=== PATIENT | male | born 1950 | race Caucasian/White ===

== ENCOUNTER → 2016-09-06 | Outpatient (CLI) | payer MEDICARE ==
--- NOTE | 2016-09-06 11:52 | CT ---
EXAMINATION TYPE: CT cervical spine wo con DATE OF EXAM: 09/06/2016 11:44 AM COMPARISON: NONE HISTORY: Gait disturbance, myopathy, leg weakness CT DLP: 1059 mGycm Automated exposure control for dose reduction was used. TECHNIQUE: CT scan of the cervical spine is obtained without contrast, axial images are obtained, sa gittal and coronal reformatted images are also reviewed. FINDINGS: Cervical spine is visualized in its entirety from C1 through upper thoracic levels, demonst rates straightened alignment without evidence of acute fracture or dislocation. Prevertebral soft ti ssue appears within normal limits. The C1-C2 articulation is within normal limits on the coronal alexandrea ges. Osseous structures are demineralized. Vertebral body heights are maintained. There is moderate disc s pace narrowing with moderate to severe spurring at C4-C5 and C5-C6 levels. There is moderate disc spa ce narrowing and spurring at C6-C7 level. Posterior disc herniations are effacing anterior thecal sac at these levels on sagittal images. Review of axial images shows the C2-C3 and C3-C4 levels to have mild right-sided uncovertebral facet degenerative changes, spinal canal is preserved and bilateral neural foramina are felt patent. Axial images at C4-C5 level shows central disc protrusion effacing anterior thecal sac on axial image 48, there is some uncovertebral facet degenerative changes and marginal spurring contributing to mod erate right and mild left-sided neural foraminal narrowing. Axial images at C5-C6 level show left broad-based paracentral disc protrusion effacing anterolateral thecal sac on axial image 55. There is marginal spurring causing moderate bilateral neural foraminal narrowing at this level. Axial images at C6-C7 level shows central disc protrusion effacing anterior thecal sac, bilateral keith ral foramina are likely patent. Axial images at C7-T1 level are felt within normal limits. Visualized thyroid gland is felt within normal limits. Visualized lung apices are grossly clear with some respiratory motion artifact present. There is partial visualization of left sided pacemaker lead s. IMPRESSION: There is no acute fracture or dislocation evident in the cervical spine. Straightening of cervical spine with multilevel degenerative changes seen most prominent at C4-C5 through C6-C7 level s is noted.
--- NOTE | 2016-09-06 11:59 | CT ---
EXAMINATION TYPE: CT lumbar spine wo con DATE OF EXAM: 09/06/2016 11:44 AM COMPARISON: NONE HISTORY: Abn gait, leg weakness, myopathy CT DLP: 1936 mGycm Automated exposure control for dose reduction was used. FINDINGS: There are 5 lumbar type vertebra identified. Lumbar spine shows satisfactory alignment without eviden ce of acute fracture or dislocation. Vertebral body heights are fairly well-maintained. There is mode rate disc space narrowing most pronounced involving the left posterior aspect with vacuum disc phenom enon and moderate spurring at L5-S1 level. There is mild disc space narrowing L4-L5 level. Inferior d isc herniation is seen at L5-S1 level on sagittal images. There is additional mild to moderate multil evel anterior and lateral spurring noted. Review of axial images shows a T12-L1 level to have mild broad disc bulge with a left foraminal disc protrusion component causing mild left-sided neural foraminal narrowing near axial image 17. Spinal c anal is preserved. Right-sided neural foramen is patent. Axial images at the L1-L2 level show mild broad disc bulge mildly effacing anterior thecal sac and ca using mild bilateral anterior inferior neural foraminal narrowing. Axial images at L2-L3 level show mild to moderate broad disc bulge effacing the anterior thecal sac a nd causing mild to moderate bilateral anterior inferior neural foraminal narrowing. Axial images at L3-L4 level show moderate broad disc bulge effacing the anterior thecal sac. There is mild to moderate facet degenerative changes and ligament flavum hypertrophy effacing posterior later al thecal sac causing a spinal canal stenosis on axial image 49. There is moderate right greater than left neural foraminal narrowing at this level identified. Axial images at L4-L5 level show moderate facet degenerative changes and ligamentum flavum hypertroph y bilaterally with some effacement the posterior lateral thecal sac. There is broad-based central dis c protrusion effacing the anterior thecal sac. There is moderate right greater than left neural roxanna inal narrowing at this level identified. Axial images at L5-S1 level show mild facet degenerative changes bilaterally. The central disc protru yaya seen but spinal canal is preserved. There is moderate bilateral neural foraminal narrowing at th is level identified. There are simple appearing 3.5 cm exophytic cyst upper pole level right kidney. There is mild to mode rate calcified atherosclerotic change of aorta and branch vessels. Some diverticula are seen in visua lized portion of the proximal sigmoid colon. IMPRESSION: MULTILEVEL DEGENERATIVE CHANGES DETAILED ABOVE MOST PRONOUNCED IN MID TO LOWER LUMBAR LEVELS. NO A CUTE FRACTURE OR DISLOCATION IS NOTED.
== END | disposition home or self-care (01) ==
LOC: RADCTMAIN 10:23
PROVIDERS: ATTEND Family Medicine
DX: M47.816 Spondylosis without myelopathy or radiculopathy, lumbar region (principal); M47.812 Spondylosis without myelopathy or radiculopathy, cervical region
CPT/HCPCS: 72125; 72131

== ENCOUNTER → 2016-09-09 | Outpatient (CLI) | payer MEDICARE ==
[2016-09-09 14:03] LABS: Calcium 9.7 mg/dL (8.4-10.2); Potassium 3.9 mmol/L (3.5-5.1)
[2016-09-17 12:44] LABS: Mis test requested (Blood) Myas Gravis Pnl 2
== END | disposition home or self-care (01) ==
LOC: LABWHC1 12:50
PROVIDERS: ATTEND Psychiatry & Neurology Neurology
DX: H53.2 Diplopia (principal); M62.81 Muscle weakness (generalized)
CPT/HCPCS: 36415; 80048; 82550; 83036; 83519

== ENCOUNTER → 2016-09-09 | Outpatient (CLI) | payer MEDICARE ==
--- NOTE | 2016-09-09 13:56 | XR ---
EXAMINATION TYPE: XR shoulder complete RT DATE OF EXAM: 09/09/2016 1:47 PM CLINICAL HISTORY: pain TECHNIQUE: Three views of the right shoulder are obtained. COMPARISON: None FINDINGS: There is no acute fracture/dislocation evident. Mild AC joint arthropathy. Subacromial spu rring may result in impingement. Correlate clinically. The visualized ribs are intact and unremarkabl e. IMPRESSION: 1. There is no acute fracture or dislocation. ICD 10 NO FRACTURE, INITIAL EVALUATION
== END | disposition home or self-care (01) ==
LOC: RADXRMAIN 13:34
PROVIDERS: ATTEND Psychiatry & Neurology Neurology
DX: M25.511 Pain in right shoulder (principal)

== ENCOUNTER → 2016-11-27 | Outpatient (CLI) | payer MEDICARE ==
[2016-11-27 11:57] LABS: Appearance,Urine Clear (Clear); Bilirubin,Urine Negative (Negative); Glucose,Urine (UA) Negative (Negative); Ketones,Urine Negative (Negative); Leukocyte Esterase,Urine Negative (Negative); Nitrite,Urine Negative (Negative); Protein,Urine Negative (Negative); Specific Gravity,Urine 1.015 (1.001-1.035); UA Billing (MACRO vs. MICRO) CHEM; Urobilinogen,Urine <2.0 mg/dL (<2.0)
[2016-11-27 11:58] LABS: Basophils % (A) 0 %; CH 29.1; CHCM 33.3; Eosinophils # (A) 0.1 k/uL (0-0.7); Eosinophils % (A) 1 %; HCT 42.8 % (39.0-53.0); HDW 2.92; HGB 14.5 gm/dL (13.0-17.5); Luc # (Auto) 0.21; Luc % (Auto) 4; Lymphocytes # (A) 1.3 k/uL (1.0-4.8); Lymphocytes % (A) 27 %; MCH 29.7 pg (25.0-35.0); MCHC 33.9 g/dL (31.0-37.0); MCV 87.6 fL (80.0-100.0); Mean Platelet Volume 7.9; Monocytes # (A) 0.3 k/uL (0-1.0); Monocytes % (A) 6 %; Neutrophils % (A) 61 %; RBC 4.89 m/uL (4.30-5.90); WBC (Perox) 5.43
[2016-11-27 12:28] LABS: Calcium 9.1 mg/dL (8.4-10.2); Magnesium 2.1 mg/dL (1.6-2.3); Phosphorous 4.1 mg/dL (2.5-4.5); Potassium 3.7 mmol/L (3.5-5.1); Uric Acid 5.8 mg/dL (3.5-8.5)
[2016-11-27 12:37] LABS: % Iron Saturation 24.6 % (20-50)
== END | disposition home or self-care (01) ==
LOC: LABWHC1 11:25
PROVIDERS: ATTEND Nurse Practitioner Family
DX: N18.3 Chronic kidney disease, stage 3 (moderate) (principal); D64.9 Anemia, unspecified; M10.9 Gout, unspecified; E21.3 Hyperparathyroidism, unspecified; E55.9 Vitamin D deficiency, unspecified; N39.0 Urinary tract infection, site not specified; D50.9 Iron deficiency anemia, unspecified; N25.81 Secondary hyperparathyroidism of renal origin
CPT/HCPCS: 36415; 80048; 81003; 82306; 82728; 83540; 83550; 83735; 83970; 84100; 84550; 85025

== ENCOUNTER → 2017-02-03 | Outpatient (CLI) | payer MEDICARE | END | disposition home or self-care (01) | LOC: LABWHC1 13:19 | PROVIDERS: ATTEND Nurse Practitioner Family | DX: N18.3 Chronic kidney disease, stage 3 (moderate) (principal) | CPT/HCPCS: 36415; 80048 ==

== ENCOUNTER → 2017-03-27 | Outpatient (CLI) | payer MEDICARE ==
[2017-03-27 11:56] LABS: EKG EKG PERFORMED
[2017-03-27 12:12] LABS: Basophils % (A) 1 %; CH 30.5; CHCM 33.9; Eosinophils # (A) 0.1 k/uL (0-0.7); Eosinophils % (A) 3 %; HCT 44.6 % (39.0-53.0); HGB 15.1 gm/dL (13.0-17.5); Luc # (Auto) 0.16; Luc % (Auto) 4; Lymphocytes # (A) 1.4 k/uL (1.0-4.8); Lymphocytes % (A) 36 %; MCH 30.6 pg (25.0-35.0); MCHC 33.8 g/dL (31.0-37.0); MCV 90.5 fL (80.0-100.0); Mean Platelet Volume 7.9; Monocytes # (A) 0.3 k/uL (0-1.0); Monocytes % (A) 8 %; Neutrophils % (A) 49 %; RBC 4.93 m/uL (4.30-5.90); RDW 14.9 % (11.5-15.5); WBC (Perox) 4.11
[2017-03-27 12:30] LABS: Anion Gap 10 mmol/L; Blood Urea Nitrogen 22 mg/dL (9-20); Calcium 8.9 mg/dL (8.4-10.2); Carbon Dioxide 27 mmol/L (22-30); Chloride 104 mmol/L (98-107); Glucose 172 mg/dL (74-99); Non-African American GFR(MDRD) 40 (>60 ml/min/1.73 sqM); Potassium 3.4 mmol/L (3.5-5.1); Sodium 141 mmol/L (137-145)
== END | disposition home or self-care (01) ==
LOC: LABPAT 11:42
PROVIDERS: ATTEND Urology
DX: Z01.810 Encounter for preprocedural cardiovascular examination (principal); E11.9 Type 2 diabetes mellitus without complications; N47.1 Phimosis; I10 Essential (primary) hypertension; Z01.812 Encounter for preprocedural laboratory examination
CPT/HCPCS: 80048; 85025; 93005

== ENCOUNTER 2017-04-03 09:23 | Day surgery (SDC) | payer MEDICARE ==
[2017-03-28 11:53] VITALS: BMI 33.4
[~2017-04-03 09:23] MED LIST: DEXAMETHASONE SOD PHOSPHATE 10 MG/ML 1 ML VIAL IV ONE; HYDROmorphone 1 MG/ML 1 ML SYRINGE IVP PRN; LACTATED RINGERS 1,000 ML IV SCH; LIDOCAINE 1% 20 ML VIAL (10MG/ML) FOR IV START INTRADERMA PRN; MIDAZOLAM 2 MG/2 ML VIAL IV PRN; ONDANSETRON 4 MG/2 ML VIAL IVP ONE; SCOPOLAMINE 1.5MG/72HR PATCH TRANSDERM ONE
[2017-04-03 10:15] LABS: Glucose,Whole Blood 136 mg/dL (75-99)
[2017-04-03 10:29] LABS: INR 1.5 (<1.2); Prothrombin Time 15.1 sec (9.0-12.0)
[2017-04-03] MEDS ORDERED: LIDOCAINE 2% INJ 20 MG/ML SQ ONE (11:22)
[2017-04-03] MEDS ORDERED: LIDOCAINE 1% INJ 10MG/ML (20 ML MDV) ONE (11:22)
[2017-04-03] MEDS ORDERED: PROPOFOL 10 MG/ML 20 ML VIAL IV ONE (11:22)
[2017-04-03] MEDS ORDERED: BUPIVACAINE (PF) 0.5% 30 ML VIAL SQ ONE (11:22)
[2017-04-03] MEDS ORDERED: MIDAZOLAM 2 MG/2 ML VIAL ONE (11:22)
[2017-04-03] MEDS ORDERED: fentaNYL (PF) 50 MCG/ML 2 ML AMP ONE (11:22)
--- NOTE | 2017-04-03 12:05 | P.OP ---
Date of Procedure: 04/03/17 Preoperative Diagnosis: Phimosis Postoperative Diagnosis: Same Procedure(s) Performed: Circumcision Implants: Anesthesia: MAC Surgeon: Haroon Mccormack Estimated Blood Loss (ml): 10 IV fluids (ml): 100 Pathology: none sent Condition: stable Disposition: PACU Indications for Procedure: He is a 66-year-old male with phimosis. He desires a circumcision for hygiene reasons. He takes warfarin for atrial fibrillation. He has been cleared by Cardiology. He understands that the warfarin will need to be held perioperatively. Operative Findings: Normal foreskin, difficult to retract. Description of Procedure: The patient was taken to the operating room and placed in the supine position. The external genitalia was prepped and draped sterilely. A 50-50 mixture of 2% lidocaine and 0.25% Marcaine was injected circumferentially at the penile base for a penile block. The scalpel was used to make a circumferential skin incision 1 cm proximal to the glans oquendo. The redundant foreskin was incised in the midline ventrally and dorsally to the desired location, and the redundant foreskin was excised. Subcutaneous bleeders were controlled with electrocautery. The skin edges were reapproximated using 3-0 chromic suture in a running fashion. An Adaptic dressing was placed over the incision, and the penis was then snugly wrapped using a 2 inch Justina with care taken not to constrict the penis in any way. The patient tolerated the procedure well and was taken to the recovery room in stable condition. He will be discharged home postoperatively.
[2017-04-03 12:14] VITALS: TEMP 97.3
[2017-04-03 12:38] LABS: Glucose,Whole Blood 176 mg/dL (75-99)
[2017-04-03 13:25] VITALS: BP 107/67; PULSE 61; RESP 18
[2017-04-03 13:34] LABS: Glucose,Whole Blood 187 mg/dL (75-99)
== END 2017-04-03 13:59 | disposition home or self-care (01) ==
LOC: OR 09:23
PROVIDERS: ATTEND Urology
DX: N47.1 Phimosis (principal); R35.1 Nocturia; R35.0 Frequency of micturition; R39.12 Poor urinary stream; I48.2 Chronic atrial fibrillation; I42.2 Other hypertrophic cardiomyopathy; I13.0 Hypertensive heart and chronic kidney disease with heart failure and stage 1 through stage 4 chronic kidney disease, or unspecified chronic kidney disease; E11.22 Type 2 diabetes mellitus with diabetic chronic kidney disease; N18.3 Chronic kidney disease, stage 3 (moderate); I50.32 Chronic diastolic (congestive) heart failure; Z95.810 Presence of automatic (implantable) cardiac defibrillator; E78.5 Hyperlipidemia, unspecified; N28.1 Cyst of kidney, acquired; I48.92 Unspecified atrial flutter; Z79.01 Long term (current) use of anticoagulants; Z79.82 Long term (current) use of aspirin; Z79.4 Long term (current) use of insulin; Z79.899 Other long term (current) drug therapy; Z87.891 Personal history of nicotine dependence
CPT/HCPCS: 84132; 85610; 54161; J2001 ×2; J2250; J1100; J2405; J3010; J2704

== ENCOUNTER → 2017-04-29 | Outpatient (CLI) | payer MEDICARE ==
[2017-04-29 12:30] LABS: Appearance,Urine Clear (Clear); Bilirubin,Urine Negative (Negative); Glucose,Urine (UA) Negative (Negative); Ketones,Urine Negative (Negative); Leukocyte Esterase,Urine Negative (Negative); Mucus,Urine Rare /hpf; Nitrite,Urine Negative (Negative); PH, Urine 5.5 (5.0-8.0); Particle Count 2081; Protein,Urine Negative (Negative); RBC,Urine 1 /hpf (0-5); Specific Gravity,Urine 1.013 (1.001-1.035); UA Billing (MACRO vs. MICRO) MICRO; Urobilinogen,Urine <2.0 mg/dL (<2.0); WBC,Urine 1 /hpf (0-5)
[2017-04-29 13:05] LABS: Calcium 9.1 mg/dL (8.4-10.2); Phosphorous 3.3 mg/dL (2.5-4.5); Potassium 3.7 mmol/L (3.5-5.1); Uric Acid 6.4 mg/dL (3.5-8.5)
[2017-04-29 13:14] LABS: % Iron Saturation 30.3 % (20-50)
[2017-04-29 13:20] LABS: Basophils % (A) 1 %; CH 31.3; CHCM 34.4; Eosinophils # (A) 0.1 k/uL (0-0.7); Eosinophils % (A) 2 %; HCT 44.8 % (39.0-53.0); HDW 2.78; HGB 14.7 gm/dL (13.0-17.5); Luc # (Auto) 0.15; Luc % (Auto) 4; Lymphocytes # (A) 1.4 k/uL (1.0-4.8); Lymphocytes % (A) 33 %; MCH 30.1 pg (25.0-35.0); MCHC 32.9 g/dL (31.0-37.0); MCV 91.4 fL (80.0-100.0); Mean Platelet Volume 8.6; Monocytes # (A) 0.4 k/uL (0-1.0); Monocytes % (A) 9 %; Neutrophils # (A) 2.1 k/uL (1.3-7.7); Neutrophils % (A) 51 %; RDW 14.8 % (11.5-15.5); WBC 4.2 k/uL (3.8-10.6); WBC (Perox) 4.21
== END | disposition home or self-care (01) ==
LOC: LABWHC1 11:41
PROVIDERS: ATTEND Nurse Practitioner Family
DX: E79.0 Hyperuricemia without signs of inflammatory arthritis and tophaceous disease (principal); N18.3 Chronic kidney disease, stage 3 (moderate); D50.9 Iron deficiency anemia, unspecified; N39.0 Urinary tract infection, site not specified
CPT/HCPCS: 36415; 80048; 81001; 82306; 82728; 83540; 83550; 83735; 83970; 84100; 84550; 85025

== ENCOUNTER → 2017-05-22 | Outpatient (CLI) | payer MEDICARE ==
--- NOTE | 2017-05-22 11:46 | US ---
EXAMINATION TYPE: US kidneys/renal and bladder DATE OF EXAM: 05/22/2017 COMPARISON: NONE CLINICAL HISTORY: Hematuria R31.9. Hematuria EXAM MEASUREMENTS: Right Kidney: 12.6 x 5.3 x 4.6cm Left Kidney: 10.3 x 5.2 x 3.9cm Right Kidney: cystic areas noted with largest = 3.8 x 4.0 x 4.0cm upper pole. Non-shadowing echogenic foci noted with largest = 0.6cm at mid . These foci could represent nonshadowing calculi, hemorrhage or fat. Left Kidney: cystic areas noted with largest = 1.2 x 1.0 x 1.0cm. Non-shadowing echogenic foci noted with largest = 0.6cm at mid. This foci could represent nonshadowing calculi, hemorrhage or fat. Bladder: appears wnl Bilateral Jets seen: no There is no evidence for hydronephrosis at this point in time. No nephrolithiasis is seen. Urinary b ladder is anechoic. Bilateral ureteral jets are seen. IMPRESSION: 1. No evidence of hydronephrosis. Unchanged bilateral nonshadowing hyperdense foci that could represe nt nonobstructing calculi, hemorrhage or fat. These are stable from the prior exam of 08/10/2015. 2. Minimally complex bilateral renal cysts.
== END | disposition home or self-care (01) ==
LOC: RADUSWWP 10:51
PROVIDERS: ATTEND Internal Medicine Nephrology
DX: R31.9 Hematuria, unspecified (principal)
CPT/HCPCS: 76770

== ENCOUNTER → 2017-10-30 | Outpatient (CLI) | payer MEDICARE ==
[2017-10-30 12:23] LABS: Appearance,Urine Clear (Clear); Bilirubin,Urine Negative (Negative); Blood,Urine Negative (Negative); Color,Urine Yellow; Glucose,Urine (UA) Negative (Negative); Ketones,Urine Negative (Negative); Leukocyte Esterase,Urine Negative (Negative); PH, Urine 5.5 (5.0-8.0); Protein,Urine Trace (Negative); Specific Gravity,Urine 1.012 (1.001-1.035); Urobilinogen,Urine <2.0 mg/dL (<2.0)
[2017-10-30 12:24] LABS: Basophils % (A) 0 %; Eosinophils # (A) 0.1 k/uL (0-0.7); Eosinophils % (A) 2 %; HCT 43.6 % (39.0-53.0); HGB 14.7 gm/dL (13.0-17.5); Lymphocytes # (A) 1.5 k/uL (1.0-4.8); Lymphocytes % (A) 36 %; MCH 29.7 pg (25.0-35.0); MCHC 33.7 g/dL (31.0-37.0); MCV 88.1 fL (80.0-100.0); Mean Platelet Volume 7.7; Monocytes # (A) 0.3 k/uL (0-1.0); Monocytes % (A) 8 %; Neutrophils % (A) 50 %; Platelet Count 125 k/uL (150-450); RBC 4.95 m/uL (4.30-5.90); RDW 13.7 % (11.5-15.5)
[2017-10-30 12:45] LABS: Calcium 9.2 mg/dL (8.4-10.2); Phosphorus 3.9 mg/dL (2.5-4.5); Potassium 4.1 mmol/L (3.5-5.1); Uric Acid 5.7 mg/dL (3.5-8.5)
[2017-10-30 16:36] LABS: Iron Saturation 24.1 (15.00-50.00)
[2017-10-30 17:30] LABS: Parathyroid Hormone Intact 169.5 pg/mL (14.0-72.0)
[2017-10-30 22:12] LABS: Hemoglobin A1C 7.8 % (4.0-6.0)
== END | disposition home or self-care (01) ==
LOC: LABWHC1 11:39
PROVIDERS: ATTEND Nurse Practitioner Family
DX: N18.3 Chronic kidney disease, stage 3 (moderate) (principal); E79.0 Hyperuricemia without signs of inflammatory arthritis and tophaceous disease; D50.9 Iron deficiency anemia, unspecified; N25.81 Secondary hyperparathyroidism of renal origin; E11.9 Type 2 diabetes mellitus without complications; N39.0 Urinary tract infection, site not specified
CPT/HCPCS: 36415; 80048; 81003; 82306; 82728; 83036; 83540; 83550; 83735; 83970; 84100; 84550; 85025

== ENCOUNTER → 2018-03-05 | Outpatient (CLI) | payer MEDICARE ==
[2018-03-05 12:48] LABS: Basophils % (A) 1 %; Eosinophils # (A) 0.1 k/uL (0-0.7); Eosinophils % (A) 2 %; HCT 42.9 % (39.0-53.0); HGB 14.7 gm/dL (13.0-17.5); Lymphocytes # (A) 1.8 k/uL (1.0-4.8); Lymphocytes % (A) 38 %; MCHC 34.3 g/dL (31.0-37.0); MCV 87.5 fL (80.0-100.0); Mean Platelet Volume 7.5; Monocytes # (A) 0.3 k/uL (0-1.0); Monocytes % (A) 7 %; Neutrophils # (A) 2.3 k/uL (1.3-7.7); Neutrophils % (A) 49 %; Platelet Count 133 k/uL (150-450); RBC 4.91 m/uL (4.30-5.90); WBC 4.6 k/uL (3.8-10.6)
[2018-03-05 12:54] LABS: Calcium 8.8 mg/dL (8.4-10.2); Magnesium 2.1 mg/dL (1.6-2.3); Phosphorus 3.8 mg/dL (2.5-4.5); Potassium 3.9 mmol/L (3.5-5.1)
[2018-03-05 13:07] LABS: Amorphous Sediment,Urine Rare /hpf; Appearance,Urine Clear (Clear); Bilirubin,Urine Negative (Negative); Blood,Urine Negative (Negative); Color,Urine Yellow; Glucose,Urine (UA) Negative (Negative); Hyaline Casts,Urine 7 /lpf (0-2); Ketones,Urine Negative (Negative); Leukocyte Esterase,Urine Large (Negative); Mucus,Urine Rare /hpf; Nitrite,Urine Negative (Negative); Protein,Urine Trace (Negative); Specific Gravity,Urine 1.016 (1.001-1.035); Squamous Epithelial Cell,Urine 2 /hpf (0-4); Urobilinogen,Urine <2.0 mg/dL (<2.0); WBC,Urine 2 /hpf (0-5)
[2018-03-05 20:14] LABS: Iron Saturation 26.67 (15.00-50.00)
[2018-03-05 20:22] LABS: Vitamin D 25 Hydroxy 30.8 ng/mL (30.0-100.0)
[2018-03-05 21:33] LABS: Parathyroid Hormone Intact 126.3 pg/mL (14.0-72.0)
== END | disposition home or self-care (01) ==
LOC: LABWHC1 11:32
PROVIDERS: ATTEND Internal Medicine Nephrology
DX: E55.9 Vitamin D deficiency, unspecified (principal); N25.81 Secondary hyperparathyroidism of renal origin; N18.3 Chronic kidney disease, stage 3 (moderate); D63.1 Anemia in chronic kidney disease; E21.3 Hyperparathyroidism, unspecified; M10.9 Gout, unspecified; R80.9 Proteinuria, unspecified
CPT/HCPCS: 36415; 80048; 81001; 82040; 82306; 82728; 83540; 83550; 83735; 83970; 84100; 84550; 85025

== ENCOUNTER → 2018-04-07 | Outpatient (CLI) | payer MEDICARE | END | disposition home or self-care (01) | LOC: RADCTMAIN 12:54 | PROVIDERS: ATTEND Ophthalmology | DX: H50.15 Alternating exotropia (principal); Z53.9 Procedure and treatment not carried out, unspecified reason | CPT/HCPCS: 82565; 84520 ==

== ENCOUNTER → 2018-04-21 | Outpatient (CLI) | payer MEDICARE ==
--- NOTE | 2018-04-21 23:03 | CT ---
EXAMINATION TYPE: CT brain wo/w con, CT orbits wo/w con DATE OF EXAM: 04/21/2018 COMPARISON: CT brain August 28, 2016 HISTORY: exotropia. hx mini strokes (accession [id number]), exotropia/mini strokes (accession [id number]) CT DLP: 2290.80 (accession [id number]), 691.90 (accession [id number]) mGycm Automated exposure control for dose reduction was used. CONTRAST: CT scan of the head and orbits are performed without and with IV Contrast, patient injected with 80 ( accession [id number]), [address] (accession [id number]) mL of Isovue 300. FINDINGS: There is no acute intracranial hemorrhage or midline shift identified. There is ventricular and sulca l prominence consistent with diffuse cerebral atrophy. There is more prominent low attenuation in the deep and periventricular white matter. The calvarium is intact. Postcontrast images show no suspici ous enhancing intraparenchymal mass. There is however vascular prominence suspicious for aneurysm or level of the anterior communicating artery axial image 23 that warrants follow-up. The orbital floors and reed are intact bilaterally. The globes are intact bilaterally. There is dive rgent lens or lateral positioning of the left lens. Both lenses are thinned versus prior 2016 CT rais ing concern for underlying cataracts. Rectus muscles are symmetric and felt within normal limits. No suspicious enhancement is seen but there is suboptimal bolus or poor enhancement of vessels noted on postcontrast images. Intraconal fat is preserved bilaterally. Suprasellar cistern is maintained. Opti c chiasm is unremarkable. Suboptimal bolus or enhancement noted on postcontrast images IMPRESSION: 1. There is mild diffuse cerebral atrophy and moderate to advanced chronic small vessel ischemic mendoza ge redemonstrated. No enhancing intraparenchymal masses are noted. 2. New lines divergence raises concern for strabismus, lateral positioning left lens is noted. Thinni ng of both sinuses is suggestive of cataracts. Correlate clinically. 3. Possible aneurysm near level of anterior communicating artery. Advise MRA or CTA of the [place] to further evaluate.
== END | disposition home or self-care (01) ==
LOC: RADCTMAIN 16:55
PROVIDERS: ATTEND Ophthalmology
DX: I67.82 Cerebral ischemia (principal); G31.89 Other specified degenerative diseases of nervous system
CPT/HCPCS: 82565; 84520; 70470; 70482; 36415; Q9967

== ENCOUNTER → 2018-04-23 | Outpatient (CLI) | payer MEDICARE ==
[2018-04-23 16:19] LABS: Potassium 4.2 mmol/L (3.5-5.1)
== END | disposition home or self-care (01) ==
LOC: LABWHC1 15:16
PROVIDERS: ATTEND Internal Medicine Nephrology
DX: N18.3 Chronic kidney disease, stage 3 (moderate) (principal)
CPT/HCPCS: 36415; 80048

== ENCOUNTER → 2018-05-01 | Outpatient (CLI) | payer MEDICARE ==
--- NOTE | 2018-05-03 22:52 | CT ---
EXAMINATION TYPE: CT angio COW [place] DATE OF EXAM: 05/01/2018 COMPARISON: Correlation CT brain 04/21/2018 HISTORY: 67-year-old male Exotropia x 2-3 years. Cerebral aneurysm anterior communicating artery. TECHNIQUE: Contiguous axial scanning of the brain with IV Contrast, patient injected with 65 mL of Is ovue 370. Coronal and sagittal MIP reconstructions performed. 3-D reconstructions generated on a [employer] Experience workstation. CT DLP: 1514 mGycm Automated exposure control for dose reduction was used. FINDINGS: There is confirmation of a 5.7 mm AP by 4.3 mm wide saccular aneurysm of the right paramedian anterio r communicator artery projecting anteriorly. The A1 segment left anterior cerebral artery is hypoplastic. Otherwise, no significant stenosis, arterial occlusion, or other aneurysmal change seen. IMPRESSION: CONFIRMATION OF A 5.7 mm saccular aneurysm projecting anteriorly of the anterior communicating artery . No additional aneurysmal change seen. 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
== END | disposition home or self-care (01) ==
LOC: RADCTMAIN 16:08
PROVIDERS: ATTEND Ophthalmology
DX: Q28.3 Other malformations of cerebral vessels (principal)
CPT/HCPCS: 70496; Q9967

== ENCOUNTER → 2018-07-27 | Outpatient (CLI) | payer MEDICARE ==
[2018-07-27 13:46] LABS: Basophils % (A) 0 %; Eosinophils # (A) 0.1 k/uL (0-0.7); Eosinophils % (A) 2 %; HCT 45.7 % (39.0-53.0); HGB 14.7 gm/dL (13.0-17.5); Lymphocytes # (A) 1.5 k/uL (1.0-4.8); Lymphocytes % (A) 30 %; MCH 28.7 pg (25.0-35.0); MCHC 32.3 g/dL (31.0-37.0); Mean Platelet Volume 7.8; Monocytes # (A) 0.3 k/uL (0-1.0); Monocytes % (A) 7 %; Neutrophils # (A) 2.9 k/uL (1.3-7.7); Neutrophils % (A) 59 %; Platelet Count 151 k/uL (150-450); RBC 5.13 m/uL (4.30-5.90); RDW 14.4 % (11.5-15.5); WBC 4.9 k/uL (3.8-10.6)
[2018-07-27 13:48] LABS: Appearance,Urine Clear (Clear); Bilirubin,Urine Negative (Negative); Blood,Urine Negative (Negative); Color,Urine Yellow; Glucose,Urine (UA) Negative (Negative); Ketones,Urine Negative (Negative); Leukocyte Esterase,Urine Negative (Negative); Nitrite,Urine Negative (Negative); PH, Urine 5.5 (5.0-8.0); Protein,Urine Trace (Negative); Specific Gravity,Urine 1.018 (1.001-1.035); Urobilinogen,Urine <2.0 mg/dL (<2.0)
[2018-07-27 17:49] LABS: Iron Saturation 20.14 (15.00-50.00)
[2018-07-27 17:54] LABS: Parathyroid Hormone Intact 122.6 pg/mL (14.0-72.0)
[2018-07-27 17:56] LABS: Anion Gap 4.9 mmol/L (4.00-12.00); Calcium 8.7 mg/dL (8.7-10.3); Carbon Dioxide 30.1 mmol/L (21.6-31.8); Phosphorus 3.2 mg/dL (2.4-5.1); Potassium 3.5 mmol/L (3.5-5.5)
[2018-07-27 17:58] LABS: Vitamin D 25 Hydroxy 35.7 ng/mL (30.0-100.0)
== END | disposition home or self-care (01) ==
LOC: LABWHC1 11:26
PROVIDERS: ATTEND Internal Medicine Nephrology
DX: N25.81 Secondary hyperparathyroidism of renal origin (principal); N18.3 Chronic kidney disease, stage 3 (moderate)
CPT/HCPCS: 36415; 80048; 81003; 82306; 82728; 83540; 83550; 83735; 83970; 84100; 84550; 85025

== ENCOUNTER → 2018-08-19 | Outpatient (CLI) | payer MEDICARE ==
--- NOTE | 2018-08-19 14:52 | US ---
EXAMINATION TYPE: US kidneys/renal and bladder DATE OF EXAM: 08/19/2018 COMPARISON: CLINICAL HISTORY: N18.3 CKD Stage 3. CKD, no pain, hx renal cysts EXAM MEASUREMENTS: Right Kidney: 9.3 x 4.4 x 5.0 cm Left Kidney: 9.4 x 4.8 x 5.4 cm Right Kidney: Multiple cystic appearing lesions seen. Largest upper pole - 4.0 x 4.4 x 4.3 cm. Nons hadowing echogenic focus in mid- 0.6 cm Left Kidney: Multiple cystic appearing lesions seen. Largest lower pole- 1.1 x 1.1 x 1.1 cm. Nonsha dowing echogenic focus in mid = 0.5 cm Bladder: bladder wall= 5.6 mm, bladder not well distended. Bilateral Jets not seen Multiple thin-walled cysts scattered throughout both kidneys are redemonstrated. Bladder is poorly di stended and thus suboptimally evaluated. Kidneys are lower limits of normal in size with some cortica l thinning. IMPRESSION: Findings consistent with product of chronic medical renal disease redemonstrated. No hydronephrosis i s noted bilaterally.
== END ==
LOC: RADUSWWP 12:10
PROVIDERS: ATTEND Internal Medicine Nephrology
DX: N18.3 Chronic kidney disease, stage 3 (moderate) (principal)
CPT/HCPCS: 76770

== ENCOUNTER → 2018-12-23 | Outpatient (CLI) | payer MEDICARE ==
[2018-12-23 19:38] LABS: Anion Gap 8.9 mmol/L (4.00-12.00); Carbon Dioxide 28.1 mmol/L (21.6-31.8); Potassium 3.5 mmol/L (3.5-5.5)
== END | disposition home or self-care (01) ==
LOC: LABWHC1 14:18
PROVIDERS: ATTEND Nurse Practitioner Family
DX: N18.3 Chronic kidney disease, stage 3 (moderate) (principal)
CPT/HCPCS: 36415; 80048

== ENCOUNTER → 2019-01-18 | Outpatient (CLI) | payer MEDICARE | END | disposition home or self-care (01) | LOC: LABWHC1 13:10 | PROVIDERS: ATTEND Internal Medicine Cardiovascular Disease | DX: E78.5 Hyperlipidemia, unspecified (principal) | CPT/HCPCS: 36415; 83704 ==

== ENCOUNTER → 2019-04-27 | Outpatient (CLI) | payer MEDICARE ==
[2019-04-27 13:49] LABS: Basophils % (A) 0 %; Eosinophils # (A) 0.1 k/uL (0-0.7); Eosinophils % (A) 2 %; HCT 39.6 % (39.0-53.0); HGB 13.1 gm/dL (13.0-17.5); Lymphocytes # (A) 1.5 k/uL (1.0-4.8); Lymphocytes % (A) 35 %; MCH 29.2 pg (25.0-35.0); MCHC 33.1 g/dL (31.0-37.0); MCV 88.1 fL (80.0-100.0); Mean Platelet Volume 7.8; Monocytes # (A) 0.3 k/uL (0-1.0); Monocytes % (A) 7 %; Neutrophils # (A) 2.3 k/uL (1.3-7.7); Neutrophils % (A) 54 %; Platelet Count 115 k/uL (150-450); RDW 13.7 % (11.5-15.5); WBC 4.3 k/uL (3.8-10.6)
[2019-04-27 13:54] LABS: Appearance,Urine Clear (Clear); Bacteria,Urine Rare /hpf; Bilirubin,Urine Negative (Negative); Blood,Urine Trace (Negative); Color,Urine Yellow; Glucose,Urine (UA) Trace (Negative); Ketones,Urine Negative (Negative); Leukocyte Esterase,Urine Large (Negative); Mucus,Urine Occasional /hpf; Nitrite,Urine Negative (Negative); Protein,Urine 1+ (Negative); RBC,Urine 1 /hpf (0-5); Squamous Epithelial Cell,Urine 2 /hpf (0-4); WBC,Urine 4 /hpf (0-5)
[2019-04-27 18:42] LABS: Iron Saturation 25.49 (15.00-50.00)
[2019-04-27 19:39] LABS: Anion Gap 9.7 mmol/L (4.00-12.00); BUN/Creat Ratio 11.18 Ratio (12.00-20.00); Carbon Dioxide 27.3 mmol/L (21.6-31.8); Magnesium 2.2 mg/dL (1.5-2.4); Phosphorus 3.4 mg/dL (2.4-5.1); Potassium 3.2 mmol/L (3.5-5.5); Uric Acid 4.3 mg/dL (3.7-8.7)
== END | disposition home or self-care (01) ==
LOC: LABWHC1 13:03
PROVIDERS: ATTEND Nurse Practitioner Family
DX: N39.0 Urinary tract infection, site not specified (principal); N18.3 Chronic kidney disease, stage 3 (moderate); N25.81 Secondary hyperparathyroidism of renal origin; M10.9 Gout, unspecified; D63.1 Anemia in chronic kidney disease
CPT/HCPCS: 36415; 80048; 81001; 82728; 83540; 83550; 83735; 83970; 84100; 84550; 85025

== ENCOUNTER → 2019-08-31 | Outpatient (CLI) | payer MEDICARE ==
[2019-08-31 17:00] LABS: Basophils % (A) 1 %; Eosinophils # (A) 0.1 k/uL (0-0.7); Eosinophils % (A) 2 %; HCT 43.5 % (39.0-53.0); HGB 14.1 gm/dL (13.0-17.5); Lymphocytes # (A) 1.6 k/uL (1.0-4.8); Lymphocytes % (A) 29 %; MCH 29.1 pg (25.0-35.0); MCHC 32.4 g/dL (31.0-37.0); MCV 89.8 fL (80.0-100.0); Mean Platelet Volume 9.7; Monocytes # (A) 0.4 k/uL (0-1.0); Monocytes % (A) 6 %; Neutrophils # (A) 3.4 k/uL (1.3-7.7); Neutrophils % (A) 60 %; Platelet Count 100 k/uL (150-450); RBC 4.85 m/uL (4.30-5.90); RDW 13.3 % (11.5-15.5); WBC 5.7 k/uL (3.8-10.6)
[2019-08-31 17:07] LABS: Appearance,Urine Clear (Clear); Bilirubin,Urine Negative (Negative); Blood,Urine Negative (Negative); Color,Urine Light Yellow; Glucose,Urine (UA) 3+ (Negative); Ketones,Urine Negative (Negative); Leukocyte Esterase,Urine Negative (Negative); Nitrite,Urine Negative (Negative); PH, Urine 6.5 (5.0-8.0); Protein,Urine Negative (Negative); Specific Gravity,Urine 1.009 (1.001-1.035); Urobilinogen,Urine <2.0 mg/dL (<2.0)
[2019-08-31 23:31] LABS: % Iron Saturation 20.55 (15.00-50.00); African American GFR (CKD) 46.7 (60.0-200.0); Albumin 4.3 g/dL (3.80-4.90); Anion Gap 6.6 mmol/L (4.00-12.00); BUN/Creat Ratio 12.35 Ratio (12.00-20.00); Calcium 8.8 mg/dL (8.7-10.3); Carbon Dioxide 31.4 mmol/L (21.6-31.8); Magnesium 2.2 mg/dL (1.5-2.4); Non-African American GFR(CKD) 40.3 (60.0-200.0); Potassium 3.2 mmol/L (3.5-5.5); Uric Acid 4.1 mg/dL (3.7-8.7)
[2019-08-31 23:40] LABS: Ferritin 219.8 ng/mL (22.0-322.0)
[2019-09-01 00:07] LABS: Creatinine,Urine Random 42.4 mg/dL
[2019-09-01 01:29] LABS: Total Protein,Urine Random 10.3 mg/dL (0.0-13.5)
== END | disposition home or self-care (01) ==
LOC: LABMAIN 13:38
PROVIDERS: ATTEND Internal Medicine Nephrology
DX: N25.81 Secondary hyperparathyroidism of renal origin (principal); N18.3 Chronic kidney disease, stage 3 (moderate); D63.1 Anemia in chronic kidney disease; N39.0 Urinary tract infection, site not specified; M10.9 Gout, unspecified; R80.9 Proteinuria, unspecified
CPT/HCPCS: 36415; 80048; 81003; 82040; 82306; 82570; 82728; 83540; 83550; 83735; 83970; 84100; 84156; 84550; 85025

== ENCOUNTER → 2020-02-01 | Outpatient (CLI) | payer MEDICARE | END | disposition home or self-care (01) | LOC: LABWHC1 14:04 | PROVIDERS: ATTEND Family Medicine | DX: Z53.9 Procedure and treatment not carried out, unspecified reason (principal) ==

== ENCOUNTER → 2020-02-01 | Outpatient (CLI) | payer MEDICARE ==
[2020-02-01 14:58] LABS: Basophils % (A) 0 %; Eosinophils # (A) 0.1 k/uL (0-0.7); Eosinophils % (A) 3 %; HCT 42.6 % (39.0-53.0); HGB 13.5 gm/dL (13.0-17.5); Lymphocytes # (A) 1.6 k/uL (1.0-4.8); Lymphocytes % (A) 34 %; MCH 28.5 pg (25.0-35.0); MCHC 31.7 g/dL (31.0-37.0); MCV 89.8 fL (80.0-100.0); Mean Platelet Volume 8.8; Monocytes # (A) 0.3 k/uL (0-1.0); Monocytes % (A) 7 %; Neutrophils # (A) 2.4 k/uL (1.3-7.7); Neutrophils % (A) 51 %; Platelet Count 112 k/uL (150-450); RBC 4.74 m/uL (4.30-5.90); RDW 13.1 % (11.5-15.5); WBC 4.6 k/uL (3.8-10.6)
[2020-02-01 15:08] LABS: Amorphous Sediment,Urine Rare /hpf; Appearance,Urine Clear (Clear); Bilirubin,Urine Negative (Negative); Blood,Urine Negative (Negative); Color,Urine Yellow; Glucose,Urine (UA) Trace (Negative); Hyaline Casts,Urine 12 /lpf (0-2); Ketones,Urine Negative (Negative); Leukocyte Esterase,Urine Small (Negative); Mucus,Urine Occasional /hpf; Nitrite,Urine Negative (Negative); PH, Urine 6.5 (5.0-8.0); Protein,Urine Trace (Negative); Specific Gravity,Urine 1.018 (1.001-1.035); Squamous Epithelial Cell,Urine 1 /hpf (0-4); WBC,Urine 3 /hpf (0-5)
[2020-02-01 15:20] LABS: Protein/Creatinine Ratio,Urine 0.086
[2020-02-01 20:09] LABS: Ferritin 155.2 ng/mL (22.0-322.0)
[2020-02-01 20:11] LABS: % Iron Saturation 38.46 (15.00-50.00); African American GFR (CKD) 43.5 (60.0-200.0); Albumin/Globulin Ratio 1.74 (1.60-3.17); Anion Gap 5.3 mmol/L (4.00-12.00); BUN/Creat Ratio 10.56 Ratio (12.00-20.00); Calcium 8.8 mg/dL (8.7-10.3); Carbon Dioxide 28.7 mmol/L (21.6-31.8); Chol/HDL Ratio 3.09; Globulin 2.3 g/dL (1.6-3.3); LDL Cholesterol,Calculated 29.6 mg/dL (0.0-131.0); Magnesium 2.2 mg/dL (1.5-2.4); Non-African American GFR(CKD) 37.6 (60.0-200.0); Phosphorus 3.2 mg/dL (2.4-5.1); Potassium 4.2 mmol/L (3.5-5.5); Total Bilirubin 0.7 mg/dL (0.3-1.2); Total Protein 6.3 g/dL (6.2-8.2); VLDL Calculation 18.4 mg/dL (5.00-40.00)
[2020-02-01 22:36] LABS: Hemoglobin A1C 8.3 % (4.0-6.0)
== END | disposition home or self-care (01) ==
LOC: LABWHC1 14:06
PROVIDERS: ATTEND Internal Medicine Nephrology
DX: N18.3 Chronic kidney disease, stage 3 (moderate) (principal); M10.9 Gout, unspecified; N39.0 Urinary tract infection, site not specified; D64.9 Anemia, unspecified; R80.9 Proteinuria, unspecified
CPT/HCPCS: 36415; 80053; 80061; 81001; 82306; 82550; 82570; 82728; 83036; 83540; 83550; 83735; 83970; 84100; 84156; 84550; 85025

== ENCOUNTER → 2020-02-29 | Outpatient (CLI) | payer MEDICARE ==
--- NOTE | 2020-02-29 15:47 | CT ---
EXAMINATION TYPE: CT angio head neck DATE OF EXAM: 02/29/2020 COMPARISON: 05/01/2018 HISTORY: Known aneurysm. Follow up scan CT DLP: 484.2 mGycm CONTRAST: Performed with IV Contrast, patient injected with 65 mL of Isovue 370. Combination Contrast CTA cervical carotids and [place] CTA cervical carotids with 3-D recons truction Contrast CTA of the cervical carotids was performed 3-D reconstruction imaging obtained at a separate workstation. Right carotid system: Mild plaque is seen of the right common carotid artery. There is mild plaque a lso noted at the carotid bulb and proximal ICA. No significant diameter reduction. ECA is patent. Right vertebral artery appears unremarkable. Left carotid system: Mild plaque is seen of the left common carotid artery. There is mild plaque als o noted at the carotid bulb and proximal ICA. No significant diameter reduction. ECA is patent. Lef t vertebral artery appears unremarkable. IMPRESSION: 1. No significant diameter reduction to account for the patient's symptoms. CTA [place] with 3-D reconstruction Contrast CTA of the [place] was performed 3-D reconstruction imaging obtained at a separate workstation. Vertebrobasilar system as well as intracranial portions of the internal carotid arteries and their ma alissa tributaries are patent again noted is a 5.5 x 4.2 mm saccular aneurysm of the anterior communicat ing artery. Left A1 segment is noted to be hypoplastic. Please note MRI provides greater sensitivity and specificity. Visualized brain appears grossly unremarkable. IMPRESSION: 1. Stable aneurysm of the anterior communicating artery.
== END | disposition home or self-care (01) ==
LOC: RADCTMAIN 11:28
PROVIDERS: ATTEND Psychiatry & Neurology Neurology
DX: I67.1 Cerebral aneurysm, nonruptured (principal)
CPT/HCPCS: 82565; 84520; 70496; 70498; 36415; Q9967

== ENCOUNTER → 2020-04-03 | Outpatient (CLI) | payer MEDICARE ==
[2020-04-03 15:39] LABS: HCT 41.1 % (39.0-53.0); HGB 13.3 gm/dL (13.0-17.5); MCH 29.2 pg (25.0-35.0); MCHC 32.2 g/dL (31.0-37.0); MCV 90.4 fL (80.0-100.0); Mean Platelet Volume 7.8; Platelet Count 113 k/uL (150-450); RBC 4.55 m/uL (4.30-5.90); RDW 13.6 % (11.5-15.5); WBC 4.4 k/uL (3.8-10.6)
[2020-04-03 23:25] LABS: INR 1.5 (0.90-1.11); Prothrombin Time 15.8 sec (9.9-11.9)
[2020-04-04 02:53] LABS: African American GFR (CKD) 46.7 (60.0-200.0); Albumin 4.1 g/dL (3.80-4.90); Albumin/Globulin Ratio 1.64 (1.60-3.17); BUN/Creat Ratio 8.82 Ratio (12.00-20.00); Calcium 9.3 mg/dL (8.7-10.3); Globulin 2.5 g/dL (1.6-3.3); LDL Cholesterol,Calculated 35.2 mg/dL (0.0-131.0); Non-African American GFR(CKD) 40.3 (60.0-200.0); Potassium 4.7 mmol/L (3.5-5.5); Total Bilirubin 0.5 mg/dL (0.2-1.2); Total Protein 6.6 g/dL (6.2-8.2); Uric Acid 4.1 mg/dL (3.7-8.7); VLDL Calculation 16.8 mg/dL (5.00-40.00)
== END | disposition home or self-care (01) ==
LOC: LABWHC1 14:50
PROVIDERS: ATTEND Family Medicine
DX: I12.9 Hypertensive chronic kidney disease with stage 1 through stage 4 chronic kidney disease, or unspecified chronic kidney disease (principal); N18.3 Chronic kidney disease, stage 3 (moderate); E11.22 Type 2 diabetes mellitus with diabetic chronic kidney disease; E11.40 Type 2 diabetes mellitus with diabetic neuropathy, unspecified; Z51.81 Encounter for therapeutic drug level monitoring; Z79.899 Other long term (current) drug therapy
CPT/HCPCS: 36415; 80053; 80061; 84550; 85027; 85610

== ENCOUNTER → 2020-05-05 | Outpatient (CLI) | payer MEDICARE ==
[2020-05-05 14:16] LABS: Appearance,Urine Clear (Clear); Bilirubin,Urine Negative (Negative); Blood,Urine Negative (Negative); Color,Urine Yellow; Glucose,Urine (UA) Negative (Negative); Hyaline Casts,Urine 3 /lpf (0-2); Ketones,Urine Negative (Negative); Leukocyte Esterase,Urine Moderate (Negative); Mucus,Urine Rare /hpf; Nitrite,Urine Negative (Negative); Protein,Urine Trace (Negative); RBC,Urine 1 /hpf (0-5); Specific Gravity,Urine 1.017 (1.001-1.035); Squamous Epithelial Cell,Urine 2 /hpf (0-4); Urobilinogen,Urine <2.0 mg/dL (<2.0); WBC,Urine 1 /hpf (0-5)
[2020-05-05 14:18] LABS: Basophils % (A) 1 %; Eosinophils # (A) 0.1 k/uL (0-0.7); Eosinophils % (A) 2 %; HCT 39.3 % (39.0-53.0); HGB 12.7 gm/dL (13.0-17.5); Lymphocytes # (A) 1.9 k/uL (1.0-4.8); Lymphocytes % (A) 35 %; MCH 28.6 pg (25.0-35.0); MCHC 32.2 g/dL (31.0-37.0); MCV 88.6 fL (80.0-100.0); Mean Platelet Volume 8.2; Monocytes # (A) 0.4 k/uL (0-1.0); Monocytes % (A) 7 %; Neutrophils # (A) 2.7 k/uL (1.3-7.7); Neutrophils % (A) 51 %; Platelet Count 125 k/uL (150-450); RBC 4.44 m/uL (4.30-5.90); WBC 5.3 k/uL (3.8-10.6)
[2020-05-05 20:49] LABS: Ferritin 127.3 ng/mL (22.0-322.0)
[2020-05-05 20:55] LABS: % Iron Saturation 17.71 (15.00-50.00); African American GFR (CKD) 50.2 (60.0-200.0); Albumin 4.1 g/dL (3.80-4.90); Anion Gap 7.7 mmol/L (4.00-12.00); Calcium 8.8 mg/dL (8.7-10.3); Carbon Dioxide 28.3 mmol/L (21.6-31.8); Magnesium 2.1 mg/dL (1.5-2.4); Non-African American GFR(CKD) 43.3 (60.0-200.0); Phosphorus 3.8 mg/dL (2.4-5.1); Potassium 3.4 mmol/L (3.5-5.5)
[2020-05-05 21:16] LABS: Total Protein,Urine Random 36.2 mg/dL (0.0-13.5)
== END | disposition home or self-care (01) ==
LOC: LABWHC1 11:48
PROVIDERS: ATTEND Internal Medicine Nephrology
DX: N18.3 Chronic kidney disease, stage 3 (moderate) (principal); N25.81 Secondary hyperparathyroidism of renal origin; M10.9 Gout, unspecified; N39.0 Urinary tract infection, site not specified; D63.1 Anemia in chronic kidney disease; R80.9 Proteinuria, unspecified; E55.9 Vitamin D deficiency, unspecified
CPT/HCPCS: 36415; 80048; 81001; 82040; 82570; 82728; 83540; 83550; 83735; 83970; 84100; 84156; 84550; 85025

== ENCOUNTER → 2020-05-15 | Outpatient (CLI) | payer MEDICARE | END | disposition home or self-care (01) | LOC: LABWHC1 13:57 | PROVIDERS: ATTEND Nurse Practitioner Family | DX: E87.6 Hypokalemia (principal) | CPT/HCPCS: 36415; 84132 ==

== ENCOUNTER 2020-07-07 11:22 | Emergency (ER) | payer MEDICARE ==
[2020-07-07 11:58] VITALS: TEMP 98
--- NOTE | 2020-07-07 12:35 | XR ---
EXAMINATION TYPE: XR foot complete RT DATE OF EXAM: 07/07/2020 COMPARISON: None HISTORY: Pain, swelling TECHNIQUE: Three-view right foot FINDINGS: There is a tiny ossification adjacent to the proximal phalanx second digit could be an old fracture avulsion. No acute osseous abnormality is evident. Secondary ossification centers are at the fifth metatarsal base. There is lucency within the mid diaphysis second digit proximal phalanx felt to more likely be artifa ct. Cortical disruption is not identified. Correlate with location of the patient's pain. Small plantar calcaneal heel spur is present. IMPRESSION: 1. No acute displaced fractures evident. 2. An occult fracture of the mid diaphysis second possible metatarsal can be considered.
[2020-07-07 13:34] LABS: Basophils % (A) 0 %; Eosinophils # (A) 0.1 k/uL (0-0.7); Eosinophils % (A) 2 %; HCT 42.8 % (39.0-53.0); HGB 14.3 gm/dL (13.0-17.5); Lymphocytes # (A) 1.6 k/uL (1.0-4.8); Lymphocytes % (A) 32 %; MCH 30.2 pg (25.0-35.0); MCHC 33.5 g/dL (31.0-37.0); MCV 90.1 fL (80.0-100.0); Monocytes # (A) 0.4 k/uL (0-1.0); Monocytes % (A) 7 %; Neutrophils # (A) 2.8 k/uL (1.3-7.7); Neutrophils % (A) 56 %; Platelet Count 121 k/uL (150-450); RBC 4.75 m/uL (4.30-5.90); RDW 13.3 % (11.5-15.5)
[2020-07-07 13:47] LABS: African American GFR (CKD) 41 (>60 ml/min/1.73 sqM); Anion Gap 8 mmol/L; Blood Urea Nitrogen 39 mg/dL (9-20); C Reactive Protein <5.0 mg/L (<10.0); Calcium 9.6 mg/dL (8.4-10.2); Carbon Dioxide 23 mmol/L (22-30); Chloride 105 mmol/L (98-107); Glucose 267 mg/dL (74-99); Magnesium 2.3 mg/dL (1.6-2.3); Non-African American GFR(CKD) 36 (>60 ml/min/1.73 sqM); Sodium 136 mmol/L (137-145)
[2020-07-07 13:48] LABS: Potassium 5.2 mmol/L (3.5-5.1)
[2020-07-07] MEDS ORDERED: cefTRIAXone IN SWFI 1,000 MG/10 ML SYRINGE IVP STA (14:14)
--- NOTE | 2020-07-07 14:23 | ED ---
General Adult HPI - General Chief complaint: Wound/Laceration Stated complaint: diabetic wounds on feet Time Seen by Provider: 07/07/20 12:53 Source: patient, RN notes reviewed, old records reviewed Mode of arrival: wheelchair Limitations: no limitations - History of Present Illness Initial comments: 70-year-old male resents from the wound center for evaluation of wound on the top of the second digit right toe. Patient states he did receive a shot of antibiotics by his primary care physician but has not been on oral antibiotics. He was seen at the wound center there was some debridement of this wound and he was sent to the emergency department for evaluation. Patient denies fever. He denies significant pain. Denies trauma to the foot. - Related Data Home Medications Medication Instructions Recorded Confirmed Cyclobenzaprine [Flexeril] 10 mg PO HS 01/27/14 07/07/20 Furosemide 80 mg PO DAILY 01/27/14 07/07/20 Tamsulosin HCl 0.4 mg PO DAILY 01/27/14 07/07/20 Warfarin Sodium 3.75 mg PO SUMOWEFRSA 01/27/14 07/07/20 Isosorbide Mononitrate [Imdur] 60 mg PO DAILY 05/30/14 07/07/20 Nitroglycerin Sl Tabs [Nitrostat] 0.4 mg SUBLINGUAL Q5M PRN 05/30/14 07/07/20 allopurinoL [Zyloprim] 150 mg PO DAILY 08/04/15 07/07/20 Aspirin EC [Ecotrin Low Dose] 81 mg PO DAILY 08/28/16 07/07/20 calcitrioL [Rocaltrol] 0.25 mcg PO MOTUWETH 08/28/16 07/07/20 Gabapentin [Neurontin] 600 mg PO BID 03/28/17 07/07/20 DULoxetine HCL [Cymbalta] 120 mg PO DAILY 07/07/20 07/07/20 Ergocalciferol (Vitamin D2) 50,000 unit PO Q30D 07/07/20 07/07/20 [Drisdol] Ezetimibe [Zetia] 10 mg PO DAILY 07/07/20 07/07/20 Ferrous Sulfate [Feosol] 325 mg PO DAILY 07/07/20 07/07/20 Furosemide [Lasix] 40 mg PO HS 07/07/20 07/07/20 Insulin NPH Human Isophane 40 units SQ BID 07/07/20 07/07/20 [NovoLIN N] Levofloxacin [Levaquin] 500 mg PO DAILY 07/07/20 07/07/20 Lisinopril [Zestril] 10 mg PO BID 07/07/20 07/07/20 Metoprolol Succinate (ER) [Toprol 100 mg PO DAILY 07/07/20 07/07/20 Xl] Potassium Chloride ER [K-Dur 20] 20 meq PO DAILY 07/07/20 07/07/20 Rosuvastatin Calcium [Crestor] 40 mg PO DAILY 07/07/20 07/07/20 Spironolactone [Aldactone] 25 mg PO DAILY 07/07/20 07/07/20 Warfarin Sodium [Jantoven] 2.5 mg PO TUTHSA 07/07/20 07/07/20 Previous Rx's Medication Instructions Recorded Cephalexin [Keflex] 500 mg PO Q6HR 10 Days #56 cap 07/07/20 Sulfamethox-Tmp 800-160Mg [Bactrim 1 tab PO Q12HR #28 tab 07/07/20 DS 800-160 mg] Allergies Allergy/AdvReac Type Severity Reaction Status Date / Time No Known Allergies Allergy Verified 07/07/20 13:40 Review of Systems ROS Statement: Those systems with pertinent positive or pertinent negative responses have been documented in the HPI. ROS Other: All systems not noted in ROS Statement are negative. Past Medical History Past Medical History: Atrial Fibrillation, Diabetes Mellitus, Pneumonia History of Any Multi-Drug Resistant Organisms: None Reported Past Surgical History: Heart Catheterization, Pacemaker Additional Past Surgical History / Comment(s): HYPERTENSION Past Anesthesia/Blood Transfusion Reactions: No Reported Reaction Type of Cardiac Device: Permanent Pacemaker, Unknown Device Placement Date:: 2012 Past Psychological History: No Psychological Hx Reported, Depression Smoking Status: Former smoker Past Alcohol Use History: None Reported Past Drug Use History: None Reported - Past Family History Mother Family Medical History: Cancer Additional Family Medical History / Comment(s): kidney cancer General Exam Limitations: no limitations General appearance: alert, in no apparent distress Head exam: Present: atraumatic, normocephalic Eye exam: Present: normal appearance, PERRL ENT exam: Present: normal exam Neck exam: Present: normal inspection. Absent: tenderness, meningismus Respiratory exam: Present: normal lung sounds bilaterally. Absent: respiratory distress, wheezes Cardiovascular Exam: Present: regular rate, normal rhythm GI/Abdominal exam: Present: soft. Absent: distended, tenderness, guarding Extremities exam: Present: other (There is a wound on the dorsal surface of the second digit right foot, approximately 1 cm a 1 cm, there is some mild surrounding erythema. There is no crepitus. There is no drainable abscess or fluctuance. No induration. There is a small amount of erythema tracking several centimeters onto the f) Course Vital Signs 07/07/20 11:55 Temperature 98.0 F Pulse Rate 67 Respiratory 20 Rate Blood Pressure 100/63 O2 Sat by Pulse 98 Oximetry Medical Decision Making - Medical Decision Making X-rays performed, negative for osteomyelitis. According to the patient he has not been consistently on antibiotics. There is very minor soft tissue swelling and erythema. He is given a dose of ceftriaxone in the emergency department. I did offer admission for IV antibiotics, patient prefers to be discharged home. He will be initiated on oral antibiotics and is given strict return parameters. He will monitor both his blood sugar and his erythema his foot. He has normal white blood cell count, negative CRP, negative lactic acid, elevated blood sugar, creatinine at baseline. - Lab Data Result diagrams: 07/07/20 13:13 07/07/20 13:13 Lab Results 07/07/20 07/07/20 07/07/20 Range/Units 13:13 13:13 13:13 WBC 5.0 (3.8-10.6) k/uL RBC 4.75 (4.30-5.90) m/uL Hgb 14.3 (13.0-17.5) gm/dL Hct 42.8 (39.0-53.0) % MCV 90.1 (80.0-100.0) fL MCH 30.2 (25.0-35.0) pg MCHC 33.5 (31.0-37.0) g/dL RDW 13.3 (11.5-15.5) % Plt Count 121 L (150-450) k/uL Neutrophils % 56 % Lymphocytes % 32 % Monocytes % 7 % Eosinophils % 2 % Basophils % 0 % Neutrophils # 2.8 (1.3-7.7) k/uL Lymphocytes # 1.6 (1.0-4.8) k/uL Monocytes # 0.4 (0-1.0) k/uL Eosinophils # 0.1 (0-0.7) k/uL Basophils # 0.0 (0-0.2) k/uL Sodium 136 L (137-145) mmol/L Potassium 5.2 H (3.5-5.1) mmol/L Chloride 105 (98-107) mmol/L Carbon Dioxide 23 (22-30) mmol/L Anion Gap 8 mmol/L BUN 39 H (9-20) mg/dL Creatinine 1.88 H (0.66-1.25) mg/dL Est GFR (CKD-EPI)AfAm 41 (>60 ml/min/1.73 sqM) Est GFR (CKD-EPI)NonAf 36 (>60 ml/min/1.73 sqM) Glucose 267 H (74-99) mg/dL Plasma Lactic Acid John 1.9 (0.7-2.0) mmol/L Calcium 9.6 (8.4-10.2) mg/dL Magnesium 2.3 (1.6-2.3) mg/dL C-Reactive Protein <5.0 (<10.0) mg/L Disposition Clinical Impression: Cellulitis, Wound of foot Disposition: HOME SELF-CARE Condition: Fair Instructions (If sedation given, give patient instructions): Acute Wounds (ED), Cellulitis (ED) Prescriptions: Sulfamethox-Tmp 800-160Mg [Bactrim DS 800-160 mg] 1 tab PO Q12HR #28 tab Cephalexin [Keflex] 500 mg PO Q6HR 10 Days #56 cap Is patient prescribed a controlled substance at d/c from ED?: No Referrals: Joycelyn Tovar DO [Primary Care Provider] - 1-2 days Time of Disposition: 14:30
[2020-07-07 15:50] VITALS: BP 107/72; PULSE 66; RESP 18
== END 2020-07-07 15:35 | disposition home or self-care (01) ==
LOC: EC 11:22
DX: L03.031 Cellulitis of right toe (principal); S91.104A Unspecified open wound of right lesser toe(s) without damage to nail, initial encounter; E11.9 Type 2 diabetes mellitus without complications; I48.91 Unspecified atrial fibrillation; F32.9 Major depressive disorder, single episode, unspecified; Z79.01 Long term (current) use of anticoagulants; Z79.899 Other long term (current) drug therapy; Z79.82 Long term (current) use of aspirin; Z79.4 Long term (current) use of insulin; Z87.891 Personal history of nicotine dependence; X58.XXXA Exposure to other specified factors, initial encounter
CPT/HCPCS: 99284 ×2; 96374 ×2; 36415; 80048; 83605; 83735; 85025; 86140; 87040; 87070; 87205; 87075; 87077; 87186; 73630; J0696

== ENCOUNTER → 2020-07-26 | Outpatient (CLI) | payer MEDICARE ==
--- NOTE | 2020-07-26 13:19 | NM ---
EXAMINATION TYPE: NM bone 3 phase DATE OF EXAM: 07/26/2020 COMPARISON: NONE HISTORY: L03.032 Cellulitis of Left Toe Triple phase bone scintigraphy was performed following the injection of 21.2 mCi Tc 99m MDP. Immedia te images and 3 hours post injection images acquired. FINDINGS: There is degenerative uptake noted about the first metatarsal-phalangeal's bilaterally left greater t cordero right. There is also increased uptake involving the right second toe. Degenerative uptake is note d about the bilateral ankles and mid feet. Mild increased uptake about the left great toe as well may reflect cellulitis. IMPRESSION: 1. No evidence for osteomyelitis. Degenerative uptake as noted. Mild soft tissue uptake left great to e may reflect cellulitis.
== END | disposition home or self-care (01) ==
LOC: RADNMMAIN 08:59
PROVIDERS: ATTEND Podiatrist
DX: M19.072 Primary osteoarthritis, left ankle and foot (principal); M19.071 Primary osteoarthritis, right ankle and foot; R93.7 Abnormal findings on diagnostic imaging of other parts of musculoskeletal system; E11.21 Type 2 diabetes mellitus with diabetic nephropathy; E11.42 Type 2 diabetes mellitus with diabetic polyneuropathy; I73.9 Peripheral vascular disease, unspecified; L97.522 Non-pressure chronic ulcer of other part of left foot with fat layer exposed
CPT/HCPCS: 78315; A9503

== ENCOUNTER 2020-07-30 20:45 | Inpatient (IN) | payer MEDICARE ==
[2020-07-30] MEDS ORDERED: SODIUM CHLORIDE 0.9% 1,000 ML IV STA ×2 (21:16→22:21)
[2020-07-30] MEDS ORDERED: HYDROCORTISONE SUCCINATE 100 MG/2 ML VIAL IV STA (21:21)
[2020-07-30] MEDS ORDERED: SODIUM CHLORIDE 0.9% 1,000 ML IV ONE ×3 (21:24→22:16)
[2020-07-30 21:26] LABS: Glucose,Whole Blood 73 mg/dL (75-99)
[2020-07-30] MEDS ORDERED: DEXTROSE 50% SYRINGE 50 ML IVP STA ×2 (21:27→22:21)
[2020-07-30 21:50] LABS: Basophils # (A) 0.1 k/uL (0-0.2); Basophils % (A) 1 %; Eosinophils # (A) 0.1 k/uL (0-0.7); Eosinophils % (A) 1 %; HCT 38.7 % (39.0-53.0); HGB 13.3 gm/dL (13.0-17.5); Lymphocytes # (A) 2.1 k/uL (1.0-4.8); Lymphocytes % (A) 23 %; MCH 30.1 pg (25.0-35.0); MCHC 34.5 g/dL (31.0-37.0); MCV 87.2 fL (80.0-100.0); Mean Platelet Volume 8.2; Monocytes # (A) 0.7 k/uL (0-1.0); Monocytes % (A) 8 %; Neutrophils # (A) 5.7 k/uL (1.3-7.7); Neutrophils % (A) 65 %; Platelet Count 159 k/uL (150-450); RBC 4.44 m/uL (4.30-5.90); RDW 13.9 % (11.5-15.5); WBC 8.8 k/uL (3.8-10.6)
[2020-07-30 22:04] LABS: Albumin 4.1 g/dL (3.5-5.0); Calcium 9.2 mg/dL (8.4-10.2); Magnesium 2.7 mg/dL (1.6-2.3); Phosphorus 5.4 mg/dL (2.5-4.5); Total Bilirubin 0.5 mg/dL (0.2-1.3); Total Protein 7.3 g/dL (6.3-8.2)
[2020-07-30 22:06] LABS: INR 2.3 (<1.2); Prothrombin Time 22.5 sec (9.0-12.0)
[2020-07-30 22:13] LABS: Glucose,Whole Blood 133 mg/dL (75-99)
--- NOTE | 2020-07-30 22:14 | XR ---
EXAMINATION TYPE: XR chest 1V portable DATE OF EXAM: 07/30/2020 COMPARISON: 08/28/2016 HISTORY: Short of breath Fluid overload. TECHNIQUE: Single view FINDINGS: Heart is borderline enlarged. There is slight pulmonary vascular congestion. There is no de finite pleural effusion. There is left axillary pacemaker. There are chest leads. IMPRESSION: Pulmonary vascularity increased slightly compared to old exam. No overt heart failure see n.
[2020-07-30 22:20] LABS: Potassium 8.4 mmol/L (3.5-5.1)
[2020-07-30] MEDS ORDERED: SODIUM BICARB 8.4% 50 ML SYR (1 MEQ/ML) IV STA (22:21)
[2020-07-30] MEDS ORDERED: INSULIN REGULAR 100 UNIT/ML VIAL IV ONE (22:21)
[2020-07-30] MEDS ORDERED: IPRATROPIUM-ALBUTEROL 3 ML NEB INHALATION PRN (22:23)
[2020-07-30] MEDS ORDERED: NALOXONE 0.4 MG/ML 1 ML VIAL IV PRN (22:23)
[2020-07-30] MEDS ORDERED: DEXTROSE 5%-0.45% NACL 1,000 ML IV SCH (22:30)
--- NOTE | 2020-07-30 22:35 | ED ---
General Adult HPI - General Chief complaint: Weakness Stated complaint: Loss of Taste/Appetite Time Seen by Provider: 07/30/20 21:11 Source: patient, RN notes reviewed, old records reviewed Mode of arrival: wheelchair Limitations: no limitations - History of Present Illness Initial comments: 70-year-old male patient to ED. Patient with a has been very weak, has been falling. Has been having decreased intake. Denies any known trauma to the head or the neck. Denies any other complaints. Systemic: Pt denies fatigue, fever/chills, rash. Pt denies weakness, night sweats, weight loss. Neuro: Pt denies headache, visual disturbances, syncope or pre-syncope. HEENT: Pt denies ocular discharge or irritation, otalgia, rhinorrhea, pharyngitis or notable lymphadenopathy. Cardiopulmonary: Pt denies chest pain, SOB, heart palpitations, dyspnea on exertion. Abdominal/GI: Pt denies abdominal pain, n/v/d. : Pt denies dysuria, burning w/ urination, frequency/urgency. Denies new onset urinary or bowel incontinence. MSK: Pt denies myalgia, loss of strength or function in extremities. Neuro: Pt denies new onset weakness, paresthesias. - Related Data Home Medications Medication Instructions Recorded Confirmed Cyclobenzaprine [Flexeril] 10 mg PO HS 01/27/14 07/30/20 Furosemide 80 mg PO DAILY 01/27/14 07/30/20 Tamsulosin HCl 0.4 mg PO DAILY 01/27/14 07/30/20 Warfarin Sodium 3.75 mg PO SUMOWEFRSA 01/27/14 07/30/20 Isosorbide Mononitrate [Imdur] 60 mg PO DAILY 05/30/14 07/30/20 Nitroglycerin Sl Tabs [Nitrostat] 0.4 mg SUBLINGUAL Q5M PRN 05/30/14 07/30/20 allopurinoL [Zyloprim] 150 mg PO DAILY 08/04/15 07/30/20 Aspirin EC [Ecotrin Low Dose] 81 mg PO DAILY 08/28/16 07/30/20 calcitrioL [Rocaltrol] 0.25 mcg PO MOTUWETH 08/28/16 07/30/20 Gabapentin [Neurontin] 600 mg PO BID 03/28/17 07/30/20 DULoxetine HCL [Cymbalta] 120 mg PO DAILY 07/07/20 07/30/20 Ergocalciferol (Vitamin D2) 50,000 unit PO Q30D 07/07/20 07/30/20 [Drisdol] Ezetimibe [Zetia] 10 mg PO DAILY 07/07/20 07/30/20 Ferrous Sulfate [Feosol] 325 mg PO DAILY 07/07/20 07/30/20 Furosemide [Lasix] 40 mg PO HS 07/07/20 07/30/20 Insulin NPH Human Isophane 40 units SQ BID-W/MEALS 07/07/20 07/30/20 [NovoLIN N] Lisinopril [Zestril] 10 mg PO DAILY 07/07/20 07/30/20 Metoprolol Succinate (ER) [Toprol 100 mg PO DAILY 07/07/20 07/30/20 Xl] Potassium Chloride ER [K-Dur 20] 20 meq PO BID 07/07/20 07/30/20 Rosuvastatin Calcium [Crestor] 40 mg PO DAILY 07/07/20 07/30/20 Spironolactone [Aldactone] 25 mg PO DAILY 07/07/20 07/30/20 Warfarin Sodium [Jantoven] 2.5 mg PO TUTHSA 07/07/20 07/30/20 Allergies Allergy/AdvReac Type Severity Reaction Status Date / Time No Known Allergies Allergy Verified 07/30/20 21:03 Review of Systems ROS Statement: Those systems with pertinent positive or pertinent negative responses have been documented in the HPI. ROS Other: All systems not noted in ROS Statement are negative. Past Medical History Past Medical History: Atrial Fibrillation, Diabetes Mellitus, Pneumonia, Pneumonia History of Any Multi-Drug Resistant Organisms: None Reported Past Surgical History: Heart Catheterization, Pacemaker, Pacemaker Additional Past Surgical History / Comment(s): HYPERTENSION Past Anesthesia/Blood Transfusion Reactions: No Reported Reaction Type of Cardiac Device: Permanent Pacemaker, Unknown Device Placement Date:: 2012 Past Psychological History: No Psychological Hx Reported, Depression Smoking Status: Former smoker Past Alcohol Use History: Occasional Past Drug Use History: None Reported - Past Family History Mother Family Medical History: Cancer Additional Family Medical History / Comment(s): kidney cancer General Exam - General Exam Comments Initial Comments: Constitutional: NAD, AOX3, Pt has pleasant affect. HEENT: NC/AT, trachea midline, neck supple, no lymphadenopathy. Posterior pharynx non erythematous, without exudates. External ears appear normal, without discharge. Mucous membranes moist. Eyes PERRLA, EOM intact. There is no scleral icterus. No pallor noted. Cardiopulmonary: RRR, no murmurs, rubs or gallops, no JVD noted. Lungs CTAB in anterior and posterior early. No peripheral edema. Abdominal exam: Abdomen soft and non-distended. Abdomen non-tender to palpation in all 4 quadrants. Bowel sounds active in LLQ. No hepatosplenomegaly. No ecchymosis Neuro: CN II-XII intact. No nuchal rigidity. No raccon eyes, no beckwith sign, no hemotympanum. No cervical spinal tenderness. MSK: No posterior calf tenderness bilaterally, homans sign negative bilaterally. Posterior tibialis and radial pulse +2 bilaterally. Sensation intact in upper and lower extremities. Full active ROM in upper and lower extremities, 5/5 stregnth. Limitations: no limitations Course Vital Signs 07/30/20 07/30/20 07/30/20 20:49 21:12 21:25 Temperature 97.9 F Pulse Rate 75 86 62 Respiratory 20 20 20 Rate Blood Pressure 59/39 69/48 74/38 O2 Sat by Pulse 94 L 99 95 Oximetry 07/30/20 07/30/20 07/30/20 21:30 21:45 22:00 Temperature Pulse Rate 65 60 62 Respiratory 16 16 16 Rate Blood Pressure 78/45 78/46 83/50 O2 Sat by Pulse 94 L Oximetry 07/30/20 07/30/20 07/31/20 22:15 22:30 00:55 Temperature Pulse Rate 65 65 85 Respiratory 16 16 19 Rate Blood Pressure 84/69 74/53 83/57 O2 Sat by Pulse 97 Oximetry 07/31/20 07/31/20 01:44 03:25 Temperature 98 F Pulse Rate 80 76 Respiratory 17 18 Rate Blood Pressure 93/55 83/56 O2 Sat by Pulse 98 98 Oximetry Medical Decision Making - Medical Decision Making 70-year-old male patient to ED for evaluation feeling weak decreased oral intake multiple falls at home. Vital signs did display a tension. Physical exam negative for acute pathology. Laboratory investigations reveal acute renal failure likely prerenal. BUN 114, potassium 8.4, Cr 6.9, minimally elevated troponin. CT brain c spine negative for acute pathology. CT chest abdomen pelvis displays insterstitial pneumonia. Case was discussed in depth with attending physician Dr. Booker who discussed case with with nephrolology and vascular surgery. Patient was initiated on significant IV fluid rehydration, as well as hyperkalemia treatment with repeat laboratory investigations drawn at 3 hours. Repeat laboratory investigations did display a significantly improved potassium of 6.6, mild improvement in both BUN as well as creatinine. Case was again discussed with Nephrology by Dr. Correa who assumed care. They recommended continue medical management including IV fluid rehydration, Kayexalate, insulin. Patient will be admitted to the ICU for further evaluation. - Lab Data Result diagrams: 07/31/20 00:35 07/31/20 00:35 Lab Results 07/30/20 07/30/20 07/30/20 Range/Units 21:20 21:29 21:29 WBC 8.8 (3.8-10.6) k/uL RBC 4.44 (4.30-5.90) m/uL Hgb 13.3 (13.0-17.5) gm/dL Hct 38.7 L (39.0-53.0) % MCV 87.2 (80.0-100.0) fL MCH 30.1 (25.0-35.0) pg MCHC 34.5 (31.0-37.0) g/dL RDW 13.9 (11.5-15.5) % Plt Count 159 (150-450) k/uL MPV 8.2 Neutrophils % 65 % Lymphocytes % 23 % Monocytes % 8 % Eosinophils % 1 % Basophils % 1 % Neutrophils # 5.7 (1.3-7.7) k/uL Lymphocytes # 2.1 (1.0-4.8) k/uL Monocytes # 0.7 (0-1.0) k/uL Eosinophils # 0.1 (0-0.7) k/uL Basophils # 0.1 (0-0.2) k/uL PT 22.5 H (9.0-12.0) sec INR 2.3 H (<1.2) APTT 30.0 (22.0-30.0) sec Sodium (137-145) mmol/L Potassium (3.5-5.1) mmol/L Chloride (98-107) mmol/L Carbon Dioxide (22-30) mmol/L Anion Gap mmol/L BUN (9-20) mg/dL Creatinine (0.66-1.25) mg/dL Est GFR (CKD-EPI)AfAm (>60 ml/min/1.73 sqM) Est GFR (CKD-EPI)NonAf (>60 ml/min/1.73 sqM) Glucose (74-99) mg/dL POC Glucose (mg/dL) 73 L (75-99) mg/dL POC Glu Manager Portable ID Luna James Plasma Lactic Acid John (0.7-2.0) mmol/L Calcium (8.4-10.2) mg/dL Phosphorus (2.5-4.5) mg/dL Magnesium (1.6-2.3) mg/dL Total Bilirubin (0.2-1.3) mg/dL AST (17-59) U/L ALT (4-49) U/L Alkaline Phosphatase (38-126) U/L Troponin I (0.000-0.034) ng/mL Total Protein (6.3-8.2) g/dL Albumin (3.5-5.0) g/dL TSH (0.465-4.680) mIU/L Urine Color Urine Appearance (Clear) Urine pH (5.0-8.0) Ur Specific [place] (1.001-1.035) Urine Protein (Negative) Urine Glucose (UA) (Negative) Urine Ketones (Negative) Urine Blood (Negative) Urine Nitrite (Negative) Urine Bilirubin (Negative) Urine Urobilinogen (<2.0) mg/dL Ur Leukocyte Esterase (Negative) Urine RBC (0-5) /hpf Urine WBC (0-5) /hpf Ur Squamous Epith Cells (0-4) /hpf Urine Bacteria (None) /hpf Hyaline Casts (0-2) /lpf Urine Mucus (None) /hpf Coronavirus (PCR) (Not Detectd) 07/30/20 07/30/20 07/30/20 Range/Units : 21: 21:29 WBC (3.8-10.6) k/uL RBC (4.30-5.90) m/uL Hgb (13.0-17.5) gm/dL Hct (39.0-53.0) % MCV (80.0-100.0) fL MCH (25.0-35.0) pg MCHC (31.0-37.0) g/dL RDW (11.5-15.5) % Plt Count (150-450) k/uL MPV Neutrophils % % Lymphocytes % % Monocytes % % Eosinophils % % Basophils % % Neutrophils # (1.3-7.7) k/uL Lymphocytes # (1.0-4.8) k/uL Monocytes # (0-1.0) k/uL Eosinophils # (0-0.7) k/uL Basophils # (0-0.2) k/uL PT (9.0-12.0) sec INR (<1.2) APTT (22.0-30.0) sec Sodium 132 L (137-145) mmol/L Potassium 8.4 H* (3.5-5.1) mmol/L Chloride 103 (98-107) mmol/L Carbon Dioxide 17 L (22-30) mmol/L Anion Gap 12 mmol/L BUN 114 H* (9-20) mg/dL Creatinine 6.90 H (0.66-1.25) mg/dL Est GFR (CKD-EPI)AfAm 9 (>60 ml/min/1.73 sqM) Est GFR (CKD-EPI)NonAf 7 (>60 ml/min/1.73 sqM) Glucose 69 L (74-99) mg/dL POC Glucose (mg/dL) (75-99) mg/dL POC Glu Manager Portable ID Plasma Lactic Acid John 1.4 (0.7-2.0) mmol/L Calcium 9.2 (8.4-10.2) mg/dL Phosphorus 5.4 H (2.5-4.5) mg/dL Magnesium 2.7 H (1.6-2.3) mg/dL Total Bilirubin 0.5 (0.2-1.3) mg/dL AST 89 H (17-59) U/L ALT 118 H (4-49) U/L Alkaline Phosphatase 72 (38-126) U/L Troponin I (0.000-0.034) ng/mL Total Protein 7.3 (6.3-8.2) g/dL Albumin 4.1 (3.5-5.0) g/dL TSH 3.360 (0.465-4.680) mIU/L Urine Color Light Yellow Urine Appearance Clear (Clear) Urine pH 5.5 (5.0-8.0) Ur Specific [place] 1.011 (1.001-1.035) Urine Protein Trace H (Negative) Urine Glucose (UA) Negative (Negative) Urine Ketones Negative (Negative) Urine Blood Small H (Negative) Urine Nitrite Negative (Negative) Urine Bilirubin Negative (Negative) Urine Urobilinogen <2.0 (<2.0) mg/dL Ur Leukocyte Esterase Negative (Negative) Urine RBC 2 (0-5) /hpf Urine WBC 2 (0-5) /hpf Ur Squamous Epith Cells <1 (0-4) /hpf Urine Bacteria Rare H (None) /hpf Hyaline Casts 8 H (0-2) /lpf Urine Mucus Rare H (None) /hpf Coronavirus (PCR) (Not Detectd) 07/30/20 07/30/20 07/30/20 Range/Units 21:29 21:29 22:12 WBC (3.8-10.6) k/uL RBC (4.30-5.90) m/uL Hgb (13.0-17.5) gm/dL Hct (39.0-53.0) % MCV (80.0-100.0) fL MCH (25.0-35.0) pg MCHC (31.0-37.0) g/dL RDW (11.5-15.5) % Plt Count (150-450) k/uL MPV Neutrophils % % Lymphocytes % % Monocytes % % Eosinophils % % Basophils % % Neutrophils # (1.3-7.7) k/uL Lymphocytes # (1.0-4.8) k/uL Monocytes # (0-1.0) k/uL Eosinophils # (0-0.7) k/uL Basophils # (0-0.2) k/uL PT (9.0-12.0) sec INR (<1.2) APTT (22.0-30.0) sec Sodium (137-145) mmol/L Potassium (3.5-5.1) mmol/L Chloride (98-107) mmol/L Carbon Dioxide (22-30) mmol/L Anion Gap mmol/L BUN (9-20) mg/dL Creatinine (0.66-1.25) mg/dL Est GFR (CKD-EPI)AfAm (>60 ml/min/1.73 sqM) Est GFR (CKD-EPI)NonAf (>60 ml/min/1.73 sqM) Glucose (74-99) mg/dL POC Glucose (mg/dL) 133 H (75-99) mg/dL POC Glu Manager Portable ID Scar Zuniga Plasma Lactic Acid John (0.7-2.0) mmol/L Calcium (8.4-10.2) mg/dL Phosphorus (2.5-4.5) mg/dL Magnesium (1.6-2.3) mg/dL Total Bilirubin (0.2-1.3) mg/dL AST (17-59) U/L ALT (4-49) U/L Alkaline Phosphatase (38-126) U/L Troponin I 0.042 H* (0.000-0.034) ng/mL Total Protein (6.3-8.2) g/dL Albumin (3.5-5.0) g/dL TSH (0.465-4.680) mIU/L Urine Color Urine Appearance (Clear) Urine pH (5.0-8.0) Ur Specific [place] (1.001-1.035) Urine Protein (Negative) Urine Glucose (UA) (Negative) Urine Ketones (Negative) Urine Blood (Negative) Urine Nitrite (Negative) Urine Bilirubin (Negative) Urine Urobilinogen (<2.0) mg/dL Ur Leukocyte Esterase (Negative) Urine RBC (0-5) /hpf Urine WBC (0-5) /hpf Ur Squamous Epith Cells (0-4) /hpf Urine Bacteria (None) /hpf Hyaline Casts (0-2) /lpf Urine Mucus (None) /hpf Coronavirus (PCR) Not Detected (Not Detectd) Disposition Clinical Impression: Pneumonia, Acute renal failure, Sepsis Disposition: ADMITTED IP TO THIS HOSP Condition: Serious Is patient prescribed a controlled substance at d/c from ED?: No
[2020-07-30] MEDS ORDERED: CALCIUM GLUCONATE 2 GM in SODIUM CHLORIDE 0.9% 100 ML IVPB ONE (22:45)
[2020-07-30 23:00] LABS: Appearance,Urine Clear (Clear); Bacteria,Urine Rare /hpf; Bilirubin,Urine Negative (Negative); Blood,Urine Small (Negative); Color,Urine Light Yellow; Glucose,Urine (UA) Negative (Negative); Hyaline Casts,Urine 8 /lpf (0-2); Ketones,Urine Negative (Negative); Leukocyte Esterase,Urine Negative (Negative); Mucus,Urine Rare /hpf; Nitrite,Urine Negative (Negative); PH, Urine 5.5 (5.0-8.0); Protein,Urine Trace (Negative); RBC,Urine 2 /hpf (0-5); Specific Gravity,Urine 1.011 (1.001-1.035); Squamous Epithelial Cell,Urine <1 /hpf (0-4); Urobilinogen,Urine <2.0 mg/dL (<2.0); WBC,Urine 2 /hpf (0-5)
[2020-07-30] MEDS: SODIUM CHLORIDE 0.9% 1,000 ML IV STA (23:04)
--- NOTE | 2020-07-30 23:21 | CT ---
EXAMINATION TYPE: CT brain carolynnine wo con DATE OF EXAM: 07/30/2020 COMPARISON: CT brain 04/21/2018 CT scan cervical spine 09/06/2016 HISTORY: Frequent falls and altered mental status. CT DLP: 2756.5 mGycm Automated exposure control for dose reduction was used. There is cerebral cortical atrophy. There is no mass effect nor midline shift. There is no sign of in tracranial hemorrhage. There is hypodensity in the periventricular white matter. This is more noticea ble in the parietal lobes. The calvarium is intact. There is normal aeration of the mastoid sinuses. The skull base is intact. The cervical vertebra show mild straightening. There is degenerative spur formation from C4 to C7 wit h with mild disc space narrowing. The posterior elements are intact. There is mild hypertrophic facet arthropathy. There is no compression fracture. There is no subluxation. IMPRESSION: Cerebral atrophy. White matter changes probably due to chronic small vessel ischemia that appears not significantly different than old exam. Spondylotic changes in the mid and lower cervical spine unchanged compared to old exam.
--- NOTE | 2020-07-30 23:36 | US ---
EXAMINATION TYPE: US renals and bladder DATE OF EXAM: 07/30/2020 COMPARISON: Multiple US's 08/19/2018 CLINICAL HISTORY: arf. EXAM MEASUREMENTS: Right Kidney: 9.5 x 5.3 x 4.9 cm Left Kidney: 10.6 x 5.3 x 5.9 cm Right Kidney: Multiple cysts, largest upper pole measures 4.2 x 1.9 x 3. cm Left Kidney: Scattered cysts and echogenic foci, largest cyst measures 1.1 x 1.0 x 1.3 cm. Bladder: not seen There is no evidence for hydronephrosis at this point in time. No nephrolithiasis is seen. IMPRESSION: Bilateral renal cortical cysts. No evidence of solid renal mass or obstruction. No significant change compared to old exam. Bladder was empty during the exam.
--- NOTE | 2020-07-31 00:07 | CT ---
EXAMINATION TYPE: CT ChestAbdPelvis wo con DATE OF EXAM: 07/30/2020 COMPARISON: None HISTORY: Abd Pain CT DLP: 1959.60 mGycm Automated exposure control for dose reduction was used. Images obtained from the thoracic inlet to the floor the pelvis without contrast. There is coarse interstitial infiltrate throughout the lungs. Heart is slightly enlarged. There is no pleural effusion. There is no pericardial effusion. There are a few paratracheal lymph nodes that me asure less than 1 cm. There are no hilar masses. There is coronary artery calcification. Thoracic aor ta is atheromatous. There is no aneurysm. There is 2 cm hypodensity in the superior right lobe of the liver. Gallbladder appears normal. Spleen is intact. Stomach is intact. There is no pancreatic mass. The bile ducts are not dilated. There is no adrenal mass. There is 5 cm cortical cyst upper pole right kidney. There is no hydronephr osis. Ureters are not dilated. There is no retroperitoneal adenopathy. Bladder is almost empty. There is Hunter catheter in the urinary bladder. There is mild prostate calcification. There is no inguinal hernia. There is no free fluid in the pelvis. There is no mesenteric edema. There is no ascites or free air. Appendix appears normal. There is no evidence of a bowel obstruction. Thoracic and lumbar vertebra show fairly normal alignment. There is no focal bone destruction. There is 10% depression of the superior endplate of T11 vertebra. This is probably old. The bony pelvis is intact. The hip joints are intact. Sternum is intact. The ribs appear intact. IMPRESSION: Interstitial pneumonia. No suspicious discrete pulmonary mass. Cardiomegaly. Rounded hypodense liver lesion could BE hepatic cyst. This could be confirmed with ultrasound if leonela cated. No acute abnormality within the abdomen pelvis.
[2020-07-31] MEDS ORDERED: AZITHROMYCIN 500 MG in SODIUM CHLORIDE 0.9% 250 ML IVPB STA (00:38)
[2020-07-31 01:32] LABS: Basophils % (A) 0 %; Eosinophils % (A) 0 %; HCT 33.2 % (39.0-53.0); HGB 10.9 gm/dL (13.0-17.5); Lymphocytes # (A) 1.3 k/uL (1.0-4.8); Lymphocytes % (A) 19 %; MCH 29.3 pg (25.0-35.0); MCHC 32.9 g/dL (31.0-37.0); MCV 89.1 fL (80.0-100.0); Mean Platelet Volume 7.9; Monocytes # (A) 0.3 k/uL (0-1.0); Monocytes % (A) 5 %; Neutrophils # (A) 5.1 k/uL (1.3-7.7); Neutrophils % (A) 75 %; Platelet Count 126 k/uL (150-450); RBC 3.73 m/uL (4.30-5.90); RDW 14.4 % (11.5-15.5); WBC 6.9 k/uL (3.8-10.6)
[2020-07-31 01:42] LABS: Albumin 2.9 g/dL (3.5-5.0); Calcium 8.2 mg/dL (8.4-10.2); Magnesium 2.3 mg/dL (1.6-2.3); Phosphorus 3.9 mg/dL (2.5-4.5); Total Bilirubin 0.3 mg/dL (0.2-1.3); Total Protein 5.5 g/dL (6.3-8.2)
[2020-07-31 02:15] LABS: Potassium 6.6 mmol/L (3.5-5.1)
[2020-07-31] MEDS ORDERED: DEXTROSE 50% SYRINGE 50 ML IVP STA ×3 (02:19→08:28)
[2020-07-31 02:47] LABS: Glucose,Whole Blood 177 mg/dL (75-99)
[2020-07-31] MEDS ORDERED: INSULIN REGULAR 100 UNIT/ML VIAL IV ONE ×2 (02:53→08:27)
[2020-07-31] MEDS ORDERED: SODIUM POLYSTYRENE SULFONATE 15 GM/60 ML BOTTLE PO ONE (02:53)
[2020-07-31] MEDS: SODIUM CHLORIDE 0.9% 1,000 ML IV STA (03:26)
[2020-07-31 05:51] LABS: Glucose,Whole Blood 131 mg/dL (75-99)
[2020-07-31 06:04] LABS: Basophils % (A) 0 %; Eosinophils # (A) 0.1 k/uL (0-0.7); Eosinophils % (A) 1 %; HCT 32.4 % (39.0-53.0); HGB 10.6 gm/dL (13.0-17.5); Lymphocytes # (A) 0.9 k/uL (1.0-4.8); Lymphocytes % (A) 12 %; MCH 28.8 pg (25.0-35.0); MCHC 32.6 g/dL (31.0-37.0); MCV 88.5 fL (80.0-100.0); Mean Platelet Volume 8.6; Monocytes # (A) 0.4 k/uL (0-1.0); Monocytes % (A) 5 %; Neutrophils # (A) 6.1 k/uL (1.3-7.7); Neutrophils % (A) 81 %; Platelet Count 110 k/uL (150-450); RBC 3.66 m/uL (4.30-5.90); RDW 14.4 % (11.5-15.5); WBC 7.5 k/uL (3.8-10.6)
[2020-07-31 07:00] LABS: Albumin 3.1 g/dL (3.5-5.0); Total Bilirubin 0.5 mg/dL (0.2-1.3); Total Protein 5.8 g/dL (6.3-8.2)
[2020-07-31 07:37] LABS: Potassium 7.2 mmol/L (3.5-5.1)
[2020-07-31] MEDS: PANTOPRAZOLE 40 MG/10 ML VIAL IV SCH (08:02)
[2020-07-31] MEDS ORDERED: SODIUM BICARB 8.4% 50 ML SYR (1 MEQ/ML) IV STA (08:30)
[2020-07-31] MEDS ORDERED: SODIUM BICARB 8.4% 50 ML SYR (1 MEQ/ML) IV ONE ×2 (08:55→09:00)
[2020-07-31] MEDS ORDERED: DEXTROSE 5% IN WATER 1,000 ML with SODIUM BICARB (1 MEQ/ML) 150 ML IV SCH (09:00)
[2020-07-31] MEDS ORDERED: CALCIUM GLUCONATE 1 GM in SODIUM CHLORIDE 0.9% 100 ML IVPB ONE (09:00)
--- NOTE | 2020-07-31 09:06 | P.CNPUL ---
History of Present Illness Consult date: 07/31/20 Reason for consult: other Chief complaint: Weakness, falls History of present illness: 70-year-old white male patient with past medical history of hypertension, atrial fibrillation with previous history of ablation as well as dual-chamber pacemaker implantation, diabetes mellitus type 2, chronic kidney disease stage III, who came into the emergency department on 07/30/2020 with complaints of weakness, loss of appetite, and falling at home. Patient is somewhat confused, and not the best historian, denied any fever chills, denied any headaches, syncope, denied any urinary symptoms, no abdominal pain, no nausea vomiting or diarrhea. CT brain and C-spine were negative for acute pathology, CT chest abdomen and pelvis showed interstitial pattern, rule out underlying pneumonia or mild fluid overload. Blood work showed no evidence of leukocytosis, white blood cell count was 8.8, hemoglobin was 13.3, INR is 2.3, potassium was 8.4, B1 is 114, creatinine is 6.90, lactic acid was 1.4, AST was 89, ALT was 118, troponin was 0.042, urinalysis, show trace 14, small amount of blood, rare bacteria but no clear evidence of infection, COVID PCR was negative. Renal ultrasound was completed showing bilateral renal cortical cysts, no evidence of solid renal mass or obstruction. Bladder was empty during the exam. Blood pressure was 59 with 39 on presentation, patient was given a total of 4 L of fluid boluses, blood pressure is currently improved at 107/89, patient is in sinus mechanism, with a rate of 81, activities of oxygen the pulse ox of 95%, he was started on empiric antibiotics in the form of azithromycin and Rocephin, his hyperkalemia was treated with 2 g of calcium gluconate, 50% dextrose and regular insulin, and was given an amp of sodium bicarb, and 15 g of oral Kayexalate, his maintenance IV fluids are 5% dextrose with 3 amps bicarbonate at a rate of 80 ML per hour. he has been afebrile while the emergency department, has produced 1800 mL in urine output, nephrology is consulted and patient is awaiting a bed in the intensive care unit. Review of Systems All systems: negative Constitutional: Reports weakness, Denies chills, Denies fever Eyes: denies blurred vision, denies pain Ears, nose, mouth and throat: Denies headache, Denies sore throat Cardiovascular: Denies chest pain, Denies shortness of breath Respiratory: Denies cough Gastrointestinal: Reports loss of appetite, Denies abdominal pain, Denies diarrhea, Denies nausea, Denies vomiting Musculoskeletal: Denies myalgias Integumentary: Denies pruritus, Denies rash Neurological: Denies numbness, Denies weakness Psychiatric: Denies anxiety, Denies depression Endocrine: Denies fatigue, Denies weight change Past Medical History Past Medical History: Atrial Fibrillation, Diabetes Mellitus, Pneumonia, Pneumonia History of Any Multi-Drug Resistant Organisms: None Reported Past Surgical History: Heart Catheterization, Pacemaker, Pacemaker Additional Past Surgical History / Comment(s): HYPERTENSION Past Anesthesia/Blood Transfusion Reactions: No Reported Reaction Type of Cardiac Device: Permanent Pacemaker, Unknown Device Placement Date:: 2012 Past Psychological History: No Psychological Hx Reported, Depression Smoking Status: Former smoker Past Alcohol Use History: Occasional Past Drug Use History: None Reported - Past Family History Mother Family Medical History: Cancer Additional Family Medical History / Comment(s): kidney cancer Medications and Allergies Home Medications Medication Instructions Recorded Confirmed Type Cyclobenzaprine [Flexeril] 10 mg PO HS 01/27/14 07/30/20 History Furosemide 80 mg PO DAILY 01/27/14 07/30/20 History Tamsulosin HCl 0.4 mg PO DAILY 01/27/14 07/30/20 History Warfarin Sodium 3.75 mg PO SUMOWEFRSA 01/27/14 07/30/20 History Isosorbide Mononitrate [Imdur] 60 mg PO DAILY 05/30/14 07/30/20 History Nitroglycerin Sl Tabs [Nitrostat] 0.4 mg SUBLINGUAL Q5M PRN 05/30/14 07/30/20 History allopurinoL [Zyloprim] 150 mg PO DAILY 08/04/15 07/30/20 History Aspirin EC [Ecotrin Low Dose] 81 mg PO DAILY 08/28/16 07/30/20 History calcitrioL [Rocaltrol] 0.25 mcg PO MOTUWETH 08/28/16 07/30/20 History Gabapentin [Neurontin] 600 mg PO BID 03/28/17 07/30/20 History DULoxetine HCL [Cymbalta] 120 mg PO DAILY 07/07/20 07/30/20 History Ergocalciferol (Vitamin D2) 50,000 unit PO Q30D 07/07/20 07/30/20 History [Drisdol] Ezetimibe [Zetia] 10 mg PO DAILY 07/07/20 07/30/20 History Ferrous Sulfate [Feosol] 325 mg PO DAILY 07/07/20 07/30/20 History Furosemide [Lasix] 40 mg PO HS 07/07/20 07/30/20 History Insulin NPH Human Isophane 40 units SQ BID-W/MEALS 07/07/20 07/30/20 History [NovoLIN N] Lisinopril [Zestril] 10 mg PO DAILY 07/07/20 07/30/20 History Metoprolol Succinate (ER) [Toprol 100 mg PO DAILY 07/07/20 07/30/20 History Xl] Potassium Chloride ER [K-Dur 20] 20 meq PO BID 07/07/20 07/30/20 History Rosuvastatin Calcium [Crestor] 40 mg PO DAILY 07/07/20 07/30/20 History Spironolactone [Aldactone] 25 mg PO DAILY 07/07/20 07/30/20 History Warfarin Sodium [Jantoven] 2.5 mg PO TUTHSA 07/07/20 07/30/20 History Allergies Allergy/AdvReac Type Severity Reaction Status Date / Time No Known Allergies Allergy Verified 07/30/20 21:03 Physical Exam Vitals: Vital Signs Temp Pulse Resp BP Pulse Ox 07/31/20 08:00 97.9 F 81 16 107/89 95 07/31/20 05:26 98.1 F 77 18 96/61 98 07/31/20 03:25 98 F 76 18 83/56 98 07/31/20 01:44 80 17 93/55 98 07/31/20 00:55 85 19 83/57 97 07/30/20 22:30 65 16 74/53 07/30/20 22:15 65 16 84/69 07/30/20 22:00 62 16 83/50 07/30/20 21:45 60 16 78/46 07/30/20 21:30 65 16 78/45 94 L 07/30/20 21:25 62 20 74/38 95 07/30/20 21:12 86 20 69/48 99 07/30/20 20:49 97.9 F 75 20 59/39 94 L Intake and Output 07/30/20 07/31/20 07/31/20 22:59 06:59 14:59 Output Total 1800 Balance -1800 Output: Urine 1800 Other: Weight 99.79 kg GENERAL EXAM: Alert, confused, 70-year-old white male, on 3 L of oxygen for sats 95%, resting on the gurney in the emergency department, answering simple questions, is to be in no acute distress, oral membranes are extremely dry HEAD: Normocephalic/atraumatic. EYES: Normal reaction of pupils, equal size. Conjunctiva pink, sclera white. NOSE: Clear with pink turbinates. THROAT: No erythema or exudates. NECK: No masses, no JVD, no thyroid enlargement, no adenopathy. CHEST: No chest wall deformity. Symmetrical expansion. LUNGS: Equal air entry with no crackles, wheeze, rhonchi or dullness. CVS: Regular rate and rhythm, normal S1 and S2, no gallops, no murmurs, no rubs ABDOMEN: Soft, nontender. No hepatosplenomegaly, normal bowel sounds, no guarding or rigidity. EXTREMITIES: No clubbing, no edema, no cyanosis, 2+ pulses and upper and lower extremities. MUSCULOSKELETAL: Muscle strength and tone normal. SPINE: No scoliosis or deformity SKIN: No rashes CENTRAL NERVOUS SYSTEM: Alert and oriented -2. Confused. No focal deficits, tone is normal in all 4 extremities. PSYCHIATRIC: Alert and oriented -2. Appropriate affect. Intact judgment and insight. Results - Laboratory Findings CBC and BMP: 07/31/20 05:47 07/31/20 06:25 PT/INR, D-dimer PT 22.5 sec (9.0-12.0) H 07/30/20 21:29 INR 2.3 (<1.2) H 07/30/20 21:29 Abnormal lab findings: Abnormal Labs 07/30/20 07/30/20 07/30/20 21:20 21:29 21:29 RBC Hgb Hct 38.7 L Plt Count Lymphocytes # PT 22.5 H INR 2.3 H Sodium Potassium Chloride Carbon Dioxide BUN Creatinine Glucose POC Glucose (mg/dL) 73 L Calcium Phosphorus Magnesium AST ALT Troponin I Total Protein Albumin Urine Protein Urine Blood Urine Bacteria Hyaline Casts Urine Mucus 07/30/20 07/30/20 07/30/20 21:29 21:29 21:29 RBC Hgb Hct Plt Count Lymphocytes # PT INR Sodium 132 L Potassium 8.4 H* Chloride Carbon Dioxide 17 L BUN 114 H* Creatinine 6.90 H Glucose 69 L POC Glucose (mg/dL) Calcium Phosphorus 5.4 H Magnesium 2.7 H AST 89 H ALT 118 H Troponin I 0.042 H* Total Protein Albumin Urine Protein Trace H Urine Blood Small H Urine Bacteria Rare H Hyaline Casts 8 H Urine Mucus Rare H 07/30/20 07/31/20 07/31/20 22:12 00:35 00:35 RBC 3.73 L Hgb 10.9 L Hct 33.2 L Plt Count 126 L Lymphocytes # PT INR Sodium 135 L Potassium 6.6 H* Chloride 113 H Carbon Dioxide 15 L BUN 98 H Creatinine 5.69 H Glucose 48 L* POC Glucose (mg/dL) 133 H Calcium 8.2 L Phosphorus Magnesium AST 68 H ALT 91 H Troponin I Total Protein 5.5 L Albumin 2.9 L Urine Protein Urine Blood Urine Bacteria Hyaline Casts Urine Mucus 07/31/20 07/31/20 07/31/20 00:35 02:45 03:20 RBC Hgb Hct Plt Count Lymphocytes # PT INR Sodium Potassium Chloride Carbon Dioxide BUN Creatinine Glucose POC Glucose (mg/dL) 177 H Calcium Phosphorus Magnesium AST ALT Troponin I 0.037 H* 0.035 H* Total Protein Albumin Urine Protein Urine Blood Urine Bacteria Hyaline Casts Urine Mucus 07/31/20 07/31/20 07/31/20 05:47 05:49 06:25 RBC 3.66 L Hgb 10.6 L Hct 32.4 L Plt Count 110 L Lymphocytes # 0.9 L PT INR Sodium 134 L Potassium 7.2 H* Chloride 113 H Carbon Dioxide 15 L BUN 90 H Creatinine 5.12 H Glucose 124 H POC Glucose (mg/dL) 131 H Calcium 8.0 L Phosphorus Magnesium AST 75 H ALT 94 H Troponin I Total Protein 5.8 L Albumin 3.1 L Urine Protein Urine Blood Urine Bacteria Hyaline Casts Urine Mucus - Diagnostic Findings Chest x-ray: report reviewed, image reviewed CT scan - chest: report reviewed, image reviewed Additional studies: Renal ultrasound, EKG, CT of the chest, abdomen and pelvis reviewed Assessment and Plan Plan: Assessment: #1. Rule out septic shock, patient came in with hypotension and blood pressure of 59/39, acute kidney injury, with the possibility of sepsis and severe dehyd ration. Received a total of 4 L of fluids in the emergency department, blood pressure has improved #2. Mild interstitial edema on the chest x-ray and CT chest with the possibility of mild fluid overload rule out possibility of pneumonia #3. Dehydration from poor oral intake and diuretic therapy #4. Acute on chronic renal failure #5. Chronic kidney disease stage III at baseline #6. Acute hyperkalemia related to acute kidney injury #7. Troponin leak possibly related to acute kidney injury #8. Acute metabolic encephalopathy related to acute kidney injury, sepsis #9. Hypertension #10. Hyperlipidemia #11. Diabetes mellitus type 2 #12. History of atrial fibrillation status post ablation and status post dual chamber pacemaker insertion Plan: Patient was fluid resuscitated, blood pressure has improved, today's blood work has been reviewed, serum potassium has improved although still remains elevated at 7.2, nephrology is following and making adjustments to patient's medications, chest x-ray and CT chest reviewed, showing interstitial pattern likely related to mild fluid overload, but oxygenation stable on 3 L, obtain proBNP, continue current antibiotics, blood cultures have been sent, and pending at this time. We'll obtain follow-up blood work this morning. Continue current medical treatment, if serum potassium improves may consider downgraded patient to [facility] care. Will continue to follow I performed a history & physical examination of the patient and discussed their management with my nurse practitioner, Mago Gorman. I reviewed the nurse practitioner's note and agree with the documented findings and plan of care. Lung sounds are positive for poor breath sounds. The findings and the impression was discussed with the patient. I attest to the documentation by the nurse practitioner. Time with Patient: Greater than 30
[2020-07-31] MEDS ORDERED: HEPARIN SODIUM 1,000 UN/ML (10ML VL) ONE (12:25)
[2020-07-31] MEDS ORDERED: HEPARIN SODIUM,PORCINE 5,000 UNIT/ML 1 ML VIAL ONE (12:25)
[2020-07-31] MEDS ORDERED: LIDOCAINE 1% INJ 10MG/ML (20 ML MDV) ONE (12:25)
[2020-07-31] MEDS ORDERED: HEPARIN SODIUM 1,000 UN/ML (10ML VL) MISCELLANE ONE (12:28)
[2020-07-31] MEDS ORDERED: LIDOCAINE 1% INJ 10MG/ML (20 ML MDV) SQ ONE (12:29)
--- NOTE | 2020-07-31 12:29 | P.NPCON ---
History of Present Illness - Reason for Consult acute renal failure, hyperkalemia - History of Present Illness Reason for consultation: Acute kidney injury and hyperkalemia History of present illness: Patient is a 70-year-old male seen in renal consultation for acute kidney injury and hyperkalemia. Patient's creatinine was 6.9 on admission yesterday and is 5.12 this morning. Patient has chronic kidney disease stage III with baseline creatinine in the range of 1.5-1.7. Patient's potassium level was also elevated at 8.4 which was medically treated and came down to 6.6 but was again up to 7.2 this morning. Patient received IV calcium gluconate, 10 units of IV insulin with an amp of D50 as well as 2 A of bicarb IV push this morning. I also started the patient on isotonic bicarbonate drip which is currently running at 80 mL an hour. He has a Hunter catheter and is nonoliguric. Patient is not a very reliable historian and is confused at this time. In his home medications I did he was taking spironolactone, potassium supplementation as well as lisinopril. Patient has history of diabetes mellitus and is maintained on insulin. He is noted to be acidotic with a bicarbonate level of 15. He was brought to the hospital due to recurrent falls and weakness. CAT scan revealed interstitial pneumonia. No evidence of hydronephrosis was noted. CT of the head revealed cerebral atrophy. Kidney ultrasound revealed normal-sized kidneys. Again there was no evidence of hydronephrosis. Dialysis catheter is being placed for urgent hemodialysis due to persistent hyperkalemia. Vital signs are stable. General: The patient appeared well nourished and normally developed. HEENT: Head exam is unremarkable. Neck is without jugular venous distension. LUNGS: Breath sounds decreased. HEART: Rate and Rhythm are regular. ABDOMEN: Soft, nontender. EXTREMITITES: No edema. Past Medical History Past Medical History: Atrial Fibrillation, Diabetes Mellitus, Pneumonia, Pneumonia History of Any Multi-Drug Resistant Organisms: None Reported Past Surgical History: Heart Catheterization, Pacemaker, Pacemaker Additional Past Surgical History / Comment(s): HYPERTENSION Past Anesthesia/Blood Transfusion Reactions: No Reported Reaction Type of Cardiac Device: Permanent Pacemaker, Unknown Device Placement Date:: 2012 Past Psychological History: No Psychological Hx Reported, Depression Smoking Status: Former smoker Past Alcohol Use History: Occasional Past Drug Use History: None Reported - Past Family History Mother Family Medical History: Cancer Additional Family Medical History / Comment(s): kidney cancer Medications and Allergies Home Medications Medication Instructions Recorded Confirmed Type Cyclobenzaprine [Flexeril] 10 mg PO HS 01/27/14 07/30/20 History Furosemide 80 mg PO DAILY 01/27/14 07/30/20 History Tamsulosin HCl 0.4 mg PO DAILY 01/27/14 07/30/20 History Warfarin Sodium 3.75 mg PO SUMOWEFRSA 01/27/14 07/30/20 History Isosorbide Mononitrate [Imdur] 60 mg PO DAILY 05/30/14 07/30/20 History Nitroglycerin Sl Tabs [Nitrostat] 0.4 mg SUBLINGUAL Q5M PRN 05/30/14 07/30/20 History allopurinoL [Zyloprim] 150 mg PO DAILY 08/04/15 07/30/20 History Aspirin EC [Ecotrin Low Dose] 81 mg PO DAILY 08/28/16 07/30/20 History calcitrioL [Rocaltrol] 0.25 mcg PO MOTUWETH 08/28/16 07/30/20 History Gabapentin [Neurontin] 600 mg PO BID 03/28/17 07/30/20 History DULoxetine HCL [Cymbalta] 120 mg PO DAILY 07/07/20 07/30/20 History Ergocalciferol (Vitamin D2) 50,000 unit PO Q30D 07/07/20 07/30/20 History [Drisdol] Ezetimibe [Zetia] 10 mg PO DAILY 07/07/20 07/30/20 History Ferrous Sulfate [Feosol] 325 mg PO DAILY 07/07/20 07/30/20 History Furosemide [Lasix] 40 mg PO HS 07/07/20 07/30/20 History Insulin NPH Human Isophane 40 units SQ BID-W/MEALS 07/07/20 07/30/20 History [NovoLIN N] Lisinopril [Zestril] 10 mg PO DAILY 07/07/20 07/30/20 History Metoprolol Succinate (ER) [Toprol 100 mg PO DAILY 07/07/20 07/30/20 History Xl] Potassium Chloride ER [K-Dur 20] 20 meq PO BID 07/07/20 07/30/20 History Rosuvastatin Calcium [Crestor] 40 mg PO DAILY 07/07/20 07/30/20 History Spironolactone [Aldactone] 25 mg PO DAILY 07/07/20 07/30/20 History Warfarin Sodium [Jantoven] 2.5 mg PO TUTHSA 07/07/20 07/30/20 History Allergies Allergy/AdvReac Type Severity Reaction Status Date / Time No Known Allergies Allergy Verified 07/30/20 21:03 Physical Exam Vitals: Vital Signs Temp Pulse Resp BP Pulse Ox 07/31/20 11:37 89 18 115/64 95 07/31/20 11:00 89 18 106/58 95 07/31/20 10:00 87 16 112/78 95 07/31/20 09:00 86 16 120/74 95 07/31/20 08:00 97.9 F 81 16 107/89 95 07/31/20 05:26 98.1 F 77 18 96/61 98 07/31/20 03:25 98 F 76 18 83/56 98 07/31/20 01:44 80 17 93/55 98 07/31/20 00:55 85 19 83/57 97 07/30/20 22:30 65 16 74/53 07/30/20 22:15 65 16 84/69 07/30/20 22:00 62 16 83/50 07/30/20 21:45 60 16 78/46 07/30/20 21:30 65 16 78/45 94 L 07/30/20 21:25 62 20 74/38 95 07/30/20 21:12 86 20 69/48 99 07/30/20 20:49 97.9 F 75 20 59/39 94 L Intake and Output 07/30/20 07/31/20 07/31/20 22:59 06:59 14:59 Output Total 1800 Balance -1800 Output: Urine 1800 Other: Weight 99.79 kg Results - Lab Results Most recent lab results Calcium 8.0 mg/dL (8.4-10.2) L 07/31/20 06:25 Phosphorus 3.9 mg/dL (2.5-4.5) 07/31/20 00:35 Magnesium 2.3 mg/dL (1.6-2.3) 07/31/20 00:35 07/31/20 05:47 07/31/20 06:25 Assessment and Plan Plan: Assessment: 1. Acute kidney injury mostly prerenal secondary to hypovolemia improving with IV hydration. Creatinine was 6.9 on admission and is 5.12 today. No evidence of hydronephrosis noted on imaging.UA fairly benign. 2. Chronic kidney disease stage III with baseline creatinine in the range of 1.5-1.7. 3. Hyperkalemia secondary to acute kidney injury, metabolic acidosis, spironolactone as well as lisinopril. 4. Metabolic acidosis secondary to acute kidney injury. Plan: Maintain bicarb drip at 80 mL an hour. Temporary dialysis catheter being placed now. He will be dialyzed today. Repeat BMP 2 hours after dialysis today. Maintain Hunter catheter. Strict I's and O's. Continue to monitor renal function and urine output closely. Check phosphorus level as well. Thank you for the consultation. I will continue to follow the patient with you during his hospital stay.
[2020-07-31 12:38] LABS: Albumin 3.1 g/dL (3.5-5.0); Calcium 8.4 mg/dL (8.4-10.2); Total Bilirubin 0.4 mg/dL (0.2-1.3); Total Protein 5.7 g/dL (6.3-8.2)
[2020-07-31 12:41] LABS: Potassium 6.1 mmol/L (3.5-5.1)
--- NOTE | 2020-07-31 13:18 | P.GSCN ---
History of Present Illness History of present illness: This 70-year-old gentleman patient came to the emergency room with shortness of breath and confusion patient had a CT of the brain which was negative for bleed patient also has high potassiu potassium is 8.8 then treated was become 6.6 and I was consulted for placement of urgent dialysis catheter. Patient to creatinine from 6.9-5.12 stage III kidney disease. Patient also has history of diabetes and atrial fibrillation pneumonia Neck examination neck is supple no bruit appreciated Chest patient has a crackles bilateral heart sound is present Abdomen is soft nontender Vascular brachial radial femoral pulses are palpable Impression is acute chronic renal failure with hyperkalemia plan is placement of the dialysis catheter risk and complication discussed Past Medical History Past Medical History: Atrial Fibrillation, Diabetes Mellitus, Pneumonia, Pneumonia History of Any Multi-Drug Resistant Organisms: None Reported Past Surgical History: Heart Catheterization, Pacemaker, Pacemaker Additional Past Surgical History / Comment(s): HYPERTENSION Past Anesthesia/Blood Transfusion Reactions: No Reported Reaction Type of Cardiac Device: Permanent Pacemaker, Unknown Device Placement Date:: 2012 Past Psychological History: No Psychological Hx Reported, Depression Smoking Status: Former smoker Past Alcohol Use History: Occasional Past Drug Use History: None Reported - Past Family History Mother Family Medical History: Cancer Additional Family Medical History / Comment(s): kidney cancer Medications and Allergies Home Medications Medication Instructions Recorded Confirmed Type Cyclobenzaprine [Flexeril] 10 mg PO HS 01/27/14 07/30/20 History Furosemide 80 mg PO DAILY 01/27/14 07/30/20 History Tamsulosin HCl 0.4 mg PO DAILY 01/27/14 07/30/20 History Warfarin Sodium 3.75 mg PO SUMOWEFRSA 01/27/14 07/30/20 History Isosorbide Mononitrate [Imdur] 60 mg PO DAILY 05/30/14 07/30/20 History Nitroglycerin Sl Tabs [Nitrostat] 0.4 mg SUBLINGUAL Q5M PRN 05/30/14 07/30/20 History allopurinoL [Zyloprim] 150 mg PO DAILY 08/04/15 07/30/20 History Aspirin EC [Ecotrin Low Dose] 81 mg PO DAILY 08/28/16 07/30/20 History calcitrioL [Rocaltrol] 0.25 mcg PO MOTUWETH 08/28/16 07/30/20 History Gabapentin [Neurontin] 600 mg PO BID 03/28/17 07/30/20 History DULoxetine HCL [Cymbalta] 120 mg PO DAILY 07/07/20 07/30/20 History Ergocalciferol (Vitamin D2) 50,000 unit PO Q30D 07/07/20 07/30/20 History [Drisdol] Ezetimibe [Zetia] 10 mg PO DAILY 07/07/20 07/30/20 History Ferrous Sulfate [Feosol] 325 mg PO DAILY 07/07/20 07/30/20 History Furosemide [Lasix] 40 mg PO HS 07/07/20 07/30/20 History Insulin NPH Human Isophane 40 units SQ BID-W/MEALS 07/07/20 07/30/20 History [NovoLIN N] Lisinopril [Zestril] 10 mg PO DAILY 07/07/20 07/30/20 History Metoprolol Succinate (ER) [Toprol 100 mg PO DAILY 07/07/20 07/30/20 History Xl] Potassium Chloride ER [K-Dur 20] 20 meq PO BID 07/07/20 07/30/20 History Rosuvastatin Calcium [Crestor] 40 mg PO DAILY 07/07/20 07/30/20 History Spironolactone [Aldactone] 25 mg PO DAILY 07/07/20 07/30/20 History Warfarin Sodium [Jantoven] 2.5 mg PO TUTHSA 07/07/20 07/30/20 History Allergies Allergy/AdvReac Type Severity Reaction Status Date / Time No Known Allergies Allergy Verified 07/30/20 21:03 Surgical - Exam Vital Signs Temp Pulse Resp BP Pulse Ox 97.9 F 75 20 59/39 94 L 07/30/20 20:49 07/30/20 20:49 07/30/20 20:49 07/30/20 20:49 07/30/20 20:49 Results - Labs 07/31/20 05:47 07/31/20 11:34 Abnormal Lab Results - Last 24 Hours (Table) 07/30/20 07/30/20 07/30/20 Range/Units 21:20 21:29 21:29 RBC (4.30-5.90) m/uL Hgb (13.0-17.5) gm/dL Hct 38.7 L (39.0-53.0) % Plt Count (150-450) k/uL Lymphocytes # (1.0-4.8) k/uL PT 22.5 H (9.0-12.0) sec INR 2.3 H (<1.2) Sodium (137-145) mmol/L Potassium (3.5-5.1) mmol/L Chloride (98-107) mmol/L Carbon Dioxide (22-30) mmol/L BUN (9-20) mg/dL Creatinine (0.66-1.25) mg/dL Glucose (74-99) mg/dL POC Glucose (mg/dL) 73 L (75-99) mg/dL Calcium (8.4-10.2) mg/dL Phosphorus (2.5-4.5) mg/dL Magnesium (1.6-2.3) mg/dL AST (17-59) U/L ALT (4-49) U/L Troponin I (0.000-0.034) ng/mL Total Protein (6.3-8.2) g/dL Albumin (3.5-5.0) g/dL Urine Protein (Negative) Urine Blood (Negative) Urine Bacteria (None) /hpf Hyaline Casts (0-2) /lpf Urine Mucus (None) /hpf 07/30/20 07/30/20 07/30/20 Range/Units 21:29 21:29 21:29 RBC (4.30-5.90) m/uL Hgb (13.0-17.5) gm/dL Hct (39.0-53.0) % Plt Count (150-450) k/uL Lymphocytes # (1.0-4.8) k/uL PT (9.0-12.0) sec INR (<1.2) Sodium 132 L (137-145) mmol/L Potassium 8.4 H* (3.5-5.1) mmol/L Chloride (98-107) mmol/L Carbon Dioxide 17 L (22-30) mmol/L BUN 114 H* (9-20) mg/dL Creatinine 6.90 H (0.66-1.25) mg/dL Glucose 69 L (74-99) mg/dL POC Glucose (mg/dL) (75-99) mg/dL Calcium (8.4-10.2) mg/dL Phosphorus 5.4 H (2.5-4.5) mg/dL Magnesium 2.7 H (1.6-2.3) mg/dL AST 89 H (17-59) U/L ALT 118 H (4-49) U/L Troponin I 0.042 H* (0.000-0.034) ng/mL Total Protein (6.3-8.2) g/dL Albumin (3.5-5.0) g/dL Urine Protein Trace H (Negative) Urine Blood Small H (Negative) Urine Bacteria Rare H (None) /hpf Hyaline Casts 8 H (0-2) /lpf Urine Mucus Rare H (None) /hpf 07/30/20 07/31/20 07/31/20 Range/Units 22:12 00:35 00:35 RBC 3.73 L (4.30-5.90) m/uL Hgb 10.9 L (13.0-17.5) gm/dL Hct 33.2 L (39.0-53.0) % Plt Count 126 L (150-450) k/uL Lymphocytes # (1.0-4.8) k/uL PT (9.0-12.0) sec INR (<1.2) Sodium 135 L (137-145) mmol/L Potassium 6.6 H* (3.5-5.1) mmol/L Chloride 113 H (98-107) mmol/L Carbon Dioxide 15 L (22-30) mmol/L BUN 98 H (9-20) mg/dL Creatinine 5.69 H (0.66-1.25) mg/dL Glucose 48 L* (74-99) mg/dL POC Glucose (mg/dL) 133 H (75-99) mg/dL Calcium 8.2 L (8.4-10.2) mg/dL Phosphorus (2.5-4.5) mg/dL Magnesium (1.6-2.3) mg/dL AST 68 H (17-59) U/L ALT 91 H (4-49) U/L Troponin I (0.000-0.034) ng/mL Total Protein 5.5 L (6.3-8.2) g/dL Albumin 2.9 L (3.5-5.0) g/dL Urine Protein (Negative) Urine Blood (Negative) Urine Bacteria (None) /hpf Hyaline Casts (0-2) /lpf Urine Mucus (None) /hpf 07/31/20 07/31/20 07/31/20 Range/Units 00:35 02:45 03:20 RBC (4.30-5.90) m/uL Hgb (13.0-17.5) gm/dL Hct (39.0-53.0) % Plt Count (150-450) k/uL Lymphocytes # (1.0-4.8) k/uL PT (9.0-12.0) sec INR (<1.2) Sodium (137-145) mmol/L Potassium (3.5-5.1) mmol/L Chloride (98-107) mmol/L Carbon Dioxide (22-30) mmol/L BUN (9-20) mg/dL Creatinine (0.66-1.25) mg/dL Glucose (74-99) mg/dL POC Glucose (mg/dL) 177 H (75-99) mg/dL Calcium (8.4-10.2) mg/dL Phosphorus (2.5-4.5) mg/dL Magnesium (1.6-2.3) mg/dL AST (17-59) U/L ALT (4-49) U/L Troponin I 0.037 H* 0.035 H* (0.000-0.034) ng/mL Total Protein (6.3-8.2) g/dL Albumin (3.5-5.0) g/dL Urine Protein (Negative) Urine Blood (Negative) Urine Bacteria (None) /hpf Hyaline Casts (0-2) /lpf Urine Mucus (None) /hpf 07/31/20 07/31/20 07/31/20 Range/Units 05:47 05:49 06:25 RBC 3.66 L (4.30-5.90) m/uL Hgb 10.6 L (13.0-17.5) gm/dL Hct 32.4 L (39.0-53.0) % Plt Count 110 L (150-450) k/uL Lymphocytes # 0.9 L (1.0-4.8) k/uL PT (9.0-12.0) sec INR (<1.2) Sodium 134 L (137-145) mmol/L Potassium 7.2 H* (3.5-5.1) mmol/L Chloride 113 H (98-107) mmol/L Carbon Dioxide 15 L (22-30) mmol/L BUN 90 H (9-20) mg/dL Creatinine 5.12 H (0.66-1.25) mg/dL Glucose 124 H (74-99) mg/dL POC Glucose (mg/dL) 131 H (75-99) mg/dL Calcium 8.0 L (8.4-10.2) mg/dL Phosphorus (2.5-4.5) mg/dL Magnesium (1.6-2.3) mg/dL AST 75 H (17-59) U/L ALT 94 H (4-49) U/L Troponin I (0.000-0.034) ng/mL Total Protein 5.8 L (6.3-8.2) g/dL Albumin 3.1 L (3.5-5.0) g/dL Urine Protein (Negative) Urine Blood (Negative) Urine Bacteria (None) /hpf Hyaline Casts (0-2) /lpf Urine Mucus (None) /hpf 07/31/ Range/Units 11:34 RBC (4.30-5.90) m/uL Hgb (13.0-17.5) gm/dL Hct (39.0-53.0) % Plt Count (150-450) k/uL Lymphocytes # (1.0-4.8) k/uL PT (9.0-12.0) sec INR (<1.2) Sodium (137-145) mmol/L Potassium 6.1 H* (3.5-5.1) mmol/L Chloride 111 H (98-107) mmol/L Carbon Dioxide 21 L (22-30) mmol/L BUN 84 H (9-20) mg/dL Creatinine 4.93 H (0.66-1.25) mg/dL Glucose 168 H (74-99) mg/dL POC Glucose (mg/dL) (75-99) mg/dL Calcium (8.4-10.2) mg/dL Phosphorus (2.5-4.5) mg/dL Magnesium (1.6-2.3) mg/dL AST 76 H (17-59) U/L ALT 90 H (4-49) U/L Troponin I (0.000-0.034) ng/mL Total Protein 5.7 L (6.3-8.2) g/dL Albumin 3.1 L (3.5-5.0) g/dL Urine Protein (Negative) Urine Blood (Negative) Urine Bacteria (None) /hpf Hyaline Casts (0-2) /lpf Urine Mucus (None) /hpf Diabetes panel 07/30/20 07/31/20 07/31/20 Range/Units 21:29 00:35 06:25 Sodium 132 L 135 L 134 L (137-145) mmol/L Potassium 8.4 H* 6.6 H* 7.2 H* (3.5-5.1) mmol/L Chloride 103 113 H 113 H (98-107) mmol/L Carbon Dioxide 17 L 15 L 15 L (22-30) mmol/L BUN 114 H* 98 H 90 H (9-20) mg/dL Creatinine 6.90 H 5.69 H 5.12 H (0.66-1.25) mg/dL Glucose 69 L 48 L* 124 H (74-99) mg/dL Calcium 9.2 8.2 L 8.0 L (8.4-10.2) mg/dL AST 89 H 68 H 75 H (17-59) U/L ALT 118 H 91 H 94 H (4-49) U/L Alkaline Phosphatase 72 59 57 (38-126) U/L Total Protein 7.3 5.5 L 5.8 L (6.3-8.2) g/dL Albumin 4.1 2.9 L 3.1 L (3.5-5.0) g/dL 07/31/20 Range/Units 11:34 Sodium 137 (137-145) mmol/L Potassium 6.1 H* (3.5-5.1) mmol/L Chloride 111 H (98-107) mmol/L Carbon Dioxide 21 L (22-30) mmol/L BUN 84 H (9-20) mg/dL Creatinine 4.93 H (0.66-1.25) mg/dL Glucose 168 H (74-99) mg/dL Calcium 8.4 (8.4-10.2) mg/dL AST 76 H (17-59) U/L ALT 90 H (4-49) U/L Alkaline Phosphatase 57 (38-126) U/L Total Protein 5.7 L (6.3-8.2) g/dL Albumin 3.1 L (3.5-5.0) g/dL Thyroid panel 07/30/20 Range/Units 21:29 TSH 3.360 (0.465-4.680) mIU/L Calcium panel 07/30/20 07/31/20 07/31/20 Range/Units 21: 00:35 06:25 Calcium 9.2 8.2 L 8.0 L (8.4-10.2) mg/dL Phosphorus 5.4 H 3.9 (2.5-4.5) mg/dL Albumin 4.1 2.9 L 3.1 L (3.5-5.0) g/dL 07/31/20 Range/Units 11:34 Calcium 8.4 (8.4-10.2) mg/dL Phosphorus (2.5-4.5) mg/dL Albumin 3.1 L (3.5-5.0) g/dL Pituitary panel 07/30/20 07/31/20 07/31/20 Range/Units 21: 00:35 06:25 Sodium 132 L 135 L 134 L (137-145) mmol/L Potassium 8.4 H* 6.6 H* 7.2 H* (3.5-5.1) mmol/L Chloride 103 113 H 113 H (98-107) mmol/L Carbon Dioxide 17 L 15 L 15 L (22-30) mmol/L BUN 114 H* 98 H 90 H (9-20) mg/dL Creatinine 6.90 H 5.69 H 5.12 H (0.66-1.25) mg/dL Glucose 69 L 48 L* 124 H (74-99) mg/dL Calcium 9.2 8.2 L 8.0 L (8.4-10.2) mg/dL TSH 3.360 (0.465-4.680) mIU/L 07/31/20 Range/Units 11:34 Sodium 137 (137-145) mmol/L Potassium 6.1 H* (3.5-5.1) mmol/L Chloride 111 H (98-107) mmol/L Carbon Dioxide 21 L (22-30) mmol/L BUN 84 H (9-20) mg/dL Creatinine 4.93 H (0.66-1.25) mg/dL Glucose 168 H (74-99) mg/dL Calcium 8.4 (8.4-10.2) mg/dL TSH (0.465-4.680) mIU/L Adrenal panel 07/30/20 07/31/20 07/31/20 Range/Units 21:29 00:35 06:25 Sodium 132 L 135 L 134 L (137-145) mmol/L Potassium 8.4 H* 6.6 H* 7.2 H* (3.5-5.1) mmol/L Chloride 103 113 H 113 H (98-107) mmol/L Carbon Dioxide 17 L 15 L 15 L (22-30) mmol/L BUN 114 H* 98 H 90 H (9-20) mg/dL Creatinine 6.90 H 5.69 H 5.12 H (0.66-1.25) mg/dL Glucose 69 L 48 L* 124 H (74-99) mg/dL Calcium 9.2 8.2 L 8.0 L (8.4-10.2) mg/dL Total Bilirubin 0.5 0.3 0.5 (0.2-1.3) mg/dL AST 89 H 68 H 75 H (17-59) U/L ALT 118 H 91 H 94 H (4-49) U/L Alkaline Phosphatase 72 59 57 (38-126) U/L Total Protein 7.3 5.5 L 5.8 L (6.3-8.2) g/dL Albumin 4.1 2.9 L 3.1 L (3.5-5.0) g/dL 07/31/20 Range/Units 11:34 Sodium 137 (137-145) mmol/L Potassium 6.1 H* (3.5-5.1) mmol/L Chloride 111 H (98-107) mmol/L Carbon Dioxide 21 L (22-30) mmol/L BUN 84 H (9-20) mg/dL Creatinine 4.93 H (0.66-1.25) mg/dL Glucose 168 H (74-99) mg/dL Calcium 8.4 (8.4-10.2) mg/dL Total Bilirubin 0.4 (0.2-1.3) mg/dL AST 76 H (17-59) U/L ALT 90 H (4-49) U/L Alkaline Phosphatase 57 (38-126) U/L Total Protein 5.7 L (6.3-8.2) g/dL Albumin 3.1 L (3.5-5.0) g/dL
--- NOTE | 2020-07-31 13:20 | P.PN ---
Progress Note - Text Preoperative diagnoses is acute kidney injury with hyperkalemia with high be and creatinine Postoperative diagnosis the same Procedure patient was seen in emergency room right groin were prepped and draped applied sterile manner 1% lidocaine for infected groin area then ultrasound- guided micropuncture introduced to the right common femoral vein and micropuncture guidewire was passed. Then 4-Slovak sheath advanced on top the guidewire then we passed a regular guidewire without any resistance dilator was advanced on the top of the guidewire then we placed a double-lumen dialysis catheter. Flushed with heparin saline and Hep-Lock secured with 3-0 nylon dressing applied patient are to the procedure well
[2020-07-31 16:48] LABS: Hepatitis B Surface AB- Quant 3.5 mIU/mL; Hepatitis B Surface Antibody Non-Reactive (Non-Reactive); Hepatitis B Surface Antigen Non-Reactive (Non-Reactive)
[2020-07-31 18:55] LABS: Calcium 8.3 mg/dL (8.4-10.2); Potassium 4.8 mmol/L (3.5-5.1)
[2020-07-31] MEDS: SODIUM CHLORIDE 0.9% 1,000 ML IV SCH (19:32)
--- NOTE | 2020-07-31 20:09 | P.HPIM ---
History of Present Illness H&P Date: 07/31/20 Chief Complaint: weakness Holden Ortiz is a 70 yo M with PMH of atrial fibrillation s/p ablation, CKD stage 3 who presented to the ED complaining of worsening weakness and fatigue over the past few days. He reports he was in his usual state of health last week but as the weekend went on he became progressively more weak and had been spending more time resting. HE states the day of admission he felt his legs giving out so came to the hospital. On presentation he was hypotensive to 59/39, Na 132, K 8.4. WBC 8.8, INR 2.3, BUN 114, Cr 6.9. Trop 0.042. Renal US wnl and CT chest/abdomen/pelvis showing only interstital pneumonia. Pt was given insulin and D50 as well as calcium gluconate with slow correction of potassium. Due to his persistent hyperkalemia pt had dialysis catheter placed for HD. Today he remains weak but otherwise denies complaints. Review of Systems All systems: negative Constitutional: Reports weakness, Denies chills, Denies fever Eyes: denies blurred vision, denies pain Ears, nose, mouth and throat: Denies headache, Denies sore throat Cardiovascular: Denies chest pain, Denies shortness of breath Respiratory: Reports dyspnea, Denies cough Gastrointestinal: Denies abdominal pain, Denies diarrhea, Denies nausea, Denies vomiting Musculoskeletal: Denies myalgias Integumentary: Denies pruritus, Denies rash Neurological: Denies numbness, Denies weakness Psychiatric: Denies anxiety, Denies depression Endocrine: Denies fatigue, Denies weight change Past Medical History Past Medical History: Atrial Fibrillation, Diabetes Mellitus, Pneumonia, Pneumonia History of Any Multi-Drug Resistant Organisms: None Reported Past Surgical History: Heart Catheterization, Pacemaker, Pacemaker Additional Past Surgical History / Comment(s): HYPERTENSION Past Anesthesia/Blood Transfusion Reactions: No Reported Reaction Type of Cardiac Device: Permanent Pacemaker, Unknown Device Placement Date:: 2012 Past Psychological History: No Psychological Hx Reported, Depression Smoking Status: Former smoker Past Alcohol Use History: Occasional Past Drug Use History: None Reported - Past Family History Mother Family Medical History: Cancer Additional Family Medical History / Comment(s): kidney cancer Medications and Allergies Home Medications Medication Instructions Recorded Confirmed Type Cyclobenzaprine [Flexeril] 10 mg PO HS 01/27/14 07/30/20 History Furosemide 80 mg PO DAILY 01/27/14 07/30/20 History Tamsulosin HCl 0.4 mg PO DAILY 01/27/14 07/30/20 History Warfarin Sodium 3.75 mg PO SUMOWEFRSA 01/27/14 07/30/20 History Isosorbide Mononitrate [Imdur] 60 mg PO DAILY 05/30/14 07/30/20 History Nitroglycerin Sl Tabs [Nitrostat] 0.4 mg SUBLINGUAL Q5M PRN 05/30/14 07/30/20 History allopurinoL [Zyloprim] 150 mg PO DAILY 08/04/15 07/30/20 History Aspirin EC [Ecotrin Low Dose] 81 mg PO DAILY 08/28/16 07/30/20 History calcitrioL [Rocaltrol] 0.25 mcg PO MOTUWETH 08/28/16 07/30/20 History Gabapentin [Neurontin] 600 mg PO BID 03/28/17 07/30/20 History DULoxetine HCL [Cymbalta] 120 mg PO DAILY 07/07/20 07/30/20 History Ergocalciferol (Vitamin D2) 50,000 unit PO Q30D 07/07/20 07/30/20 History [Drisdol] Ezetimibe [Zetia] 10 mg PO DAILY 07/07/20 07/30/20 History Ferrous Sulfate [Feosol] 325 mg PO DAILY 07/07/20 07/30/20 History Furosemide [Lasix] 40 mg PO HS 07/07/20 07/30/20 History Insulin NPH Human Isophane 40 units SQ BID-W/MEALS 07/07/20 07/30/20 History [NovoLIN N] Lisinopril [Zestril] 10 mg PO DAILY 07/07/20 07/30/20 History Metoprolol Succinate (ER) [Toprol 100 mg PO DAILY 07/07/20 07/30/20 History Xl] Potassium Chloride ER [K-Dur 20] 20 meq PO BID 07/07/20 07/30/20 History Rosuvastatin Calcium [Crestor] 40 mg PO DAILY 07/07/20 07/30/20 History Spironolactone [Aldactone] 25 mg PO DAILY 07/07/20 07/30/20 History Warfarin Sodium [Jantoven] 2.5 mg PO TUTHSA 07/07/20 07/30/20 History Allergies Allergy/AdvReac Type Severity Reaction Status Date / Time No Known Allergies Allergy Verified 07/30/20 21:03 Physical Exam Vitals: Vital Signs Temp Pulse Pulse Resp BP BP Pulse Ox 07/31/20 17:21 90 18 105/62 93 L 07/31/20 16:34 93 18 117/98 97 07/31/20 16:06 98.2 F 92 20 130/91 07/31/20 16:02 97 18 110/82 99 07/31/20 15:23 93 18 126/65 98 07/31/20 14:41 18 134/73 99 07/31/20 14:00 90 18 142/77 97 07/31/20 12:54 86 18 128/82 95 07/31/20 12:25 87 18 118/84 95 07/31/20 11:40 89 18 124/90 95 07/31/20 11:37 89 18 115/64 95 07/31/20 11:00 89 18 106/58 95 07/31/20 10:00 87 16 112/78 95 07/31/20 09:00 86 16 120/74 95 07/31/20 08:00 97.9 F 81 16 107/89 95 07/31/20 05:26 98.1 F 77 18 96/61 98 07/31/20 03:25 98 F 76 18 83/56 98 07/31/20 01:44 80 17 93/55 98 07/31/20 00:55 85 19 83/57 97 07/30/20 22:30 65 16 74/53 07/30/20 22:15 65 16 84/69 07/30/20 22:00 62 16 83/50 07/30/20 21:45 60 16 78/46 07/30/20 21:30 65 16 78/45 94 L 07/30/20 21:25 62 20 74/38 95 07/30/20 21:12 86 20 69/48 99 07/30/20 20:49 97.9 F 75 20 59/39 94 L Intake and Output 07/31/20 07/31/20 07/31/20 06:59 14:59 22:59 Output Total 1800 0 Balance -1800 0 Output: Urine 1800 Hemodialysis 0 General: well nourished, well developed, NAD. Vitals reviewed Eyes: PERRL, EOMI, conjunctiva normal HENT: normocephalic, mucus membranes moist Neck: supple, no JVD Lungs: normal respiratory effort, no wheezes or rales CV: Irregular, no murmur. Peripheral pulses 2+ Abdomen: soft, nondistended, no organomegaly Lymph: no cervical or axillary LAD Skin: warm and dry. Neuro: A&Ox3, normal mood and affect. Lethargic Results CBC & Chem 7: 07/31/20 05:47 07/31/20 18:16 Labs: Abnormal Lab Results - Last 24 Hours (Table) 07/30/20 07/30/20 07/30/20 Range/Units 21:20 21:29 21:29 RBC (4.30-5.90) m/uL Hgb (13.0-17.5) gm/dL Hct 38.7 L (39.0-53.0) % Plt Count (150-450) k/uL Lymphocytes # (1.0-4.8) k/uL PT 22.5 H (9.0-12.0) sec INR 2.3 H (<1.2) Sodium (137-145) mmol/L Potassium (3.5-5.1) mmol/L Chloride (98-107) mmol/L Carbon Dioxide (22-30) mmol/L BUN (9-20) mg/dL Creatinine (0.66-1.25) mg/dL Glucose (74-99) mg/dL POC Glucose (mg/dL) 73 L (75-99) mg/dL Calcium (8.4-10.2) mg/dL Phosphorus (2.5-4.5) mg/dL Magnesium (1.6-2.3) mg/dL AST (17-59) U/L ALT (4-49) U/L Troponin I (0.000-0.034) ng/mL Total Protein (6.3-8.2) g/dL Albumin (3.5-5.0) g/dL Procalcitonin (0.02-0.09) ng/mL Urine Protein (Negative) Urine Blood (Negative) Urine Bacteria (None) /hpf Hyaline Casts (0-2) /lpf Urine Mucus (None) /hpf 11/07/30/20 07/30/20 Range/Units 21:29 21:29 21:29 RBC (4.30-5.90) m/uL Hgb (13.0-17.5) gm/dL Hct (39.0-53.0) % Plt Count (150-450) k/uL Lymphocytes # (1.0-4.8) k/uL PT (9.0-12.0) sec INR (<1.2) Sodium 132 L (137-145) mmol/L Potassium 8.4 H* (3.5-5.1) mmol/L Chloride (98-107) mmol/L Carbon Dioxide 17 L (22-30) mmol/L BUN 114 H* (9-20) mg/dL Creatinine 6.90 H (0.66-1.25) mg/dL Glucose 69 L (74-99) mg/dL POC Glucose (mg/dL) (75-99) mg/dL Calcium (8.4-10.2) mg/dL Phosphorus 5.4 H (2.5-4.5) mg/dL Magnesium 2.7 H (1.6-2.3) mg/dL AST 89 H (17-59) U/L ALT 118 H (4-49) U/L Troponin I 0.042 H* (0.000-0.034) ng/mL Total Protein (6.3-8.2) g/dL Albumin (3.5-5.0) g/dL Procalcitonin (0.02-0.09) ng/mL Urine Protein Trace H (Negative) Urine Blood Small H (Negative) Urine Bacteria Rare H (None) /hpf Hyaline Casts 8 H (0-2) /lpf Urine Mucus Rare H (None) /hpf 07/30/20 07/31/20 07/31/20 Range/Units 22:12 00:35 00:35 RBC 3.73 L (4.30-5.90) m/uL Hgb 10.9 L (13.0-17.5) gm/dL Hct 33.2 L (39.0-53.0) % Plt Count 126 L (150-450) k/uL Lymphocytes # (1.0-4.8) k/uL PT (9.0-12.0) sec INR (<1.2) Sodium 135 L (137-145) mmol/L Potassium 6.6 H* (3.5-5.1) mmol/L Chloride 113 H (98-107) mmol/L Carbon Dioxide 15 L (22-30) mmol/L BUN 98 H (9-20) mg/dL Creatinine 5.69 H (0.66-1.25) mg/dL Glucose 48 L* (74-99) mg/dL POC Glucose (mg/dL) 133 H (75-99) mg/dL Calcium 8.2 L (8.4-10.2) mg/dL Phosphorus (2.5-4.5) mg/dL Magnesium (1.6-2.3) mg/dL AST 68 H (17-59) U/L ALT 91 H (4-49) U/L Troponin I (0.000-0.034) ng/mL Total Protein 5.5 L (6.3-8.2) g/dL Albumin 2.9 L (3.5-5.0) g/dL Procalcitonin (0.02-0.09) ng/mL Urine Protein (Negative) Urine Blood (Negative) Urine Bacteria (None) /hpf Hyaline Casts (0-2) /lpf Urine Mucus (None) /hpf 07/31/20 07/31/20 07/31/20 Range/Units 00:35 02:45 03:20 RBC (4.30-5.90) m/uL Hgb (13.0-17.5) gm/dL Hct (39.0-53.0) % Plt Count (150-450) k/uL Lymphocytes # (1.0-4.8) k/uL PT (9.0-12.0) sec INR (<1.2) Sodium (137-145) mmol/L Potassium (3.5-5.1) mmol/L Chloride (98-107) mmol/L Carbon Dioxide (22-30) mmol/L BUN (9-20) mg/dL Creatinine (0.66-1.25) mg/dL Glucose (74-99) mg/dL POC Glucose (mg/dL) 177 H (75-99) mg/dL Calcium (8.4-10.2) mg/dL Phosphorus (2.5-4.5) mg/dL Magnesium (1.6-2.3) mg/dL AST (17-59) U/L ALT (4-49) U/L Troponin I 0.037 H* 0.035 H* (0.000-0.034) ng/mL Total Protein (6.3-8.2) g/dL Albumin (3.5-5.0) g/dL Procalcitonin (0.02-0.09) ng/mL Urine Protein (Negative) Urine Blood (Negative) Urine Bacteria (None) /hpf Hyaline Casts (0-2) /lpf Urine Mucus (None) /hpf 07/31/20 07/31/20 07/31/20 Range/Units 05:47 05:49 06:25 RBC 3.66 L (4.30-5.90) m/uL Hgb 10.6 L (13.0-17.5) gm/dL Hct 32.4 L (39.0-53.0) % Plt Count 110 L (150-450) k/uL Lymphocytes # 0.9 L (1.0-4.8) k/uL PT (9.0-12.0) sec INR (<1.2) Sodium 134 L (137-145) mmol/L Potassium 7.2 H* (3.5-5.1) mmol/L Chloride 113 H (98-107) mmol/L Carbon Dioxide 15 L (22-30) mmol/L BUN 90 H (9-20) mg/dL Creatinine 5.12 H (0.66-1.25) mg/dL Glucose 124 H (74-99) mg/dL POC Glucose (mg/dL) 131 H (75-99) mg/dL Calcium 8.0 L (8.4-10.2) mg/dL Phosphorus (2.5-4.5) mg/dL Magnesium (1.6-2.3) mg/dL AST 75 H (17-59) U/L ALT 94 H (4-49) U/L Troponin I (0.000-0.034) ng/mL Total Protein 5.8 L (6.3-8.2) g/dL Albumin 3.1 L (3.5-5.0) g/dL Procalcitonin (0.02-0.09) ng/mL Urine Protein (Negative) Urine Blood (Negative) Urine Bacteria (None) /hpf Hyaline Casts (0-2) /lpf Urine Mucus (None) /hpf 07/31/20 07/31/20 Range/Units 06:25 11:34 RBC (4.30-5.90) m/uL Hgb (13.0-17.5) gm/dL Hct (39.0-53.0) % Plt Count (150-450) k/uL Lymphocytes # (1.0-4.8) k/uL PT (9.0-12.0) sec INR (<1.2) Sodium (137-145) mmol/L Potassium 6.1 H* (3.5-5.1) mmol/L Chloride 111 H (98-107) mmol/L Carbon Dioxide 21 L (22-30) mmol/L BUN 84 H (9-20) mg/dL Creatinine 4.93 H (0.66-1.25) mg/dL Glucose 168 H (74-99) mg/dL POC Glucose (mg/dL) (75-99) mg/dL Calcium (8.4-10.2) mg/dL Phosphorus (2.5-4.5) mg/dL Magnesium (1.6-2.3) mg/dL AST 76 H (17-59) U/L ALT 90 H (4-49) U/L Troponin I (0.000-0.034) ng/mL Total Protein 5.7 L (6.3-8.2) g/dL Albumin 3.1 L (3.5-5.0) g/dL Procalcitonin 0.13 H (0.02-0.09) ng/mL Urine Protein (Negative) Urine Blood (Negative) Urine Bacteria (None) /hpf Hyaline Casts (0-2) /lpf Urine Mucus (None) /hpf Assessment and Plan (1) Interstitial pneumonia Current Visit: Yes Status: Acute Code(s): J84.9 - INTERSTITIAL PULMONARY DISEASE, UNSPECIFIED SNOMED Code(s): 41928915 (2) Type 2 diabetes mellitus Current Visit: Yes Status: Acute Code(s): E11.9 - TYPE 2 DIABETES MELLITUS WITHOUT COMPLICATIONS SNOMED Code(s): 27579790 (3) Acute renal failure Current Visit: Yes Status: Acute Code(s): N17.9 - ACUTE KIDNEY FAILURE, UNSPECIFIED SNOMED Code(s): 40052766 (4) Pneumonia Current Visit: Yes Status: Acute Code(s): J18.9 - PNEUMONIA, UNSPECIFIED ORGANISM SNOMED Code(s): 825262309 (5) Sepsis Current Visit: Yes Status: Acute Code(s): A41.9 - SEPSIS, UNSPECIFIED ORGANISM SNOMED Code(s): 80040691 Plan: 1. Acute renal failure. Hyperkalemia. Admit to ICU. Nephrology consult. Plan for emergent HD. Continue IV fluids. Closely follow electrolytes. Hold lisinopril and avoid nephrotoxins 2. Interstitial pneumonia. Pulmonary consult. Rocephin and azithromcyin 3. Atrial fibrillation. Hold coumadin and metoprolol. DVT prophylaxis with heparin
[2020-08-01] MEDS: AZITHROMYCIN 500 MG in SODIUM CHLORIDE 0.9% 250 ML IVPB SCH (03:15)
--- NOTE | 2020-08-01 08:24 | P.PN ---
Subjective Progress Note Date: 08/01/20 Principal diagnosis: Weakness, falls 70-year-old white male patient with past medical history of hypertension, atrial fibrillation with previous history of ablation as well as dual-chamber pacemaker implantation, diabetes mellitus type 2, chronic kidney disease stage III, who came into the emergency department on 07/30/2020 with complaints of weakness, loss of appetite, and falling at home. Patient is somewhat confused, and not the best historian, denied any fever chills, denied any headaches, syncope, denied any urinary symptoms, no abdominal pain, no nausea vomiting or diarrhea. CT brain and C-spine were negative for acute pathology, CT chest abdomen and pelvis showed interstitial pattern, rule out underlying pneumonia or mild fluid overload. Blood work showed no evidence of leukocytosis, white blood cell count was 8.8, hemoglobin was 13.3, INR is 2.3, potassium was 8.4, B1 is 114, creatinine is 6.90, lactic acid was 1.4, AST was 89, ALT was 118, troponin was 0 .042, urinalysis, show trace 14, small amount of blood, rare bacteria but no clear evidence of infection, COVID PCR was negative. Renal ultrasound was completed showing bilateral renal cortical cysts, no evidence of solid renal mass or obstruction. Bladder was empty during the exam. Blood pressure was 59 with 39 on presentation, patient was given a total of 4 L of fluid boluses, blood pressure is currently improved at 107/89, patient is in sinus mechanism, with a rate of 81, activities of oxygen the pulse ox of 95%, he was started on empiric antibiotics in the form of azithromycin and Rocephin, his hyperkalemia was treated with 2 g of calcium gluconate, 50% dextrose and regular insulin, and was given an amp of sodium bicarb, and 15 g of oral Kayexalate, his maintenance IV fluids are 5% dextrose with 3 amps bicarbonate at a rate of 80 ML per hour. he has been afebrile while the emergency department, has produced 1800 mL in urine output, nephrology is consulted and patient is awaiting a bed in the intensive care unit. On 08/01/2020 patient seen in follow-up in the emergency department, still awaiting a bed, but his status has been downgraded from intensive care unit to monitored bed on selective care, he is awake and alert, in no acute distress, mentation has significantly improved, is confused, denies any specific complaints, hemodynamically stable, no nausea vomiting and diarrhea, no abdominal pain, no fever or chills. Yesterday he had a dialysis catheter placed, for ultrafiltration, IV fluids have been switched from bicarbonate infusion 0.9 normal saline at a rate of 75 ML per hour, today's labs have been reviewed, showing potassium of 4.8, sodium of 136, BUN of 52, and creatinine down to 3.3. His proBNP level is 2070, progressive on a level at 0.13, with cultures have shown no growth at 24 hour anastasia, been afebrile overnight, denies any shortness of breath, is currently on 2 L of oxygen with pulse ox of 98%, lung sounds are clear. Currently on azithromycin and Rocephin for empiric antibiotic coverage. Objective - Vital Signs Vital signs: Vital Signs Temp 98.2 F 07/31/20 16:06 Pulse 96 08/01/20 02:35 Resp 16 08/01/20 02:35 BP 107/75 08/01/20 02:35 Pulse Ox 98 08/01/20 02:35 Intake & Output 07/31/20 08/01/20 08/01/20 18:59 06:59 18:59 Output Total 0 1300 Balance 0 -1300 Output: Urine 1300 Hemodialysis 0 - Exam GENERAL EXAM: Alert, oriented 2, 70-year-old white male, on 2 L of oxygen for sats 95%, resting on the gurney in the emergency department, answering simple questions, is to be in no acute distress, oral membranes are extremely dry HEAD: Normocephalic/atraumatic. EYES: Normal reaction of pupils, equal size. Conjunctiva pink, sclera white. NOSE: Clear with pink turbinates. THROAT: No erythema or exudates. NECK: No masses, no JVD, no thyroid enlargement, no adenopathy. CHEST: No chest wall deformity. Symmetrical expansion. LUNGS: Equal air entry with no crackles, wheeze, rhonchi or dullness. CVS: Regular rate and rhythm, normal S1 and S2, no gallops, no murmurs, no rubs ABDOMEN: Soft, nontender. No hepatosplenomegaly, normal bowel sounds, no guarding or rigidity. EXTREMITIES: No clubbing, no edema, no cyanosis, 2+ pulses and upper and lower extremities. MUSCULOSKELETAL: Muscle strength and tone normal. SPINE: No scoliosis or deformity SKIN: No rashes CENTRAL NERVOUS SYSTEM: Alert and oriented -2. Less confused on today's exam No focal deficits, tone is normal in all 4 extremities. PSYCHIATRIC: Alert and oriented -2. Appropriate affect. Intact judgment and i nsight. - Labs CBC & Chem 7: 07/31/20 05:47 07/31/20 18:16 Labs: Abnormal Lab Results - Last 24 Hours (Table) 07/31/20 07/31/20 07/31/20 Range/Units 06:25 11:34 18:16 Sodium 136 L (137-145) mmol/L Potassium 6.1 H* (3.5-5.1) mmol/L Chloride 111 H (98-107) mmol/L Carbon Dioxide 21 L (22-30) mmol/L BUN 84 H 52 H (9-20) mg/dL Creatinine 4.93 H 3.30 H (0.66-1.25) mg/dL Glucose 168 H (74-99) mg/dL Calcium 8.3 L (8.4-10.2) mg/dL AST 76 H (17-59) U/L ALT 90 H (4-49) U/L Total Protein 5.7 L (6.3-8.2) g/dL Albumin 3.1 L (3.5-5.0) g/dL Procalcitonin 0.13 H (0.02-0.09) ng/mL Microbiology - Last 24 Hours (Table) 07/30/20 21:29 Blood Culture - Preliminary Blood No Growth after 24 hours Assessment and Plan Plan: Assessment: #1. Rule out septic shock, patient came in with hypotension and blood pressure of 59/39, acute kidney injury, with the possibility of sepsis and severe dehydration. Received a total of 4 L of fluids in the emergency department, blood pressure has improved #2. Mild interstitial edema on the chest x-ray and CT chest with the possibility of mild fluid overload rule out possibility of pneumonia #3. Dehydration from poor oral intake and diuretic therapy #4. Acute on chronic renal failure #5. Chronic kidney disease stage III at baseline #6. Acute hyperkalemia related to acute kidney injury #7. Troponin leak possibly related to acute kidney injury #8. Acute metabolic encephalopathy related to acute kidney injury, sepsis #9. Hypertension #10. Hyperlipidemia #11. Diabetes mellitus type 2 #12. History of atrial fibrillation status post ablation and status post dual chamber pacemaker insertion Plan: Patient has been stable overnight, today's labs have been reviewed, potassium is down to 4.8, renal profile has improved, hemodialysis catheter was inserted for ultrafiltration, nephrology is following, no fever or chills, blood cultures are negative, vital signs have been stable, blood pressure is stable, patient can be downgraded to a monitored bed on selective care unit, continue current anti biotics. I performed a history & physical examination of the patient and discussed their management with my nurse practitioner, Mago Gorman. I reviewed the nurse practitioner's note and agree with the documented findings and plan of care. Lung sounds are positive for poor breath sounds. The findings and the impression was discussed with the patient. I attest to the documentation by the nurse practitioner. Time with Patient: Less than 30
--- NOTE | 2020-08-01 10:19 | P.PN ---
Subjective Patient is seen in follow for acute kidney injury. He underwent 1 treatment of hemodialysis on July 31 for persistent hyperkalemia. Creatinine was 6.9 on admission and is 3.3 today. Oral intake is just fair. States he doesn't feel that hungry. No chest pain or shortness of breath. Has a Hunter catheter. Nonoliguric. Vital signs are stable. General: The patient appeared well nourished and normally developed. HEENT: Head exam is unremarkable. Neck is without jugular venous distension. LUNGS: Breath sounds decreased. HEART: Rate and Rhythm are regular. ABDOMEN: Soft, nontender. EXTREMITITES: No edema. Objective - Vital Signs Vital signs: Vital Signs Temp 98.2 F 07/31/20 16:06 Pulse 96 08/01/20 02:35 Resp 16 08/01/20 02:35 BP 107/75 08/01/20 02:35 Pulse Ox 98 08/01/20 02:35 Intake & Output 07/31/20 08/01/20 08/01/20 18:59 06:59 18:59 Output Total 0 1300 Balance 0 -1300 Output: Urine 1300 Hemodialysis 0 - Labs CBC & Chem 7: 07/31/20 05:47 07/31/20 18:16 Labs: Abnormal Lab Results - Last 24 Hours (Table) 07/31/20 07/31/20 07/31/20 Range/Units 06:25 11:34 18:16 Sodium 136 L (137-145) mmol/L Potassium 6.1 H* (3.5-5.1) mmol/L Chloride 111 H (98-107) mmol/L Carbon Dioxide 21 L (22-30) mmol/L BUN 84 H 52 H (9-20) mg/dL Creatinine 4.93 H 3.30 H (0.66-1.25) mg/dL Glucose 168 H (74-99) mg/dL Calcium 8.3 L (8.4-10.2) mg/dL AST 76 H (17-59) U/L ALT 90 H (4-49) U/L Total Protein 5.7 L (6.3-8.2) g/dL Albumin 3.1 L (3.5-5.0) g/dL Procalcitonin 0.13 H (0.02-0.09) ng/mL Microbiology - Last 24 Hours (Table) 07/30/20 21:29 Blood Culture - Preliminary Blood No Growth after 24 hours Assessment and Plan Plan: Assessment: 1. Acute kidney injury mostly prerenal secondary to hypovolemia improving with IV hydration. Creatinine was 6.9 on admission and is 3.3 today. No evidence of hydronephrosis noted on imaging. UA fairly benign. Status post one treatment of hemodialysis on July 31 for persistent hyperkalemia. 2. Chronic kidney disease stage III with baseline creatinine in the range of 1.5-1.7. 3. Hyperkalemia secondary to acute kidney injury, metabolic acidosis, spironolactone as well as lisinopril. Improved postdialysis. 4. Metabolic acidosis secondary to acute kidney injury. Improved. Status post bicarb drip. Plan: Maintain normal saline at 75 mL an hour. Maintain Hunter catheter. Strict I's and O's. Continue to monitor renal function and urine output closely. Follow-up morning labs. Continue to assess daily for need for renal replacement therapy.
[2020-08-01] MEDS: SODIUM CHLORIDE 0.9% 1,000 ML IV SCH (10:45)
[2020-08-01] MEDS: PANTOPRAZOLE 40 MG/10 ML VIAL IV SCH (10:45)
[2020-08-01 12:08] LABS: Potassium 5.1 mmol/L (3.5-5.1)
[2020-08-01 12:10] LABS: Calcium 8.5 mg/dL (8.4-10.2); Magnesium 1.6 mg/dL (1.6-2.3); Phosphorus 3.2 mg/dL (2.5-4.5)
[2020-08-01] MEDS: MAGNESIUM SULFATE-D5W PMX 1 GM in DEXTROSE/WATER 1 100ML.BAG IVPB SCH ×2 (15:06→16:15)
--- NOTE | 2020-08-01 16:53 | P.PN ---
Subjective Progress Note Date: 08/01/20 Holden Ortiz is a 70 yo M with PMH of atrial fibrillation s/p ablation, CKD stage 3 who presented to the ED complaining of worsening weakness and fatigue over the past few days. He reports he was in his usual state of health last week but as the weekend went on he became progressively more weak and had been spending more time resting. HE states the day of admission he felt his legs giving out so came to the hospital. On presentation he was hypotensive to 59/39, Na 132, K 8.4. WBC 8.8, INR 2.3, BUN 114, Cr 6.9. Trop 0.042. Renal US wnl and CT chest/abdomen/pelvis showing only interstital pneumonia. Pt was given insulin and D50 as well as calcium gluconate with slow correction of potassium. Due to his persistent hyperkalemia pt had dialysis catheter placed for HD. Today he remains weak but otherwise denies complaints. 08/01/2010. Bicarb drip has been discontinued. Dialysis catheter placed y , received hemodialysis with significant clinical improvement. Sensorium improved. Potassium 5.1, creatinine down to 3.15. Afebrile, maintaining O2 sats in the high 90s on 2 L nasal cannula. Afebrile. Denies chest pain, palpitations or shortness of breath. Afebrile. Denies chest pain, palpitations or increasing shortness of breath. Objective - Vital Signs Vital signs: Vital Signs Temp 98.8 F 08/01/20 11:00 Pulse 75 08/01/20 15:00 Resp 16 08/01/20 15:00 BP 139/75 08/01/20 15:00 Pulse Ox 95 08/01/20 15:00 Intake & Output 07/31/20 08/01/20 08/01/20 18:59 06:59 18:59 Output Total 0 1300 1000 Balance 0 -1300 -1000 Output: Urine 1300 1000 Uretheral (Hunter) 1000 Hemodialysis 0 - Exam General: Sitting up on stretcher, NAD. Vitals reviewed, mild pleasant confusion Eyes: PERRL, EOMI, conjunctiva normal HENT: normocephalic, mucus membranes moist Neck: supple, no JVD Lungs: normal respiratory effort, essentially clear with no wheezes or rales CV: Irregular, no murmur. Peripheral pulses 2+ Abdomen: soft, nondistended, no organomegaly. Positive bowel sounds Skin: warm and dry. No rashes Neuro: A&Ox2, normal mood and affect. Microbiology 07/30/20 21:29 Blood Blood Culture - Preliminary No Growth after 24 hours - Labs CBC & Chem 7: 07/31/20 05:47 08/01/20 10:58 Labs: Abnormal Lab Results - Last 24 Hours (Table) 07/31/20 08/01/20 Range/Units 18:16 10:58 Sodium 136 L (137-145) mmol/L Chloride 109 H (98-107) mmol/L BUN 52 H 37 H (9-20) mg/dL Creatinine 3.30 H 3.15 H (0.66-1.25) mg/dL Glucose 119 H (74-99) mg/dL Calcium 8.3 L (8.4-10.2) mg/dL Microbiology - Last 24 Hours (Table) 07/30/20 21:29 Blood Culture - Preliminary Blood No Growth after 24 hours Assessment and Plan Assessment: (1) Interstitial pneumonia Current Visit: Yes Status: Acute Code(s): J84.9 - INTERSTITIAL PULMONARY DISEASE, UNSPECIFIED SNOMED Code(s): 13544901 (2) Type 2 diabetes mellitus Current Visit: Yes Status: Acute Code(s): E11.9 - TYPE 2 DIABETES MELLITUS WITHOUT COMPLICATIONS SNOMED Code(s): 77033666 (3) Acute renal failure, secondary to hypovolemia, Current Visit: Yes Status: Acute Code(s): N17.9 - ACUTE KIDNEY FAILURE, UNSPECIFIED SNOMED Code(s): 73074617 (4) Pneumonia Current Visit: Yes Status: Acute Code(s): J18.9 - PNEUMONIA, UNSPECIFIED ORGANISM SNOMED Code(s): 466949735 (5) Sepsis, possible septic shock Current Visit: Yes Status: Acute Code(s): A41.9 - SEPSIS, UNSPECIFIED ORGANISM SNOMED Code(s): 35981092 (6) hyperkalemia secondary to acute renal failure, medicationslisinopril, Aldactone, improving with hemodialysis (7) chronic kidney disease, stage III (8) emergent temporary dialysis catheter placement with initiation of hemodialysis secondary to persistent hyperkalemia (9) metabolic acidosis, status post bicarb drip (10) Hypovolemic Hypotension on admission, initially requiring 4 L of IV fluids (11) Dehydration, severe (12) acute metabolic encephalopathy multifactorial, secondary to sepsis, pneumonia, acute renal failure (13) chronic atrial fibrillation with history of permanent pacemaker Plan: Continue on current medication regime ,monitoring and symptomatic treatment. Continued improvement in renal function, electrolytes .IV fluid hydration. Maintain Zithromax and Rocephin. Downgraded to MedSur with remote telemetry. Follow closely with both pulmonary and nephrology. The impression and plan of care has been dictated as directed. : I performed a history and examination of this patient, discussed the same with the dictator. I agree with the dictator's note ,documented as a scribe. Any additional findings or plans will be noted.
--- NOTE | 2020-08-01 17:13 | CDI ---
Documentation Clarification Form Date: 08/01/2020 04:41:45 PM From: Debra Cuba RN, CCDS Admit Date: 07/30/2020 10:25:00 PM Patient Name: Holden Ortiz Visit Number: [id number] Discharge Date: ATTENTION: The Clinical Documentation Specialists (CDI) and [facility] Coding Staff appreciate your assistance in clarifying documentation. Please respond to the clarification below the line at the bottom and electronically sign. The CDI & [facility] Coding staff will review the response and follow-up if needed. Please note: Queries are made part of the Legal Health Record. If you have any questions, please contact the author of this message via ITS. Dr. Hermann Reid Rule out septic shock is documented 07/31 in the pulmonary consult and subsequent progress note. Please clarify if septic shock has been ruled in or ruled out. Patient history/risk factors: Hypertension, Atrial Fibrillation CKD stage III Clinical Indicators: 70-year-old male who present to ED on 07/30 with complaints of weakness, fatigue loss of appetite, and falling at home. He was hypotensive. He received total of 4 L of fluid boluses. 07/30 Vitals on admission 59/39 75 20 97.9, 69/48 86 20 99 % RA 07/30 Labs: potassium 8.4, BUN 114, Creatinine 6.90, Glucose 69, Lactic Acid 1.4, Phosphorus 5.4, magnesium 2.7 Troponin 0.042 Treatment: .9 NS Bolus T=4/L Azithromycin 500 mg IV Q 24 hrs. Rocephin 1 gm IV Q 24 hrs. 2 gm calcium gluconate 50 % dextrose 50 ml IVP x2 07/30 (07/31 x3) Regular insulin 10 unit IV x1, 07/30 10 units 07/31 X2 1 amp of Sodium Bicarb Kayexalate 15 g po 5 % dextrose with 3 amp bicarbonate @ 80 mls per hrs. In your professional opinion, can you please clarify? Septic Shock Ruled in (specify cause, any associated organ failure) Septic Shock Ruled out Other, please specify Unable to determine (Last Revision: June 2017) Septic Shock Ruled, with acute renal failure, due to interstitial pneumonia, BRANDON MONSALVED
[2020-08-01] MEDS ORDERED: ATORVASTATIN 80 MG TAB PO SCH (20:15)
[2020-08-01 21:20] LABS: Glucose,Whole Blood 118 mg/dL (75-99)
[2020-08-01] MEDS: INSULIN ASPART (NovoLOG) 100 UNIT/ML VIAL SQ SCH (21:50)
[2020-08-01] MEDS: ATORVASTATIN 80 MG TAB PO SCH (21:50)
[2020-08-01] MEDS: METOPROLOL SUCCINATE (ER) 100 MG TAB.ER.24H PO SCH (21:50)
[2020-08-02] MEDS: AZITHROMYCIN 500 MG in SODIUM CHLORIDE 0.9% 250 ML IVPB SCH (02:49)
[2020-08-02] MEDS: SODIUM CHLORIDE 0.9% 1,000 ML IV SCH ×2 (02:50→11:56)
[2020-08-02 06:51] LABS: Glucose,Whole Blood 132 mg/dL (75-99)
[2020-08-02] MEDS: DULoxetine HCL 60 MG CAPSULE.DR PO SCH ×2 (07:55→21:35)
[2020-08-02] MEDS: PANTOPRAZOLE 40 MG/10 ML VIAL IV SCH (07:56)
[2020-08-02] MEDS: INSULIN ASPART (NovoLOG) 100 UNIT/ML VIAL SQ SCH ×4 (07:56→21:37)
[2020-08-02] MEDS: METOPROLOL SUCCINATE (ER) 100 MG TAB.ER.24H PO SCH (07:56)
[2020-08-02] MEDS ORDERED: ONDANSETRON 4 MG/2 ML VIAL IVP PRN (09:14)
[2020-08-02 10:16] LABS: African American GFR (CKD) 29.1 (60.0-200.0); Anion Gap 10.6 mmol/L (4.00-12.00); BUN/Creat Ratio 12.4 Ratio (12.00-20.00); Calcium 8.7 mg/dL (8.7-10.3); Carbon Dioxide 17.4 mmol/L (21.6-31.8); Non-African American GFR(CKD) 25.1 (60.0-200.0); Potassium 5.1 mmol/L (3.5-5.5)
--- NOTE | 2020-08-02 10:52 | P.PN ---
Subjective Patient is seen in follow for acute kidney injury. He underwent 1 treatment of hemodialysis on July 31 for persistent hyperkalemia. Creatinine was 6.9 on admission and is 2.5 today. Oral intake is just fair. No chest pain or shortness of breath. Has a Hunter catheter. Nonoliguric. No changes overnight. Vital signs are stable. General: The patient appeared well nourished and normally developed. HEENT: Head exam is unremarkable. Neck is without jugular venous distension. LUNGS: Breath sounds decreased. HEART: Rate and Rhythm are regular. ABDOMEN: Soft, nontender. EXTREMITITES: No edema. Objective - Vital Signs Vital signs: Vital Signs Temp 98.2 F 08/02/20 07:51 Pulse 59 L 08/02/20 07:51 Resp 18 08/02/20 07:51 BP 135/76 08/02/20 07:51 Pulse Ox 98 08/02/20 07:51 Intake & Output 08/01/20 08/02/20 08/02/20 18:59 06:59 18:59 Output Total 1000 Balance -1000 Output: Urine 1000 Uretheral (Hunter) 1000 Other: Voiding Method Indwelling Catheter Indwelling Catheter Indwelling Catheter # Voids 1 # Bowel Movements 1 - Labs CBC & Chem 7: 07/31/20 05:47 08/02/20 05:40 Labs: Abnormal Lab Results - Last 24 Hours (Table) 08/01/20 08/01/20 08/02/20 Range/Units 10:58 21:18 05:40 Chloride 109 H 111 H (98-107) mmol/L Carbon Dioxide 17.4 L (21.6-31.8) mmol/L BUN 37 H 31.0 H (9-20) mg/dL Creatinine 3.15 H 2.5 H (0.66-1.25) mg/dL Est GFR (CKD-EPI)AfAm 29.1 L (60.0-200.0) Est GFR (CKD-EPI)NonAf 25.1 L (60.0-200.0) Glucose 119 H 111 H (74-99) mg/dL POC Glucose (mg/dL) 118 H (75-99) mg/dL 08/02/20 Range/Units 06:50 Chloride (98-107) mmol/L Carbon Dioxide (21.6-31.8) mmol/L BUN (9-20) mg/dL Creatinine (0.66-1.25) mg/dL Est GFR (CKD-EPI)AfAm (60.0-200.0) Est GFR (CKD-EPI)NonAf (60.0-200.0) Glucose (74-99) mg/dL POC Glucose (mg/dL) 132 H (75-99) mg/dL Microbiology - Last 24 Hours (Table) 07/30/20 21:29 Blood Culture - Preliminary Blood No Growth after 48 hours Assessment and Plan Plan: Assessment: 1. Acute kidney injury mostly prerenal secondary to hypovolemia improving with IV hydration. Creatinine was 6.9 on admission and is 2.5 today. No evidence of hydronephrosis noted on imaging. UA fairly benign. Status post one treatment of hemodialysis on July 31 for persistent hyperkalemia. 2. Chronic kidney disease stage III with baseline creatinine in the range of 1.5-1.7. 3. Hyperkalemia secondary to acute kidney injury, metabolic acidosis, spironolactone as well as lisinopril. Improved postdialysis. 4. Metabolic acidosis secondary to acute kidney injury. Status post bicarb drip. Plan: Decrease rate of normal saline to 50 mL an hour. Add oral sodium bicarbonate. Maintain Hunter catheter. Strict I's and O's. Continue to monitor renal function and urine output closely. Continue to assess daily for need for renal replacement therapy. Repeat electrolytes in the morning. If renal function and potassium level stable, will discontinue dialysis catheter.
[2020-08-02 11:12] LABS: Glucose,Whole Blood 132 mg/dL (75-99)
[2020-08-02] MEDS: SODIUM BICARBONATE TAB 650 MG TAB PO SCH ×3 (11:56→21:35)
--- NOTE | 2020-08-02 15:10 | P.PN ---
Subjective Progress Note Date: 08/02/20 Holden Ortiz is a 70 yo M with PMH of atrial fibrillation s/p ablation, CKD stage 3 who presented to the ED complaining of worsening weakness and fatigue over the past few days. He reports he was in his usual state of health last week but as the weekend went on he became progressively more weak and had been spending more time resting. HE states the day of admission he felt his legs giving out so came to the hospital. On presentation he was hypotensive to 59/39, Na 132, K 8.4. WBC 8.8, INR 2.3, BUN 114, Cr 6.9. Trop 0.042. Renal US wnl and CT chest/abdomen/pelvis showing only interstital pneumonia. Pt was given insulin and D50 as well as calcium gluconate with slow correction of potassium. Due to his persistent hyperkalemia pt had dialysis catheter placed for HD. Today he remains weak but otherwise denies complaints. 08/01/2010. Bicarb drip has been discontinued. Dialysis catheter placed y , received hemodialysis with significant clinical improvement. Sensorium improved. Potassium 5.1, creatinine down to 3.15. Afebrile, maintaining O2 sats in the high 90s on 2 L nasal cannula. Afebrile. Denies chest pain, palpitations or shortness of breath. Afebrile. Denies chest pain, palpitations or increasing shortness of breath. 08/02/2020 renal function continues to improve with BUN and creatinine down to 31/2.5. Potassium 5.1. Blood sugars controlled. Complains of nausea and vomiting since his dialysis treatment. CO2 17.4. Afebrile. Maintaining O2 sats in the 90s on 3 L nasal cannula. Denies chest pain, palpitations or increasing shortness of breath. Objective - Vital Signs Vital signs: Vital Signs Temp 98.2 F 08/02/20 07:51 Pulse 59 L 08/02/20 07:51 Resp 18 08/02/20 07:51 BP 135/76 08/02/20 07:51 Pulse Ox 98 08/02/20 07:51 Intake & Output 08/01/20 08/02/20 08/02/20 18:59 06:59 18:59 Output Total 1000 Balance -1000 Output: Urine 1000 Uretheral (Hunter) 1000 Other: Voiding Method Indwelling Catheter Indwelling Catheter Indwelling Catheter # Voids 1 # Bowel Movements 1 - Exam General: Sitting up in bed, nauseated, wretching Eyes: PERRL, EOMI, conjunctiva normal HENT: normocephalic, mucus membranes moist Neck: supple, no JVD Lungs: normal respiratory effort, essentially clear with no wheezes or rales CV: Irregular, no murmur. Peripheral pulses 2+ Abdomen: soft, nondistended, no organomegaly. Positive bowel sounds Skin: warm and dry. No rashes Neuro: A&Ox2, normal mood and affect. - Labs CBC & Chem 7: 07/31/20 05:47 08/02/20 05:40 Labs: Abnormal Lab Results - Last 24 Hours (Table) 08/01/20 08/02/20 08/02/20 Range/Units 21:18 05:40 06:50 Chloride 111 H (96-109) mmol/L Carbon Dioxide 17.4 L (21.6-31.8) mmol/L BUN 31.0 H (9.0-27.0) mg/dL Creatinine 2.5 H (0.6-1.5) mg/dL Est GFR (CKD-EPI)AfAm 29.1 L (60.0-200.0) Est GFR (CKD-EPI)NonAf 25.1 L (60.0-200.0) Glucose 111 H (70-110) mg/dL POC Glucose (mg/dL) 118 H 132 H (75-99) mg/dL 08/02/20 Range/Units 11:10 Chloride (96-109) mmol/L Carbon Dioxide (21.6-31.8) mmol/L BUN (9.0-27.0) mg/dL Creatinine (0.6-1.5) mg/dL Est GFR (CKD-EPI)AfAm (60.0-200.0) Est GFR (CKD-EPI)NonAf (60.0-200.0) Glucose (70-110) mg/dL POC Glucose (mg/dL) 132 H (75-99) mg/dL Microbiology - Last 24 Hours (Table) 07/30/20 21:29 Blood Culture - Preliminary Blood No Growth after 48 hours Assessment and Plan Assessment: (1) Interstitial pneumonia Current Visit: Yes Status: Acute Code(s): J84.9 - INTERSTITIAL PULMONARY DISEASE, UNSPECIFIED SNOMED Code(s): 03357821 (2) Type 2 diabetes mellitus Current Visit: Yes Status: Acute Code(s): E11.9 - TYPE 2 DIABETES MELLITUS WITHOUT COMPLICATIONS SNOMED Code(s): 75770922 (3) Acute renal failure, secondary to hypovolemia, Current Visit: Yes Status: Acute Code(s): N17.9 - ACUTE KIDNEY FAILURE, UNSPECIFIED SNOMED Code(s): 21186293 (4) Pneumonia Current Visit: Yes Status: Acute Code(s): J18.9 - PNEUMONIA, UNSPECIFIED ORGANISM SNOMED Code(s): 571055525 (5) Sepsis, possible septic shock Current Visit: Yes Status: Acute Code(s): A41.9 - SEPSIS, UNSPECIFIED ORGANISM SNOMED Code(s): 66180144 (6) hyperkalemia secondary to acute renal failure, medicationslisinopril, Aldactone, improving with hemodialysis (7) chronic kidney disease, stage III (8) emergent temporary dialysis catheter placement with initiation of hemodialysis secondary to persistent hyperkalemia (9) metabolic acidosis, status post bicarb drip (10) Hypovolemic Hypotension on admission, initially requiring 4 L of IV fluids (11) Dehydration, severe (12) acute metabolic encephalopathy multifactorial, secondary to sepsis, pneumonia, acute renal failure (13) chronic atrial fibrillation with history of permanent pacemaker (14) acute hypoxic respiratory failure Plan: Continue on current medication regime ,monitoring and symptomatic treatment. IV fluid hydration as per nephrology. Maintain Zithromax and Rocephin. Antiemetics ordered. Worsening hypoxia, chest x-ray ordered. The impression and plan of care has been dictated as directed. : I performed a history and examination of this patient, discussed the same with the dictator. I agree with the dictator's note ,documented as a scribe. Any additional findings or plans will be noted.
--- NOTE | 2020-08-02 15:52 | P.PN ---
Subjective Progress Note Date: 08/02/20 Principal diagnosis: Weakness, falls 70-year-old white male patient with past medical history of hypertension, atrial fibrillation with previous history of ablation as well as dual-chamber pacemaker implantation, diabetes mellitus type 2, chronic kidney disease stage III, who ca me into the emergency department on 07/30/2020 with complaints of weakness, loss of appetite, and falling at home. Patient is somewhat confused, and not the best historian, denied any fever chills, denied any headaches, syncope, denied any urinary symptoms, no abdominal pain, no nausea vomiting or diarrhea. CT brain and C-spine were negative for acute pathology, CT chest abdomen and pelvis showed interstitial pattern, rule out underlying pneumonia or mild fluid overload. Blood work showed no evidence of leukocytosis, white blood cell count was 8.8, hemoglobin was 13.3, INR is 2.3, potassium was 8.4, B1 is 114, creatinine is 6.90, lactic acid was 1.4, AST was 89, ALT was 118, troponin was 0.042, urinalysis, show trace 14, small amount of blood, rare bacteria but no clear evidence of infection, COVID PCR was negative. Renal ultrasound was completed showing bilateral renal cortical cysts, no evidence of solid renal mass or obstruction. Bladder was empty during the exam. Blood pressure was 59 with 39 on presentation, patient was given a total of 4 L of fluid boluses, blood pressure is currently improved at 107/89, patient is in sinus mechanism, with a rate of 81, activities of oxygen the pulse ox of 95%, he was started on empiric antibiotics in the form of azithromycin and Rocephin, his hyperkalemia was treated with 2 g of calcium gluconate, 50% dextrose and regular insulin, and was given an amp of sodium bicarb, and 15 g of oral Kayexalate, his maintenance IV fluids are 5% dextrose with 3 amps bicarbonate at a rate of 80 ML per hour. he has been afebrile while the emergency department, has produced 1800 mL in urine output, nephrology is consulted and patient is awaiting a bed in the intensive care unit. On 08/01/2020 patient seen in follow-up in the emergency department, still awaiting a bed, but his status has been downgraded from intensive care unit to monitored bed on selective care, he is awake and alert, in no acute distress, mentation has significantly improved, is confused, denies any specific complaints, hemodynamically stable, no nausea vomiting and diarrhea, no abdominal pain, no fever or chills. Yesterday he had a dialysis catheter placed, for ultrafiltration, IV fluids have been switched from bicarbonate infusion 0.9 normal saline at a rate of 75 ML per hour, today's labs have been reviewed, showing potassium of 4.8, sodium of 136, BUN of 52, and creatinine down to 3.3. His proBNP level is 2070, progressive on a level at 0.13, with cultures have shown no growth at 24 hour anastasia, been afebrile overnight, denies any shortness of breath, is currently on 2 L of oxygen with pulse ox of 98%, lung sounds are clear. Currently on azithromycin and Rocephin for empiric antibiotic coverage. The patient is seen today 08/02/2020 in follow-up on the regular medical floor. He is currently awake and alert in no acute distress. He is maintaining O2 saturation in the 90s on 3 L/m per nasal cannula. She's afebrile. Hemodynamically stable. Blood cultures reveal no growth. Sodium 139. Potassium 5.1. Creatinine 2.5. Glucose 111. He remains on 0.9 normal saline at 50 MLS per hour. Continued on bronchodilators. Antibiotics in the form of ceftriaxone and azithromycin. Remains on sodium bicarb tablets. Objective - Vital Signs Vital signs: Vital Signs Temp 98.2 F 08/02/20 07:51 Pulse 59 L 08/02/20 07:51 Resp 18 08/02/20 07:51 BP 135/76 08/02/20 07:51 Pulse Ox 98 08/02/20 07:51 Intake & Output 08/01/20 08/02/20 08/02/20 18:59 06:59 18:59 Output Total 1000 Balance -1000 Output: Urine 1000 Uretheral (Hunter) 1000 Other: Voiding Method Indwelling Catheter Indwelling Catheter Indwelling Catheter # Voids 1 # Bowel Movements 1 - Exam GENERAL EXAM: Alert, oriented 2, 70-year-old male patient, on 2 L of oxygen for sats 98%, answering simple questions, is to be in no acute distress, oral membranes are extremely dry HEAD: Normocephalic/atraumatic. EYES: Normal reaction of pupils, equal size. Conjunctiva pink, sclera white. NOSE: Clear with pink turbinates. THROAT: No erythema or exudates. NECK: No masses, no JVD, no thyroid enlargement, no adenopathy. CHEST: No chest wall deformity. Symmetrical expansion. LUNGS: Equal air entry with few scattered rhonchi. CVS: Regular rate and rhythm, normal S1 and S2, no gallops, no murmurs, no rubs ABDOMEN: Soft, nontender. No hepatosplenomegaly, normal bowel sounds, no guarding or rigidity. EXTREMITIES: No clubbing, no edema, no cyanosis, 2+ pulses and upper and lower extremities. MUSCULOSKELETAL: Muscle strength and tone normal. SPINE: No scoliosis or deformity SKIN: No rashes CENTRAL NERVOUS SYSTEM: Less confused on today's exam. No focal deficits, tone is normal in all 4 extremities. PSYCHIATRIC: Alert and oriented -2. Appropriate affect. Intact judgment and insight. - Labs CBC & Chem 7: 07/31/20 05:47 08/02/20 05:40 Labs: Abnormal Lab Results - Last 24 Hours (Table) 08/01/20 08/02/20 08/02/20 Range/Units 21:18 05:40 06:50 Chloride 111 H (96-109) mmol/L Carbon Dioxide 17.4 L (21.6-31.8) mmol/L BUN 31.0 H (9.0-27.0) mg/dL Creatinine 2.5 H (0.6-1.5) mg/dL Est GFR (CKD-EPI)AfAm 29.1 L (60.0-200.0) Est GFR (CKD-EPI)NonAf 25.1 L (60.0-200.0) Glucose 111 H (70-110) mg/dL POC Glucose (mg/dL) 118 H 132 H (75-99) mg/dL 08/02/20 Range/Units 11:10 Chloride (96-109) mmol/L Carbon Dioxide (21.6-31.8) mmol/L BUN (9.0-27.0) mg/dL Creatinine (0.6-1.5) mg/dL Est GFR (CKD-EPI)AfAm (60.0-200.0) Est GFR (CKD-EPI)NonAf (60.0-200.0) Glucose (70-110) mg/dL POC Glucose (mg/dL) 132 H (75-99) mg/dL Microbiology - Last 24 Hours (Table) 07/30/20 21:29 Blood Culture - Preliminary Blood No Growth after 48 hours Assessment and Plan Assessment: 1 Rule out septic shock, patient came in with hypotension and blood pressure of 59/39, acute kidney injury, with the possibility of sepsis and severe dehydration. Received a total of 4 L of fluids in the emergency department, blood pressure has improved, renal function has improved current creatinine 2.5. 2 Mild interstitial edema on the chest x-ray and CT chest with the possibility of mild fluid overload rule out possibility of pneumonia 3 Dehydration from poor oral intake and diuretic therapy 4 Acute on chronic renal failure and the current creatinine 2.5 5 Chronic kidney disease stage III at baseline 6 Acute hyperkalemia related to acute kidney injury 7 Troponin leak possibly related to acute kidney injury 8 Acute metabolic encephalopathy related to acute kidney injury, sepsis 9 Hypertension 10 Hyperlipidemia 11 Diabetes mellitus type 2 12 History of atrial fibrillation status post ablation and status post dual chamber pacemaker insertion Plan: The patient was seen and evaluated by Dr. Skinner He is improved today Continue the current treatment plan We'll continue to follow I, the cosigning physician, performed a history & physical examination of the patient. Lungs sounds with few scattered rhonchi. Maintaining good O2 saturations in the 90s on 3 L/m per nasal cannula. I discussed the assessment and plan of care with my nurse practitioner, Yudi Earl. I attest to the above note as dictated by her.
[2020-08-02 16:38] LABS: Glucose,Whole Blood 178 mg/dL (75-99)
--- NOTE | 2020-08-02 19:16 | XR ---
EXAMINATION TYPE: XR chest 1V portable DATE OF EXAM: 08/02/2020 COMPARISON: 07/30/2020 HISTORY: Short of breath TECHNIQUE: FINDINGS: There is no heart failure nor confluent pneumonic infiltrate. There are no hilar masses. Co stophrenic angles are clear. Heart size is normal. There is left axillary pacemaker. IMPRESSION: No active cardiopulmonary disease. No change.
[2020-08-02 20:03] LABS: Glucose,Whole Blood 237 mg/dL (75-99)
[2020-08-02] MEDS: ATORVASTATIN 80 MG TAB PO SCH (21:35)
[2020-08-03] MEDS: AZITHROMYCIN 500 MG in SODIUM CHLORIDE 0.9% 250 ML IVPB SCH (02:39)
[2020-08-03 06:49] LABS: Glucose,Whole Blood 146 mg/dL (75-99)
[2020-08-03] MEDS: INSULIN ASPART (NovoLOG) 100 UNIT/ML VIAL SQ SCH ×4 (07:29→20:49)
[2020-08-03] MEDS: SODIUM CHLORIDE 0.9% 1,000 ML IV SCH (07:30)
[2020-08-03] MEDS: PANTOPRAZOLE 40 MG/10 ML VIAL IV SCH (07:36)
[2020-08-03] MEDS: DULoxetine HCL 60 MG CAPSULE.DR PO SCH ×2 (09:20→20:49)
[2020-08-03] MEDS: SODIUM BICARBONATE TAB 650 MG TAB PO SCH ×3 (09:22→20:49)
[2020-08-03] MEDS: METOPROLOL SUCCINATE (ER) 100 MG TAB.ER.24H PO SCH (09:34)
[2020-08-03 10:44] LABS: Basophils % (A) 0 %; Eosinophils % (A) 1 %; HCT 31.3 % (39.0-53.0); HGB 10.8 gm/dL (13.0-17.5); Lymphocytes # (A) 0.7 k/uL (1.0-4.8); Lymphocytes % (A) 13 %; MCH 30.9 pg (25.0-35.0); MCHC 34.5 g/dL (31.0-37.0); MCV 89.4 fL (80.0-100.0); Mean Platelet Volume 8.2; Monocytes # (A) 0.3 k/uL (0-1.0); Monocytes % (A) 6 %; Neutrophils # (A) 4.4 k/uL (1.3-7.7); Neutrophils % (A) 78 %; RDW 14.2 % (11.5-15.5); WBC 5.6 k/uL (3.8-10.6)
--- NOTE | 2020-08-03 10:46 | P.CNNES ---
History of Present Illness Consult date: 08/03/20 Requesting physician: Hermann Reid Reason for Consult: confusion History of Present Illness: This is a 70-year-old gentleman history of atrial fibrillation, status post pacemaker, hypertension, chronic kidney disease stage III diabetes presented emergency department on 07/30/2020 because of generalized weakness, decreased oral intake and falls the past couple days. Patient felt he is progressively becoming weak and that been spending more time resting. He felt like his legs are given on him. On presentation the patient pressure was 59/39, potassium was 8.4 INR was 2.3 the BUN was 114 and creatinine was 6.9. CT of the chest shows interstitial pneumonia. Patient was consulted on 08/03/2020 for confusion. As per the nurse she stated that the patient the mentation that was U was a more oriented and he was alert oriented to self and place but the since the yesterday 08/02/2020 he is been behaving the off talking to himself more confused and not oriented to place. Unsure exactly that time of onset that yesterday. I was notified by the patient nurse that the patient does have confusion possibly at baseline but this is more than not baseline. He continues the to the walk from the bed to the chair with the physical therapy and sometimes needs assistance but no focality was noticed when he did that that. As stated above he was hypotensive on presentation but his blood pressure improved and his last the vitals today is a blood pressure is 143/93, heart rate of 70, respiratory of 18 temperature of 98.9 Fahrenheit oral and the pulse ox of 92% at room air. Other workup in the hospital consisted of: CT of the head was done on 07/30/2020 and it was reported as cerebral atrophy. White matter changes probably due to chronic small vessel ischemia that appears not significant then the old exam. Next line CT cervical spine fine was reported as spondylitic changes in the mid and lower cervical spine unchanged compared to old exam. In the body of the report is shows degenerative and spur formation from the C4 to the C7 with mild disc space narrowing. There is no compression fracture and there is no subluxation. COVID 19 PCR was negative. AST was 89 and ALT was 118. His blood blood cells has been normal on presentation 8.8 and the last one is 7.5. Last sodium is 139. His creatinine has been improvement in the last creatinine is 2.5 Last POC glucose is 146. TSH is 3.36 on this admission which is within normal limits. Review of Systems Review of system is limited but the prone positive and negative as per HPI. Past Medical History Past Medical History: Atrial Fibrillation, Diabetes Mellitus, Pneumonia, Pneumonia History of Any Multi-Drug Resistant Organisms: None Reported Past Surgical History: Heart Catheterization, Pacemaker, Pacemaker Additional Past Surgical History / Comment(s): HYPERTENSION Past Anesthesia/Blood Transfusion Reactions: No Reported Reaction Type of Cardiac Device: Permanent Pacemaker, Unknown Device Placement Date:: 2012 Past Psychological History: No Psychological Hx Reported, Depression Smoking Status: Former smoker Past Alcohol Use History: Occasional Past Drug Use History: None Reported - Past Family History Mother Family Medical History: Cancer Additional Family Medical History / Comment(s): kidney cancer Medications and Allergies Home Medications Medication Instructions Recorded Confirmed Type Cyclobenzaprine [Flexeril] 10 mg PO HS 01/27/14 07/30/20 History Furosemide 80 mg PO DAILY 01/27/14 07/30/20 History Tamsulosin HCl 0.4 mg PO DAILY 01/27/14 07/30/20 History Warfarin Sodium 3.75 mg PO SUMOWEFRSA 01/27/14 07/30/20 History Isosorbide Mononitrate [Imdur] 60 mg PO DAILY 05/30/14 07/30/20 History Nitroglycerin Sl Tabs [Nitrostat] 0.4 mg SUBLINGUAL Q5M PRN 05/30/14 07/30/20 History allopurinoL [Zyloprim] 150 mg PO DAILY 08/04/15 07/30/20 History Aspirin EC [Ecotrin Low Dose] 81 mg PO DAILY 08/28/16 07/30/20 History calcitrioL [Rocaltrol] 0.25 mcg PO MOTUWETH 08/28/16 07/30/20 History Gabapentin [Neurontin] 600 mg PO BID 03/28/17 07/30/20 History DULoxetine HCL [Cymbalta] 60 mg PO BID 07/07/20 08/01/20 History Ergocalciferol (Vitamin D2) 50,000 unit PO Q30D 07/07/20 07/30/20 History [Drisdol] Ezetimibe [Zetia] 10 mg PO DAILY 07/07/20 07/30/20 History Ferrous Sulfate [Feosol] 325 mg PO DAILY 07/07/20 07/30/20 History Furosemide [Lasix] 40 mg PO HS 07/07/20 07/30/20 History Insulin NPH Human Isophane 40 units SQ BID-W/MEALS 07/07/20 07/30/20 History [NovoLIN N] Lisinopril [Zestril] 10 mg PO DAILY 07/07/20 07/30/20 History Metoprolol Succinate (ER) [Toprol 100 mg PO DAILY 07/07/20 07/30/20 History Xl] Potassium Chloride ER [K-Dur 20] 20 meq PO BID 07/07/20 07/30/20 History Rosuvastatin Calcium [Crestor] 40 mg PO DAILY 07/07/20 07/30/20 History Spironolactone [Aldactone] 25 mg PO DAILY 07/07/20 07/30/20 History Warfarin Sodium [Jantoven] 2.5 mg PO TUTHSA 07/07/20 07/30/20 History Allergies Allergy/AdvReac Type Severity Reaction Status Date / Time No Known Allergies Allergy Verified 07/30/20 21:03 Physical Examination - Vital Signs Vital Signs: Vital Signs Temp Pulse Resp BP Pulse Ox 08/03/20 07:49 98.9 F 70 18 143/93 92 L 08/03/20 02:35 98.5 F 60 18 127/82 94 L 08/02/20 20:11 98.2 F 68 20 157/81 95 08/02/20 16:00 98.3 F 62 17 153/70 97 Intake and Output 08/02/20 08/03/20 08/03/20 22:59 06:59 14:59 Intake Total 200 Output Total 450 450 Balance -450 -450 200 Intake: Oral 200 Output: Urine 450 450 Other: Weight 98.5 kg GENERAL: The patient is sitting on chair and not is not in acute distress. CHEST: The heart rate is regular rate rhythm. No murmurs to auscultation. LUNG: Clear to auscultation bilaterally no wheezing noted throughout. Not labored breathing. ABDOMEN/GI: Bowel sounds present in all 4 quadrants. No tenderness to palpation throughout. NEUROLOGICAL: Higher mental function: The patient is awake, alert, oriented to self. Regarding the year he initially stated it was 1919 but upon asking again he said it was 2019. He stated he was at home and then again said he was in his living room. Patient is following simple commands but sometimes I had to repeat it twice. No aphasia and no neglect. Cranial nerves: The pupils are round, equal 3mm and reactive to light. Visual early are full to confrontation throughout. Extraocular movement is intact no nystagmus is noted. Facial sensation is normal to touch throughout. The facial strength is normal throughout. Hearing is normal bilaterally to hand rub. Tongue is midline and moved [id number] without any difficulty. No dysarthria is noted. Shoulder shrug is normal bilaterally. Motor: Gait is deferred because of lack of cooperation. The strength is able to lift all extremities above gravity without drift. Normal tone and bulk. No sponatenous movement noted. Cerebellum: Normal finger to nose bilaterally. Sensation: Sensation is normal to touch throughout. Reflexes (right/left): Had a hard time to assess because of lack of cooperation. Plantars are mute bilaterally. Results - Laboratory Findings CBC and BMP: 07/31/20 05:47 08/02/20 05:40 Abnormal Lab Findings: Abnormal Labs 07/30/20 07/30/20 07/30/20 21:20 21:29 21:29 RBC Hgb Hct 38.7 L Plt Count Lymphocytes # PT 22.5 H INR 2.3 H Sodium Potassium Chloride Carbon Dioxide BUN Creatinine Est GFR (CKD-EPI)AfAm Est GFR (CKD-EPI)NonAf Glucose POC Glucose (mg/dL) 73 L Calcium Phosphorus Magnesium AST ALT Troponin I Total Protein Albumin Procalcitonin Urine Protein Urine Blood Urine Bacteria Hyaline Casts Urine Mucus 07/30/20 07/30/20 07/30/20 21:29 21:29 21:29 RBC Hgb Hct Plt Count Lymphocytes # PT INR Sodium 132 L Potassium 8.4 H* Chloride Carbon Dioxide 17 L BUN 114 H* Creatinine 6.90 H Est GFR (CKD-EPI)AfAm Est GFR (CKD-EPI)NonAf Glucose 69 L POC Glucose (mg/dL) Calcium Phosphorus 5.4 H Magnesium 2.7 H AST 89 H ALT 118 H Troponin I 0.042 H* Total Protein Albumin Procalcitonin Urine Protein Trace H Urine Blood Small H Urine Bacteria Rare H Hyaline Casts 8 H Urine Mucus Rare H 07/30/20 07/31/20 07/31/20 22:12 00:35 00:35 RBC 3.73 L Hgb 10.9 L Hct 33.2 L Plt Count 126 L Lymphocytes # PT INR Sodium 135 L Potassium 6.6 H* Chloride 113 H Carbon Dioxide 15 L BUN 98 H Creatinine 5.69 H Est GFR (CKD-EPI)AfAm Est GFR (CKD-EPI)NonAf Glucose 48 L* POC Glucose (mg/dL) 133 H Calcium 8.2 L Phosphorus Magnesium AST 68 H ALT 91 H Troponin I Total Protein 5.5 L Albumin 2.9 L Procalcitonin Urine Protein Urine Blood Urine Bacteria Hyaline Casts Urine Mucus 07/31/20 07/31/20 07/31/20 00:35 02:45 03:20 RBC Hgb Hct Plt Count Lymphocytes # PT INR Sodium Potassium Chloride Carbon Dioxide BUN Creatinine Est GFR (CKD-EPI)AfAm Est GFR (CKD-EPI)NonAf Glucose POC Glucose (mg/dL) 177 H Calcium Phosphorus Magnesium AST ALT Troponin I 0.037 H* 0.035 H* Total Protein Albumin Procalcitonin Urine Protein Urine Blood Urine Bacteria Hyaline Casts Urine Mucus 07/31/20 07/31/20 07/31/20 05:47 05:49 06:25 RBC 3.66 L Hgb 10.6 L Hct 32.4 L Plt Count 110 L Lymphocytes # 0.9 L PT INR Sodium 134 L Potassium 7.2 H* Chloride 113 H Carbon Dioxide 15 L BUN 90 H Creatinine 5.12 H Est GFR (CKD-EPI)AfAm Est GFR (CKD-EPI)NonAf Glucose 124 H POC Glucose (mg/dL) 131 H Calcium 8.0 L Phosphorus Magnesium AST 75 H ALT 94 H Troponin I Total Protein 5.8 L Albumin 3.1 L Procalcitonin Urine Protein Urine Blood Urine Bacteria Hyaline Casts Urine Mucus 07/31/20 07/31/20 07/31/20 06:25 11:34 18:16 RBC Hgb Hct Plt Count Lymphocytes # PT INR Sodium 136 L Potassium 6.1 H* Chloride 111 H Carbon Dioxide 21 L BUN 84 H 52 H Creatinine 4.93 H 3.30 H Est GFR (CKD-EPI)AfAm Est GFR (CKD-EPI)NonAf Glucose 168 H POC Glucose (mg/dL) Calcium 8.3 L Phosphorus Magnesium AST 76 H ALT 90 H Troponin I Total Protein 5.7 L Albumin 3.1 L Procalcitonin 0.13 H Urine Protein Urine Blood Urine Bacteria Hyaline Casts Urine Mucus 08/01/20 08/01/20 08/02/20 10:58 21:18 05:40 RBC Hgb Hct Plt Count Lymphocytes # PT INR Sodium Potassium Chloride 109 H 111 H Carbon Dioxide 17.4 L BUN 37 H 31.0 H Creatinine 3.15 H 2.5 H Est GFR (CKD-EPI)AfAm 29.1 L Est GFR (CKD-EPI)NonAf 25.1 L Glucose 119 H 111 H POC Glucose (mg/dL) 118 H Calcium Phosphorus Magnesium AST ALT Troponin I Total Protein Albumin Procalcitonin Urine Protein Urine Blood Urine Bacteria Hyaline Casts Urine Mucus 08/02/20 08/02/20 08/02/20 06:50 11:10 16:37 RBC Hgb Hct Plt Count Lymphocytes # PT INR Sodium Potassium Chloride Carbon Dioxide BUN Creatinine Est GFR (CKD-EPI)AfAm Est GFR (CKD-EPI)NonAf Glucose POC Glucose (mg/dL) 132 H 132 H 178 H Calcium Phosphorus Magnesium AST ALT Troponin I Total Protein Albumin Procalcitonin Urine Protein Urine Blood Urine Bacteria Hyaline Casts Urine Mucus 08/02/20 08/03/20 20:02 06:43 RBC Hgb Hct Plt Count Lymphocytes # PT INR Sodium Potassium Chloride Carbon Dioxide BUN Creatinine Est GFR (CKD-EPI)AfAm Est GFR (CKD-EPI)NonAf Glucose POC Glucose (mg/dL) 237 H 146 H Calcium Phosphorus Magnesium AST ALT Troponin I Total Protein Albumin Procalcitonin Urine Protein Urine Blood Urine Bacteria Hyaline Casts Urine Mucus Assessment and Plan Assessment: This is a 70-year-old gentleman with multiple medical problems are presented emergency department on 07/30/2020 for generalized weakness, decreased oral intake and falls. On presentation the patient pressure was 59/39, potassium was 8.4 and had acute kidney injury on chronic kidney insufficiency. Delirium due to hospital stay and toxic metabolic abnormalities. With superimpose toxic metabolic encephalopathy, VAL on CKI, Elevated LFT's. Acute kidney injury on chronic kidney insufficiency--improving Elevated LFT's Hypotension--- resolved Hyperkalemia---resolved Urinary retention and has wilde cather currently Atrial fibrillation status post pacemaker Hypertension Diabetes mellitus Decreased oral intake at home Plan: CT of the head was done on 07/30/2020 and it was reported as cerebral atrophy. White matter changes probably due to chronic small vessel ischemia that appears not significant then the old exam. Next line CT cervical spine fine was reported as spondylitic changes in the mid and lower cervical spine unchanged compared to old exam. In the body of the report is shows degenerative and spur formation from the C4 to the C7 with mild disc space narrowing. There is no compression fracture and there is no subluxation. I ordered a stat CT of the head to rule out any cranial abnormality such as a stroke or a bleed. I will order ammonia level. I'll also repeat the liver function test. I ordered a routine EEG. I'll not start the patient on an antiepileptic drug unless the patient has seizure or epileptiform discharges. I ordered vitamin B12 and folate. As documented in the patient's been having falls at home and I'm not sure if was a result of his hypotension and the task metabolic abnormalities. On presentation today he denied any neck pain or any lower back pain. There is no focality on examination. Once the patient is more stable and continues to have falls please notify neurology team and old be more than happy to evaluate this more thoroughly. If the patient's discharge needs to follow-up with a neurologist regarding this for further workup. Nephrology is on board for the patient to acute kidney injury on chronic kidney insufficiency. I'll defer the rest of the medical management to the primary team. The plan was discussed with the patient nurse. Thank you for the consultation. Gavino Skinner M.D. Neuro-hospitalist Time with Patient: Greater than 30
[2020-08-03 11:45] LABS: Glucose,Whole Blood 127 mg/dL (75-99)
--- NOTE | 2020-08-03 11:48 | CT ---
EXAMINATION TYPE: CT brain wo con DATE OF EXAM: 08/03/2020 HISTORY: Confusion CT DLP: 1254 mGycm. Automated Exposure Control for Dose Reduction was Utilized. TECHNIQUE: CT scan of the head is performed without contrast. COMPARISON: CT brain 4 days ago. FINDINGS: , History of suboptimal as degraded by patient motion particularly near the skull base. T here is no acute intracranial hemorrhage or midline shift identified. There is diffuse ventricular an d sulcal prominence consistent with diffuse age-related cerebral atrophy. There is low-attenuation i n the periventricular white matter consistent with chronic small vessel ischemic change. The globes are intact and the visualized sinuses are clear. IMPRESSION: Suboptimal study, no obvious acute intracranial hemorrhage or midline shift. There is mi ld diffuse age-related cerebral atrophy and moderate to severe chronic small vessel ischemic change r edemonstrated. No significant change from recent CT
--- NOTE | 2020-08-03 12:41 | P.PN ---
Subjective Patient is seen in follow for acute kidney injury. He underwent 1 treatment of hemodialysis on July 31 for persistent hyperkalemia. Creatinine was 6.9 on admission and 2.5 as of yesterday. Oral intake is just fair. No chest pain or shortness of breath. Has a Hunter catheter. Nonoliguric. No changes overnight. Hemodynamically stable. Vital signs are stable. General: The patient appeared well nourished and normally developed. HEENT: Head exam is unremarkable. Neck is without jugular venous distension. LUNGS: Breath sounds decreased. HEART: Rate and Rhythm are regular. ABDOMEN: Soft, nontender. EXTREMITITES: No edema. Objective - Vital Signs Vital signs: Vital Signs Temp 98.9 F 08/03/20 07:49 Pulse 70 08/03/20 07:49 Resp 16 08/03/20 08:00 BP 143/93 08/03/20 07:49 Pulse Ox 92 L 08/03/20 07:49 Intake & Output 08/02/20 08/03/20 08/03/20 18:59 06:59 18:59 Intake Total 200 Output Total 450 450 Balance -450 -450 200 Weight 98.5 kg Intake: Oral 200 Output: Urine 450 450 Other: Voiding Method Indwelling Catheter Indwelling Catheter # Voids 1 # Bowel Movements 1 - Labs CBC & Chem 7: 08/03/20 10:00 08/02/20 05:40 Labs: Abnormal Lab Results - Last 24 Hours (Table) 08/02/20 08/02/20 08/03/20 Range/Units 16:37 20:02 06:43 RBC (4.30-5.90) m/uL Hgb (13.0-17.5) gm/dL Hct (39.0-53.0) % POC Glucose (mg/dL) 178 H 237 H 146 H (75-99) mg/dL 08/03/20 08/03/20 Range/Units 10:00 11:44 RBC 3.50 L (4.30-5.90) m/uL Hgb 10.8 L (13.0-17.5) gm/dL Hct 31.3 L (39.0-53.0) % POC Glucose (mg/dL) 127 H (75-99) mg/dL Microbiology - Last 24 Hours (Table) 07/30/20 21:29 Blood Culture - Preliminary Blood No Growth after 72 hours Assessment and Plan Plan: Assessment: 1. Acute kidney injury mostly prerenal secondary to hypovolemia improving with IV hydration. Creatinine was 6.9 on admission and is 2.5 today. No evidence of hydronephrosis noted on imaging. UA fairly benign. Status post one treatment of hemodialysis on July 31 for persistent hyperkalemia. 2. Chronic kidney disease stage III with baseline creatinine in the range of 1.5-1.7. 3. Hyperkalemia secondary to acute kidney injury, metabolic acidosis, spironolactone as well as lisinopril. Improved postdialysis. Stable. 4. Metabolic acidosis secondary to acute kidney injury. Status post bicarb drip. Maintain on oral bicarbonate. Plan: Maintain normal saline at 50 mL an hour. Maintain Hunter catheter. Strict I's and O's. Continue to monitor renal function and urine output closely. Continue to assess daily for need for renal replacement therapy. Follow-up morning labs. If renal function stable, will DC dialysis catheter.
[2020-08-03 14:22] LABS: Platelet Count 91 k/uL (150-450)
[2020-08-03 15:32] LABS: African American GFR (CKD) 32.1 (60.0-200.0); Anion Gap 6.2 mmol/L (4.00-12.00); BUN/Creat Ratio 15.22 Ratio (12.00-20.00); Calcium 8.6 mg/dL (8.7-10.3); Carbon Dioxide 20.8 mmol/L (21.6-31.8); Magnesium 1.8 mg/dL (1.5-2.4); Non-African American GFR(CKD) 27.7 (60.0-200.0); Potassium 4.8 mmol/L (3.5-5.5)
--- NOTE | 2020-08-03 16:05 | PN ---
PROGRESS NOTE PULMONARY/CRITICAL CARE PROGRESS NOTE: DATE OF SERVICE: 08/03/2020 This is a 70-year-old gentleman whom we initially saw in the emergency room. We were concerned about sepsis and septic shock. Initially his blood pressure was quite low, at about 60 systolic. The patient also was seemingly suffering from severe dehydration as well as acute kidney injury. Currently he is much more awake and alert. The patient is confused. He does have some mild interstitial edema on chest x-ray and CT scan. This may relate to previous fluid resuscitation for the hypotension. Currently otherwise he is doing reasonably well. He is awake and alert. He is confused. He does not quite know where he is at. He is on some oxygen at a couple of liters. He is not receiving any IV fluids other than 20 mL/hour. PHYSICAL EXAMINATION: VITAL SIGNS: Current vital signs are reviewed. His temperature is 98.1, heart rate 82, respiratory rate 19, blood pressure 169/99, mean 122, two-liter saturation 98%. GENERAL APPEARANCE: He appears in no acute distress. HEENT: Examination is grossly unremarkable. NECK: Supple. Full range of motion. No adenopathy. Neck veins are flat. CARDIOVASCULAR: Examination reveals regular rhythm and rate. LUNGS: Lungs reveal a few scattered rhonchi. No wheezes or crackles. ABDOMEN: Soft. Bowel sounds are heard. EXTREMITIES: Intact. Slight edema. SKIN: Without rash. NEUROLOGIC: Neurologic examination is nonfocal. LABS/IMAGING: Reviewed. White count 5.6, hemoglobin 10.8, hematocrit 31.3, platelet count normal. The rest of the labs look okay. Microbiology is currently negative, including blood cultures. The most recent chest x-ray dated 08/02/2020 shows no active disease. Brain CT done 08/03/2020 shows no acute abnormality. There is diffuse age- related cerebral atrophy and moderate to severe chronic small-vessel ischemic changes. CURRENT MEDICATIONS: Reviewed. Currently the patient is on Lipitor, Zithromax, Rocephin, Cymbalta, insulin, DuoNeb, metoprolol, Narcan, Zofran, Protonix, sodium bicarbonate tablets and saline. ASSESSMENT: 1. Septic shock, with hypotension, much improved. Source of infection not clear. 2. Acute kidney injury. 3. Severe dehydration. 4. Mild interstitial edema. 5. Acute on chronic renal failure. 6. Chronic kidney disease, stage 3. 7. Acute hyperkalemia. 8. Mild troponin leak. 9. Acute metabolic encephalopathy, improved. 10.Hypertension. 11.Hyperlipidemia. 12.Diabetes mellitus. 13.History of atrial fibrillation, status post ablation and status post dual- chamber pacemaker insertion. 14.Confusion. PLAN: The patient appears to be relatively stable. Will continue to follow. Culture data is negative. Procalcitonin level was elevated but in the range of low likelihood for bacterial infection. Will discontinue antibiotics. No additional recommendations are made. Prognosis is guarded. MMODL / IJN: [id number] / MORGAN
[2020-08-03 16:27] LABS: Glucose,Whole Blood 135 mg/dL (75-99)
--- NOTE | 2020-08-03 17:20 | EEG ---
ELECTROENCEPHALOGRAM REPORT DATE OF SERVICE: 08/03/2020 CLINICAL HISTORY: This is a 70-year-old gentleman who has altered mental status. The video EEG was obtained to evaluate for seizure and epileptiform activity. RELEVANT MEDICATION: The patient is not on any antiepileptic drug or centrally active medication. EEG TYPE: A routine 21 channel EEG was performed with video using the 10-20 electrode placement system. DESCRIPTION: Awake state is only seen. During wakefulness, there is no clear posterior dominant rhythm. The background consists of nonrhythmic low to moderate voltage 5.5 -6.5 hertz theta activity. There is no physiological stage 2 sleep. There is significant myogenic artifact throughout the entire study. INTERICTAL AND ICTAL: None. ACTIVATION PROCEDURE: Photic stimulation and hyperventilation were not performed. CLINICAL INTERPRETATION: This is a limited EEG because of the patient's lack of cooperation and as a result, there is significant myogenic artifact seen throughout the study. The background slowing is suggestive of moderate encephalopathy. There are no focal slowing, epileptiform discharges or seizures seen. Clinical correlation is recommended. MMAROLDO / LISHAN: [id number] / MORGAN
[2020-08-03 19:52] LABS: Glucose,Whole Blood 148 mg/dL (75-99)
[2020-08-03] MEDS: ATORVASTATIN 80 MG TAB PO SCH (20:49)
[2020-08-04] MEDS: SODIUM CHLORIDE 0.9% 1,000 ML IV SCH (05:23)
[2020-08-04 07:05] LABS: Glucose,Whole Blood 124 mg/dL (75-99)
[2020-08-04] MEDS: INSULIN ASPART (NovoLOG) 100 UNIT/ML VIAL SQ SCH ×4 (07:21→21:09)
[2020-08-04] MEDS: PANTOPRAZOLE 40 MG TABLET PO SCH (08:44)
[2020-08-04] MEDS: METOPROLOL SUCCINATE (ER) 100 MG TAB.ER.24H PO SCH (08:44)
[2020-08-04] MEDS: DULoxetine HCL 60 MG CAPSULE.DR PO SCH ×2 (08:44→21:36)
[2020-08-04] MEDS: SODIUM BICARBONATE TAB 650 MG TAB PO SCH ×3 (08:44→21:36)
[2020-08-04] MEDS ORDERED: AZITHROMYCIN 500 MG TAB PO SCH (09:00)
--- NOTE | 2020-08-04 09:43 | XR ---
EXAMINATION TYPE: XR foot complete RT DATE OF EXAM: 08/04/2020 CLINICAL HISTORY: Pain and swelling rule out osteomyelitis. TECHNIQUE: Frontal, lateral, and oblique images of the right foot are obtained. COMPARISON: ] X-ray July 07, 2020 FINDINGS: Mild to moderate narrowing at the first metatarsophalangeal joint with mild spurring. Small to moderate size inferior calcaneal spur. No suspicious bony destruction or abnormal periosteal reac tion to suggest acute osteomyelitis.. Flexion in the toes is present. Overlying soft tissue is unrema rkable. Unfused apophysis or old trauma base of fifth metatarsal redemonstrated. IMPRESSION: As above. No significant change from prior.
[2020-08-04 11:46] LABS: Glucose,Whole Blood 126 mg/dL (75-99)
--- NOTE | 2020-08-04 12:01 | P.PN ---
Subjective Patient is seen in follow for acute kidney injury. He underwent 1 treatment of hemodialysis on July 31 for persistent hyperkalemia. Creatinine was 6.9 on admission and 2.3 as of yesterday. Oral intake is just fair. No chest pain or shortness of breath. Has a Hunter catheter. Nonoliguric. No changes overnight. Hemodynamically stable. Vital signs are stable. General: The patient appeared well nourished and normally developed. HEENT: Head exam is unremarkable. Neck is without jugular venous distension. LUNGS: Breath sounds decreased. HEART: Rate and Rhythm are regular. ABDOMEN: Soft, nontender. EXTREMITITES: No edema. Objective - Vital Signs Vital signs: Vital Signs Temp 98.6 F 08/04/20 07:00 Pulse 58 L 08/04/20 07:00 Resp 19 08/04/20 07:00 BP 167/92 08/04/20 07:00 Pulse Ox 97 08/04/20 09:02 Intake & Output 08/03/20 08/04/20 08/04/20 18:59 06:59 18:59 Intake Total 700 200 Output Total 900 Balance -200 200 Intake: Oral 700 200 Output: Urine 900 Other: Voiding Method Indwelling Catheter Indwelling Catheter Indwelling Catheter - Labs CBC & Chem 7: 08/03/20 10:00 08/03/20 10:00 Labs: Abnormal Lab Results - Last 24 Hours (Table) 08/03/20 08/03/20 08/03/20 Range/Units 10:00 10:00 10:00 Plt Count 91 L (150-450) k/uL Lymphocytes # 0.7 L (1.0-4.8) k/uL Chloride 111 H (96-109) mmol/L Carbon Dioxide 20.8 L (21.6-31.8) mmol/L BUN 35.0 H (9.0-27.0) mg/dL Creatinine 2.3 H (0.6-1.5) mg/dL Est GFR (CKD-EPI)AfAm 32.1 L (60.0-200.0) Est GFR (CKD-EPI)NonAf 27.7 L (60.0-200.0) Glucose 147 H (70-110) mg/dL POC Glucose (mg/dL) (75-99) mg/dL Calcium 8.6 L (8.7-10.3) mg/dL AST 63 H (14-35) U/L ALT 64 H (10-49) U/L RBC Folate (280 - 791) ng/mL 08/03/20 08/03/20 08/03/20 Range/Units 10:00 16:25 19:50 Plt Count (150-450) k/uL Lymphocytes # (1.0-4.8) k/uL Chloride (96-109) mmol/L Carbon Dioxide (21.6-31.8) mmol/L BUN (9.0-27.0) mg/dL Creatinine (0.6-1.5) mg/dL Est GFR (CKD-EPI)AfAm (60.0-200.0) Est GFR (CKD-EPI)NonAf (60.0-200.0) Glucose (70-110) mg/dL POC Glucose (mg/dL) 135 H 148 H (75-99) mg/dL Calcium (8.7-10.3) mg/dL AST (14-35) U/L ALT (10-49) U/L RBC Folate 889 H (280 - 791) ng/mL 08/04/20 08/04/20 Range/Units 07:04 11:44 Plt Count (150-450) k/uL Lymphocytes # (1.0-4.8) k/uL Chloride (96-109) mmol/L Carbon Dioxide (21.6-31.8) mmol/L BUN (9.0-27.0) mg/dL Creatinine (0.6-1.5) mg/dL Est GFR (CKD-EPI)AfAm (60.0-200.0) Est GFR (CKD-EPI)NonAf (60.0-200.0) Glucose (70-110) mg/dL POC Glucose (mg/dL) 124 H 126 H (75-99) mg/dL Calcium (8.7-10.3) mg/dL AST (14-35) U/L ALT (10-49) U/L RBC Folate (280 - 791) ng/mL Microbiology - Last 24 Hours (Table) 07/30/20 21:29 Blood Culture - Preliminary Blood No Growth after 96 hours Assessment and Plan Plan: Assessment: 1. Acute kidney injury mostly prerenal secondary to hypovolemia improving with IV hydration. Creatinine was 6.9 on admission and 2.3 as of yesterday. No evidence of hydronephrosis noted on imaging. UA fairly benign. Status post one treatment of hemodialysis on July 31 for persistent hyperkalemia. 2. Chronic kidney disease stage III with baseline creatinine in the range of 1.5-1.7. 3. Hyperkalemia secondary to acute kidney injury, metabolic acidosis, spironolactone as well as lisinopril. Improved postdialysis. Stable. 4. Metabolic acidosis secondary to acute kidney injury. Status post bicarb drip. Maintain on oral bicarbonate. Plan: Maintain normal saline at 50 mL an hour. Maintain Hunter catheter. Strict I's and O's. Continue to monitor renal function and urine output closely. Discontinue dialysis catheter. No further need for renal replacement therapy.
--- NOTE | 2020-08-04 15:20 | P.PN ---
Subjective Progress Note Date: 08/04/20 She was seen at bedside and the he was sitting at the side of the chair and his bed. And he was responding communicating and seems much improved today compared to yesterday. He even notified me that all the nursing staff as as well as the team members worked on how much better and he is today compared to yesterday. He denies of any focal weakness, numbness, any slurring the speech, any headaches or nausea vomiting. Recent denies any further dizziness. Objective - Vital Signs Vital signs: Vital Signs Temp 98.8 F 08/04/20 14:00 Pulse 61 08/04/20 14:00 Resp 19 08/04/20 07:00 BP 152/81 08/04/20 14:00 Pulse Ox 95 08/04/20 14:00 Intake & Output 08/03/20 08/04/20 08/04/20 18:59 06:59 18:59 Intake Total 700 200 Output Total 900 Balance -200 200 Intake: Oral 700 200 Output: Urine 900 Other: Voiding Method Indwelling Catheter Indwelling Catheter Indwelling Catheter - Exam GENERAL: The patient is sitting on chair and not in acute distress. NEUROLOGICAL: Higher mental function: The patient is awake, alert, oriented to self, place and time. Patient is able to name objects correctly such as pen and watch and glasses. Patient is following simple commands. No aphasia and no neglect. Cranial nerves: The pupils are round, equal and reactive to light and accommodation. Visual early are full to confrontation throughout. Extraocular movement is intact no nystagmus is noted. Facial sensation is normal to touch throughout. The facial strength is normal throughout. Hearing is normal bilaterally to hand rub. Tongue is midline and moved [id number] without any difficulty. No dysarthria is noted. Shoulder shrug is normal bilaterally. Motor: Gait is deferred. The strength is 5 over 5 throughout. Normal tone and bulk. Cerebellum: Normal finger to nose heel to chin bilaterally. Sensation: Sensation is normal to touch throughout. Reflexes (right/left): 2+ throughout except ankles are 1+ bilaterally Plantars are downgoing bilaterally. - Labs CBC & Chem 7: 08/03/20 10:00 08/04/20 10:12 Labs: Abnormal Lab Results - Last 24 Hours (Table) 12/03/20 12/03/20 12/03/20 Range/Units 10:00 10:00 10:00 Chloride 111 H (96-109) mmol/L Carbon Dioxide 20.8 L (21.6-31.8) mmol/L BUN 35.0 H (9.0-27.0) mg/dL Creatinine 2.3 H (0.6-1.5) mg/dL Est GFR (CKD-EPI)AfAm 32.1 L (60.0-200.0) Est GFR (CKD-EPI)NonAf 27.7 L (60.0-200.0) Glucose 147 H (70-110) mg/dL POC Glucose (mg/dL) (75-99) mg/dL Calcium 8.6 L (8.7-10.3) mg/dL AST 63 H (14-35) U/L ALT 64 H (10-49) U/L RBC Folate 889 H (280 - 791) ng/mL 08/03/20 08/03/20 08/04/20 Range/Units 16:25 19:50 07:04 Chloride (96-109) mmol/L Carbon Dioxide (21.6-31.8) mmol/L BUN (9.0-27.0) mg/dL Creatinine (0.6-1.5) mg/dL Est GFR (CKD-EPI)AfAm (60.0-200.0) Est GFR (CKD-EPI)NonAf (60.0-200.0) Glucose (70-110) mg/dL POC Glucose (mg/dL) 135 H 148 H 124 H (75-99) mg/dL Calcium (8.7-10.3) mg/dL AST (14-35) U/L ALT (10-49) U/L RBC Folate (280 - 791) ng/mL 08/04/20 Range/Units 11:44 Chloride (96-109) mmol/L Carbon Dioxide (21.6-31.8) mmol/L BUN (9.0-27.0) mg/dL Creatinine (0.6-1.5) mg/dL Est GFR (CKD-EPI)AfAm (60.0-200.0) Est GFR (CKD-EPI)NonAf (60.0-200.0) Glucose (70-110) mg/dL POC Glucose (mg/dL) 126 H (75-99) mg/dL Calcium (8.7-10.3) mg/dL AST (14-35) U/L ALT (10-49) U/L RBC Folate (280 - 791) ng/mL Microbiology - Last 24 Hours (Table) 07/30/20 21:29 Blood Culture - Preliminary Blood No Growth after 96 hours Assessment and Plan Assessment: This is a 70-year-old gentleman with multiple medical problems are presented emergency department on 07/30/2020 for generalized weakness, decreased oral intake and falls. On presentation the patient pressure was 59/39, potassium was 8.4 and had acute kidney injury on chronic kidney insufficiency. Delirium due to hospital stay and toxic metabolic abnormalities. With superimpose toxic metabolic encephalopathy, VAL on CKI, Elevated LFT's---improved Acute kidney injury on chronic kidney insufficiency--improving Elevated LFT's Hypotension--- resolved Hyperkalemia---resolved Urinary retention and has wilde cather currently Atrial fibrillation status post pacemaker Hypertension Diabetes mellitus Decreased oral intake at home Plan: * CT of the head was done on 07/30/2020 and it was reported as cerebral atrophy. White matter changes probably due to chronic small vessel ischemia that appears not significant then the old exam. Next line CT cervical spine fine was reported as spondylitic changes in the mid and lower cervical spine unchanged compared to old exam. In the body of the report is shows degenerative and spur formation from the C4 to the C7 with mild disc space narrowing. There is no compression fracture and there is no subluxation. * CT of the head (08/03/20): Suboptimal study, no obvious acute intracranial hemorrhage or midline shift. There is mild diffuse age-related cerebral atrophy and moderate to severe chronic small vessel ischemic changes redemonstrated. No significant change from the recent CT. * Ammonia level <9. * Routine EEG (08/03/20): Limited because of patient lack of cooperation and as a result there is significant myogenic artifact seen throughout the study. The background slowing suggestive of moderate encephalopathy. There are no focal slowing, epileptiform discharges or seizure seen there during the study. * Vitamin B12: 285 (low normal). I'll start him on vitamin B12 500 g daily. * Folate: 889 (considered rosmery---normal). * As documented in the patient's been having falls at home and I'm not sure if was a result of his hypotension and the metabolic abnormalities. On presentation today he denied any neck pain or any lower back pain. There is no focality on examination. Once the patient is more stable and continues to have falls please notify neurology team and old be more than happy to evaluate this more thoroughly. If the patient's discharge needs to follow-up with a neurologist regarding this for further workup. * Nephrology is on board for the patient to acute kidney injury on chronic ki dney insufficiency. * I'll defer the rest of the medical management to the primary team. The plan was discussed with the patient nurse. Neurology will sign off. Please reconsult if needed. Gavino Skinner M.D. Neuro-hospitalist Time with Patient: Less than 30
[2020-08-04 15:26] VITALS: BMI 33.0
--- NOTE | 2020-08-04 15:27 | P.PN ---
Subjective Progress Note Date: 08/03/20 Holden Ortiz is a 70 yo M with PMH of atrial fibrillation s/p ablation, CKD stage 3 who presented to the ED complaining of worsening weakness and fatigue over the past few days. He reports he was in his usual state of health last week but as the weekend went on he became progressively more weak and had been spending more time resting. HE states the day of admission he felt his legs giving out so came to the hospital. On presentation he was hypotensive to 59/39, Na 132, K 8.4. WBC 8.8, INR 2.3, BUN 114, Cr 6.9. Trop 0.042. Renal US wnl and CT chest/abdomen/pelvis showing only interstital pneumonia. Pt was given insulin and D50 as well as calcium gluconate with slow correction of potassium. Due to his persistent hyperkalemia pt had dialysis catheter placed for HD. Today he remains weak but otherwise denies complaints. 08/01/2010. Bicarb drip has been discontinued. Dialysis catheter placed y , received hemodialysis with significant clinical improvement. Sensorium improved. Potassium 5.1, creatinine down to 3.15. Afebrile, maintaining O2 sats in the high 90s on 2 L nasal cannula. Afebrile. Denies chest pain, palpitations or shortness of breath. Afebrile. Denies chest pain, palpitations or increasing shortness of breath. 08/02/2020 renal function continues to improve with BUN and creatinine down to 31/2.5. Potassium 5.1. Blood sugars controlled. Complains of nausea and vomiting since his dialysis treatment. CO2 17.4. Afebrile. Maintaining O2 sats in the 90s on 3 L nasal cannula. Denies chest pain, palpitations or increasing shortness of breath. 08/03/2020 confused, staff reports patient has been talking to imaginary people in the room. Feels better today with no nausea or vomiting. Denies abdominal pain. No shortness of breath. Denies cough. Denies chest pain, palpitations or increasing shortness of breath. Creatinine 2.3. Afebrile. Oxygen being weaned to 2 L nasal cannula, maintaining O2 sats in the 90s. Objective - Vital Signs Vital signs: Vital Signs Temp 98.1 F 08/03/20 14:35 Pulse 82 08/03/20 14:35 Resp 19 08/03/20 14:35 BP 169/99 08/03/20 14:35 Pulse Ox 98 08/03/20 14:35 Intake & Output 08/02/20 08/03/20 08/03/20 18:59 06:59 18:59 Intake Total 700 Output Total 450 450 600 Balance -450 -450 100 Weight 98.5 kg Intake: Oral 700 Output: Urine 450 450 600 Other: Voiding Method Indwelling Catheter Indwelling Catheter # Voids 1 # Bowel Movements 1 - Exam General: Sitting up in bed, pleasantly confused, alert and oriented to person and place. Eyes: PERRL, EOMI, conjunctiva normal HENT: normocephalic, mucus membranes moist Neck: supple, no JVD Lungs: normal respiratory effort, essentially clear with no wheezes or rales CV: Irregular, no murmur. Peripheral pulses 2+ Abdomen: soft, nondistended, no organomegaly. Positive bowel sounds Skin: warm and dry. No rashes Neuro: A&Ox2, normal mood and affect. - Labs CBC & Chem 7: 08/03/20 10:00 08/03/20 10:00 Labs: Abnormal Lab Results - Last 24 Hours (Table) 08/02/20 08/03/20 08/03/20 Range/Units 20:02 06:43 10:00 RBC (4.30-5.90) m/uL Hgb (13.0-17.5) gm/dL Hct (39.0-53.0) % Plt Count (150-450) k/uL Lymphocytes # (1.0-4.8) k/uL Chloride 111 H (96-109) mmol/L Carbon Dioxide 20.8 L (21.6-31.8) mmol/L BUN 35.0 H (9.0-27.0) mg/dL Creatinine 2.3 H (0.6-1.5) mg/dL Est GFR (CKD-EPI)AfAm 32.1 L (60.0-200.0) Est GFR (CKD-EPI)NonAf 27.7 L (60.0-200.0) Glucose 147 H (70-110) mg/dL POC Glucose (mg/dL) 237 H 146 H (75-99) mg/dL Calcium 8.6 L (8.7-10.3) mg/dL 08/03/20 08/03/20 08/03/20 Range/Units 10:00 11:44 16:25 RBC 3.50 L (4.30-5.90) m/uL Hgb 10.8 L (13.0-17.5) gm/dL Hct 31.3 L (39.0-53.0) % Plt Count 91 L (150-450) k/uL Lymphocytes # 0.7 L (1.0-4.8) k/uL Chloride (96-109) mmol/L Carbon Dioxide (21.6-31.8) mmol/L BUN (9.0-27.0) mg/dL Creatinine (0.6-1.5) mg/dL Est GFR (CKD-EPI)AfAm (60.0-200.0) Est GFR (CKD-EPI)NonAf (60.0-200.0) Glucose (70-110) mg/dL POC Glucose (mg/dL) 127 H 135 H (75-99) mg/dL Calcium (8.7-10.3) mg/dL Microbiology - Last 24 Hours (Table) 07/30/20 21:29 Blood Culture - Preliminary Blood No Growth after 72 hours Assessment and Plan Assessment: (1) Interstitial pneumonia Current Visit: Yes Status: Acute Code(s): J84.9 - INTERSTITIAL PULMONARY DISEASE, UNSPECIFIED SNOMED Code(s): 44282741 (2) Type 2 diabetes mellitus Current Visit: Yes Status: Acute Code(s): E11.9 - TYPE 2 DIABETES MELLITUS WITHOUT COMPLICATIONS SNOMED Code(s): 32972734 (3) Acute renal failure, secondary to hypovolemia, Current Visit: Yes Status: Acute Code(s): N17.9 - ACUTE KIDNEY FAILURE, UNSPECIFIED SNOMED Code(s): 05489741 (4) Pneumonia Current Visit: Yes Status: Acute Code(s): J18.9 - PNEUMONIA, UNSPECIFIED ORGANISM SNOMED Code(s): 460827649 (5) Sepsis, possible septic shock Current Visit: Yes Status: Acute Code(s): A41.9 - SEPSIS, UNSPECIFIED ORGANISM SNOMED Code(s): 70613387 (6) hyperkalemia secondary to acute renal failure, medicationslisinopril, Aldactone, improving with hemodialysis (7) chronic kidney disease, stage III (8) emergent temporary dialysis catheter placement with initiation of hemodialysis secondary to persistent hyperkalemia (9) metabolic acidosis, status post bicarb drip (10) Hypovolemic Hypotension on admission, initially requiring 4 L of IV fluids, resolved (11) Dehydration, severe (12) acute metabolic and toxic encephalopathy multifactorial, secondary to sep sis, pneumonia, acute renal failure (13) chronic atrial fibrillation with history of permanent pacemaker (14) acute hypoxic respiratory failure Plan: Continue on current medication regime ,monitoring and symptomatic treatment. Maintain IV fluid hydration, antibiotics. Neurology consulted. Ammonia level ordered. Prognosis guarded given multiple complex medical issues. The impression and plan of care has been dictated as directed. : I performed a history and examination of this patient, discussed the same with the dictator. I agree with the dictator's note ,documented as a scribe. Any additional findings or plans will be noted.
--- NOTE | 2020-08-04 15:39 | P.PN ---
Subjective Progress Note Date: 08/04/20 Holden Ortiz is a 70 yo M with PMH of atrial fibrillation s/p ablation, CKD stage 3 who presented to the ED complaining of worsening weakness and fatigue over the past few days. He reports he was in his usual state of health last week but as the weekend went on he became progressively more weak and had been spending more time resting. HE states the day of admission he felt his legs giving out so came to the hospital. On presentation he was hypotensive to 59/39, Na 132, K 8.4. WBC 8.8, INR 2.3, BUN 114, Cr 6.9. Trop 0.042. Renal US wnl and CT chest/abdomen/pelvis showing only interstital pneumonia. Pt was given insulin and D50 as well as calcium gluconate with slow correction of potassium. Due to his persistent hyperkalemia pt had dialysis catheter placed for HD. Today he remains weak but otherwise denies complaints. 08/01/2010. Bicarb drip has been discontinued. Dialysis catheter placed y , received hemodialysis with significant clinical improvement. Sensorium improved. Potassium 5.1, creatinine down to 3.15. Afebrile, maintaining O2 sats in the high 90s on 2 L nasal cannula. Afebrile. Denies chest pain, palpitations or shortness of breath. Afebrile. Denies chest pain, palpitations or increasing shortness of breath. 08/02/2020 renal function continues to improve with BUN and creatinine down to 31/2.5. Potassium 5.1. Blood sugars controlled. Complains of nausea and vomiting since his dialysis treatment. CO2 17.4. Afebrile. Maintaining O2 sats in the 90s on 3 L nasal cannula. Denies chest pain, palpitations or increasing shortness of breath. 08/03/2020 confused, staff reports patient has been talking to imaginary people in the room. Feels better today with no nausea or vomiting. Denies abdominal pain. No shortness of breath. Denies cough. Denies chest pain, palpitations or increasing shortness of breath. Creatinine 2.3. Afebrile. Oxygen being weaned to 2 L nasal cannula, maintaining O2 sats in the 90s. 08/04/2020 patient room was changed during the night for safety monitoring by desk.evaluated by neurology with neuro workup completed. Head CT suboptimal reporting no acute intracranial hemorrhage or midline shift, moderate to severe chronic small vessel ischemic change redemonstrated, no significant change from prior CT. EEG limited study suggestive of moderate encephalopathy with no epileptiform discharges or seizures. Ammonia level less than 9. No further need for hemodialysis with dialysis catheter ordered to be discontinued per nephrology. Afebrile. Maintaining O2 sats in the 90s on 2 L nasal cannula. Objective - Vital Signs Vital signs: Vital Signs Temp 98.6 F 08/04/20 07:00 Pulse 58 L 08/04/20 07:00 Resp 19 08/04/20 07:00 BP 167/92 08/04/20 07:00 Pulse Ox 97 08/04/20 09:02 Intake & Output 08/03/20 08/04/20 08/04/20 18:59 06:59 18:59 Intake Total 700 200 Output Total 900 Balance -200 200 Intake: Oral 700 200 Output: Urine 900 Other: Voiding Method Indwelling Catheter Indwelling Catheter Indwelling Catheter - Exam General: Sitting up in chair, pleasantly confused, alert and oriented to person and place. Eyes: PERRL, EOMI, conjunctiva normal HENT: normocephalic, mucus membranes moist Neck: supple, no JVD Lungs: normal respiratory effort, essentially clear with no wheezes or rales CV: Irregular, no murmur. Peripheral pulses 2+ Abdomen: soft, nondistended, no organomegaly. Positive bowel sounds Skin: warm and dry. No rashes. Right foot second toe small wound with clear yellow drainage. Neuro: A&Ox2, normal mood and affect. - Labs CBC & Chem 7: 08/03/20 10:00 08/03/20 10:00 Labs: Abnormal Lab Results - Last 24 Hours (Table) 08/03/20 08/03/20 08/03/20 Range/Units 10:00 10:00 10:00 Plt Count 91 L (150-450) k/uL Lymphocytes # 0.7 L (1.0-4.8) k/uL Chloride 111 H (96-109) mmol/L Carbon Dioxide 20.8 L (21.6-31.8) mmol/L BUN 35.0 H (9.0-27.0) mg/dL Creatinine 2.3 H (0.6-1.5) mg/dL Est GFR (CKD-EPI)AfAm 32.1 L (60.0-200.0) Est GFR (CKD-EPI)NonAf 27.7 L (60.0-200.0) Glucose 147 H (70-110) mg/dL POC Glucose (mg/dL) (75-99) mg/dL Calcium 8.6 L (8.7-10.3) mg/dL AST 63 H (14-35) U/L ALT 64 H (10-49) U/L RBC Folate (280 - 791) ng/mL 08/03/20 08/03/20 08/03/20 Range/Units 10:00 16:25 19:50 Plt Count (150-450) k/uL Lymphocytes # (1.0-4.8) k/uL Chloride (96-109) mmol/L Carbon Dioxide (21.6-31.8) mmol/L BUN (9.0-27.0) mg/dL Creatinine (0.6-1.5) mg/dL Est GFR (CKD-EPI)AfAm (60.0-200.0) Est GFR (CKD-EPI)NonAf (60.0-200.0) Glucose (70-110) mg/dL POC Glucose (mg/dL) 135 H 148 H (75-99) mg/dL Calcium (8.7-10.3) mg/dL AST (14-35) U/L ALT (10-49) U/L RBC Folate 889 H (280 - 791) ng/mL 08/04/20 08/04/20 Range/Units 07:04 11:44 Plt Count (150-450) k/uL Lymphocytes # (1.0-4.8) k/uL Chloride (96-109) mmol/L Carbon Dioxide (21.6-31.8) mmol/L BUN (9.0-27.0) mg/dL Creatinine (0.6-1.5) mg/dL Est GFR (CKD-EPI)AfAm (60.0-200.0) Est GFR (CKD-EPI)NonAf (60.0-200.0) Glucose (70-110) mg/dL POC Glucose (mg/dL) 124 H 126 H (75-99) mg/dL Calcium (8.7-10.3) mg/dL AST (14-35) U/L ALT (10-49) U/L RBC Folate (280 - 791) ng/mL Microbiology - Last 24 Hours (Table) 07/30/20 21:29 Blood Culture - Preliminary Blood No Growth after 96 hours Assessment and Plan Assessment: (1) Interstitial pneumonia Current Visit: Yes Status: Acute Code(s): J84.9 - INTERSTITIAL PULMONARY DISEASE, UNSPECIFIED SNOMED Code(s): 53530104 (2) Type 2 diabetes mellitus Current Visit: Yes Status: Acute Code(s): E11.9 - TYPE 2 DIABETES MELLITUS WITHOUT COMPLICATIONS SNOMED Code(s): 83560091 (3) Acute renal failure, secondary to hypovolemia, Current Visit: Yes Status: Acute Code(s): N17.9 - ACUTE KIDNEY FAILURE, UNSPECIFIED SNOMED Code(s): 63026641 (4) Pneumonia Current Visit: Yes Status: Acute Code(s): J18.9 - PNEUMONIA, UNSPECIFIED ORGANISM SNOMED Code(s): 039887012 (5) Sepsis, possible septic shock Current Visit: Yes Status: Acute Code(s): A41.9 - SEPSIS, UNSPECIFIED ORGANISM SNOMED Code(s): 32650055 (6) hyperkalemia secondary to acute renal failure, medicationslisinopril, Aldactone, improving with hemodialysis (7) chronic kidney disease, stage III (8) emergent temporary dialysis catheter placement with initiation of hemodialysis secondary to persistent hyperkalemia (9) metabolic acidosis, status post bicarb drip (10) Hypovolemic Hypotension on admission, initially requiring 4 L of IV fluids, resolved (11) Dehydration, severe (12) acute metabolic and toxic encephalopathy multifactorial, secondary to sepsis, pneumonia, acute renal failure (13) chronic atrial fibrillation with history of permanent pacemaker (14) acute hypoxic respiratory failure (15) chronic right second toe wound, workup in progress-rule out osteomyelitis. Plan: Continue on current medication regime ,monitoring and symptomatic treatment. X-ray of right foot/toe, Pro-calcitonin and sed rate ordered. Wound cultures ordered. Maintain IV fluid hydration, antibiotics. Prognosis guarded given multiple complex medical issues. The impression and plan of care has been dictated as directed. : I performed a history and examination of this patient, discussed the same with the dictator. I agree with the dictator's note ,documented as a scribe. Any additional findings or plans will be noted.
[2020-08-04 16:29] LABS: African American GFR (CKD) 43.2 (60.0-200.0); Albumin 3.6 g/dL (3.80-4.90); Albumin/Globulin Ratio 1.57 (1.60-3.17); Anion Gap 8.5 mmol/L (4.00-12.00); BUN/Creat Ratio 18.89 Ratio (12.00-20.00); Calcium 8.4 mg/dL (8.7-10.3); Carbon Dioxide 16.5 mmol/L (21.6-31.8); Globulin 2.3 g/dL (1.6-3.3); Magnesium 1.7 mg/dL (1.5-2.4); Non-African American GFR(CKD) 37.3 (60.0-200.0); Potassium 4.9 mmol/L (3.5-5.5); Total Bilirubin 0.8 mg/dL (0.2-1.2); Total Protein 5.9 g/dL (6.2-8.2)
--- NOTE | 2020-08-04 16:33 | PN ---
PROGRESS NOTE PULMONARY/CRITICAL CARE PROGRESS NOTE: DATE OF SERVICE: August 04, 2020 A 70-year-old gentleman admitted back on July 30, 2020. We actually saw him initially in the emergency department. At that time, he had hypotension. We were concerned about sepsis. At that time, also, he seems to be suffering from severe dehydration with acute kidney injury. Currently, he is much more awake and alert. He has been confused, although today he was much more alert and with it. He knew the year and the month. He also knew the hospital that he was in. Currently, he is doing reasonably well. Denies any pain or discomfort. Denies any shortness of breath. denies any cough, wheezing, phlegm production, chest pain, chest discomfort, nausea, vomiting, diarrhea, or any genitourinary complaints. Current vital signs include a temperature of 98.8, heart rate 61, respiratory rate of 19, blood pressure 152/81 mean 104, room air saturation between 95% and 97%. Appears in no acute distress. HEENT: Examination is grossly unremarkable. NECK: Supple, full range of motion. No adenopathy. Neck veins are flat. CARDIOVASCULAR: Examination reveals regular rhythm and rate. S1, S2 normal. No S3, S4, or murmur. Heart sounds are distant. LUNGS: Reveal a few scattered rhonchi. No wheezes or crackles. Breath sounds equal. ABDOMEN: Obese, bowel sounds are heard. EXTREMITIES: Intact. Mild edema. SKIN: Without rash. He has multiple areas of ecchymoses. He has an abrasion on his left knee. He has ecchymoses along the left forearm, and his entire right forearm is ecchymotic and bruised. It is wrapped with Feliberto bandages. NEUROLOGIC: Examination is brief but nonfocal. LABS: Reviewed. No new labs from today. Microbiology is negative. The patient had a foot x-ray today which showed nothing acute. The patient had a brain CT from August 03 which showed no acute intracranial hemorrhage or midline shift. MEDICATIONS: Reviewed. He is on Lipitor, Cymbalta, NovoLog insulin, DuoNeb, metoprolol, Narcan, Zofran, Protonix, sodium bicarbonate tablets, and saline IV. ASSESSMENT: 1. Septic shock, with hypotension, much improved. Source of infection not clear. 2. Acute kidney injury. 3. Severe dehydration. 4. Mild interstitial edema. 5. Acute on chronic renal failure. 6. Chronic kidney disease, stage III. 7. Acute hyperkalemia, resolved. 8. Mild troponin leak. 9. Acute metabolic encephalopathy, improved. 10.Hypertension. 11.Hyperlipidemia. 12.Diabetes mellitus. 13.History of atrial fibrillation, status post ablation and status post dual chamber pacemaker insertion. 14.Confusion, resolved. PLAN: No obvious source of infection. Culture data has been negative. This hypotension may have related primarily to dehydration. Currently, he is stable. He is alert with it. He is much more alert and oriented today. He did know the year, the month, and the hospital that he was that. Two days ago, he was not able to give us that information. Will continue to follow. Prognosis is guarded. Updrafts were discontinued. MMDARRYNL / LISHAN: [id number] /
[2020-08-04 16:57] LABS: Glucose,Whole Blood 115 mg/dL (75-99)
[2020-08-04 20:30] LABS: Glucose,Whole Blood 106 mg/dL (75-99)
[2020-08-04] MEDS: ATORVASTATIN 80 MG TAB PO SCH (21:36)
[2020-08-05 07:00] LABS: Glucose,Whole Blood 105 mg/dL (75-99)
[2020-08-05] MEDS: SODIUM CHLORIDE 0.9% 1,000 ML IV SCH (09:52)
[2020-08-05] MEDS: METOPROLOL SUCCINATE (ER) 100 MG TAB.ER.24H PO SCH (09:53)
[2020-08-05] MEDS: SODIUM BICARBONATE TAB 650 MG TAB PO SCH ×3 (09:53→21:11)
[2020-08-05] MEDS: DULoxetine HCL 60 MG CAPSULE.DR PO SCH ×2 (09:53→21:12)
[2020-08-05] MEDS: PANTOPRAZOLE 40 MG TABLET PO SCH (09:53)
[2020-08-05 11:51] LABS: African American GFR (CKD) 43.2 (60.0-200.0); Albumin 3.5 g/dL (3.80-4.90); Albumin/Globulin Ratio 1.59 (1.60-3.17); Anion Gap 8.2 mmol/L (4.00-12.00); BUN/Creat Ratio 18.89 Ratio (12.00-20.00); Calcium 8.5 mg/dL (8.7-10.3); Carbon Dioxide 17.8 mmol/L (21.6-31.8); Globulin 2.2 g/dL (1.6-3.3); Non-African American GFR(CKD) 37.3 (60.0-200.0); Total Bilirubin 0.7 mg/dL (0.3-1.2); Total Protein 5.7 g/dL (6.2-8.2)
[2020-08-05 11:57] LABS: Glucose,Whole Blood 151 mg/dL (75-99)
--- NOTE | 2020-08-05 12:18 | P.PN ---
Subjective Patient is seen in follow for acute kidney injury. He underwent 1 treatment of hemodialysis on July 31 for persistent hyperkalemia. Creatinine was 6.9 on admission and is stable at 1.8 today. Oral intake is just fair. No chest pain or shortness of breath. Has a Hunter catheter. Nonoliguric. No changes overnight. Hemodynamically stable. Vital signs are stable. General: The patient appeared well nourished and normally developed. HEENT: Head exam is unremarkable. Neck is without jugular venous distension. LUNGS: Breath sounds decreased. HEART: Rate and Rhythm are regular. ABDOMEN: Soft, nontender. EXTREMITITES: No edema. Objective - Vital Signs Vital signs: Vital Signs Temp 97.9 F 08/05/20 08:00 Pulse 60 08/05/20 08:00 Resp 18 08/05/20 08:00 BP 125/83 08/05/20 08:00 Pulse Ox 96 08/05/20 08:00 Intake & Output 08/04/20 08/05/20 08/05/20 18:59 06:59 18:59 Intake Total 400 Output Total 700 575 Balance -300 -575 Weight 98.5 kg Intake: IV 400 Sodium Chloride 0.9% 1, 400 000 ml @ 50 mls/hr IV . Q20H [facility] Rx#:[id number] Output: Urine 700 575 Uretheral (Hunter) 700 Other: Voiding Method Indwelling Catheter Indwelling Catheter Indwelling Catheter # Bowel Movements 1 - Labs CBC & Chem 7: 08/03/20 10:00 08/05/20 06:45 Labs: Abnormal Lab Results - Last 24 Hours (Table) 08/04/20 08/04/20 08/04/20 Range/Units 10:12 10:12 16:56 Chloride 111 H (96-109) mmol/L Carbon Dioxide 16.5 L (21.6-31.8) mmol/L BUN 34.0 H (9.0-27.0) mg/dL Creatinine 1.8 H (0.6-1.5) mg/dL Est GFR (CKD-EPI)AfAm 43.2 L (60.0-200.0) Est GFR (CKD-EPI)NonAf 37.3 L (60.0-200.0) Glucose 137 H (70-110) mg/dL POC Glucose (mg/dL) 115 H (75-99) mg/dL Calcium 8.4 L (8.7-10.3) mg/dL AST 55 H (14-35) U/L ALT 61 H (10-49) U/L Total Protein 5.9 L (6.2-8.2) g/dL Albumin 3.60 L (3.80-4.90) g/dL Albumin/Globulin Ratio 1.57 L (1.60-3.17) g/dL Procalcitonin 0.10 H (0.02-0.09) ng/mL 08/04/20 08/05/20 08/05/20 Range/Units 20:29 06:45 06:57 Chloride 112 H (96-109) mmol/L Carbon Dioxide 17.8 L (21.6-31.8) mmol/L BUN 34.0 H (9.0-27.0) mg/dL Creatinine 1.8 H (0.6-1.5) mg/dL Est GFR (CKD-EPI)AfAm 43.2 L (60.0-200.0) Est GFR (CKD-EPI)NonAf 37.3 L (60.0-200.0) Glucose 114 H (70-110) mg/dL POC Glucose (mg/dL) 106 H 105 H (75-99) mg/dL Calcium 8.5 L (8.7-10.3) mg/dL AST 50 H (14-35) U/L ALT 58 H (10-49) U/L Total Protein 5.7 L (6.2-8.2) g/dL Albumin 3.50 L (3.80-4.90) g/dL Albumin/Globulin Ratio 1.59 L (1.60-3.17) g/dL Procalcitonin (0.02-0.09) ng/mL 08/05/20 Range/Units 11:56 Chloride (96-109) mmol/L Carbon Dioxide (21.6-31.8) mmol/L BUN (9.0-27.0) mg/dL Creatinine (0.6-1.5) mg/dL Est GFR (CKD-EPI)AfAm (60.0-200.0) Est GFR (CKD-EPI)NonAf (60.0-200.0) Glucose (70-110) mg/dL POC Glucose (mg/dL) 151 H (75-99) mg/dL Calcium (8.7-10.3) mg/dL AST (14-35) U/L ALT (10-49) U/L Total Protein (6.2-8.2) g/dL Albumin (3.80-4.90) g/dL Albumin/Globulin Ratio (1.60-3.17) g/dL Procalcitonin (0.02-0.09) ng/mL Microbiology - Last 24 Hours (Table) 08/04/20 11:53 Gram Stain - Preliminary Toe - Right Second Wound Culture - Preliminary 07/30/20 21:29 Blood Culture - Preliminary Blood No Growth after 120 hours 08/04/20 11:53 Anaerobic Culture - Preliminary Toe - Right Second Assessment and Plan Plan: Assessment: 1. Acute kidney injury mostly prerenal secondary to hypovolemia improving with IV hydration. Creatinine was 6.9 on admission and down to 1.8 today. No evidence of hydronephrosis noted on imaging. UA fairly benign. Status post one treatment of hemodialysis on July 31 for persistent hyperkalemia. 2. Chronic kidney disease stage III with baseline creatinine in the range of 1.5-1.7. 3. Hyperkalemia secondary to acute kidney injury, metabolic acidosis, spironolactone as well as lisinopril. Improved postdialysis. Stable. 4. Metabolic acidosis secondary to acute kidney injury and IV fluids. Maintain on oral bicarbonate. No diarrhea. Plan: Stop normal saline. Start isotonic bicarbonate drip to be run at 50 mL an hour for 24 hours. Okay to remove Hunter catheter and to monitor for urinary retention. Continue to monitor renal function and urine output closely. Discontinue dialysis catheter. No further need for renal replacement therapy. Vascular surgery notified.
[2020-08-05] MEDS: INSULIN ASPART (NovoLOG) 100 UNIT/ML VIAL SQ SCH ×4 (12:48→21:12)
--- NOTE | 2020-08-05 15:18 | P.PN ---
Subjective Progress Note Date: 08/05/20 Principal diagnosis: Weakness, falls 70-year-old white male patient with past medical history of hypertension, atrial fibrillation with previous history of ablation as well as dual-chamber pacemaker implantation, diabetes mellitus type 2, chronic kidney disease stage III, who ca me into the emergency department on 07/30/2020 with complaints of weakness, loss of appetite, and falling at home. Patient is somewhat confused, and not the best historian, denied any fever chills, denied any headaches, syncope, denied any urinary symptoms, no abdominal pain, no nausea vomiting or diarrhea. CT brain and C-spine were negative for acute pathology, CT chest abdomen and pelvis showed interstitial pattern, rule out underlying pneumonia or mild fluid overload. Blood work showed no evidence of leukocytosis, white blood cell count was 8.8, hemoglobin was 13.3, INR is 2.3, potassium was 8.4, B1 is 114, creatinine is 6.90, lactic acid was 1.4, AST was 89, ALT was 118, troponin was 0.042, urinalysis, show trace 14, small amount of blood, rare bacteria but no clear evidence of infection, COVID PCR was negative. Renal ultrasound was completed showing bilateral renal cortical cysts, no evidence of solid renal mass or obstruction. Bladder was empty during the exam. Blood pressure was 59 with 39 on presentation, patient was given a total of 4 L of fluid boluses, blood pressure is currently improved at 107/89, patient is in sinus mechanism, with a rate of 81, activities of oxygen the pulse ox of 95%, he was started on empiric antibiotics in the form of azithromycin and Rocephin, his hyperkalemia was treated with 2 g of calcium gluconate, 50% dextrose and regular insulin, and was given an amp of sodium bicarb, and 15 g of oral Kayexalate, his maintenance IV fluids are 5% dextrose with 3 amps bicarbonate at a rate of 80 ML per hour. he has been afebrile while the emergency department, has produced 1800 mL in urine output, nephrology is consulted and patient is awaiting a bed in the intensive care unit. On 08/01/2020 patient seen in follow-up in the emergency department, still awaiting a bed, but his status has been downgraded from intensive care unit to monitored bed on selective care, he is awake and alert, in no acute distress, mentation has significantly improved, is confused, denies any specific complaints, hemodynamically stable, no nausea vomiting and diarrhea, no abdominal pain, no fever or chills. Yesterday he had a dialysis catheter placed, for ultrafiltration, IV fluids have been switched from bicarbonate infusion 0.9 normal saline at a rate of 75 ML per hour, today's labs have been reviewed, showing potassium of 4.8, sodium of 136, BUN of 52, and creatinine down to 3.3. His proBNP level is 2070, progressive on a level at 0.13, with cultures have shown no growth at 24 hour anastasia, been afebrile overnight, denies any shortness of breath, is currently on 2 L of oxygen with pulse ox of 98%, lung sounds are clear. Currently on azithromycin and Rocephin for empiric antibiotic coverage. The patient is seen today 08/02/2020 in follow-up on the regular medical floor. He is currently awake and alert in no acute distress. He is maintaining O2 saturation in the 90s on 3 L/m per nasal cannula. She's afebrile. Hemodynamically stable. Blood cultures reveal no growth. Sodium 139. Potassium 5.1. Creatinine 2.5. Glucose 111. He remains on 0.9 normal saline at 50 MLS per hour. Continued on bronchodilators. Antibiotics in the form of ceftriaxone and azithromycin. Remains on sodium bicarb tablets. The patient is seen today 08/05/2020 in follow-up on the regular floor. Remains awake and alert in no acute distress. Maintaining good O2 saturations in the mid 90s on room air. He's been afebrile. Hemodynamically stable. The cultures revealed no growth. Wound of the right second toe revealed no growth. Sodium 138. Potassium 5.0. Creatinine 1.8. Bicarb 18. He is being started on a bicarb drip per nephrology. Dialysis catheter to be discontinued. No need for renal replacement therapy. Objective - Vital Signs Vital signs: Vital Signs Temp 97.9 F 08/05/20 08:00 Pulse 60 08/05/20 08:00 Resp 18 08/05/20 08:00 BP 125/83 08/05/20 08:00 Pulse Ox 96 08/05/20 08:00 Intake & Output 08/04/20 08/05/20 08/05/20 18:59 06:59 18:59 Intake Total 400 Output Total 700 575 Balance -300 -575 Weight 98.5 kg Intake: IV 400 Sodium Chloride 0.9% 1, 400 000 ml @ 50 mls/hr IV . Q20H [facility] Rx#:[id number] Output: Urine 700 575 Uretheral (Hunter) 700 Other: Voiding Method Indwelling Catheter Indwelling Catheter Indwelling Catheter # Bowel Movements 1 - Exam GENERAL EXAM: Alert, oriented 2, 70-year-old male patient, on on room air with O2 saturations in the mid 90s, in no acute distress HEAD: Normocephalic/atraumatic. EYES: Normal reaction of pupils, equal size. Conjunctiva pink, sclera white. NOSE: Clear with pink turbinates. THROAT: No erythema or exudates. NECK: No masses, no JVD, no thyroid enlargement, no adenopathy. CHEST: No chest wall deformity. Symmetrical expansion. LUNGS: Equal air entry with few scattered rhonchi. CVS: Regular rate and rhythm, normal S1 and S2, no gallops, no murmurs, no rubs ABDOMEN: Soft, nontender. No hepatosplenomegaly, normal bowel sounds, no guarding or rigidity. EXTREMITIES: No clubbing, no edema, no cyanosis, 2+ pulses and upper and lower extremities. MUSCULOSKELETAL: Muscle strength and tone normal. SPINE: No scoliosis or deformity SKIN: No rashes CENTRAL NERVOUS SYSTEM: Less confused on today's exam. No focal deficits, tone is normal in all 4 extremities. PSYCHIATRIC: Alert and oriented -2. Appropriate affect. Intact judgment and insight. - Labs CBC & Chem 7: 08/03/20 10:00 08/05/20 06:45 Labs: Abnormal Lab Results - Last 24 Hours (Table) 08/04/20 08/04/20 08/04/20 Range/Units 10:12 10:12 16:56 Chloride 111 H (96-109) mmol/L Carbon Dioxide 16.5 L (21.6-31.8) mmol/L BUN 34.0 H (9.0-27.0) mg/dL Creatinine 1.8 H (0.6-1.5) mg/dL Est GFR (CKD-EPI)AfAm 43.2 L (60.0-200.0) Est GFR (CKD-EPI)NonAf 37.3 L (60.0-200.0) Glucose 137 H (70-110) mg/dL POC Glucose (mg/dL) 115 H (75-99) mg/dL Calcium 8.4 L (8.7-10.3) mg/dL AST 55 H (14-35) U/L ALT 61 H (10-49) U/L Total Protein 5.9 L (6.2-8.2) g/dL Albumin 3.60 L (3.80-4.90) g/dL Albumin/Globulin Ratio 1.57 L (1.60-3.17) g/dL Procalcitonin 0.10 H (0.02-0.09) ng/mL 08/04/20 08/05/20 08/05/20 Range/Units 20:29 06:45 06:57 Chloride 112 H (96-109) mmol/L Carbon Dioxide 17.8 L (21.6-31.8) mmol/L BUN 34.0 H (9.0-27.0) mg/dL Creatinine 1.8 H (0.6-1.5) mg/dL Est GFR (CKD-EPI)AfAm 43.2 L (60.0-200.0) Est GFR (CKD-EPI)NonAf 37.3 L (60.0-200.0) Glucose 114 H (70-110) mg/dL POC Glucose (mg/dL) 106 H 105 H (75-99) mg/dL Calcium 8.5 L (8.7-10.3) mg/dL AST 50 H (14-35) U/L ALT 58 H (10-49) U/L Total Protein 5.7 L (6.2-8.2) g/dL Albumin 3.50 L (3.80-4.90) g/dL Albumin/Globulin Ratio 1.59 L (1.60-3.17) g/dL Procalcitonin (0.02-0.09) ng/mL 08/05/20 Range/Units 11:56 Chloride (96-109) mmol/L Carbon Dioxide (21.6-31.8) mmol/L BUN (9.0-27.0) mg/dL Creatinine (0.6-1.5) mg/dL Est GFR (CKD-EPI)AfAm (60.0-200.0) Est GFR (CKD-EPI)NonAf (60.0-200.0) Glucose (70-110) mg/dL POC Glucose (mg/dL) 151 H (75-99) mg/dL Calcium (8.7-10.3) mg/dL AST (14-35) U/L ALT (10-49) U/L Total Protein (6.2-8.2) g/dL Albumin (3.80-4.90) g/dL Albumin/Globulin Ratio (1.60-3.17) g/dL Procalcitonin (0.02-0.09) ng/mL Microbiology - Last 24 Hours (Table) 08/04/20 11:53 Gram Stain - Preliminary Toe - Right Second Wound Culture - Preliminary 07/30/20 21:29 Blood Culture - Preliminary Blood No Growth after 120 hours 08/04/20 11:53 Anaerobic Culture - Preliminary Toe - Right Second Assessment and Plan Assessment: 1 Septic shock, patient came in with hypotension and blood pressure of 59/39, acute kidney injury, improved 2 Mild interstitial edema on the chest x-ray and CT chest with the possibility of mild fluid overload rule out possibility of pneumonia 3 Dehydration from poor oral intake and diuretic therapy 4 Acute on chronic renal failure and the current creatinine 2.5 5 Chronic kidney disease stage III at baseline 6 Acute hyperkalemia related to acute kidney injury 7 Troponin leak possibly related to acute kidney injury 8 Acute metabolic encephalopathy related to acute kidney injury, sepsis 9 Hypertension 10 Hyperlipidemia 11 Diabetes mellitus type 2 12 History of atrial fibrillation status post ablation and status post dual chamber pacemaker insertion Plan: The patient was seen and evaluated by Dr. Skinner He is improved and stable from the pulmonary standpoint Nephrology is on the case We'll see as needed I, the cosigning physician, performed a history & physical examination of the pa silvia. Lungs sounds with few scattered rhonchi. Maintaining good O2 saturations in the 90s on room air. I discussed the assessment and plan of care with my nurse practitioner, Yudi Earl. I attest to the above note as dictated by her.
[2020-08-05] MEDS: DEXTROSE 5% IN WATER 1,000 ML with SODIUM BICARB (1 MEQ/ML) 150 ML IV SCH (16:41)
[2020-08-05 16:46] LABS: Glucose,Whole Blood 147 mg/dL (75-99)
[2020-08-05 20:17] LABS: Glucose,Whole Blood 202 mg/dL (75-99)
[2020-08-05] MEDS: ATORVASTATIN 80 MG TAB PO SCH (21:11)
--- NOTE | 2020-08-06 01:16 | P.PN ---
Subjective Progress Note Date: 08/05/20 Principal diagnosis: VAL on CKD Mr. Ortiz is a 70-year-old man with a past medical history of atrial fibrillation status post ablation, CKD stage III who came in to the emergency department with a chief complaint of weakness and fatigue. Patient was found to be hypotensive at the time of admission along with acute kidney injury needing hemodialysis. Today patient was seen and examined on the general medical floors. Patient's creatinine has been trending down and the plan is to remove his dialysis catheter as per nephrology recommendations. Patient is comfortably lying in bed appears to be no acute distress. He denies having any fevers chills or rigors. No cough or difficulty in breathing. No chest pain or palpitations. No abdominal pain nausea vomiting or diarrhea. He still has a Hunter's catheter in place. On reviewing the vitals patient has been afebrile blood pressure 104/69 saturating at 96% on room air. Patient's labs showing BUN of 34 and creatinine of 1.8. Active Medications Atorvastatin Calcium (Atorvastatin 80 Mg Tab) 80 mg PO [facility] Last Admin: 08/04/20 21:36 Dose: 80 mg Documented by: Duloxetine HCl (Duloxetine Hcl 60 Mg Capsule.Dr) 60 mg PO BID [facility] Last Admin: 08/05/20 09:53 Dose: 60 mg Documented by: Sodium Bicarbonate 150 ml/ (Dextrose/Water) 1,150 mls @ 50 mls/hr IV .Q23H [facility] Insulin Aspart (Insulin Aspart (Novolog) 100 Unit/Ml Vial) 0 unit SQ ACHS [facility]; Protocol Last Admin: 08/05/20 12:55 Dose: 1 unit Documented by: Metoprolol Succinate (Metoprolol Succinate (Er) 100 Mg Tab.Er.24h) 100 mg PO DAILY [facility] Last Admin: 08/05/20 09:53 Dose: 100 mg Documented by: Naloxone HCl (Naloxone 0.4 Mg/Ml 1 Ml Vial) 0.2 mg IV Q2M PRN PRN Reason: Opioid Reversal Ondansetron HCl (Ondansetron 4 Mg/2 Ml Vial) 4 mg IVP Q6HR PRN PRN Reason: Nausea And Vomiting Last Admin: 08/02/20 09:24 Dose: 4 mg Documented by: Pantoprazole Sodium (Pantoprazole 40 Mg Tablet) 40 mg PO DAILY [facility] Last Admin: 08/05/20 09:53 Dose: 40 mg Documented by: Sodium Bicarbonate (Sodium Bicarbonate Tab 650 Mg Tab) 650 mg PO TID [facility] Last Admin: 08/05/20 09:53 Dose: 650 mg Documented by: Objective - Vital Signs Vital signs: Vital Signs Temp 97.9 F 08/05/20 08:00 Pulse 60 08/05/20 08:00 Resp 18 08/05/20 08:00 BP 125/83 08/05/20 08:00 Pulse Ox 96 08/05/20 08:00 Intake & Output 08/04/20 08/05/20 08/05/20 18:59 06:59 18:59 Intake Total 400 Output Total 700 575 Balance -300 -575 Weight 98.5 kg Intake: IV 400 Sodium Chloride 0.9% 1, 400 000 ml @ 50 mls/hr IV . Q20H [facility] Rx#:[id number] Output: Urine 700 575 Uretheral (Hunter) 700 Other: Voiding Method Indwelling Catheter Indwelling Catheter Indwelling Catheter # Bowel Movements 1 - Exam General: Sitting up in bed, pleasantly confused, alert and oriented to person and place. Eyes: PERRL, EOMI, conjunctiva normal HENT: normocephalic, mucus membranes moist Neck: supple, no JVD Lungs: normal respiratory effort, essentially clear with no wheezes or rales CV: Irregular, no murmur. Peripheral pulses 2+ Abdomen: soft, nondistended, no organomegaly. Positive bowel sounds Skin: warm and dry. No rashes. Right foot second toe small wound with clear yellow drainage. Neuro: A&Ox2, normal mood and affect. - Labs CBC & Chem 7: 08/03/20 10:00 08/05/20 06:45 Labs: Abnormal Lab Results - Last 24 Hours (Table) 08/04/20 08/04/20 08/04/20 Range/Units 10:12 10:12 16:56 Chloride 111 H (96-109) mmol/L Carbon Dioxide 16.5 L (21.6-31.8) mmol/L BUN 34.0 H (9.0-27.0) mg/dL Creatinine 1.8 H (0.6-1.5) mg/dL Est GFR (CKD-EPI)AfAm 43.2 L (60.0-200.0) Est GFR (CKD-EPI)NonAf 37.3 L (60.0-200.0) Glucose 137 H (70-110) mg/dL POC Glucose (mg/dL) 115 H (75-99) mg/dL Calcium 8.4 L (8.7-10.3) mg/dL AST 55 H (14-35) U/L ALT 61 H (10-49) U/L Total Protein 5.9 L (6.2-8.2) g/dL Albumin 3.60 L (3.80-4.90) g/dL Albumin/Globulin Ratio 1.57 L (1.60-3.17) g/dL Procalcitonin 0.10 H (0.02-0.09) ng/mL 08/04/20 08/05/20 08/05/20 Range/Units 20:29 06:45 06:57 Chloride 112 H (96-109) mmol/L Carbon Dioxide 17.8 L (21.6-31.8) mmol/L BUN 34.0 H (9.0-27.0) mg/dL Creatinine 1.8 H (0.6-1.5) mg/dL Est GFR (CKD-EPI)AfAm 43.2 L (60.0-200.0) Est GFR (CKD-EPI)NonAf 37.3 L (60.0-200.0) Glucose 114 H (70-110) mg/dL POC Glucose (mg/dL) 106 H 105 H (75-99) mg/dL Calcium 8.5 L (8.7-10.3) mg/dL AST 50 H (14-35) U/L ALT 58 H (10-49) U/L Total Protein 5.7 L (6.2-8.2) g/dL Albumin 3.50 L (3.80-4.90) g/dL Albumin/Globulin Ratio 1.59 L (1.60-3.17) g/dL Procalcitonin (0.02-0.09) ng/mL 08/05/20 Range/Units 11:56 Chloride (96-109) mmol/L Carbon Dioxide (21.6-31.8) mmol/L BUN (9.0-27.0) mg/dL Creatinine (0.6-1.5) mg/dL Est GFR (CKD-EPI)AfAm (60.0-200.0) Est GFR (CKD-EPI)NonAf (60.0-200.0) Glucose (70-110) mg/dL POC Glucose (mg/dL) 151 H (75-99) mg/dL Calcium (8.7-10.3) mg/dL AST (14-35) U/L ALT (10-49) U/L Total Protein (6.2-8.2) g/dL Albumin (3.80-4.90) g/dL Albumin/Globulin Ratio (1.60-3.17) g/dL Procalcitonin (0.02-0.09) ng/mL Microbiology - Last 24 Hours (Table) 08/04/20 11:53 Gram Stain - Preliminary Toe - Right Second Wound Culture - Preliminary 07/30/20 21:29 Blood Culture - Preliminary Blood No Growth after 120 hours 08/04/20 11:53 Anaerobic Culture - Preliminary Toe - Right Second Assessment and Plan Assessment: ASSESSMENT Septic shock-improving Acute kidney injury secondary to above Chronic kidney disease stage III at baseline Acute hyperkalemia due to VAL Elevated troponin due to VAL Acute metabolic encephalopathy Hypertension Hyperlipidemia Type 2 diabetes mellitus Atrial fibrillation rate controlled PLAN: Patient's creatinine is trending down nephrology on board following the patient closely. Plan is to remove his dialysis catheter and Hunter's catheter today. Continue with the rest of his current medication regimen. Wound cul tures from the second right toe pending. Blood cultures negative. Continue with GI prophylaxsis. Patient's platelets on the lower side, early ambulation and SCD for DVT prophylaxis. Further recommendations to follow depending on the progress of the patient.
[2020-08-06 06:54] LABS: Glucose,Whole Blood 166 mg/dL (75-99)
[2020-08-06] MEDS: INSULIN ASPART (NovoLOG) 100 UNIT/ML VIAL SQ SCH ×4 (07:58→20:29)
[2020-08-06] MEDS: DULoxetine HCL 60 MG CAPSULE.DR PO SCH ×2 (07:58→20:50)
[2020-08-06] MEDS: PANTOPRAZOLE 40 MG TABLET PO SCH (07:58)
[2020-08-06] MEDS: METOPROLOL SUCCINATE (ER) 100 MG TAB.ER.24H PO SCH (07:59)
[2020-08-06] MEDS: SODIUM BICARBONATE TAB 650 MG TAB PO SCH ×3 (07:59→20:50)
[2020-08-06 08:32] LABS: Basophils % (A) 0 %; Eosinophils % (A) 1 %; HCT 33.5 % (39.0-53.0); HGB 10.9 gm/dL (13.0-17.5); Lymphocytes # (A) 0.8 k/uL (1.0-4.8); Lymphocytes % (A) 15 %; MCH 29.1 pg (25.0-35.0); MCHC 32.5 g/dL (31.0-37.0); MCV 89.7 fL (80.0-100.0); Mean Platelet Volume 8.8; Monocytes # (A) 0.4 k/uL (0-1.0); Monocytes % (A) 7 %; Neutrophils # (A) 4.1 k/uL (1.3-7.7); Neutrophils % (A) 76 %; Platelet Count 126 k/uL (150-450); RBC 3.74 m/uL (4.30-5.90); RDW 15.3 % (11.5-15.5); WBC 5.4 k/uL (3.8-10.6)
[2020-08-06 09:52] LABS: Glucose,Whole Blood 156 mg/dL (75-99)
--- NOTE | 2020-08-06 10:42 | PCN ---
PROCEDURE NOTE PREOP DIAGNOSIS: Acute on chronic renal failure. PROCEDURE PERFORMED: Removal of dialysis catheter right femoral approach. DESCRIPTION OF PROCEDURE: Right groin was prepped and drapes applied in sterile manner. The stitches were removed from the catheter site and the catheter was removed. Pressure was held for 10 minutes. Pressure dressing applied. Patient tolerated the procedure well. MMODL / IJN: [id number] /
--- NOTE | 2020-08-06 11:22 | P.PN ---
Subjective Patient is seen in follow for acute kidney injury. He underwent 1 treatment of hemodialysis on July 31 for persistent hyperkalemia. Creatinine was 6.9 on admission and stable at 1.8 as of yesterday. Oral intake is fair. No chest pain or shortness of breath. Hunter catheter removed yesterday. He's been voiding on his own. Vital signs are stable. General: The patient appeared well nourished and normally developed. HEENT: Head exam is unremarkable. Neck is without jugular venous distension. LUNGS: Breath sounds decreased. HEART: Rate and Rhythm are regular. ABDOMEN: Soft, nontender. EXTREMITITES: No edema. Objective - Vital Signs Vital signs: Vital Signs Temp 97.4 F L 08/06/20 09:50 Pulse 60 08/06/20 07:44 Resp 18 08/06/20 07:44 BP 149/89 08/06/20 07:44 Pulse Ox 97 08/06/20 07:44 Intake & Output 08/05/20 08/06/20 08/06/20 18:59 06:59 18:59 Intake Total 540 Output Total 800 Balance -260 Intake: Oral 540 Output: Urine 800 Other: Voiding Method Indwelling Catheter # Voids 4 # Bowel Movements 3 - Labs CBC & Chem 7: 08/06/20 07:23 08/05/20 06:45 Labs: Abnormal Lab Results - Last 24 Hours (Table) 08/05/20 08/05/20 08/05/20 Range/Units 06:45 11:56 16:45 RBC (4.30-5.90) m/uL Hgb (13.0-17.5) gm/dL Hct (39.0-53.0) % Plt Count (150-450) k/uL Lymphocytes # (1.0-4.8) k/uL Chloride 112 H (96-109) mmol/L Carbon Dioxide 17.8 L (21.6-31.8) mmol/L BUN 34.0 H (9.0-27.0) mg/dL Creatinine 1.8 H (0.6-1.5) mg/dL Est GFR (CKD-EPI)AfAm 43.2 L (60.0-200.0) Est GFR (CKD-EPI)NonAf 37.3 L (60.0-200.0) Glucose 114 H (70-110) mg/dL POC Glucose (mg/dL) 151 H 147 H (75-99) mg/dL Calcium 8.5 L (8.7-10.3) mg/dL AST 50 H (14-35) U/L ALT 58 H (10-49) U/L Total Protein 5.7 L (6.2-8.2) g/dL Albumin 3.50 L (3.80-4.90) g/dL Albumin/Globulin Ratio 1.59 L (1.60-3.17) g/dL 08/05/20 08/06/20 08/06/20 Range/Units 20:15 06:53 07:23 RBC 3.74 L (4.30-5.90) m/uL Hgb 10.9 L (13.0-17.5) gm/dL Hct 33.5 L (39.0-53.0) % Plt Count 126 L (150-450) k/uL Lymphocytes # 0.8 L (1.0-4.8) k/uL Chloride (96-109) mmol/L Carbon Dioxide (21.6-31.8) mmol/L BUN (9.0-27.0) mg/dL Creatinine (0.6-1.5) mg/dL Est GFR (CKD-EPI)AfAm (60.0-200.0) Est GFR (CKD-EPI)NonAf (60.0-200.0) Glucose (70-110) mg/dL POC Glucose (mg/dL) 202 H 166 H (75-99) mg/dL Calcium (8.7-10.3) mg/dL AST (14-35) U/L ALT (10-49) U/L Total Protein (6.2-8.2) g/dL Albumin (3.80-4.90) g/dL Albumin/Globulin Ratio (1.60-3.17) g/dL 08/06/20 Range/Units 09:49 RBC (4.30-5.90) m/uL Hgb (13.0-17.5) gm/dL Hct (39.0-53.0) % Plt Count (150-450) k/uL Lymphocytes # (1.0-4.8) k/uL Chloride (96-109) mmol/L Carbon Dioxide (21.6-31.8) mmol/L BUN (9.0-27.0) mg/dL Creatinine (0.6-1.5) mg/dL Est GFR (CKD-EPI)AfAm (60.0-200.0) Est GFR (CKD-EPI)NonAf (60.0-200.0) Glucose (70-110) mg/dL POC Glucose (mg/dL) 156 H (75-99) mg/dL Calcium (8.7-10.3) mg/dL AST (14-35) U/L ALT (10-49) U/L Total Protein (6.2-8.2) g/dL Albumin (3.80-4.90) g/dL Albumin/Globulin Ratio (1.60-3.17) g/dL Microbiology - Last 24 Hours (Table) 07/30/20 21:29 Blood Culture - Final Blood No Growth after 144 hours 08/04/20 11:53 Gram Stain - Preliminary Toe - Right Second Wound Culture - Preliminary Assessment and Plan Plan: Assessment: 1. Acute kidney injury mostly prerenal secondary to hypovolemia improving with IV hydration. Creatinine was 6.9 on admission and stable at 1.8 as of yesterday. No evidence of hydronephrosis noted on imaging. UA fairly benign. Status post one treatment of hemodialysis on July 31 for persistent hyperkalemia. Dialysis catheter removed. 2. Chronic kidney disease stage III with baseline creatinine in the range of 1.5-1.7. 3. Hyperkalemia secondary to acute kidney injury, metabolic acidosis, spironolactone as well as lisinopril. Improved postdialysis. Stable. 4. Metabolic acidosis secondary to acute kidney injury and IV fluids. Also has intermittent diarrhea. Plan: Monitor for urinary retention. Maintain bicarb drip for now. Follow-up morning labs. Continue to monitor renal function and urine output closely.
[2020-08-06 11:25] LABS: Glucose,Whole Blood 121 mg/dL (75-99)
[2020-08-06 11:35] LABS: Appearance,Urine Clear (Clear); Bilirubin,Urine Negative (Negative); Blood,Urine Small (Negative); Color,Urine Light Yellow; Glucose,Urine (UA) 2+ (Negative); Ketones,Urine Negative (Negative); Leukocyte Esterase,Urine Negative (Negative); Mucus,Urine Rare /hpf; Nitrite,Urine Negative (Negative); PH, Urine 6.5 (5.0-8.0); Protein,Urine 1+ (Negative); RBC,Urine 1 /hpf (0-5); Specific Gravity,Urine 1.011 (1.001-1.035); Squamous Epithelial Cell,Urine <1 /hpf (0-4); Urobilinogen,Urine <2.0 mg/dL (<2.0); WBC,Urine 1 /hpf (0-5)
[2020-08-06] MEDS ORDERED: ACETAMINOPHEN TAB 325 MG TAB PO PRN (11:50)
[2020-08-06 11:51] LABS: African American GFR (CKD) 43.2 (60.0-200.0); Albumin 3.7 g/dL (3.80-4.90); Albumin/Globulin Ratio 1.61 (1.60-3.17); Anion Gap 9.4 mmol/L (4.00-12.00); BUN/Creat Ratio 17.78 Ratio (12.00-20.00); Carbon Dioxide 21.6 mmol/L (21.6-31.8); Globulin 2.3 g/dL (1.6-3.3); Magnesium 1.9 mg/dL (1.5-2.4); Non-African American GFR(CKD) 37.3 (60.0-200.0); Potassium 4.7 mmol/L (3.5-5.5); Total Bilirubin 0.9 mg/dL (0.3-1.2)
[2020-08-06 17:12] LABS: Glucose,Whole Blood 132 mg/dL (75-99)
[2020-08-06] MEDS: DEXTROSE 5% IN WATER 1,000 ML with SODIUM BICARB (1 MEQ/ML) 150 ML IV SCH (17:20)
[2020-08-06] MEDS: SODIUM CHLORIDE 0.9% 1,000 ML IV SCH (17:23)
[2020-08-06 20:24] LABS: Glucose,Whole Blood 128 mg/dL (75-99)
[2020-08-06] MEDS: ATORVASTATIN 80 MG TAB PO SCH (20:50)
--- NOTE | 2020-08-07 01:11 | P.PN ---
Subjective Progress Note Date: 08/06/20 Principal diagnosis: VAL on CKD Mr. Ortiz is a 70-year-old man with a past medical history of atrial fibrillation status post ablation, CKD stage III who came in to the emergency department with a chief complaint of weakness and fatigue. Patient was found to be hypotensive at the time of admission along with acute kidney injury needing hemodialysis. Today patient was seen and examined on the general medical floors. Patient's creatinine has been trending down and the plan is to remove his dialysis catheter as per nephrology recommendations. Patient is comfortably lying in bed appears to be no acute distress. He denies having any fevers chills or rigors. No cough or difficulty in breathing. No chest pain or palpitations. No abdominal pain nausea vomiting or diarrhea. He still has a Hunter's catheter in place. On reviewing the vitals patient has been afebrile blood pressure 104/69 saturating at 96% on room air. Patient's labs showing BUN of 34 and creatinine of 1.8. On 08/06/2020 -patient is sleeping in bed comfortably appears to be no acute di stress. No acute events reported by nursing staff. Patient's dialysis catheter has been discontinued. His Hunter's catheter has been removed as well. But as he had retained more than 400 cc of urine, Hunter's catheter has been placed again. On reviewing the vitals patient T-max 98.4, heart rate 63, blood pressure 146 x 90 saturating at 96 on room air. Reviewing the labs white count of 5.4 hemoglobin 10.9 platelets 126. His BUN 32 and creatinine 1.8 that is trending down. Active Medications Acetaminophen (Acetaminophen Tab 325 Mg Tab) 650 mg PO Q6HR PRN PRN Reason: Fever and/ or Mild Pain Last Admin: 08/06/20 12:03 Dose: 650 mg Documented by: Atorvastatin Calcium (Atorvastatin 80 Mg Tab) 80 mg PO HS [facility] Last Admin: 08/06/20 20:50 Dose: 80 mg Documented by: Duloxetine HCl (Duloxetine Hcl 60 Mg Capsule.Dr) 60 mg PO BID [facility] Last Admin: 08/06/20 20:50 Dose: 60 mg Documented by: Sodium Chloride (Saline 0.9%) 1,000 mls @ 50 mls/hr IV .Q20H [facility] Last Admin: 08/06/20 17:23 Dose: 50 mls/hr Documented by: Insulin Aspart (Insulin Aspart (Novolog) 100 Unit/Ml Vial) 0 unit SQ ACHS [facility]; Protocol Last Admin: 08/06/20 20:29 Dose: Not Given Documented by: Metoprolol Succinate (Metoprolol Succinate (Er) 100 Mg Tab.Er.24h) 100 mg PO DAILY [facility] Last Admin: 08/06/20 07:59 Dose: 100 mg Documented by: Naloxone HCl (Naloxone 0.4 Mg/Ml 1 Ml Vial) 0.2 mg IV Q2M PRN PRN Reason: Opioid Reversal Ondansetron HCl (Ondansetron 4 Mg/2 Ml Vial) 4 mg IVP Q6HR PRN PRN Reason: Nausea And Vomiting Last Admin: 08/02/20 09:24 Dose: 4 mg Documented by: Pantoprazole Sodium (Pantoprazole 40 Mg Tablet) 40 mg PO DAILY [facility] Last Admin: 08/06/20 07:58 Dose: 40 mg Documented by: Sodium Bicarbonate (Sodium Bicarbonate Tab 650 Mg Tab) 650 mg PO TID [facility] Last Admin: 08/06/20 20:50 Dose: 650 mg Documented by: Objective - Vital Signs Vital signs: Vital Signs Temp 98.4 F 08/06/20 14:00 Pulse 63 08/06/20 14:00 Resp 19 08/06/20 14:00 BP 146/90 08/06/20 14:00 Pulse Ox 96 08/06/20 14:00 Intake & Output 08/05/20 08/06/20 08/06/20 18:59 06:59 18:59 Intake Total 540 Output Total 800 100 Balance -260 -100 Intake: Oral 540 Output: Urine 800 Post Void Residual 100 Other: Voiding Method Indwelling Catheter # Voids 4 # Bowel Movements 3 - Exam PHYSICAL EXAM General: Sitting up in bed, pleasantly confused, alert and oriented to person and place. Eyes: PERRL, EOMI, conjunctiva normal HENT: normocephalic, mucus membranes moist Neck: supple, no JVD Lungs: normal respiratory effort, essentially clear with no wheezes or rales CV: Irregular, no murmur. Peripheral pulses 2+ Abdomen: soft, nondistended, no organomegaly. Positive bowel sounds Skin: warm and dry. No rashes. Right foot second toe small wound with clear yellow drainage. Neuro: A&Ox2, normal mood and affect. - Labs CBC & Chem 7: 08/06/20 07:23 08/06/20 07:23 Labs: Abnormal Lab Results - Last 24 Hours (Table) 08/05/20 08/06/20 08/06/20 Range/Units 20:15 06:53 07:23 RBC (4.30-5.90) m/uL Hgb (13.0-17.5) gm/dL Hct (39.0-53.0) % Plt Count (150-450) k/uL Lymphocytes # (1.0-4.8) k/uL BUN 32.0 H (9.0-27.0) mg/dL Creatinine 1.8 H (0.6-1.5) mg/dL Est GFR (CKD-EPI)AfAm 43.2 L (60.0-200.0) Est GFR (CKD-EPI)NonAf 37.3 L (60.0-200.0) Glucose 155 H (70-110) mg/dL POC Glucose (mg/dL) 202 H 166 H (75-99) mg/dL AST 43 H (14-35) U/L ALT 58 H (10-49) U/L Total Protein 6.0 L (6.2-8.2) g/dL Albumin 3.70 L (3.80-4.90) g/dL Urine Protein (Negative) Urine Glucose (UA) (Negative) Urine Blood (Negative) Urine Mucus (None) /hpf 08/06/20 08/06/20 08/06/20 Range/Units 07:23 09:49 11:20 RBC 3.74 L (4.30-5.90) m/uL Hgb 10.9 L (13.0-17.5) gm/dL Hct 33.5 L (39.0-53.0) % Plt Count 126 L (150-450) k/uL Lymphocytes # 0.8 L (1.0-4.8) k/uL BUN (9.0-27.0) mg/dL Creatinine (0.6-1.5) mg/dL Est GFR (CKD-EPI)AfAm (60.0-200.0) Est GFR (CKD-EPI)NonAf (60.0-200.0) Glucose (70-110) mg/dL POC Glucose (mg/dL) 156 H (75-99) mg/dL AST (14-35) U/L ALT (10-49) U/L Total Protein (6.2-8.2) g/dL Albumin (3.80-4.90) g/dL Urine Protein 1+ H (Negative) Urine Glucose (UA) 2+ H (Negative) Urine Blood Small H (Negative) Urine Mucus Rare H (None) /hpf 08/06/20 Range/Units 11:23 RBC (4.30-5.90) m/uL Hgb (13.0-17.5) gm/dL Hct (39.0-53.0) % Plt Count (150-450) k/uL Lymphocytes # (1.0-4.8) k/uL BUN (9.0-27.0) mg/dL Creatinine (0.6-1.5) mg/dL Est GFR (CKD-EPI)AfAm (60.0-200.0) Est GFR (CKD-EPI)NonAf (60.0-200.0) Glucose (70-110) mg/dL POC Glucose (mg/dL) 121 H (75-99) mg/dL AST (14-35) U/L ALT (10-49) U/L Total Protein (6.2-8.2) g/dL Albumin (3.80-4.90) g/dL Urine Protein (Negative) Urine Glucose (UA) (Negative) Urine Blood (Negative) Urine Mucus (None) /hpf Microbiology - Last 24 Hours (Table) 08/06/20 11:20 Urine Culture - Preliminary Urine,Clean Catch 08/04/20 11:53 Gram Stain - Final Toe - Right Second Wound Culture - Final 08/04/20 11:53 Anaerobic Culture - Preliminary Toe - Right Second 07/30/20 21:29 Blood Culture - Final Blood No Growth after 144 hours Assessment and Plan Assessment: ASSESSMENT Septic shock-improving Acute kidney injury secondary to above Chronic kidney disease stage III at baseline Acute hyperkalemia due to VAL Elevated troponin due to VAL Acute metabolic encephalopathy Hypertension Hyperlipidemia Type 2 diabetes mellitus Atrial fibrillation rate controlled PLAN: Patient's creatinine is trending down nephrology on board following the patient closely. Patient's dialysis catheter has been discontinued yesterday. His Hunter's catheter has been removed as well. But as he had retained urine, Hunter's catheter has been placed again and Urology is consulted. Continue with the rest of his current medication regimen. Wound cultures from the second right toe pending. Blood cultures negative. Continue with GI prophylaxsis. Patient's platelets on the lower side, early ambulation and SCD for DVT prophylaxis. Further recommendations to follow depending on the progress of the patient.
[2020-08-07 07:15] LABS: Glucose,Whole Blood 288 mg/dL (75-99)
[2020-08-07] MEDS: PANTOPRAZOLE 40 MG TABLET PO SCH (07:18)
[2020-08-07] MEDS: SODIUM BICARBONATE TAB 650 MG TAB PO SCH ×2 (07:18→21:44)
[2020-08-07] MEDS: METOPROLOL SUCCINATE (ER) 100 MG TAB.ER.24H PO SCH (07:18)
[2020-08-07] MEDS: SODIUM CHLORIDE 0.9% 1,000 ML IV SCH (07:19)
[2020-08-07] MEDS: DULoxetine HCL 60 MG CAPSULE.DR PO SCH ×2 (07:19→21:44)
[2020-08-07] MEDS: INSULIN ASPART (NovoLOG) 100 UNIT/ML VIAL SQ SCH ×4 (07:20→21:26)
[2020-08-07 09:16] LABS: African American GFR (CKD) 49.8 (60.0-200.0); Anion Gap 7.1 mmol/L (4.00-12.00); BUN/Creat Ratio 16.25 Ratio (12.00-20.00); Calcium 8.4 mg/dL (8.7-10.3); Carbon Dioxide 21.9 mmol/L (21.6-31.8); Magnesium 1.8 mg/dL (1.5-2.4); Potassium 4.1 mmol/L (3.5-5.5)
[2020-08-07] MEDS: TAMSULOSIN 0.4 MG CAP.ER.24H PO SCH (11:16)
[2020-08-07 11:20] LABS: Glucose,Whole Blood 176 mg/dL (75-99)
--- NOTE | 2020-08-07 11:33 | P.PN ---
Subjective Progress Note Date: 08/07/20 Holden Ortiz is a 70 yo M with PMH of atrial fibrillation s/p ablation, CKD stage 3 who presented to the ED complaining of worsening weakness and fatigue over the past few days. He reports he was in his usual state of health last week but as the weekend went on he became progressively more weak and had been spending more time resting. HE states the day of admission he felt his legs giving out so came to the hospital. On presentation he was hypotensive to 59/39, Na 132, K 8.4. WBC 8.8, INR 2.3, BUN 114, Cr 6.9. Trop 0.042. Renal US wnl and CT chest/abdomen/pelvis showing only interstital pneumonia. Pt was given insulin and D50 as well as calcium gluconate with slow correction of potassium. Due to his persistent hyperkalemia pt had dialysis catheter placed for HD. Today he remains weak but otherwise denies complaints. 08/01/2010. Bicarb drip has been discontinued. Dialysis catheter placed y , received hemodialysis with significant clinical improvement. Sensorium improved. Potassium 5.1, creatinine down to 3.15. Afebrile, maintaining O2 sats in the high 90s on 2 L nasal cannula. Afebrile. Denies chest pain, palpitations or shortness of breath. Afebrile. Denies chest pain, palpitations or increasing shortness of breath. 08/02/2020 renal function continues to improve with BUN and creatinine down to 31/2.5. Potassium 5.1. Blood sugars controlled. Complains of nausea and vomiting since his dialysis treatment. CO2 17.4. Afebrile. Maintaining O2 sats in the 90s on 3 L nasal cannula. Denies chest pain, palpitations or increasing shortness of breath. 08/03/2020 confused, staff reports patient has been talking to imaginary people in the room. Feels better today with no nausea or vomiting. Denies abdominal pain. No shortness of breath. Denies cough. Denies chest pain, palpitations or increasing shortness of breath. Creatinine 2.3. Afebrile. Oxygen being weaned to 2 L nasal cannula, maintaining O2 sats in the 90s. 08/04/2020 patient room was changed during the night for safety monitoring by desk.evaluated by neurology with neuro workup completed. Head CT suboptimal reporting no acute intracranial hemorrhage or midline shift, moderate to severe chronic small vessel ischemic change redemonstrated, no significant change from prior CT. EEG limited study suggestive of moderate encephalopathy with no epileptiform discharges or seizures. Ammonia level less than 9. No further need for hemodialysis with dialysis catheter ordered to be discontinued per nephrology. Afebrile. Maintaining O2 sats in the 90s on 2 L nasal cannula. 08/05/2020 During the night , developed urinary retention and Hunter catheter reinserted. Urology consulted with recommendations pending. Leukocytosis improved, renal function stable, creatinine 1.6. Transitioned to oral bicarbonate. Urine culture and anaerobic culture of toe pending. Afebrile. Denies chest pain, palpitations or shortness of breath. Denies abdominal pain. Objective - Vital Signs Vital signs: Vital Signs Temp 98.9 F 08/07/20 07:00 Pulse 63 08/07/20 07:00 Resp 20 08/07/20 07:00 BP 152/90 08/07/20 07:00 Pulse Ox 98 08/07/20 07:00 Intake & Output 08/06/20 08/07/20 08/07/20 18:59 06:59 18:59 Intake Total 540 Output Total 700 600 Balance -160 -600 Intake: Oral 540 Output: Urine 600 600 Post Void Residual 100 Other: Voiding Method Indwelling Catheter Indwelling Catheter - Exam General: Sitting up in bed, alert and oriented 3 Eyes: PERRL, EOMI, conjunctiva normal HENT: normocephalic, mucus membranes moist Neck: supple, no JVD Lungs: normal respiratory effort, essentially clear with no wheezes or rales CV: Irregular, no murmur. Peripheral pulses 2+ Abdomen: soft, nondistended, no organomegaly. Positive bowel sounds Skin: warm and dry. No rashes. Right foot second toe callus, no drainage. Neuro: Cranial nerves II through XII grossly intact, no focal deficit. - Labs CBC & Chem 7: 08/06/20 07:23 08/07/20 06:46 Labs: Abnormal Lab Results - Last 24 Hours (Table) 08/06/20 08/06/20 08/06/20 Range/Units 07:23 11:20 11:23 Chloride (96-109) mmol/L BUN 32.0 H (9.0-27.0) mg/dL Creatinine 1.8 H (0.6-1.5) mg/dL Est GFR (CKD-EPI)AfAm 43.2 L (60.0-200.0) Est GFR (CKD-EPI)NonAf 37.3 L (60.0-200.0) Glucose 155 H (70-110) mg/dL POC Glucose (mg/dL) 121 H (75-99) mg/dL Calcium (8.7-10.3) mg/dL AST 43 H (14-35) U/L ALT 58 H (10-49) U/L Total Protein 6.0 L (6.2-8.2) g/dL Albumin 3.70 L (3.80-4.90) g/dL Urine Protein 1+ H (Negative) Urine Glucose (UA) 2+ H (Negative) Urine Blood Small H (Negative) Urine Mucus Rare H (None) /hpf 08/06/20 08/06/20 08/07/20 Range/Units 17:10 20:22 06:46 Chloride 110 H (96-109) mmol/L BUN (9.0-27.0) mg/dL Creatinine 1.6 H (0.6-1.5) mg/dL Est GFR (CKD-EPI)AfAm 49.8 L (60.0-200.0) Est GFR (CKD-EPI)NonAf 43.0 L (60.0-200.0) Glucose 116 H (70-110) mg/dL POC Glucose (mg/dL) 132 H 128 H (75-99) mg/dL Calcium 8.4 L (8.7-10.3) mg/dL AST (14-35) U/L ALT (10-49) U/L Total Protein (6.2-8.2) g/dL Albumin (3.80-4.90) g/dL Urine Protein (Negative) Urine Glucose (UA) (Negative) Urine Blood (Negative) Urine Mucus (None) /hpf 08/07/20 Range/Units 07:13 Chloride (96-109) mmol/L BUN (9.0-27.0) mg/dL Creatinine (0.6-1.5) mg/dL Est GFR (CKD-EPI)AfAm (60.0-200.0) Est GFR (CKD-EPI)NonAf (60.0-200.0) Glucose (70-110) mg/dL POC Glucose (mg/dL) 288 H (75-99) mg/dL Calcium (8.7-10.3) mg/dL AST (14-35) U/L ALT (10-49) U/L Total Protein (6.2-8.2) g/dL Albumin (3.80-4.90) g/dL Urine Protein (Negative) Urine Glucose (UA) (Negative) Urine Blood (Negative) Urine Mucus (None) /hpf Microbiology - Last 24 Hours (Table) 08/06/20 11:20 Urine Culture - Preliminary Urine,Clean Catch 08/04/20 11:53 Gram Stain - Final Toe - Right Second Wound Culture - Final 08/04/20 11:53 Anaerobic Culture - Preliminary Toe - Right Second Assessment and Plan Assessment: (1) Interstitial pneumonia Current Visit: Yes Status: Acute Code(s): J84.9 - INTERSTITIAL PULMONARY DISEASE, UNSPECIFIED SNOMED Code(s): 68360079 (2) Type 2 diabetes mellitus Current Visit: Yes Status: Acute Code(s): E11.9 - TYPE 2 DIABETES MELLITUS WITHOUT COMPLICATIONS SNOMED Code(s): 16178945 (3) Acute renal failure, prerenal secondary to hypovolemia, improving Current Visit: Yes Status: Acute Code(s): N17.9 - ACUTE KIDNEY FAILURE, UNSPECIFIED SNOMED Code(s): 76168462 (4) Pneumonia Current Visit: Yes Status: Acute Code(s): J18.9 - PNEUMONIA, UNSPECIFIED O RGANISM SNOMED Code(s): 097242722 (5) Sepsis, septic shock, improving Current Visit: Yes Status: Acute Code(s): A41.9 - SEPSIS, UNSPECIFIED ORGANISM SNOMED Code(s): 71908216 (6) hyperkalemia secondary to acute renal failure, medicationslisinopril, Aldactone, status post emergent hemodialysis, resolved. (7) chronic kidney disease, stage III (8) emergent temporary dialysis catheter placement with initiation of hemodialysis secondary to persistent hyperkalemia 1 treatment. Dialysis catheter removed. (9) metabolic acidosis, status post bicarb drip (10) Hypovolemic Hypotension on admission, initially requiring 4 L of IV fluids, resolved (11) Dehydration, severe (12) acute metabolic and toxic encephalopathy multifactorial, secondary to sepsis, pneumonia, acute renal failure, improved (13) chronic atrial fibrillation with history of permanent pacemaker (14) acute hypoxic respiratory failure, resolved (15) chronic right second toe callus, no acute osteomyelitis reported per x-ray. Plan: Continue on current medication regime ,monitoring and symptomatic treatment. Urology consult in place with recommendations pending/possibly discontinue Hunter catheter-deferred to urology. Flomax added to med regimen. Completed antibiotics. Anaerobic wound and urine cultures pending. Discharge planning in progress for tomorrow. The impression and plan of care has been dictated as directed. : I performed a history and examination of this patient, discussed the same with the dictator. I agree with the dictator's note ,documented as a scribe. Any additional findings or plans will be noted.
--- NOTE | 2020-08-07 15:56 | PN ---
PROGRESS NOTE The patient is seen for followup for acute kidney injury. His renal function has improved, with creatinine coming down to 1.6 mg/dL today from peak of 6.9 on initial admission. The patient has an indwelling Hunter catheter. He has been eating well. Denies any significant nausea or vomiting. PHYSICAL EXAMINATION: On examination today, blood pressure was 152/90, heart rate 63 per minute. He is afebrile. EXAMINATION OF THE HEART: S1 and S2. EXAMINATION OF LUNGS: Decreased breath sounds at bases. ABDOMEN: Soft, non-tender. Examination of lower extremities shows no significant edema. [employer] exam is grossly intact. LABS: Labs show sodium 139, potassium 4.1, chloride 110. CO2 is 21.9, BUN 26, creatinine 1.6, magnesium 1.8. ASSESSMENT: 1. Acute kidney injury, currently improved. Continue to encourage increased oral intake. The patient is maintained on IV hydration, which I will continue for now. 2. Chronic kidney disease, stage 3; baseline creatinine 1.5 to 1.7. 3. Hyperkalemia associated with acute kidney injury. 4. Metabolic acidosis associated with acute renal failure and diarrhea. 5. Status post hemodialysis for acute kidney injury on 07/31/2020 for persistent hyperkalemia, currently improved. Dialysis catheter has been removed as well. PLAN: Repeat labs in a.m. Continue to encourage increased oral intake. I will decrease the sodium bicarb tabs to 650 mg b.i.d. Repeat labs in a.m. [id number] / LISHAN: [id number] /
[2020-08-07 16:53] LABS: Glucose,Whole Blood 137 mg/dL (75-99)
--- NOTE | 2020-08-07 19:16 | P.GSCN ---
History of Present Illness Consult date: 08/07/20 Reason for Consult: Painful urination Requesting physician: Torri Roque History of present illness: The patient is a 70-year-old white male with chronic kidney disease. He was admitted with renal failure and required dialysis on 07/31/2020. He had an indwelling Hunter catheter in place. He is a vague historian. The catheter has been removed, and he experienced painful micturition. However, he states that today it is much improved. He denies dysuria and hematuria, and states that today he is voiding without difficulty. Review of Systems - Constitutional Denies chills, Denies fever - Genitourinary Reports as per HPI Past Medical History Past Medical History: Atrial Fibrillation, Diabetes Mellitus, Pneumonia, Pneumonia History of Any Multi-Drug Resistant Organisms: None Reported Past Surgical History: Heart Catheterization, Pacemaker, Pacemaker Additional Past Surgical History / Comment(s): HYPERTENSION Past Anesthesia/Blood Transfusion Reactions: No Reported Reaction Type of Cardiac Device: Permanent Pacemaker, Unknown Device Placement Date:: 2012 Past Psychological History: No Psychological Hx Reported, Depression Smoking Status: Former smoker Past Alcohol Use History: Occasional Past Drug Use History: None Reported - Past Family History Mother Family Medical History: Cancer Additional Family Medical History / Comment(s): kidney cancer Medications and Allergies Home Medications Medication Instructions Recorded Confirmed Type Cyclobenzaprine [Flexeril] 10 mg PO HS 01/27/14 07/30/20 History Furosemide 80 mg PO DAILY 01/27/14 07/30/20 History Tamsulosin HCl 0.4 mg PO DAILY 01/27/14 07/30/20 History Warfarin Sodium 3.75 mg PO SUMOWEFRSA 01/27/14 07/30/20 History Isosorbide Mononitrate [Imdur] 60 mg PO DAILY 05/30/14 07/30/20 History Nitroglycerin Sl Tabs [Nitrostat] 0.4 mg SUBLINGUAL Q5M PRN 05/30/14 07/30/20 History allopurinoL [Zyloprim] 150 mg PO DAILY 08/04/15 07/30/20 History Aspirin EC [Ecotrin Low Dose] 81 mg PO DAILY 08/28/16 07/30/20 History calcitrioL [Rocaltrol] 0.25 mcg PO MOTUWETH 08/28/16 07/30/20 History Gabapentin [Neurontin] 600 mg PO BID 03/28/17 07/30/20 History DULoxetine HCL [Cymbalta] 60 mg PO BID 07/07/20 08/01/20 History Ergocalciferol (Vitamin D2) 50,000 unit PO Q30D 07/07/20 07/30/20 History [Drisdol] Ezetimibe [Zetia] 10 mg PO DAILY 07/07/20 07/30/20 History Ferrous Sulfate [Feosol] 325 mg PO DAILY 07/07/20 07/30/20 History Furosemide [Lasix] 40 mg PO HS 07/07/20 07/30/20 History Insulin NPH Human Isophane 40 units SQ BID-W/MEALS 07/07/20 07/30/20 History [NovoLIN N] Lisinopril [Zestril] 10 mg PO DAILY 07/07/20 07/30/20 History Metoprolol Succinate (ER) [Toprol 100 mg PO DAILY 07/07/20 07/30/20 History Xl] Potassium Chloride ER [K-Dur 20] 20 meq PO BID 07/07/20 07/30/20 History Rosuvastatin Calcium [Crestor] 40 mg PO DAILY 07/07/20 07/30/20 History Spironolactone [Aldactone] 25 mg PO DAILY 07/07/20 07/30/20 History Warfarin Sodium [Jantoven] 2.5 mg PO TUTHSA 07/07/20 07/30/20 History Allergies Allergy/AdvReac Type Severity Reaction Status Date / Time No Known Allergies Allergy Verified 07/30/20 21:03 Surgical - Exam Vital Signs Temp Pulse Resp BP Pulse Ox 97.9 F 75 20 59/39 94 L 07/30/20 20:49 07/30/20 20:49 07/30/20 20:49 07/30/20 20:49 07/30/20 20:49 - General well developed, well nourished, no distress - Respiratory normal respiratory effort - Abdomen Abdomen: soft, non tender, no guarding, no rigid, no rebound - Genitourinary normal penis with no external lesions, testicles non-tender - Rectum Rectum: normal sphincter tone, no masses, other (Prostate normal in size and consistency) - Psychiatric oriented to time, oriented to person, oriented to place, speech is normal, memor y intact Results - Labs 08/06/20 07:23 08/07/20 06:46 Abnormal Lab Results - Last 24 Hours (Table) 08/06/20 08/06/20 08/07/20 Range/Units 17:10 20:22 06:46 Chloride 110 H (96-109) mmol/L Creatinine 1.6 H (0.6-1.5) mg/dL Est GFR (CKD-EPI)AfAm 49.8 L (60.0-200.0) Est GFR (CKD-EPI)NonAf 43.0 L (60.0-200.0) Glucose 116 H (70-110) mg/dL POC Glucose (mg/dL) 132 H 128 H (75-99) mg/dL Calcium 8.4 L (8.7-10.3) mg/dL 08/07/20 08/07/20 Range/Units 07:13 11:16 Chloride (96-109) mmol/L Creatinine (0.6-1.5) mg/dL Est GFR (CKD-EPI)AfAm (60.0-200.0) Est GFR (CKD-EPI)NonAf (60.0-200.0) Glucose (70-110) mg/dL POC Glucose (mg/dL) 288 H 176 H (75-99) mg/dL Calcium (8.7-10.3) mg/dL Microbiology - Last 24 Hours (Table) 08/06/20 11:20 Urine Culture - Final Urine,Clean Catch 08/04/20 11:53 Gram Stain - Final Toe - Right Second Wound Culture - Final 08/04/20 11:53 Anaerobic Culture - Preliminary Toe - Right Second Diabetes panel 08/07/20 Range/Units 06:46 Sodium 139 (135-145) mmol/L Potassium 4.1 (3.5-5.5) mmol/L Chloride 110 H (96-109) mmol/L Carbon Dioxide 21.9 (21.6-31.8) mmol/L BUN 26.0 (9.0-27.0) mg/dL Creatinine 1.6 H (0.6-1.5) mg/dL Glucose 116 H (70-110) mg/dL Calcium 8.4 L (8.7-10.3) mg/dL Calcium panel 08/07/20 Range/Units 06:46 Calcium 8.4 L (8.7-10.3) mg/dL Pituitary panel 08/07/20 Range/Units 06:46 Sodium 139 (135-145) mmol/L Potassium 4.1 (3.5-5.5) mmol/L Chloride 110 H (96-109) mmol/L Carbon Dioxide 21.9 (21.6-31.8) mmol/L BUN 26.0 (9.0-27.0) mg/dL Creatinine 1.6 H (0.6-1.5) mg/dL Glucose 116 H (70-110) mg/dL Calcium 8.4 L (8.7-10.3) mg/dL Adrenal panel 08/07/20 Range/Units 06:46 Sodium 139 (135-145) mmol/L Potassium 4.1 (3.5-5.5) mmol/L Chloride 110 H (96-109) mmol/L Carbon Dioxide 21.9 (21.6-31.8) mmol/L BUN 26.0 (9.0-27.0) mg/dL Creatinine 1.6 H (0.6-1.5) mg/dL Glucose 116 H (70-110) mg/dL Calcium 8.4 L (8.7-10.3) mg/dL Assessment and Plan (1) Dysuria Current Visit: Yes Status: Acute Code(s): R30.0 - DYSURIA SNOMED Code(s): 10805277 Plan: The patient experienced painful micturition following Hunter catheter removal. This appears to be self-limited as his symptoms have essentially resolved, and no abnormalities were seen on examination. His was reassured and will follow up as an outpatient as needed. Please notify me if I can be of any further assistance.
[2020-08-07 21:24] LABS: Glucose,Whole Blood 122 mg/dL (75-99)
[2020-08-07] MEDS: ATORVASTATIN 80 MG TAB PO SCH (21:44)
[2020-08-08] MEDS: SODIUM CHLORIDE 0.9% 1,000 ML IV SCH ×2 (00:24→23:43)
[2020-08-08 06:55] LABS: Glucose,Whole Blood 132 mg/dL (75-99)
[2020-08-08] MEDS: INSULIN ASPART (NovoLOG) 100 UNIT/ML VIAL SQ SCH ×4 (07:18→21:43)
[2020-08-08] MEDS: TAMSULOSIN 0.4 MG CAP.ER.24H PO SCH (07:18)
[2020-08-08 07:36] LABS: African American GFR (CKD) 47 (>60 ml/min/1.73 sqM); Anion Gap 5 mmol/L; Blood Urea Nitrogen 22 mg/dL (9-20); Calcium 8.4 mg/dL (8.4-10.2); Carbon Dioxide 24 mmol/L (22-30); Chloride 111 mmol/L (98-107); Glucose 117 mg/dL (74-99); Magnesium 1.8 mg/dL (1.6-2.3); Non-African American GFR(CKD) 41 (>60 ml/min/1.73 sqM); Potassium 4.8 mmol/L (3.5-5.1); Sodium 140 mmol/L (137-145)
[2020-08-08] MEDS: DULoxetine HCL 60 MG CAPSULE.DR PO SCH ×2 (09:44→21:42)
[2020-08-08] MEDS: PANTOPRAZOLE 40 MG TABLET PO SCH (09:44)
[2020-08-08] MEDS: METOPROLOL SUCCINATE (ER) 100 MG TAB.ER.24H PO SCH (09:44)
[2020-08-08] MEDS: SODIUM BICARBONATE TAB 650 MG TAB PO SCH ×2 (09:44→21:43)
[2020-08-08 12:17] LABS: Glucose,Whole Blood 108 mg/dL (75-99)
[2020-08-08 12:26] LABS: INR 1.2 (<1.2)
--- NOTE | 2020-08-08 14:20 | P.PN ---
Subjective Progress Note Date: 08/08/20 Holden Ortiz is a 70 yo M with PMH of atrial fibrillation s/p ablation, CKD stage 3 who presented to the ED complaining of worsening weakness and fatigue over the past few days. He reports he was in his usual state of health last week but as the weekend went on he became progressively more weak and had been spending more time resting. HE states the day of admission he felt his legs giving out so came to the hospital. On presentation he was hypotensive to 59/39, Na 132, K 8.4. WBC 8.8, INR 2.3, BUN 114, Cr 6.9. Trop 0.042. Renal US wnl and CT chest/abdomen/pelvis showing only interstital pneumonia. Pt was given insulin and D50 as well as calcium gluconate with slow correction of potassium. Due to his persistent hyperkalemia pt had dialysis catheter placed for HD. Today he remains weak but otherwise denies complaints. 08/01/2010. Bicarb drip has been discontinued. Dialysis catheter placed y , received hemodialysis with significant clinical improvement. Sensorium improved. Potassium 5.1, creatinine down to 3.15. Afebrile, maintaining O2 sats in the high 90s on 2 L nasal cannula. Afebrile. Denies chest pain, palpitations or shortness of breath. Afebrile. Denies chest pain, palpitations or increasing shortness of breath. 08/02/2020 renal function continues to improve with BUN and creatinine down to 31/2.5. Potassium 5.1. Blood sugars controlled. Complains of nausea and vomiting since his dialysis treatment. CO2 17.4. Afebrile. Maintaining O2 sats in the 90s on 3 L nasal cannula. Denies chest pain, palpitations or increasing shortness of breath. 08/03/2020 confused, staff reports patient has been talking to imaginary people in the room. Feels better today with no nausea or vomiting. Denies abdominal pain. No shortness of breath. Denies cough. Denies chest pain, palpitations or increasing shortness of breath. Creatinine 2.3. Afebrile. Oxygen being weaned to 2 L nasal cannula, maintaining O2 sats in the 90s. 08/04/2020 patient room was changed during the night for safety monitoring by desk.evaluated by neurology with neuro workup completed. Head CT suboptimal reporting no acute intracranial hemorrhage or midline shift, moderate to severe chronic small vessel ischemic change redemonstrated, no significant change from prior CT. EEG limited study suggestive of moderate encephalopathy with no epileptiform discharges or seizures. Ammonia level less than 9. No further need for hemodialysis with dialysis catheter ordered to be discontinued per nephrology. Afebrile. Maintaining O2 sats in the 90s on 2 L nasal cannula. 08/07/2020 During the night , developed urinary retention and Hunter catheter reinserted. Urology consulted with recommendations pending. Leukocytosis improved, renal function stable, creatinine 1.6. Transitioned to oral bicarbonate. Urine culture and anaerobic culture of toe pending. Afebrile. Denies chest pain, palpitations or shortness of breath. Denies abdominal pain. 08/08/2020 maintained on IV fluid hydration.renal function improving, down to 1.67. Potassium 4.8. Evaluated by urology with recommendations noted and appreciated. Hunter discontinued, voiding without difficulty, on Flomax. CO2 24, maintained on decreased dose of oral sodium bicarb. INR 1.2. Objective - Vital Signs Vital signs: Vital Signs Temp 98.3 F 08/08/20 07:41 Pulse 66 08/08/20 07:41 Resp 18 08/08/20 07:41 BP 125/73 08/08/20 07:41 Pulse Ox 100 08/08/20 07:41 Intake & Output 08/07/20 08/08/20 08/08/20 18:59 06:59 18:59 Intake Total 240 Output Total 150 100 Balance 240 -150 -100 Intake: Oral 240 Output: Urine 150 100 Other: Voiding Method Indwelling Catheter - Exam General: Sitting up at side of bed, alert and oriented 3,NAD Eyes: PERRL, EOMI, conjunctiva normal HENT: normocephalic, mucus membranes moist Neck: supple, no JVD Lungs: normal respiratory effort, essentially clear with no wheezes or rales CV: Irregular, no murmur. Peripheral pulses 2+ Abdomen: soft, nondistended, no organomegaly. Positive bowel sounds Skin: warm and dry. No rashes. Right foot second toe callus, no drainage. Neuro: Cranial nerves II through XII grossly intact, no focal deficit. - Labs CBC & Chem 7: 08/06/20 07:23 08/08/20 07:09 Labs: Abnormal Lab Results - Last 24 Hours (Table) 08/07/20 08/07/20 08/08/20 Range/Units 16:51 21:22 06:54 INR (<1.2) Chloride (98-107) mmol/L BUN (9-20) mg/dL Creatinine (0.66-1.25) mg/dL Glucose (74-99) mg/dL POC Glucose (mg/dL) 137 H 122 H 132 H (75-99) mg/dL 08/08/20 08/08/20 08/08/20 Range/Units 07:09 11:37 12:16 INR 1.2 H (<1.2) Chloride 111 H (98-107) mmol/L BUN 22 H (9-20) mg/dL Creatinine 1.67 H (0.66-1.25) mg/dL Glucose 117 H (74-99) mg/dL POC Glucose (mg/dL) 108 H (75-99) mg/dL Microbiology - Last 24 Hours (Table) 08/04/20 11:53 Anaerobic Culture - Final Toe - Right Second 08/06/20 11:20 Urine Culture - Final Urine,Clean Catch Assessment and Plan Assessment: (1) Interstitial pneumonia Current Visit: Yes Status: Acute Code(s): J84.9 - INTERSTITIAL PULMONARY DISEASE, UNSPECIFIED SNOMED Code(s): 15846016 (2) Type 2 diabetes mellitus Current Visit: Yes Status: Acute Code(s): E11.9 - TYPE 2 DIABETES MELLITUS WITHOUT COMPLICATIONS SNOMED Code(s): 65359569 (3) Acute renal failure, prerenal secondary to hypovolemia, improving Current Visit: Yes Status: Acute Code(s): N17.9 - ACUTE KIDNEY FAILURE, UNSPECIFIED SNOMED Code(s): 21930247 (4) Pneumonia Current Visit: Yes Status: Acute Code(s): J18.9 - PNEUMONIA, UNSPECIFIED ORGANISM SNOMED Code(s): 838542396 (5) Sepsis, septic shock, improving Current Visit: Yes Status: Acute Code(s): A41.9 - SEPSIS, UNSPECIFIED ORGANISM SNOMED Code(s): 94174770 (6) hyperkalemia secondary to acute renal failure, medicationslisinopril, Aldactone, status post emergent hemodialysis, resolved. (7) chronic kidney disease, stage III (8) emergent temporary dialysis catheter placement with initiation of hemodialysis secondary to persistent hyperkalemia 1 treatment. Dialysis catheter removed. (9) metabolic acidosis, status post bicarb drip (10) Hypovolemic Hypotension on admission, initially requiring 4 L of IV fluids, resolved (11) Dehydration, severe (12) acute metabolic and toxic encephalopathy multifactorial, secondary to sepsis, pneumonia, acute renal failure, improved (13) chronic atrial fibrillation with history of permanent pacemaker (14) acute hypoxic respiratory failure, resolved (15) chronic right second toe callus, no acute osteomyelitis reported per x-ray. Plan: Continue on current medication regime ,monitoring and symptomatic treatment. Coumadin 5 mg tonight, repeat PT/INR tomorrow. Maintain Flomax. Discharge planning in progress for tomorrow, pending final DC recommendations and clearance from nephrology.. The impression and plan of care has been dictated as directed. : I performed a history and examination of this patient, discussed the same with the dictator. I agree with the dictator's note ,documented as a scribe. Any ad ditional findings or plans will be noted.
[2020-08-08 17:03] LABS: Glucose,Whole Blood 127 mg/dL (75-99)
--- NOTE | 2020-08-08 17:13 | PN ---
PROGRESS NOTE Patient is seen for followup for acute kidney injury. Renal function has improved significantly. Creatinine staying at about 1.6 for the last 2 days, which is down from 6.9 on initial admission. Patient denies any significant complaints. PHYSICAL EXAMINATION: Today blood pressure was 133/71, heart rate 60 per minute, patient is afebrile. Examination of the heart S1, S2. Examination of the lungs, bilateral breath sounds are heard. Abdomen is soft, nontender. Examination of the lower extremities shows no significant edema. PATCH WASHER exam grossly intact. LABS: Show sodium 140, potassium 4.8, chloride 111, BUN 22, creatinine 1.6. ASSESSMENT: 1. Acute kidney injury significantly improved, maintained on IV hydration. Oral intake has improved. 2. CKD. Baseline creatinine about 1.5-1.7 NKF stage III. 3. Hyperkalemia associated with acute kidney injury, now improved. 4. Metabolic acidosis associated with acute kidney injury, diarrhea, now improved. 5. BPH maintained on Flomax. Hunter catheter has been removed. Symptoms of dysuria have improved as well. PLAN: Continue to encourage increased oral intake. I will likely DC the sodium bicarb tomorrow. The patient can likely be discharged tomorrow and follow up as outpatient in 1-2 weeks. MMODL / IJN: [id number] /
[2020-08-08] MEDS ORDERED: WARFARIN 5 MG TAB PO ONE (18:00)
[2020-08-08 20:32] LABS: Glucose,Whole Blood 182 mg/dL (75-99)
[2020-08-08] MEDS: ATORVASTATIN 80 MG TAB PO SCH (21:42)
[2020-08-09 03:06] VITALS: RESP 16
[2020-08-09 06:41] LABS: Glucose,Whole Blood 106 mg/dL (75-99)
[2020-08-09] MEDS: INSULIN ASPART (NovoLOG) 100 UNIT/ML VIAL SQ SCH ×3 (07:33→16:49)
[2020-08-09] MEDS: DULoxetine HCL 60 MG CAPSULE.DR PO SCH (08:08)
[2020-08-09] MEDS: METOPROLOL SUCCINATE (ER) 100 MG TAB.ER.24H PO SCH (08:08)
[2020-08-09] MEDS: TAMSULOSIN 0.4 MG CAP.ER.24H PO SCH (08:08)
[2020-08-09] MEDS: PANTOPRAZOLE 40 MG TABLET PO SCH (08:08)
[2020-08-09] MEDS: SODIUM BICARBONATE TAB 650 MG TAB PO SCH (08:08)
--- NOTE | 2020-08-09 11:10 | ECHOF ---
Referral Reason:lv fx MEASUREMENTS -------- HEIGHT: 172.7 cm WEIGHT: 98.4 kg BP: RVIDd: 2.7 cm (< 3.3) IVSd: 1.9 cm (0.6 - 1.1) LVIDd: 4.2 cm (3.9 - 5.3) LVPWd: 1.3 cm (0.6 - 1.1) IVSs: 2.2 cm LVIDs: 2.5 cm LVPWs: 1.7 cm LAESV Index (A-L): 36.94 ml/m Ao Diam: 3.2 cm (2.0 - 3.7) LA Diam: 4.5 cm (2.7 - 3.8) MV EXCURSION: 16.659 mm (> 18.000) MV EF SLOPE: 69 mm/s (70 - 150) EPSS: 0.2 cm MV E Srini: 1.08 m/s MV DecT: 210 ms MV A Srini: 0.28 m/s MV E/A Ratio: 3.87 AR PHT: 437 ms RAP: 5.00 mmHg RVSP: 17.16 mmHg FINDINGS -------- Paced rhythm. This was a technically adequate study. The left ventricular size is normal. Overall left ventricular systolic function is normal with, an EF between 55 - 60 %. Increased septal thickness of 2.2 cm with remainder of reed having moderate LV thickness of 1.7cm. May be related to HOCM or uncontrolled HTN. May consider cardiac MRI if clin ically indicated. The right ventricle is normal in size. The left atrial size is normal. LA is moderately dilated 34-39 ml/m2 The right atrial size is normal. The aortic valve is trileaflet and appears structurally normal. Trace amount of aortic regurgitatio n. The mitral valve is normal. Mild mitral regurgitation is present. The tricuspid valve appears structurally normal. Trace tricuspid regurgitation present. Right natasha tricular systolic pressure is normal at < 35 mmHg. Trace/mild (physiologic) pulmonic regurgitation. The aortic root size is normal. IVC Not well visulized. There is no pericardial effusion. CONCLUSIONS -------- 1. Paced rhythm. 2. The left ventricular size is normal. 3. Overall left ventricular systolic function is normal with, an EF between 55 - 60 %. 4. Increased septal thickness of 2.2 cm with remainder of reed having moderate LV thickness of 1.7cm . May be related to HOCM or uncontrolled HTN. May consider cardiac MRI if clinically indicated. 5. LA is moderately dilated 34-39 ml/m2 6. Trace amount of aortic regurgitation. 7. Mild mitral regurgitation is present. 8. Trace tricuspid regurgitation present. 9. Trace/mild (physiologic) pulmonic regurgitation. 10. There is no pericardial effusion. [employer]: Estefania Dean RDCS
[2020-08-09 11:25] LABS: African American GFR (CKD) 53.9 (60.0-200.0); Calcium 8.9 mg/dL (8.7-10.3); Non-African American GFR(CKD) 46.5 (60.0-200.0); Potassium 4.5 mmol/L (3.5-5.5)
[2020-08-09 11:26] LABS: Glucose,Whole Blood 255 mg/dL (75-99)
[2020-08-09 11:43] LABS: INR 1.12 (0.90-1.11)
--- NOTE | 2020-08-09 13:16 | P.DS ---
Providers Date of admission: 07/30/20 22:25 Expected date of discharge: 08/09/20 Attending physician: Hermann Reid MD Consults: 07/30/20 22:22 Consult Physician Stat Consulting Provider: Lis Washburn Consult Reason/Comments: renalFail Do you want consulting provider notified?: Yes, Notify in am 07/31/20 03:44 Consult Physician Stat Consulting Provider: Cinthya Mccarty Consult Reason/Comments: acute renal failure, sepsis, pneumonia Do you want consulting provider notified?: Yes, Notify in am 07/31/20 08:21 Consult Physician Urgent Consulting Provider: Kit Valentine Consult Reason/Comments: Catheter placement Do you want consulting provider notified?: Yes 08/03/20 09:28 Consult Physician Stat Consulting Provider: Jesse Kinney Consult Reason/Comments: confusion Do you want consulting provider notified?: Yes 08/06/20 16:16 Consult Physician Routine Consulting Provider: Ciro Henry Consult Reason/Comments: PAIN WHEN URINATING, STRAINING DURING URINATION Do you want consulting provider notified?: Yes Primary care physician: Joycelyn Tovar [facility] Course: Final Diagnoses: (1) Interstitial pneumonia Current Visit: Yes Status: Acute Code(s): J84.9 - INTERSTITIAL PULMONARY DISEASE, UNSPECIFIED SNOMED Code(s): 49782220 (2) Type 2 diabetes mellitus Current Visit: Yes Status: Acute Code(s): E11.9 - TYPE 2 DIABETES MELLITUS WITHOUT COMPLICATIONS SNOMED Code(s): 91973791 (3) Acute renal failure, prerenal secondary to hypovolemia, improving Current Visit: Yes Status: Acute Code(s): N17.9 - ACUTE KIDNEY FAILURE, UNSPECIFIED SNOMED Code(s): 23844291 (4) Pneumonia Current Visit: Yes Status: Acute Code(s): J18.9 - PNEUMONIA, UNSPECIFIED ORGANISM SNOMED Code(s): 994237502 (5) Sepsis, septic shock, improving Current Visit: Yes Status: Acute Code(s): A41.9 - SEPSIS, UNSPECIFIED ORGANISM SNOMED Code(s): 17459337 (6) hyperkalemia secondary to acute renal failure, medicationslisinopril, Aldactone, status post emergent hemodialysis, resolved. (7) chronic kidney disease, stage III (8) emergent temporary dialysis catheter placement with initiation of hemodialysis secondary to persistent hyperkalemia [address] removed. (9) metabolic acidosis, status post bicarb drip (10) Hypovolemic Hypotension on admission, initially requiring 4 L of IV fluids, resolved (11) Dehydration, severe (12) acute metabolic and toxic encephalopathy multifactorial, secondary to sepsis, pneumonia, acute renal failure, improved (13) chronic atrial fibrillation with history of permanent pacemaker (14) acute hypoxic respiratory failure, resolved (15) chronic right second toe callus, no acute osteomyelitis reported per x-ray. Hospital course:Holden Ortiz is a 70 yo M with PMH of atrial fibrillation s/p ablation, CKD stage 3 who presented to the ED complaining of worsening weakness and fatigue over the past few days. He reports he was in his usual state of health last week but as the weekend went on he became progressively more weak and had been spending more time resting. HE states the day of admission he felt his legs giving out so came to the hospital. On presentation he was hypotensive to 59/39, Na 132, K 8.4. WBC 8.8, INR 2.3, BUN 114, Cr 6.9. Trop 0.042. Renal US wnl and CT chest/abdomen/pelvis showing only interstital pneumonia. Pt was given insulin and D50 as well as calcium gluconate with slow correction of potassium. Due to his persistent hyperkalemia pt had dialysis catheter placed for HD. Today he remains weak but otherwise denies complaints. 08/01/2010. Bicarb drip has been discontinued. Dialysis catheter placed yesterday, received hemodialysis with significant clinical improvement. Sensorium improved. Potassium 5.1, creatinine down to 3.15. Afebrile, maintaining O2 sats in the high 90s on 2 L nasal cannula. Afebrile. Denies chest pain, palpitations or shortness of breath. Afebrile. Denies chest pain, palpitations or increasing shortness of breath. 08/02/2020 renal function continues to improve with BUN and creatinine down to 31/2.5. Potassium 5.1. Blood sugars controlled. Complains of nausea and vomiting since his dialysis treatment. CO2 17.4. Afebrile. Maintaining O2 sats in the 90s on 3 L nasal cannula. Denies chest pain, palpitations or increasing shortness of breath. 08/03/2020 confused, staff reports patient has been talking to imaginary people in the room. Feels better today with no nausea or vomiting. Denies abdominal pain. No shortness of breath. Denies cough. Denies chest pain, palpitations or increasing shortness of breath. Creatinine 2.3. Afebrile. Oxygen being weaned to 2 L nasal cannula, maintaining O2 sats in the 90s. 08/04/2020 patient room was changed during the night for safety monitoring by desk.evaluated by neurology with neuro workup completed. Head CT suboptimal reporting no acute intracranial hemorrhage or midline shift, moderate to severe chronic small vessel ischemic change redemonstrated, no significant change from prior CT. EEG limited study suggestive of moderate encephalopathy with no epileptiform discharges or seizures. Ammonia level less than 9. No further need for hemodialysis with dialysis catheter ordered to be discontinued per nephrology. Afebrile. Maintaining O2 sats in the 90s on 2 L nasal cannula. 08/07/2020 During the night , developed urinary retention and Hunter catheter r einserted. Urology consulted with recommendations pending. Leukocytosis improved, renal function stable, creatinine 1.6. Transitioned to oral bicarbonate. Urine culture and anaerobic culture of toe pending. Afebrile. Denies chest pain, palpitations or shortness of breath. Denies abdominal pain. 08/08/2020 maintained on IV fluid hydration.renal function improving, down to 1.67. Potassium 4.8. Evaluated by urology with recommendations noted and appreciated. Hunter discontinued, voiding without difficulty, on Flomax. CO2 24, maintained on decreased dose of oral sodium bicarb. INR 1.2. INR 1.12. loaded with Coumadin 10 mg today, and patient will be discharged home in stable condition with fair prognosis, on 5 mg daily. Repeat PT/INR on Friday, further dosing recommendations as per PCP. Significant clinical improvement, cleared for discharge by nephrology. The impression and plan of care has been dictated as directed. : I performed a history and examination of this patient, discussed the same with the dictator. I agree with the dictator's note ,documented as a scribe. Any additional findings or plans will be noted. Patient Condition at Discharge: Stable Plan - Discharge Summary Discharge Rx Participant: Yes New Discharge Prescriptions: New Sodium Bicarbonate Tab 650 mg PO BID #60 tab Warfarin [Coumadin] 5 mg PO DAILY #7 tab Continue Tamsulosin HCl 0.4 mg PO DAILY Nitroglycerin Sl Tabs [Nitrostat] 0.4 mg SUBLINGUAL Q5M PRN PRN Reason: Chest Pain Isosorbide Mononitrate [Imdur] 60 mg PO DAILY allopurinoL [Zyloprim] 150 mg PO DAILY calcitrioL [Rocaltrol] 0.25 mcg PO MOTUWETH Aspirin EC [Ecotrin Low Dose] 81 mg PO DAILY Gabapentin [Neurontin] 600 mg PO BID DULoxetine HCL [Cymbalta] 60 mg PO BID Ezetimibe [Zetia] 10 mg PO DAILY Ferrous Sulfate [Feosol] 325 mg PO DAILY Rosuvastatin Calcium [Crestor] 40 mg PO DAILY Metoprolol Succinate (ER) [Toprol XL] 100 mg PO DAILY Ergocalciferol (Vitamin D2) [Drisdol] 50,000 unit PO Q30D Insulin NPH Human Isophane [NovoLIN N] 40 units SQ BID-W/MEALS Changed Cyclobenzaprine [Flexeril] 10 mg PO HS PRN #0 PRN Reason: Muscle Spasm Discontinued Warfarin Sodium 3.75 mg PO SUMOWEFRSA Furosemide 80 mg PO DAILY Furosemide [Lasix] 40 mg PO HS Warfarin Sodium [Jantoven] 2.5 mg PO TUTHSA Spironolactone [Aldactone] 25 mg PO DAILY Potassium Chloride ER [K-Dur 20] 20 meq PO BID Lisinopril [Zestril] 10 mg PO DAILY Discharge Medication List Tamsulosin HCl 0.4 mg PO DAILY 01/27/14 [History] Isosorbide Mononitrate [Imdur] 60 mg PO DAILY 05/30/14 [History] Nitroglycerin Sl Tabs [Nitrostat] 0.4 mg SUBLINGUAL Q5M PRN 05/30/14 [History] allopurinoL [Zyloprim] 150 mg PO DAILY 08/04/15 [History] Aspirin EC [Ecotrin Low Dose] 81 mg PO DAILY 08/28/16 [History] calcitrioL [Rocaltrol] 0.25 mcg PO MOTUWETH 08/28/16 [History] Gabapentin [Neurontin] 600 mg PO BID 03/28/17 [History] DULoxetine HCL [Cymbalta] 60 mg PO BID 07/07/20 [History] Ergocalciferol (Vitamin D2) [Drisdol] 50,000 unit PO Q30D 07/07/20 [History] Ezetimibe [Zetia] 10 mg PO DAILY 07/07/20 [History] Ferrous Sulfate [Feosol] 325 mg PO DAILY 07/07/20 [History] Insulin NPH Human Isophane [NovoLIN N] 40 units SQ BID-W/MEALS 07/07/20 [History] Metoprolol Succinate (ER) [Toprol XL] 100 mg PO DAILY 07/07/20 [History] Rosuvastatin Calcium [Crestor] 40 mg PO DAILY 07/07/20 [History] Sodium Bicarbonate Tab 650 mg PO BID #60 tab 08/08/20 [Rx] Cyclobenzaprine [Flexeril] 10 mg PO HS PRN #0 08/09/20 [Rx] Warfarin [Coumadin] 5 mg PO DAILY #7 tab 08/09/20 [Rx] Follow up Appointment(s)/Referral(s): Lis Washburn MD [STAFF PHYSICIAN] - 09/05/20 9:00 am (This will be a virtual appointment. Office will call you with instructions. Thank you.) [facility], [NON-STAFF] - As Needed Joycelyn Tovar DO [Primary Care Provider] - 08/14/20 3:30 pm Ambulatory/Diagnostic Orders: Complete Blood Count w/diff [LAB.AMB] Time Frame: 08/09/20, Location: None Selected
[2020-08-09] MEDS ORDERED: WARFARIN 10 MG TAB PO ONE (14:00)
[2020-08-09 14:23] VITALS: BP 116/69; PULSE 62; TEMP 98.5
[2020-08-09 16:35] LABS: Glucose,Whole Blood 114 mg/dL (75-99)
--- NOTE | 2020-08-09 16:36 | PN ---
PROGRESS NOTE Patient is seen for followup for acute kidney injury. Renal function continues to improve, serum creatinine down to 1.5 now from 6.9 on initial admission. The patient denies any significant complaints. He is getting discharged today. PHYSICAL EXAMINATION: Blood pressure was 151/84, heart rate 59 per minute, patient is afebrile. He is euvolemic. No evidence of edema bilateral lower extremities. Abdomen is soft, nontender. [employer] exam grossly intact. LABS: Show sodium 140, potassium 4.5, chloride 108, CO2 is 25, BUN 21, creatinine 1.5 mg/dL. ASSESSMENT: 1. Acute kidney injury, nonoliguric secondary to ATN, ATN and volume depletion currently improved. 2. Chronic kidney disease, baseline creatinine 1.5-1.7 NKF stage 3 secondary to nephrosclerosis. 3. Metabolic acidosis associated with acute kidney injury, now improved. 4. BPH maintained on Flomax. 5. Hyperkalemia, now resolved. PLAN: Patient is stable for discharge. DC the sodium bicarb tabs and follow up as outpatient in about 1-2 weeks' time. MMODL / IJN: [id number] /
== END 2020-08-09 17:25 | disposition home or self-care (01) | DRG 871 ==
LOC: EC 20:45 → 2SICU 22:25 → 3SCARD 07-31 23:06 → 4SSUR 08-01 12:00
PROVIDERS: ADMIT Family Medicine; ATTEND Family Medicine
PROC: 06HM33Z Insertion of Infusion Device into Right Femoral Vein, Percutaneous Approach (ICD-10-PCS; principal; 2020-07-31)
PROC: 5A1D70Z Performance of Urinary Filtration, Intermittent, Less than 6 Hours Per Day (ICD-10-PCS; 2020-07-31)
PROC: 02PAX3Z Removal of Infusion Device from Heart, External Approach (ICD-10-PCS; 2020-08-06)
DX: A41.9 Sepsis, unspecified organism (principal); G92 Toxic encephalopathy; J18.9 Pneumonia, unspecified organism; J96.01 Acute respiratory failure with hypoxia; N17.0 Acute kidney failure with tubular necrosis; R65.21 Severe sepsis with septic shock; E87.2 Acidosis; I48.20 Chronic atrial fibrillation, unspecified; E11.22 Type 2 diabetes mellitus with diabetic chronic kidney disease; N18.30 Chronic kidney disease, stage 3 unspecified; E78.5 Hyperlipidemia, unspecified; E86.0 Dehydration; E86.1 Hypovolemia; E87.5 Hyperkalemia; I12.9 Hypertensive chronic kidney disease with stage 1 through stage 4 chronic kidney disease, or unspecified chronic kidney disease; L84 Corns and callosities; N28.1 Cyst of kidney, acquired; N40.1 Benign prostatic hyperplasia with lower urinary tract symptoms; R29.6 Repeated falls; R33.8 Other retention of urine; Z20.828 Contact with and (suspected) exposure to other viral communicable diseases; S80.212A Abrasion, left knee, initial encounter; R79.89 Other specified abnormal findings of blood chemistry; R94.5 Abnormal results of liver function studies; R30.9 Painful micturition, unspecified; Z87.01 Personal history of pneumonia (recurrent); Z79.01 Long term (current) use of anticoagulants; Z79.4 Long term (current) use of insulin; Z79.82 Long term (current) use of aspirin; Z79.899 Other long term (current) drug therapy; Z80.51 Family history of malignant neoplasm of kidney; Z87.891 Personal history of nicotine dependence; Z95.0 Presence of cardiac pacemaker
CPT/HCPCS: 36415; 70450; 71045; 71250; 72125; 74176; 76770; 80048; 80053; 81001; 82140; 82607; 82747; 83605; 83735; 83880; 84100; 84145; 84443; 84450; 84460; 84484; 85025; 85610; 85652; 85730; 86704; 86706; 87040; 87070; 87075; 87086; 87205; 87340; 87635; 90935; 93005; 93306; 94640; 95816; 96361; 96365; 96366; 96367; 96375; 96376; 99285

== ENCOUNTER 2020-08-24 15:29 | Inpatient (IN) | payer MEDICARE ==
[2020-08-24] MEDS ORDERED: ACETAMINOPHEN TAB 500 MG TAB PO PRN (16:00)
[2020-08-24] MEDS ORDERED: ACETAMINOPHEN TAB 500 MG TAB PO STA (16:00)
[2020-08-24] MEDS ORDERED: SODIUM CHLORIDE 0.9% 500 ML 500 ML IV STA (16:01)
[2020-08-24] MEDS ORDERED: ONDANSETRON 4 MG/2 ML VIAL IVP STA (16:01)
[2020-08-24] MEDS ORDERED: FAMOTIDINE 20 MG/2 ML VIAL IV STA (16:01)
--- NOTE | 2020-08-24 16:06 | ED ---
General Adult HPI - General Chief complaint: Weakness Stated complaint: Weakness Time Seen by Provider: 08/24/20 15:37 Source: patient, RN notes reviewed Mode of arrival: wheelchair Limitations: no limitations - History of Present Illness Initial comments: Patient is a pleasant 70-year-old male presenting to the emergency Department with complaints of generalized weakness. Onset of symptoms was a couple of days ago. Patient feels somewhat weak all over, no isolated area of weakness. He should does have loss of a stand nausea, no vomiting. patient diarrhea. No abdominal pain. Patient does have decreased appetite and decreased oral intake. Patient states he was in the hospital a couple weeks ago secondary to renal insufficiency. No urinary symptoms. No cough or dyspnea. Patient has had chills and fatigue and myalgias. - Related Data Home Medications Medication Instructions Recorded Confirmed Tamsulosin HCl 0.4 mg PO DAILY 01/27/14 08/24/20 Isosorbide Mononitrate [Imdur] 60 mg PO DAILY 05/30/14 08/24/20 Nitroglycerin Sl Tabs [Nitrostat] 0.4 mg SUBLINGUAL Q5M PRN 05/30/14 08/24/20 allopurinoL [Zyloprim] 150 mg PO DAILY 08/04/15 08/24/20 Aspirin EC [Ecotrin Low Dose] 81 mg PO DAILY 08/28/16 08/24/20 calcitrioL [Rocaltrol] 0.25 mcg PO MOTUWETH 08/28/16 08/24/20 Gabapentin [Neurontin] 600 mg PO BID 03/28/17 08/24/20 DULoxetine HCL [Cymbalta] 60 mg PO BID 07/07/20 08/24/20 Ergocalciferol (Vitamin D2) 50,000 unit PO Q30D 07/07/20 08/24/20 [Drisdol] Ezetimibe [Zetia] 10 mg PO DAILY 07/07/20 08/24/20 Ferrous Sulfate [Feosol] 325 mg PO DAILY 07/07/20 08/24/20 Insulin NPH Human Isophane 40 units SQ AC-BID 07/07/20 08/24/20 [NovoLIN N] Metoprolol Succinate (ER) [Toprol 100 mg PO DAILY 07/07/20 08/24/20 XL] Rosuvastatin Calcium [Crestor] 40 mg PO DAILY 07/07/20 08/24/20 Sulfamethox-Tmp 800-160Mg [Bactrim 1 tab PO BID 08/24/20 08/24/20 DS 800-160 mg] Previous Rx's Medication Instructions Recorded Cyclobenzaprine [Flexeril] 10 mg PO HS PRN #0 08/09/20 Furosemide [Lasix] 40 mg PO DAILY #1 tablet 08/09/20 Warfarin [Coumadin] 5 mg PO DAILY #7 tab 08/09/20 Allergies Allergy/AdvReac Type Severity Reaction Status Date / Time No Known Allergies Allergy Verified 08/24/20 16:10 Review of Systems ROS Statement: Those systems with pertinent positive or pertinent negative responses have been documented in the HPI. ROS Other: All systems not noted in ROS Statement are negative. Constitutional: Reports: chills Eyes: Denies: eye pain ENT: Denies: ear pain Respiratory: Denies: cough, dyspnea Cardiovascular: Denies: chest pain Endocrine: Reports: fatigue Gastrointestinal: Reports: nausea. Denies: abdominal pain, vomiting Genitourinary: Denies: dysuria Musculoskeletal: Denies: back pain Skin: Denies: rash Neurological: Denies: headache, confusion Past Medical History Past Medical History: Atrial Fibrillation, Diabetes Mellitus, Pneumonia, Pneumonia History of Any Multi-Drug Resistant Organisms: None Reported Past Surgical History: Heart Catheterization, Pacemaker, Pacemaker Additional Past Surgical History / Comment(s): HYPERTENSION Past Anesthesia/Blood Transfusion Reactions: No Reported Reaction Type of Cardiac Device: Permanent Pacemaker, Unknown Device Placement Date:: 2012 Past Psychological History: Anxiety, Depression Smoking Status: Never smoker Past Alcohol Use History: None Reported Past Drug Use History: None Reported - Past Family History Mother Family Medical History: Cancer Additional Family Medical History / Comment(s): kidney cancer General Exam Limitations: no limitations General appearance: alert, in no apparent distress Head exam: Present: normocephalic Eye exam: Present: normal appearance, PERRL, EOMI ENT exam: Present: normal oropharynx Neck exam: Present: normal inspection. Absent: tenderness, meningismus Respiratory exam: Present: normal lung sounds bilaterally Cardiovascular Exam: Present: regular rate, normal rhythm GI/Abdominal exam: Present: soft. Absent: tenderness Extremities exam: Present: normal inspection. Absent: pedal edema, calf t enderness Neurological exam: Present: alert, oriented X3, CN II-XII intact. Absent: motor sensory deficit Expanded Neurological exam: Present: protecting the airway Patient oriented to: Present: person, place, time Speech: Present: fluid speech Cranial nerves: EOM's Intact: Normal Motor strength exam: RUE: 5, LUE: 5, RLE: 5, LLE: 5 Eye Response: (4) open spontaneously Motor Response: (6) obeys commands Verbal Response: (5) oriented Psychiatric exam: Present: normal affect, normal mood Skin exam: Present: normal color Course Vital Signs 08/24/20 08/24/20 08/24/20 15:30 16:40 17:00 Temperature 98.0 F Pulse Rate 92 60 59 L Respiratory 18 24 20 Rate Blood Pressure 121/80 127/82 127/82 O2 Sat by Pulse 99 98 99 Oximetry 08/24/20 18:00 Temperature Pulse Rate 60 Respiratory 20 Rate Blood Pressure 116/69 O2 Sat by Pulse 99 Oximetry - Reevaluation(s) Reevaluation #1: 08/24/20 18:49 Patient does meet sepsis criteria diagnosed at 1845. Blood culture and lactic acid ordered. IV antibiotics will be ordered. EKG Findings - EKG Comments: EKG Findings:: Paced rhythm with a rate of 66. QRS 156. QT 440. QTc 461. Right axis. Wide QRS complex. Septal Q waves. No acute ST change. Appearance of underlying flutter waves. Medical Decision Making - Medical Decision Making Patient reevaluated and updated. Dr. fowler paged for admission, covering for Dr. Reid, who admits for Dr. Tovar. Case was discussed with Dr. Krause, who will admit. - Lab Data Result diagrams: 08/24/20 16:27 08/24/20 16:27 Lab Results 08/24/20 08/24/20 08/24/20 Range/Units 16:27 16:27 16:27 WBC 4.0 (3.8-10.6) k/uL RBC 4.53 (4.30-5.90) m/uL Hgb 13.6 (13.0-17.5) gm/dL Hct 41.2 (39.0-53.0) % MCV 91.0 (80.0-100.0) fL MCH 30.0 (25.0-35.0) pg MCHC 33.0 (31.0-37.0) g/dL RDW 15.8 H (11.5-15.5) % Plt Count 162 (150-450) k/uL MPV 7.4 Neutrophils % 63 % Lymphocytes % 26 % Monocytes % 7 % Eosinophils % 1 % Basophils % 1 % Neutrophils # 2.5 (1.3-7.7) k/uL Lymphocytes # 1.0 (1.0-4.8) k/uL Monocytes # 0.3 (0-1.0) k/uL Eosinophils # 0.0 (0-0.7) k/uL Basophils # 0.0 (0-0.2) k/uL Hypochromasia Slight Poikilocytosis Slight PT 23.4 H (9.0-12.0) sec INR 2.4 H (<1.2) APTT 29.8 (22.0-30.0) sec Sodium 138 (137-145) mmol/L Potassium 4.8 (3.5-5.1) mmol/L Chloride 107 (98-107) mmol/L Carbon Dioxide 24 (22-30) mmol/L Anion Gap 7 mmol/L BUN 15 (9-20) mg/dL Creatinine 2.08 H (0.66-1.25) mg/dL Est GFR (CKD-EPI)AfAm 36 (>60 ml/min/1.73 sqM) Est GFR (CKD-EPI)NonAf 31 (>60 ml/min/1.73 sqM) Glucose 151 H (74-99) mg/dL Plasma Lactic Acid John (0.7-2.0) mmol/L Calcium 9.4 (8.4-10.2) mg/dL Magnesium 2.1 (1.6-2.3) mg/dL Total Bilirubin 0.9 (0.2-1.3) mg/dL AST 53 (17-59) U/L ALT 34 (4-49) U/L Alkaline Phosphatase 84 (38-126) U/L Lactate Dehydrogenase 751 H (313-618) U/L C-Reactive Protein <5.0 (<10.0) mg/L Total Protein 7.1 (6.3-8.2) g/dL Albumin 4.0 (3.5-5.0) g/dL Urine Color Urine Appearance (Clear) Urine pH (5.0-8.0) Ur Specific [place] (1.001-1.035) Urine Protein (Negative) Urine Glucose (UA) (Negative) Urine Ketones (Negative) Urine Blood (Negative) Urine Nitrite (Negative) Urine Bilirubin (Negative) Urine Urobilinogen (<2.0) mg/dL Ur Leukocyte Esterase (Negative) Urine WBC (0-5) /hpf Ur Squamous Epith Cells (0-4) /hpf Uric Acid Crystals (None) /hpf Urine Bacteria (None) /hpf Hyaline Casts (0-2) /lpf Urine Mucus (None) /hpf Coronavirus (PCR) (Not Detectd) 08/24/20 08/24/20 08/24/20 Range/Units 16:27 16:27 17:12 WBC (3.8-10.6) k/uL RBC (4.30-5.90) m/uL Hgb (13.0-17.5) gm/dL Hct (39.0-53.0) % MCV (80.0-100.0) fL MCH (25.0-35.0) pg MCHC (31.0-37.0) g/dL RDW (11.5-15.5) % Plt Count (150-450) k/uL MPV Neutrophils % % Lymphocytes % % Monocytes % % Eosinophils % % Basophils % % Neutrophils # (1.3-7.7) k/uL Lymphocytes # (1.0-4.8) k/uL Monocytes # (0-1.0) k/uL Eosinophils # (0-0.7) k/uL Basophils # (0-0.2) k/uL Hypochromasia Poikilocytosis PT (9.0-12.0) sec INR (<1.2) APTT (22.0-30.0) sec Sodium (137-145) mmol/L Potassium (3.5-5.1) mmol/L Chloride (98-107) mmol/L Carbon Dioxide (22-30) mmol/L Anion Gap mmol/L BUN (9-20) mg/dL Creatinine (0.66-1.25) mg/dL Est GFR (CKD-EPI)AfAm (>60 ml/min/1.73 sqM) Est GFR (CKD-EPI)NonAf (>60 ml/min/1.73 sqM) Glucose (74-99) mg/dL Plasma Lactic Acid John 1.5 (0.7-2.0) mmol/L Calcium (8.4-10.2) mg/dL Magnesium (1.6-2.3) mg/dL Total Bilirubin (0.2-1.3) mg/dL AST (17-59) U/L ALT (4-49) U/L Alkaline Phosphatase (38-126) U/L Lactate Dehydrogenase (313-618) U/L C-Reactive Protein (<10.0) mg/L Total Protein (6.3-8.2) g/dL Albumin (3.5-5.0) g/dL Urine Color Yellow Urine Appearance Turbid (Clear) Urine pH 6.0 (5.0-8.0) Ur Specific [place] 1.024 (1.001-1.035) Urine Protein 1+ H (Negative) Urine Glucose (UA) Negative (Negative) Urine Ketones Negative (Negative) Urine Blood Negative (Negative) Urine Nitrite Negative (Negative) Urine Bilirubin Negative (Negative) Urine Urobilinogen 3.0 (<2.0) mg/dL Ur Leukocyte Esterase Moderate H (Negative) Urine WBC 69 H (0-5) /hpf Ur Squamous Epith Cells 5 H (0-4) /hpf Uric Acid Crystals Many H (None) /hpf Urine Bacteria Rare H (None) /hpf Hyaline Casts 3 H (0-2) /lpf Urine Mucus Moderate H (None) /hpf Coronavirus (PCR) Not Detected (Not Detectd) - Radiology Data Radiology results: image reviewed (Chest x-ray does show mild lower lobe opacities) Critical Care Time Critical Care Time: Yes Total Critical Care Time: 32 Disposition Clinical Impression: Pneumonia, UTI (urinary tract infection) Disposition: ADMITTED IP TO THIS HOSP Is patient prescribed a controlled substance at d/c from ED?: No Referrals: Joycelyn Tovar DO [Primary Care Provider] - 1-2 days Decision Time: 18:49
[2020-08-24 16:54] LABS: Potassium 4.8 mmol/L (3.5-5.1)
[2020-08-24 16:56] LABS: ALT 34 U/L (4-49); AST 53 U/L (17-59); African American GFR (CKD) 36 (>60 ml/min/1.73 sqM); Alkaline Phosphatase 84 U/L (38-126); Anion Gap 7 mmol/L; Blood Urea Nitrogen 15 mg/dL (9-20); C Reactive Protein <5.0 mg/L (<10.0); Calcium 9.4 mg/dL (8.4-10.2); Carbon Dioxide 24 mmol/L (22-30); Chloride 107 mmol/L (98-107); Glucose 151 mg/dL (74-99); LDH 751 U/L (313-618); Magnesium 2.1 mg/dL (1.6-2.3); Non-African American GFR(CKD) 31 (>60 ml/min/1.73 sqM); Sodium 138 mmol/L (137-145); Total Bilirubin 0.9 mg/dL (0.2-1.3); Total Protein 7.1 g/dL (6.3-8.2)
[2020-08-24 16:57] LABS: INR 2.4 (<1.2); Partial Thromboplastin Time 29.8 sec (22.0-30.0); Prothrombin Time 23.4 sec (9.0-12.0)
--- NOTE | 2020-08-24 17:11 | XR ---
EXAM: XR Chest, 1 View CLINICAL HISTORY: ITS.REASON XR Reason: Suspected COVID-19 pneumonia TECHNIQUE: Frontal view of the chest. COMPARISON: Chest radiograph on 08/02/2020 FINDINGS: Hardware: None. Lungs/pleura: Lower lung opacities. No pleural effusion or pneumothorax. Heart/mediastinum: Mild enlargement of the cardiac silhouette. Left- sided pacemaker. Soft tissues: Unremarkable. Bones: No acute fracture. Degenerative changes of the spine. Upper abdomen: Normal. IMPRESSION: Lower lung opacities may represent infectious/inflammatory process.
[2020-08-24 17:28] LABS: Basophils % (A) 1 %; Eosinophils % (A) 1 %; HCT 41.2 % (39.0-53.0); HGB 13.6 gm/dL (13.0-17.5); Hypochromasia Slight; Lymphocytes % (A) 26 %; Mean Platelet Volume 7.4; Monocytes # (A) 0.3 k/uL (0-1.0); Monocytes % (A) 7 %; Neutrophils # (A) 2.5 k/uL (1.3-7.7); Neutrophils % (A) 63 %; Platelet Count 162 k/uL (150-450); Poikilocytosis Slight; RBC 4.53 m/uL (4.30-5.90); RDW 15.8 % (11.5-15.5)
[2020-08-24 17:48] LABS: Appearance,Urine Turbid (Clear); Bacteria,Urine Rare /hpf; Bilirubin,Urine Negative (Negative); Blood,Urine Negative (Negative); Color,Urine Yellow; Glucose,Urine (UA) Negative (Negative); Hyaline Casts,Urine 3 /lpf (0-2); Ketones,Urine Negative (Negative); Leukocyte Esterase,Urine Moderate (Negative); Mucus,Urine Moderate /hpf; Nitrite,Urine Negative (Negative); Protein,Urine 1+ (Negative); Specific Gravity,Urine 1.024 (1.001-1.035); Squamous Epithelial Cell,Urine 5 /hpf (0-4); Uric Acid Crystals,Urine Many /hpf; WBC,Urine 69 /hpf (0-5)
[2020-08-24] MEDS ORDERED: PNEUMONIA PROTOCOL UTILIZED 1 EACH MISC PO PRN (18:51)
[2020-08-24] MEDS ORDERED: AZITHROMYCIN 500 MG in SODIUM CHLORIDE 0.9% 250 ML IVPB STA ×2 (18:51→22:08)
[2020-08-24] MEDS ORDERED: ACETAMINOPHEN TAB 325 MG TAB PO PRN (19:23)
[2020-08-24] MEDS: SODIUM CHLORIDE 0.9% 1,000 ML IV SCH (19:27)
[2020-08-24] MEDS ORDERED: CYCLOBENZAPRINE 10 MG TAB PO PRN (20:08)
[2020-08-24] MEDS ORDERED: NITROGLYCERIN SL TABS 0.4 MG TAB SUBLINGUAL PRN (20:08)
[2020-08-24] MEDS ORDERED: MELATONIN 3 MG TABLET PO PRN (20:14)
[2020-08-24] MEDS: GABAPENTIN 300 MG CAP PO SCH (22:06)
[2020-08-24] MEDS: DULoxetine HCL 60 MG CAPSULE.DR PO SCH (22:07)
[2020-08-24] MEDS: INSULIN ASPART (NovoLOG) 100 UNIT/ML VIAL SQ SCH (22:32)
[2020-08-24 22:49] LABS: Ferritin 190.2 ng/mL (22.0-322.0)
[2020-08-24 22:50] VITALS: RESP 18
[2020-08-25 06:03] VITALS: BP 119/73; PULSE 51; TEMP 98.2
[2020-08-25] MEDS: SODIUM CHLORIDE 0.9% 1,000 ML IV SCH (06:24)
--- NOTE | 2020-08-25 08:18 | XR ---
EXAM: XR Chest, 1 View CLINICAL HISTORY: ITS.REASON XR Reason: pneumonia TECHNIQUE: Frontal view of the chest. COMPARISON: 08/24/20 FINDINGS: Lungs: No dense consolidation. Pleural space: Unremarkable. No pneumothorax. Heart: Cardiovascular silhouette is upper limits of normal in size, accentuated by low lung volume. Mediastinum: Calcified thoracic aorta is again seen. Bones/joints: Unremarkable. Tubes, lines and devices: Left-sided pacer, unchanged in position. IMPRESSION: 1. Low lung volume. 2. No dense consolidation or effusion.
[2020-08-25] MEDS: INSULIN ASPART (NovoLOG) 100 UNIT/ML VIAL SQ SCH (08:29)
[2020-08-25] MEDS: DULoxetine HCL 60 MG CAPSULE.DR PO SCH (08:51)
[2020-08-25] MEDS: GABAPENTIN 300 MG CAP PO SCH (08:51)
[2020-08-25] MEDS ORDERED: METOPROLOL SUCCINATE (ER) 100 MG TAB.ER.24H PO SCH (09:00)
[2020-08-25] MEDS ORDERED: FERROUS SULFATE 325 MG TAB PO SCH (09:00)
[2020-08-25] MEDS ORDERED: ISOSORBIDE MONONITRATE ER 60 MG TAB.ER.24H PO SCH (09:00)
[2020-08-25] MEDS ORDERED: EZETIMIBE 10 MG TAB PO SCH (09:00)
[2020-08-25] MEDS ORDERED: TAMSULOSIN 0.4 MG CAP.ER.24H PO SCH (09:00)
[2020-08-25] MEDS ORDERED: allopurinoL 100 MG TAB PO SCH (09:00)
[2020-08-25] MEDS ORDERED: FUROSEMIDE 40 MG TAB PO SCH (09:00)
[2020-08-25] MEDS ORDERED: ATORVASTATIN 80 MG TAB PO SCH (09:00)
[2020-08-25] MEDS ORDERED: ASPIRIN 81 MG PO SCH (09:00)
[2020-08-25 09:36] LABS: INR 2.26 (0.90-1.11)
--- NOTE | 2020-08-25 10:43 | P.HPIM ---
History of Present Illness This is a pleasant 70-year-old man came in with complaints of generalized weakness has been going on for last couple days along with lightheadedness patient denied any vertigo-like symptoms patient denied any fever chills nausea vomiting. Patient feels hot and cold inside and patient has many other nonspecific symptoms. Patient was tested for cold mid 19 which was negative and septic workup was also done with a urine analysis which showed moderate leukocyte esterase elevated white blood cells in urine along with' epithelial c ells and some bacteria. Although patient denied any symptoms of urinary tract infection. Patient had initial chest x-ray which was read as possible infiltrate and unfortunately I cannot locate the images of these chest x-rays. The repeat chest x-ray was read as within normal limits without any infiltrate. Because of above-mentioned reasons patient was started on Rocephin and azithromycin was subsequently admitted patient was receiving IV fluids. Patient although doesn't have any symptoms of UTI denied any dysuria or increased urinary frequency suprapubic pain patient doesn't have any fever doesn't have any chills patient denied any cough. Review of Systems REVIEW OF SYSTEMS: CONSTITUTIONAL: No fever, no malaise, no fatigue. HEENT: No recent visual problems or hearing problems. Denied any sore throat. CARDIOVASCULAR: No chest pain, orthopnea, PND, no palpitations, no syncope. PULMONARY: No shortness of breath, no cough, no hemoptysis. GASTROINTESTINAL: No diarrhea, no nausea, no vomiting, no abdominal pain. NEUROLOGICAL: No headaches, no weakness, no numbness. HEMATOLOGICAL: Denies any bleeding or petechiae. GENITOURINARY: Denies any burning micturition, frequency, or urgency. MUSCULOSKELETAL/RHEUMATOLOGICAL: Denies any joint pain, swelling, or any muscle pain. ENDOCRINE: Denies any polyuria or polydipsia. The rest of the 14-point review of systems is negative. Past Medical History Past Medical History: Atrial Fibrillation, Diabetes Mellitus, Pneumonia, Pneumonia History of Any Multi-Drug Resistant Organisms: None Reported Past Surgical History: Heart Catheterization, Pacemaker, Pacemaker Additional Past Surgical History / Comment(s): HYPERTENSION Past Anesthesia/Blood Transfusion Reactions: No Reported Reaction Type of Cardiac Device: Permanent Pacemaker, Unknown Device Placement Date:: 2012 Past Psychological History: Anxiety, Depression Smoking Status: Never smoker Past Alcohol Use History: None Reported Past Drug Use History: None Reported - Past Family History Mother Family Medical History: Cancer Additional Family Medical History / Comment(s): kidney cancer Medications and Allergies Home Medications Medication Instructions Recorded Confirmed Type Tamsulosin HCl 0.4 mg PO DAILY 01/27/14 08/24/20 History Isosorbide Mononitrate [Imdur] 60 mg PO DAILY 05/30/14 08/24/20 History Nitroglycerin Sl Tabs [Nitrostat] 0.4 mg SUBLINGUAL Q5M PRN 05/30/14 08/24/20 History allopurinoL [Zyloprim] 150 mg PO DAILY 08/04/15 08/24/20 History Aspirin EC [Ecotrin Low Dose] 81 mg PO DAILY 08/28/16 08/24/20 History calcitrioL [Rocaltrol] 0.25 mcg PO MOTUWETH 08/28/16 08/24/20 History DULoxetine HCL [Cymbalta] 60 mg PO BID 07/07/20 08/24/20 History Ergocalciferol (Vitamin D2) 50,000 unit PO Q30D 07/07/20 08/24/20 History [Drisdol] Ezetimibe [Zetia] 10 mg PO DAILY 07/07/20 08/24/20 History Ferrous Sulfate [Feosol] 325 mg PO DAILY 07/07/20 08/24/20 History Insulin NPH Human Isophane 40 units SQ AC-BID 07/07/20 08/24/20 History [NovoLIN N] Metoprolol Succinate (ER) [Toprol 100 mg PO DAILY 07/07/20 08/24/20 History XL] Rosuvastatin Calcium [Crestor] 40 mg PO DAILY 07/07/20 08/24/20 History Cyclobenzaprine [Flexeril] 10 mg PO HS PRN #0 08/09/20 08/24/20 Rx Warfarin [Coumadin] 5 mg PO DAILY #7 tab 08/09/20 08/24/20 Rx Gabapentin [Neurontin] 300 mg PO BID #0 08/25/20 08/24/20 Rx Allergies Allergy/AdvReac Type Severity Reaction Status Date / Time No Known Allergies Allergy Verified 08/24/20 16:10 Physical Exam Vitals: Vital Signs Temp Pulse Pulse Resp BP BP Pulse Ox 08/25/20 06:02 98.2 F 51 L 18 119/73 94 L 08/25/20 02:00 98.5 F 56 L 18 111/73 95 08/24/20 20:00 98.5 F 62 18 129/81 96 08/24/20 19:33 98.1 F 60 16 123/62 100 08/24/20 18:00 60 20 116/69 99 08/24/20 17:00 59 L 20 127/82 99 08/24/20 16:40 60 24 127/82 98 08/24/20 15:30 98.0 F 92 18 121/80 99 Intake and Output 08/24/20 08/25/20 08/25/20 22:59 06:59 14:59 Other: Voiding Method Toilet Urinal # Voids 0 Weight 93.894 kg PHYSICAL EXAMINATION: GENERAL: The patient is alert and oriented x3, not in any acute distress. Well developed, well nourished. HEENT: Pupils are round and equally reacting to light. EOMI. No scleral icterus. No conjunctival pallor. Normocephalic, atraumatic. No pharyngeal erythema. No thyromegaly. CARDIOVASCULAR: S1 and S2 present. No murmurs, rubs, or gallops. PULMONARY: Chest is clear to auscultation, no wheezing or crackles. ABDOMEN: Soft, nontender, nondistended, normoactive bowel sounds. No palpable organomegaly. MUSCULOSKELETAL: No joint swelling or deformity. EXTREMITIES: No cyanosis, clubbing, or pedal edema. NEUROLOGICAL: Gross neurological examination did not reveal any focal deficits. SKIN: No rashes. Results CBC & Chem 7: 08/24/20 16:27 08/24/20 16:27 Labs: Abnormal Lab Results - Last 24 Hours (Table) 08/24/20 08/24/20 08/24/20 Range/Units 16:27 16: 16: RDW 15.8 H (11.5-15.5) % PT 23.4 H (9.0-12.0) sec INR 2.4 H (<1.2) Creatinine 2.08 H (0.66-1.25) mg/dL Glucose 151 H (74-99) mg/dL Lactate Dehydrogenase 751 H (313-618) U/L Urine Protein (Negative) Ur Leukocyte Esterase (Negative) Urine WBC (0-5) /hpf Ur Squamous Epith Cells (0-4) /hpf Uric Acid Crystals (None) /hpf Urine Bacteria (None) /hpf Hyaline Casts (0-2) /lpf Urine Mucus (None) /hpf 08/24/20 08/25/20 Range/Units 17:12 06:07 RDW (11.5-15.5) % PT 23.0 H (9.0-12.0) sec INR 2.26 H (<1.2) Creatinine (0.66-1.25) mg/dL Glucose (74-99) mg/dL Lactate Dehydrogenase (313-618) U/L Urine Protein 1+ H (Negative) Ur Leukocyte Esterase Moderate H (Negative) Urine WBC 69 H (0-5) /hpf Ur Squamous Epith Cells 5 H (0-4) /hpf Uric Acid Crystals Many H (None) /hpf Urine Bacteria Rare H (None) /hpf Hyaline Casts 3 H (0-2) /lpf Urine Mucus Moderate H (None) /hpf Microbiology - Last 24 Hours (Table) 08/24/20 17:12 Urine Culture - Preliminary Urine,Voided Thrombosis Risk Factor Assmnt - Choose All That Apply Any of the Below Risk Factors Present?: Yes Each Factor Represents 1 point: Medical pt on bed rest Other Risk Factors: Yes Each Risk Factor Represents 2 Points: Age 61-74 years Thrombosis Risk Factor Assessment Total Risk Factor Score: 3 Thrombosis Risk Factor Assessment Level: Moderate Risk Assessment and Plan Plan: -Dizziness: Most probably secondary to dehydration from diuretics. Patient to baseline creatinine around 1.5 during his last discharge and presently 2.08. I'll discontinue Lasix and patient will be discharged today. Patient received IV fluids overnight. Patient had a prolonged hospitalization for septic chart during his previous hospitalization at that time patient was even on temporary hemodialysis. dizziness is much better with still has slight li ghtheadedness -Asymptomatic bacteriuria: There is no evidence of infection at this time no leukocytosis no fever no symptoms patient urine is also contaminated urine sample received 1 dose of antibiotics I do not believe patient will require any more antibiotics. -Ruled out pneumonia: Repeat chest x-ray is not consistent with pneumonia and patient doesn't have symptoms at this time -Acute renal failure: Secondary to dehydration received IV fluids overnight -Chronic kidney disease from his acute tubular necrosis from his previous hospitalization and sepsis patient appears to have chronic kidney disease stage III. Patient will follow with nephrology closely. We will also cut down the dose of that appears to be on Bactrim which will be discontinued because of kidney dysfunction -Type 2 diabetes mellitus -Chronic atrial fibrillation: Presently rate controlled patient had a pacemaker patient is on Coumadin INR is therapeutic Patient will be discharged today
--- NOTE | 2020-08-25 10:43 | P.DS ---
Providers Date of admission: 08/24/20 18:51 Attending physician: Carmen Krause Primary care physician: Joycelyn [facility] Course: As mentioned in HPI Plan - Discharge Summary Discharge Rx Participant: No New Discharge Prescriptions: Continue Tamsulosin HCl 0.4 mg PO DAILY Nitroglycerin Sl Tabs [Nitrostat] 0.4 mg SUBLINGUAL Q5M PRN PRN Reason: Chest Pain Isosorbide Mononitrate [Imdur] 60 mg PO DAILY allopurinoL [Zyloprim] 150 mg PO DAILY calcitrioL [Rocaltrol] 0.25 mcg PO MOTUWETH Aspirin EC [Ecotrin Low Dose] 81 mg PO DAILY DULoxetine HCL [Cymbalta] 60 mg PO BID Ezetimibe [Zetia] 10 mg PO DAILY Ferrous Sulfate [Feosol] 325 mg PO DAILY Rosuvastatin Calcium [Crestor] 40 mg PO DAILY Metoprolol Succinate (ER) [Toprol XL] 100 mg PO DAILY Ergocalciferol (Vitamin D2) [Drisdol] 50,000 unit PO Q30D Insulin NPH Human Isophane [NovoLIN N] 40 units SQ AC-BID Cyclobenzaprine [Flexeril] 10 mg PO HS PRN #0 PRN Reason: Muscle Spasm Warfarin [Coumadin] 5 mg PO DAILY #7 tab Changed Gabapentin [Neurontin] 300 mg PO BID #0 Discontinued Furosemide [Lasix] 40 mg PO DAILY #1 tablet Sulfamethox-Tmp 800-160Mg [Bactrim DS 800-160 mg] 1 tab PO BID Discharge Medication List Tamsulosin HCl 0.4 mg PO DAILY 01/27/14 [History] Isosorbide Mononitrate [Imdur] 60 mg PO DAILY 05/30/14 [History] Nitroglycerin Sl Tabs [Nitrostat] 0.4 mg SUBLINGUAL Q5M PRN 05/30/14 [History] allopurinoL [Zyloprim] 150 mg PO DAILY 08/04/15 [History] Aspirin EC [Ecotrin Low Dose] 81 mg PO DAILY 08/28/16 [History] calcitrioL [Rocaltrol] 0.25 mcg PO MOTUWETH 08/28/16 [History] DULoxetine HCL [Cymbalta] 60 mg PO BID 07/07/20 [History] Ergocalciferol (Vitamin D2) [Drisdol] 50,000 unit PO Q30D 07/07/20 [History] Ezetimibe [Zetia] 10 mg PO DAILY 07/07/20 [History] Ferrous Sulfate [Feosol] 325 mg PO DAILY 07/07/20 [History] Insulin NPH Human Isophane [NovoLIN N] 40 units SQ AC-BID 07/07/20 [History] Metoprolol Succinate (ER) [Toprol XL] 100 mg PO DAILY 07/07/20 [History] Rosuvastatin Calcium [Crestor] 40 mg PO DAILY 07/07/20 [History] Cyclobenzaprine [Flexeril] 10 mg PO HS PRN #0 08/09/20 [Rx] Warfarin [Coumadin] 5 mg PO DAILY #7 tab 08/09/20 [Rx] Gabapentin [Neurontin] 300 mg PO BID #0 08/25/20 [Rx] Follow up Appointment(s)/Referral(s): Joycelyn Tovar DO [Primary Care Provider] - 3 Days Patient Instructions/Handouts: Urinary Tract Infection in Men (DC), Community Acquired Pneumonia (DC) Discharge Disposition: HOME SELF-CARE
[2020-08-25] MEDS ORDERED: WARFARIN 5 MG TAB PO SCH (18:00)
[2020-08-25] MEDS ORDERED: AZITHROMYCIN 500 MG TAB PO SCH (21:00)
[2020-08-31 05:32] LABS: Glucose,Whole Blood 96 mg/dL (75-99)
[2020-08-31 05:32] LABS: Glucose,Whole Blood 126 mg/dL (75-99)
[2020-08-31 05:47] LABS: Glucose,Whole Blood 79 mg/dL (75-99)
[2020-09-06] MEDS ORDERED: ERGOCALCIFEROL 50,000 UNIT CAP PO SCH (09:00)
== END 2020-08-25 12:53 | disposition home or self-care (01) | DRG 683 ==
LOC: EC 15:29 → 4SSUR 18:51
PROVIDERS: ADMIT Internal Medicine; ATTEND Internal Medicine
DX: N17.9 Acute kidney failure, unspecified (principal); I48.20 Chronic atrial fibrillation, unspecified; E86.0 Dehydration; T50.2X5A Adverse effect of carbonic-anhydrase inhibitors, benzothiadiazides and other diuretics, initial encounter; F41.9 Anxiety disorder, unspecified; F32.9 Major depressive disorder, single episode, unspecified; I12.9 Hypertensive chronic kidney disease with stage 1 through stage 4 chronic kidney disease, or unspecified chronic kidney disease; E11.22 Type 2 diabetes mellitus with diabetic chronic kidney disease; N18.30 Chronic kidney disease, stage 3 unspecified; Z20.828 Contact with and (suspected) exposure to other viral communicable diseases; Z80.51 Family history of malignant neoplasm of kidney; Z79.899 Other long term (current) drug therapy; Z79.82 Long term (current) use of aspirin; Z79.4 Long term (current) use of insulin; Z79.01 Long term (current) use of anticoagulants; Z87.01 Personal history of pneumonia (recurrent); Z98.890 Other specified postprocedural states; Z95.0 Presence of cardiac pacemaker
CPT/HCPCS: 36415; 71045; 80053; 81001; 82728; 83605; 83615; 83735; 84145; 85025; 85610; 85730; 86140; 87040; 87086; 87635; 93005; 96361; 96374; 96375; 99291

== ENCOUNTER 2020-09-20 15:10 | Emergency (ER) | payer MEDICARE ==
[2020-09-20 15:22] VITALS: RESP 18
--- NOTE | 2020-09-20 15:38 | ED ---
ENT HPI <Marcelino Haddad - Last Filed: 09/20/20 21:57> - General Source: patient Mode of arrival: ambulatory Limitations: no limitations <Mathew Judd - Last Filed: 09/20/20 23:08> - General Chief complaint: ENT Stated complaint: Tongue bleeding Time Seen by Provider: 09/20/20 15:31 - History of Present Illness Initial comments: 70-year-old male with history of A. fib presenting to the emergency department with a chief complaint of bleeding from the tongue. Patient states he wears a BiPAP machine and when he woke up this morning is noticed bleeding. Patient states she is not aware exactly how long he was being from his tongue. He denies any trauma to the intraoral cavity. Patient does take Coumadin for his A. fib. Patient denies any chest pain shortness of breath lightheadedness or di zziness at this time. Patient states last time he obtained his INR levels there were 2.1. (Mathew Judd) - Related Data Home Medications Medication Instructions Recorded Confirmed Tamsulosin HCl 0.4 mg PO DAILY 01/27/14 09/20/20 Isosorbide Mononitrate [Imdur] 60 mg PO DAILY 05/30/14 09/20/20 Nitroglycerin Sl Tabs [Nitrostat] 0.4 mg SUBLINGUAL Q5M PRN 05/30/14 09/20/20 allopurinoL [Zyloprim] 150 mg PO DAILY 08/04/15 09/20/20 Aspirin EC [Ecotrin Low Dose] 81 mg PO DAILY 08/28/16 09/20/20 calcitrioL [Rocaltrol] 0.25 mcg PO MOTUWETH 08/28/16 09/20/20 DULoxetine HCL [Cymbalta] 60 mg PO BID 07/07/20 09/20/20 Ergocalciferol (Vitamin D2) 50,000 unit PO Q30D 07/07/20 09/20/20 [Drisdol (50,000 Iu)] Ezetimibe [Zetia] 10 mg PO DAILY 07/07/20 09/20/20 Ferrous Sulfate [Feosol] 325 mg PO DAILY 07/07/20 09/20/20 Insulin NPH Human Isophane 20 units SQ W/BRKFST 07/07/20 09/20/20 [NovoLIN N] Metoprolol Succinate (ER) [Toprol 100 mg PO DAILY 07/07/20 09/20/20 XL] Rosuvastatin Calcium [Crestor] 40 mg PO DAILY 07/07/20 09/20/20 Furosemide [Lasix] 40 mg PO DAILY 09/20/20 09/20/20 Insulin NPH Human Isophane 30 units SQ W/SUPPER 09/20/20 09/20/20 [NovoLIN N] Potassium Chloride ER [K-Dur 10] 10 meq PO DAILY 09/20/20 09/20/20 Previous Rx's Medication Instructions Recorded Cyclobenzaprine [Flexeril] 10 mg PO HS PRN #0 08/09/20 Warfarin [Coumadin] 5 mg PO DAILY #7 tab 08/09/20 Allergies Allergy/AdvReac Type Severity Reaction Status Date / Time No Known Allergies Allergy Verified 09/20/20 17:53 Review of Systems ROS Other: All systems not noted in ROS Statement are negative. <Marcelino Haddad - Last Filed: 09/20/20 21:57> ROS Other: All systems not noted in ROS Statement are negative. <Mathew Judd - Last Filed: 09/20/20 23:08> ROS Statement: Those systems with pertinent positive or pertinent negative responses have been documented in the HPI. Past Medical History Past Medical History: Atrial Fibrillation, Diabetes Mellitus, Pneumonia, Pneumonia History of Any Multi-Drug Resistant Organisms: None Reported Past Surgical History: Heart Catheterization, Pacemaker, Pacemaker Additional Past Surgical History / Comment(s): HYPERTENSION Past Anesthesia/Blood Transfusion Reactions: No Reported Reaction Type of Cardiac Device: Permanent Pacemaker, Unknown Device Placement Date:: 2012 Past Psychological History: Anxiety, Depression Smoking Status: Never smoker Past Alcohol Use History: None Reported - Past Family History Mother Family Medical History: Cancer Additional Family Medical History / Comment(s): kidney cancer <Mathew Judd - Last Filed: 09/20/20 23:08> General Exam Limitations: no limitations General appearance: alert, in no apparent distress Head exam: Present: atraumatic, normocephalic, normal inspection Eye exam: Present: normal appearance, PERRL, EOMI Pupils: Present: normal accommodation ENT exam: Present: normal exam, mucous membranes moist, TM's normal bilaterally, normal external ear exam. Absent: normal oropharynx (Source of the bleeding is on the tip of tongue.) Neck exam: Present: normal inspection, full ROM. Absent: tenderness Respiratory exam: Present: normal lung sounds bilaterally. Absent: respiratory distress, wheezes, rales, rhonchi, stridor Cardiovascular Exam: Present: regular rate, normal rhythm, normal heart sounds Extremities exam: Present: normal inspection, full ROM, normal capillary refill. Absent: tenderness, pedal edema, joint swelling Back exam: Present: normal inspection, full ROM. Absent: tenderness, CVA tenderness (R), CVA tenderness (L) Neurological exam: Present: alert, oriented X3 Psychiatric exam: Present: normal affect, normal mood Skin exam: Present: warm, dry, intact, normal color <Mathew Judd - Last Filed: 09/20/20 23:08> Course <Marcelino Haddad - Last Filed: 09/20/20 21:57> Vital Signs 09/20/20 09/20/20 09/20/20 15:18 15:51 21:59 Temperature 97.2 F L Pulse Rate 55 L 78 Respiratory 18 18 Rate Blood Pressure 117/74 148/75 O2 Sat by Pulse 99 97 Oximetry - Reevaluation(s) Reevaluation #1: 09/20/20 21:57 The supervision: I proceeded a [id number] evaluation the patient did present with complaints of bleeding from his mouth he did end of have a small apparent laceration to the tip of his tongue in the left side. He was noted have toxic Coumadin levels. He was treated appropriately. Eventually the bleeding was controlled. Patient discharged home. I do agree with the assessment and plan. (Marcelino Haddad) Medical Decision Making - Lab Data Result diagrams: 09/20/20 15:52 09/20/20 15:52 <Macrelino Haddad - Last Filed: 09/20/20 21:57> - Lab Data Result diagrams: 09/20/20 15:52 09/20/20 15:52 <Mathew Judd - Last Filed: 09/20/20 23:08> - Medical Decision Making 70-year-old male presenting to the emergency department with chief complaint of bleeding tongue. Patient was noted to have a small laceration on the tip of the tongue measuring about 5 mm. INR level over 10. Patient was given 10 mg of vitamin K. Advised not to take Coumadin tonight. After multiple unsuccessful trials with topical gel foam, thrombin, and lidocaine with epinephrine. Patient had continuous bleeding. Patient was then also given topical TXA and pressure was maintained. Eventually the bleeding stopped. Patient was in emergency department for prolonged period of time but eventually the bleeding resolved. Patient will be discharged and advised to follow up in the morning with his facility mechanic or to primary care physician. He will need repeat laboratory work. Dr. Haddad also examined the patient and is in agreement with the treatment plan. (Mathew Judd) - Lab Data Lab Results 09/20/20 09/20/20 09/20/20 Range/Units 15:52 15:52 15:52 WBC 3.6 L (3.8-10.6) k/uL RBC 3.94 L (4.30-5.90) m/uL Hgb 11.2 L (13.0-17.5) gm/dL Hct 35.6 L (39.0-53.0) % MCV 90.4 (80.0-100.0) fL MCH 28.5 (25.0-35.0) pg MCHC 31.5 (31.0-37.0) g/dL RDW 15.4 (11.5-15.5) % Plt Count 142 L (150-450) k/uL MPV 8.6 Neutrophils % 53 % Lymphocytes % 35 % Monocytes % 8 % Eosinophils % 1 % Basophils % 1 % Neutrophils # 1.9 (1.3-7.7) k/uL Lymphocytes # 1.3 (1.0-4.8) k/uL Monocytes # 0.3 (0-1.0) k/uL Eosinophils # 0.0 (0-0.7) k/uL Basophils # 0.0 (0-0.2) k/uL Hypochromasia Slight Poikilocytosis Slight PT >130.0 H (9.0-12.0) sec INR >10.0 H* (<1.2) APTT 65.9 H (22.0-30.0) sec Sodium 139 (137-145) mmol/L Potassium 4.1 (3.5-5.1) mmol/L Chloride 108 H (98-107) mmol/L Carbon Dioxide 24 (22-30) mmol/L Anion Gap 7 mmol/L BUN 18 (9-20) mg/dL Creatinine 1.45 H (0.66-1.25) mg/dL Est GFR (CKD-EPI)AfAm 56 (>60 ml/min/1.73 sqM) Est GFR (CKD-EPI)NonAf 48 (>60 ml/min/1.73 sqM) Glucose 95 (74-99) mg/dL Calcium 9.0 (8.4-10.2) mg/dL Total Bilirubin 1.3 (0.2-1.3) mg/dL AST 47 (17-59) U/L ALT 35 (4-49) U/L Alkaline Phosphatase 61 (38-126) U/L Total Protein 6.5 (6.3-8.2) g/dL Albumin 3.5 (3.5-5.0) g/dL Disposition <Marcelino Haddad - Last Filed: 09/20/20 21:57> Is patient prescribed a controlled substance at d/c from ED?: No Time of Disposition: 21:40 <Mathew Judd - Last Filed: 09/20/20 23:08> Clinical Impression: Laceration of tongue, Elevated INR Disposition: HOME SELF-CARE Condition: Stable Instructions (If sedation given, give patient instructions): Warfarin (By mouth) Additional Instructions: Make sure to contact your facility mechanic and primary care physician tomorrow morning. Return to emergency department if symptoms worsen. Do not take her Coumadin tonight. Referrals: Joycelyn Tovar DO [Primary Care Provider] - 1-2 days
[2020-09-20 16:01] LABS: Basophils % (A) 1 %; Eosinophils % (A) 1 %; HCT 35.6 % (39.0-53.0); HGB 11.2 gm/dL (13.0-17.5); Hypochromasia Slight; Lymphocytes # (A) 1.3 k/uL (1.0-4.8); Lymphocytes % (A) 35 %; MCH 28.5 pg (25.0-35.0); MCHC 31.5 g/dL (31.0-37.0); MCV 90.4 fL (80.0-100.0); Mean Platelet Volume 8.6; Monocytes # (A) 0.3 k/uL (0-1.0); Monocytes % (A) 8 %; Neutrophils # (A) 1.9 k/uL (1.3-7.7); Neutrophils % (A) 53 %; Platelet Count 142 k/uL (150-450); Poikilocytosis Slight; RBC 3.94 m/uL (4.30-5.90); RDW 15.4 % (11.5-15.5); WBC 3.6 k/uL (3.8-10.6)
[2020-09-20 16:21] LABS: INR >10.0 (<1.2); Prothrombin Time >130.0 sec (9.0-12.0)
[2020-09-20 16:23] LABS: Partial Thromboplastin Time 65.9 sec (22.0-30.0)
[2020-09-20 16:44] LABS: Albumin 3.5 g/dL (3.5-5.0); Potassium 4.1 mmol/L (3.5-5.1); Total Bilirubin 1.3 mg/dL (0.2-1.3); Total Protein 6.5 g/dL (6.3-8.2)
[2020-09-20] MEDS ORDERED: PHYTONADIONE ORAL 5 MG/5 ML ORAL.SYRG PO STA (16:56)
[2020-09-20] MEDS ORDERED: GELATIN SPONGE,ABSORBABLE 1 GM POWDER MM ONE (17:15)
[2020-09-20] MEDS ORDERED: GELATIN SPONGE,ABSORB (SMALL) 1 EACH SPONGE MISCELLANE ONE (17:15)
[2020-09-20] MEDS ORDERED: THROMBIN (BOVINE) 5,000 UNIT VIAL TOPICAL ONE (18:45)
[2020-09-20] MEDS ORDERED: LIDOCAINE 1%-EPI 1:100,000 20 ML VIAL SQ STA (19:22)
[2020-09-20] MEDS ORDERED: TRANEXAMIC ACID 1,000 MG/10 ML VIAL MISCELLANE ONE (20:05)
[2020-09-20 22:02] VITALS: BP 148/75; PULSE 78; TEMP 97.2
== END 2020-09-20 22:02 | disposition home or self-care (01) ==
LOC: EC 15:10
DX: S01.512A Laceration without foreign body of oral cavity, initial encounter (principal); R79.1 Abnormal coagulation profile; E11.9 Type 2 diabetes mellitus without complications; I10 Essential (primary) hypertension; I48.91 Unspecified atrial fibrillation; F32.9 Major depressive disorder, single episode, unspecified; F41.9 Anxiety disorder, unspecified; Z79.82 Long term (current) use of aspirin; Z79.899 Other long term (current) drug therapy; Z79.4 Long term (current) use of insulin; X58.XXXA Exposure to other specified factors, initial encounter
CPT/HCPCS: 36415; 80053; 85025; 85610; 85730; 99283

== ENCOUNTER 2020-09-22 10:57 | Inpatient (IN) | payer MEDICARE ==
[2020-09-22] MEDS ORDERED: HYDROmorphone 0.5 MG/0.5 ML SYRINGE IVP STA (11:41)
[2020-09-22] MEDS ORDERED: ONDANSETRON 4 MG/2 ML VIAL IVP STA (11:41)
--- NOTE | 2020-09-22 12:21 | ED ---
General Adult HPI - General Chief complaint: Skin/Abscess/Foreign Body Stated complaint: Iv Antibotics per Dr Time Seen by Provider: 09/22/20 11:08 Source: patient, RN notes reviewed Mode of arrival: wheelchair Limitations: no limitations - History of Present Illness Initial comments: 70-year-old male presents emergency Department chief complaint of infection. Patient states that he's been dealing with this for long period time currently seen Dr. Muller. Patient was seen by Dr. Muller today and sent in for admission for IV antibiotics with consult infectious disease. Patient is on no current treatment. Patient is known diabetic. Patient has infection to his right foot second digit. Patient has on-and-off increasing pain. - Related Data Home Medications Medication Instructions Recorded Confirmed Tamsulosin HCl 0.4 mg PO DAILY 01/27/14 09/22/20 Isosorbide Mononitrate [Imdur] 60 mg PO DAILY 05/30/14 09/22/20 Nitroglycerin Sl Tabs [Nitrostat] 0.4 mg SUBLINGUAL Q5M PRN 05/30/14 09/22/20 allopurinoL [Zyloprim] 150 mg PO DAILY 08/04/15 09/22/20 Aspirin EC [Ecotrin Low Dose] 81 mg PO DAILY 08/28/16 09/22/20 calcitrioL [Rocaltrol] 0.25 mcg PO MOTUWETH 08/28/16 09/22/20 DULoxetine HCL [Cymbalta] 60 mg PO BID 07/07/20 09/22/20 Ergocalciferol (Vitamin D2) 50,000 unit PO Q30D 07/07/20 09/22/20 [Drisdol (50,000 Iu)] Ezetimibe [Zetia] 10 mg PO DAILY 07/07/20 09/22/20 Ferrous Sulfate [Feosol] 325 mg PO DAILY 07/07/20 09/22/20 Insulin NPH Human Isophane 20 units SQ W/BRKFST 07/07/20 09/22/20 [NovoLIN N] Metoprolol Succinate (ER) [Toprol 100 mg PO DAILY 07/07/20 09/22/20 XL] Rosuvastatin Calcium [Crestor] 40 mg PO DAILY 07/07/20 09/22/20 Furosemide [Lasix] 40 mg PO DAILY 09/20/20 09/22/20 Insulin NPH Human Isophane 30 units SQ W/SUPPER 09/20/20 09/22/20 [NovoLIN N] Potassium Chloride ER [K-Dur 10] 10 meq PO DAILY 09/20/20 09/22/20 Previous Rx's Medication Instructions Recorded Cyclobenzaprine [Flexeril] 10 mg PO HS PRN #0 08/09/20 Warfarin [Coumadin] 5 mg PO DAILY #7 tab 08/09/20 Allergies Allergy/AdvReac Type Severity Reaction Status Date / Time No Known Allergies Allergy Verified 09/22/20 12:02 Review of Systems ROS Statement: Those systems with pertinent positive or pertinent negative responses have been documented in the HPI. ROS Other: All systems not noted in ROS Statement are negative. Past Medical History Past Medical History: Atrial Fibrillation, Diabetes Mellitus, Hypertension, Pneumonia, Pneumonia History of Any Multi-Drug Resistant Organisms: None Reported Past Surgical History: Heart Catheterization, Pacemaker, Pacemaker Additional Past Surgical History / Comment(s): HYPERTENSION Past Anesthesia/Blood Transfusion Reactions: No Reported Reaction Type of Cardiac Device: Permanent Pacemaker, Unknown Device Placement Date:: 2012 Past Psychological History: Anxiety, Depression Smoking Status: Never smoker Past Alcohol Use History: None Reported Past Drug Use History: None Reported - Past Family History Mother Family Medical History: Cancer Additional Family Medical History / Comment(s): kidney cancer General Exam Limitations: no limitations General appearance: alert, in no apparent distress Head exam: Present: atraumatic, normocephalic, normal inspection Eye exam: Present: normal appearance, PERRL, EOMI. Absent: scleral icterus, conjunctival injection, periorbital swelling Neck exam: Present: normal inspection, full ROM. Absent: tenderness, meningismus, lymphadenopathy Respiratory exam: Present: normal lung sounds bilaterally. Absent: respiratory distress, wheezes, rales, rhonchi, stridor Cardiovascular Exam: Present: regular rate, normal rhythm, normal heart sounds. Absent: systolic murmur, diastolic murmur, rubs, gallop, clicks GI/Abdominal exam: Present: soft, normal bowel sounds. Absent: distended, tenderness, guarding, rebound, rigid Extremities exam: Present: other (Right foot second digit there is a wound on the dorsal surface, open tissue, surrounding erythema which is marked pulses are palpable) Course Vital Signs 09/22/20 09/22/20 11:03 12:25 Temperature 98.6 F Pulse Rate 62 66 Respiratory 18 18 Rate Blood Pressure 130/86 147/94 O2 Sat by Pulse 100 97 Oximetry Medical Decision Making - Medical Decision Making 70-year-old presented for toe infection. Case discussed with she will be admitted for infectious disease consult, vascular consult. - Lab Data Result diagrams: 09/22/20 12:55 09/22/20 12:25 Lab Results 09/22/20 09/22/20 09/22/20 Range/Units 12:25 12:25 12:25 WBC (3.8-10.6) k/uL RBC (4.30-5.90) m/uL Hgb (13.0-17.5) gm/dL Hct (39.0-53.0) % MCV (80.0-100.0) fL MCH (25.0-35.0) pg MCHC (31.0-37.0) g/dL RDW (11.5-15.5) % Plt Count (150-450) k/uL MPV Neutrophils % % Lymphocytes % % Monocytes % % Eosinophils % % Basophils % % Neutrophils # (1.3-7.7) k/uL Lymphocytes # (1.0-4.8) k/uL Monocytes # (0-1.0) k/uL Eosinophils # (0-0.7) k/uL Basophils # (0-0.2) k/uL Hypochromasia PT 20.1 H (9.0-12.0) sec INR 2.0 H (<1.2) APTT 30.0 (22.0-30.0) sec Sodium 140 (137-145) mmol/L Potassium 4.1 (3.5-5.1) mmol/L Chloride 107 (98-107) mmol/L Carbon Dioxide 26 (22-30) mmol/L Anion Gap 7 mmol/L BUN 19 (9-20) mg/dL Creatinine 1.36 H (0.66-1.25) mg/dL Est GFR (CKD-EPI)AfAm 61 (>60 ml/min/1.73 sqM) Est GFR (CKD-EPI)NonAf 52 (>60 ml/min/1.73 sqM) Glucose 109 H (74-99) mg/dL Plasma Lactic Acid John 1.5 (0.7-2.0) mmol/L Calcium 8.8 (8.4-10.2) mg/dL Total Bilirubin 1.0 (0.2-1.3) mg/dL AST 52 (17-59) U/L ALT 36 (4-49) U/L Alkaline Phosphatase 60 (38-126) U/L C-Reactive Protein 13.4 H (<10.0) mg/L Total Protein 6.6 (6.3-8.2) g/dL Albumin 3.5 (3.5-5.0) g/dL 09/22/20 Range/Units 12:55 WBC 2.9 L (3.8-10.6) k/uL RBC 3.78 L (4.30-5.90) m/uL Hgb 11.0 L (13.0-17.5) gm/dL Hct 33.8 L (39.0-53.0) % MCV 89.6 (80.0-100.0) fL MCH 29.2 (25.0-35.0) pg MCHC 32.6 (31.0-37.0) g/dL RDW 15.3 (11.5-15.5) % Plt Count 125 L (150-450) k/uL MPV 8.7 Neutrophils % 58 % Lymphocytes % 28 % Monocytes % 9 % Eosinophils % 1 % Basophils % 0 % Neutrophils # 1.7 (1.3-7.7) k/uL Lymphocytes # 0.8 L (1.0-4.8) k/uL Monocytes # 0.3 (0-1.0) k/uL Eosinophils # 0.0 (0-0.7) k/uL Basophils # 0.0 (0-0.2) k/uL Hypochromasia Slight PT (9.0-12.0) sec INR (<1.2) APTT (22.0-30.0) sec Sodium (137-145) mmol/L Potassium (3.5-5.1) mmol/L Chloride (98-107) mmol/L Carbon Dioxide (22-30) mmol/L Anion Gap mmol/L BUN (9-20) mg/dL Creatinine (0.66-1.25) mg/dL Est GFR (CKD-EPI)AfAm (>60 ml/min/1.73 sqM) Est GFR (CKD-EPI)NonAf (>60 ml/min/1.73 sqM) Glucose (74-99) mg/dL Plasma Lactic Acid John (0.7-2.0) mmol/L Calcium (8.4-10.2) mg/dL Total Bilirubin (0.2-1.3) mg/dL AST (17-59) U/L ALT (4-49) U/L Alkaline Phosphatase (38-126) U/L C-Reactive Protein (<10.0) mg/L Total Protein (6.3-8.2) g/dL Albumin (3.5-5.0) g/dL Disposition Clinical Impression: Diabetic foot ulcer Disposition: ADMITTED IP TO THIS HOSP Condition: Fair Referrals: Joycelyn Tovar DO [Primary Care Provider] - 1-2 days
[2020-09-22] MEDS ORDERED: VANCOMYCIN IV PER PHARMACY 1 EACH MISC MISCELLANE PRN (12:57)
[2020-09-22] MEDS ORDERED: PIPERACILLIN-TAZOBACTAM 3.375 GM in SODIUM CHLORIDE 0.9% 100 ML IVPB STA (12:57)
[2020-09-22] MEDS ORDERED: VANCOMYCIN 1,750 MG in SODIUM CHLORIDE 0.9% 500 ML 500 ML IVPB STA (13:01)
[2020-09-22 13:17] LABS: Albumin 3.5 g/dL (3.5-5.0); C Reactive Protein 13.4 mg/L (<10.0); Calcium 8.8 mg/dL (8.4-10.2); Potassium 4.1 mmol/L (3.5-5.1); Total Protein 6.6 g/dL (6.3-8.2)
[2020-09-22 13:22] LABS: Prothrombin Time 20.1 sec (9.0-12.0)
[2020-09-22 13:27] LABS: Basophils % (A) 0 %; Eosinophils % (A) 1 %; HCT 33.8 % (39.0-53.0); Hypochromasia Slight; Lymphocytes # (A) 0.8 k/uL (1.0-4.8); Lymphocytes % (A) 28 %; MCH 29.2 pg (25.0-35.0); MCHC 32.6 g/dL (31.0-37.0); MCV 89.6 fL (80.0-100.0); Mean Platelet Volume 8.7; Monocytes # (A) 0.3 k/uL (0-1.0); Monocytes % (A) 9 %; Neutrophils # (A) 1.7 k/uL (1.3-7.7); Neutrophils % (A) 58 %; Platelet Count 125 k/uL (150-450); RBC 3.78 m/uL (4.30-5.90); RDW 15.3 % (11.5-15.5); WBC 2.9 k/uL (3.8-10.6)
--- NOTE | 2020-09-22 13:34 | XR ---
EXAMINATION TYPE: XR toes RT DATE OF EXAM: 09/22/2020 COMPARISON: NONE HISTORY: Infection right second digit with swelling TECHNIQUE: 4 views submitted FINDINGS: Arthropathy of the MTP of the first and second digits. No acute fracture. No destructive ch francisco. Soft tissue edema suspected. IMPRESSION: Soft tissue swelling with no diagnostic evidence of osteomyelitis.
[2020-09-22] MEDS ORDERED: NALOXONE 0.4 MG/ML 1 ML VIAL IV PRN (13:37)
[2020-09-22] MEDS ORDERED: ONDANSETRON 4 MG/2 ML VIAL IVP PRN (13:37)
[2020-09-22] MEDS ORDERED: CYCLOBENZAPRINE 10 MG TAB PO PRN (13:39)
--- NOTE | 2020-09-22 14:27 | P.HPIM ---
History of Present Illness This is a pleasant 70 years old male with past medical history of diabetes mellitus, hypertension, pneumonia, atrial fibrillation on warfarin status post permanent pacemaker, anxiety and depression. He is a patient of Dr. Guy Beltrán. 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 Muller for diabetic foot ulcer Of the right toe. Patient states that was slowly progressive since 07/2020, his right toe looks swollen, right tender and warm with superficial ulcer on the top of the middle with surrounding cellulitis extending into the distal part of the forefoot. Also he has bilateral leg swelling He denies chest pain or dyspnea, no abdominal pain, no change in urine or bowel habits Vitals are stable. Labs showing leukopenia of 2.9K, hemoglobin is 11. Platelets are 120 5K. INR is 2.0. Electrolytes sodium and potassium are surjit l. Creatinine is slightly elevated at 1.36 which is at baseline Lactic acid is normal at 1.5, C-reactive protein is slightly elevated at 13.4. Total x-ray showing soft tissue swelling with no diagnostic evidence of osteomyelitis In the emergency room patient was given 1 dose of Zosyn and started on IV vancomycin. Review of Systems CONSTITUTIONAL: No fever, no malaise, no fatigue. HEENT: No recent visual problems or hearing problems. Denied any sore throat. CARDIOVASCULAR: No orthopnea, PND, no palpitations, no syncope. PULMONARY: No shortness of breath, no cough, no hemoptysis. GASTROINTESTINAL: No diarrhea, no nausea, no vomiting, no abdominal pain. Nor moactive bowel sounds. NEUROLOGICAL: No headaches, no weakness, no numbness. HEMATOLOGICAL: Denies any bleeding or petechiae. GENITOURINARY: Denies any burning micturition, frequency, or urgency. MUSCULOSKELETAL/RHEUMATOLOGICAL: Denies any joint pain, swelling, or any muscle pain. ENDOCRINE: Denies any polyuria or polydipsia. Past Medical History Past Medical History: Atrial Fibrillation, Diabetes Mellitus, Hypertension, Pneumonia, Pneumonia History of Any Multi-Drug Resistant Organisms: None Reported Past Surgical History: Heart Catheterization, Pacemaker, Pacemaker Additional Past Surgical History / Comment(s): HYPERTENSION Past Anesthesia/Blood Transfusion Reactions: No Reported Reaction Type of Cardiac Device: Permanent Pacemaker, Unknown Device Placement Date:: 2012 Past Psychological History: Anxiety, Depression Smoking Status: Never smoker Past Alcohol Use History: None Reported Past Drug Use History: None Reported - Past Family History Mother Family Medical History: Cancer Additional Family Medical History / Comment(s): kidney cancer Medications and Allergies Home Medications Medication Instructions Recorded Confirmed Type Tamsulosin HCl 0.4 mg PO DAILY 01/27/14 09/22/20 History Isosorbide Mononitrate [Imdur] 60 mg PO DAILY 05/30/14 09/22/20 History Nitroglycerin Sl Tabs [Nitrostat] 0.4 mg SUBLINGUAL Q5M PRN 05/30/14 09/22/20 History allopurinoL [Zyloprim] 150 mg PO DAILY 08/04/15 09/22/20 History Aspirin EC [Ecotrin Low Dose] 81 mg PO DAILY 08/28/16 09/22/20 History calcitrioL [Rocaltrol] 0.25 mcg PO MOTUWETH 08/28/16 09/22/20 History DULoxetine HCL [Cymbalta] 60 mg PO BID 07/07/20 09/22/20 History Ergocalciferol (Vitamin D2) 50,000 unit PO Q30D 07/07/20 09/22/20 History [Drisdol (50,000 Iu)] Ezetimibe [Zetia] 10 mg PO DAILY 07/07/20 09/22/20 History Ferrous Sulfate [Feosol] 325 mg PO DAILY 07/07/20 09/22/20 History Insulin NPH Human Isophane 20 units SQ W/BRKFST 07/07/20 09/22/20 History [NovoLIN N] Metoprolol Succinate (ER) [Toprol 100 mg PO DAILY 07/07/20 09/22/20 History XL] Rosuvastatin Calcium [Crestor] 40 mg PO DAILY 07/07/20 09/22/20 History Cyclobenzaprine [Flexeril] 10 mg PO HS PRN #0 08/09/20 09/22/20 Rx Warfarin [Coumadin] 5 mg PO DAILY #7 tab 08/09/20 09/22/20 Rx Furosemide [Lasix] 40 mg PO DAILY 09/20/20 09/22/20 History Insulin NPH Human Isophane 30 units SQ W/SUPPER 09/20/20 09/22/20 History [NovoLIN N] Potassium Chloride ER [K-Dur 10] 10 meq PO DAILY 09/20/20 09/22/20 History Allergies Allergy/AdvReac Type Severity Reaction Status Date / Time No Known Allergies Allergy Verified 09/22/20 12:02 Physical Exam Vitals: Vital Signs Temp Pulse Resp BP Pulse Ox 09/22/20 12:25 66 18 147/94 97 09/22/20 11:03 98.6 F 62 18 130/86 100 Intake and Output 09/21/20 09/22/20 09/22/20 22:59 06:59 14:59 Other: Weight 99.79 kg GENERAL: The patient is alert and oriented x3, not in any acute distress. Well developed, well nourished. HEENT: Pupils are round and equally reacting to light. EOMI. No scleral icterus. No conjunctival pallor. Normocephalic, atraumatic. No pharyngeal erythema. No thyromegaly. CARDIOVASCULAR: S1 and S2 present. No murmurs, rubs, or gallops. PULMONARY: Chest is clear to auscultation, no wheezing or crackles. ABDOMEN: Soft, nontender, nondistended, normoactive bowel sounds. No palpable organomegaly. MUSCULOSKELETAL: No joint swelling or deformity. EXTREMITIES: No cyanosis, clubbing, or pedal edema. Second toe is swollen, tender, warm with surrounding cellulitis into the distal part of the foot with superficial ulcer on the top of the second phalanx NEUROLOGICAL: Gross neurological examination did not reveal any focal deficits. SKIN: No rashes. No petechiae Results CBC & Chem 7: 09/22/20 12:55 09/22/20 12:25 Labs: Abnormal Lab Results - Last 24 Hours (Table) 09/22/20 09/22/20 09/22/20 Range/Units 12:25 12:25 12:55 WBC 2.9 L (3.8-10.6) k/uL RBC 3.78 L (4.30-5.90) m/uL Hgb 11.0 L (13.0-17.5) gm/dL Hct 33.8 L (39.0-53.0) % Plt Count 125 L (150-450) k/uL Lymphocytes # 0.8 L (1.0-4.8) k/uL PT 20.1 H (9.0-12.0) sec INR 2.0 H (<1.2) Creatinine 1.36 H (0.66-1.25) mg/dL Glucose 109 H (74-99) mg/dL C-Reactive Protein 13.4 H (<10.0) mg/L Assessment and Plan Assessment: Diabetic foot ulcer with surrounding cellulitis of the right second toe Bilateral leg swelling Diabetes mellitus Chronic kidney disease, stage III, 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 Continue with antibiotic as per infectious disease team. We'll start the patient on Unasyn. Vascular surgery. Labs and medication were reviewed.. Continue same treatment. Continue with symptomatic treatment. Resume home medication. Monitor lytes and vitals. DVT and GI prophylaxis. Further recommendations depends on the clinical course of the patient DVT prophylaxis: On warfarin GI Prophylaxis: Pepcid PT/OT: Pending Prognosis is guarded
[2020-09-22 18:42] LABS: Glucose,Whole Blood 223 mg/dL (75-99)
[2020-09-22] MEDS: INSULIN NPH 300 UNIT/3 ML VIAL SQ SCH (20:19)
[2020-09-22] MEDS: FAMOTIDINE 20 MG/2 ML VIAL IV SCH (20:20)
[2020-09-22] MEDS: DULoxetine HCL 60 MG CAPSULE.DR PO SCH (20:20)
[2020-09-22] MEDS: AMPICILLIN-SULBACTAM 3 GM in SODIUM CHLORIDE 0.9% 100 ML IVPB SCH (20:21)
[2020-09-22 20:38] LABS: Glucose,Whole Blood 579 mg/dL (75-99)
[2020-09-22 20:39] LABS: Glucose,Whole Blood 134 mg/dL (75-99)
[2020-09-22] MEDS: WARFARIN 5 MG TAB PO SCH (21:54)
--- NOTE | 2020-09-22 23:32 | CONS ---
CONSULTATION DATE OF SERVICE: 09/22/2020 REASON FOR CONSULTATION: Right diabetic foot infection. HISTORY OF PRESENT ILLNESS: The patient is a 70-year-old male with a past medical history significant for diabetes mellitus. Apparently the patient developed an ulcer on the dorsum aspect of his right second toe which the patient has had since July of 2020. He has been following with Dr. Muller in the [facility]. The patient has been treated with multiple different modalities without any improvement. When he was seen in the [facility], he was noticed to have swelling and redness off the second toe extending to the dorsum aspect of the right foot with concern for cellulitis. The patient was sent to the ER for further management. The patient has been complaining of pain to the right second toe to be more of a dull aching, at times sharp, intensity 6 to 7 out of 10, and no radiation. The patient's wound is currently covered with a scab. The patient mentioned some drainage, but no drainage was noticed at the time of evaluation. The patient denies any high-grade fever or chills. No nausea, no vomiting, no abdominal pain or any diarrhea. The patient did have x-rays of the right foot which did show some soft tissue swelling but no evidence of any bony changes. The patient was given a dose of Zosyn and vancomycin and admitted to the hospital. Unasyn was arranged. Infectious Disease was consulted further management of antibiotic therapy. On admission to the hospital, the patient has been afebrile and the patient did have slight leukopenia. Creatinine was slightly elevated at 1.36. REVIEW OF SYSTEMS: Positive points have been mentioned in HPI. Rest of the systems are negative. PAST MEDICAL HISTORY: Atrial fibrillation, diabetes mellitus, hypertension, pneumonia and diabetic foot infection. PAST SURGICAL HISTORY: Heart catheterization, pacemaker placement. SOCIAL HISTORY: No history of smoking, drinking or drug use. FAMILY HISTORY: Mother with history of kidney cancer. ALLERGIES: NO KNOWN DRUG ALLERGIES. MEDICATIONS: The patient is currently on [place], Zyloprim, Unasyn 3 grams q.6 hours, Lipitor, Flexeril, Cymbalta, Pepcid, iron sulfate, Lasix, Humulin N, Imdur, Toprol-XL, Coumadin and vancomycin, Pharmacy to dose. PHYSICAL EXAMINATION: Blood pressure 160/88 with a pulse of 80, temperature 98.6. He is 96% on room air. General description is an elderly male lying in bed in no distress. No tachypnea or accessory muscle of respiration use. HEENT: Examination shows slight pallor. No scleral icterus. Oral mucous membrane is dry. NECK: Trachea is central. No thyromegaly. LUNGS: Unlabored breathing. Clear to auscultation anteriorly. No wheeze or crackle. HEART: S1, S2. Regular rate and rhythm. ABDOMEN: Soft. No tenderness. No guarding or rigidity. EXTREMITIES: No edema of the feet. Examination of the right foot second toe shows a scab on the top of the wound with some swelling and redness extending to the dorsal aspect of the right foot, currently with no fluctuation or any drainage. Neurologically the patient is awake, alert, oriented x3. Mood and affect normal. LABS: Hemoglobin is 11, white count 2.9. INR is 2.0, BUN of 19, creatinine is 1.36, and liver enzymes are normal. DIAGNOSTIC IMPRESSION AND PLAN: Patient with right diabetic foot infection in this patient who did have evidence of right foot cellulitis with an ulcer on the dorsal aspect of the right second toe likely the initiating factor. However, that is currently covered with a scab. We will need to cover for the Gram-positive skin misa and the polymicrobial pathogen associated with diabetic foot infection. Clinically doubt MRSA or a Gram-negative infection. PLAN: 1. We will continue the patient on Unasyn 3 grams q.6 hours. 2. Discontinue vancomycin to decrease the risk of nephrotoxicity, as his creatinine is elevated. 3. Will follow his clinical condition and culture to further adjust medication if needed. Thank you for this consultation. Will follow this patient along with you. MMODL / IJN: [id number] /
[2020-09-23] MEDS: AMPICILLIN-SULBACTAM 3 GM in SODIUM CHLORIDE 0.9% 100 ML IVPB SCH ×4 (00:33→17:40)
[2020-09-23] MEDS: HYDROcodone/APAP 5-325MG 1 EACH TAB PO PRN ×3 (06:00→22:01)
[2020-09-23] MEDS ORDERED: VANCOMYCIN 1,750 MG in SODIUM CHLORIDE 0.9% 500 ML 500 ML IVPB SCH (06:00)
[2020-09-23 07:09] LABS: Glucose,Whole Blood 126 mg/dL (75-99)
[2020-09-23 08:49] LABS: INR 2.28 (0.90-1.11); Prothrombin Time 23.2 sec (9.9-11.9)
[2020-09-23] MEDS: POTASSIUM CHLORIDE ER 10 MEQ TAB.ER.PRT PO SCH (08:56)
[2020-09-23] MEDS: allopurinoL 300 MG TAB PO SCH (08:56)
[2020-09-23] MEDS: FERROUS SULFATE 325 MG TAB PO SCH (08:57)
[2020-09-23] MEDS: FUROSEMIDE 40 MG TAB PO SCH (08:57)
[2020-09-23] MEDS: TAMSULOSIN 0.4 MG CAP.ER.24H PO SCH (08:57)
[2020-09-23] MEDS: FAMOTIDINE 20 MG/2 ML VIAL IV SCH ×2 (08:57→21:53)
[2020-09-23] MEDS: ATORVASTATIN 80 MG TAB PO SCH (08:57)
[2020-09-23] MEDS: DULoxetine HCL 60 MG CAPSULE.DR PO SCH ×2 (08:57→21:57)
[2020-09-23] MEDS: METOPROLOL SUCCINATE (ER) 100 MG TAB.ER.24H PO SCH (08:58)
[2020-09-23] MEDS: ISOSORBIDE MONONITRATE ER 60 MG TAB.ER.24H PO SCH (08:58)
[2020-09-23] MEDS: INSULIN NPH 300 UNIT/3 ML VIAL SQ SCH ×2 (08:59→17:41)
--- NOTE | 2020-09-23 09:29 | P.GSCN ---
History of Present Illness History of present illness: 70-year-old diabetic male patient has been admitted with history of diabetes pneumonia history of atrial fibrillation on Coumadin patient noticed some redness on the dorsal suspect the right foot and there is scab formation noted on the second toe patient was seen in the wound clinic and was sent for IV antibiotic Neck examination neck is supple no bruit appreciated Chest few crackles the lung bases Abdomen soft nontender Vascular femorals are 1+ bilateral right foot dorsal suspect the foot cellulitis has improved with IV antibiotic there is scab formation noted on the right foot second toe patient is responding to antibiotic no surgical indication at this point follow with you Past Medical History Past Medical History: Atrial Fibrillation, Heart Failure, CVA/TIA, Diabetes Mellitus, Hyperlipidemia, Hypertension, Osteoarthritis (OA), Pneumonia, Pneumonia, Prostate Disorder, Renal Disease Additional Past Medical History / Comment(s): Pt recently admitted to [facility] on 08/24/20 with UTI and pneumonia. Pt states a couple days ago he was in ER for tongue bleed/difficult to control. Other hx: IDDM type II, neuropathy bilateral legs/feet, chronic kidney disease stage III/has had temporary dialysis, anemia, pneumonia with sepsis, TIA, BPH. History of Any Multi-Drug Resistant Organisms: None Reported Past Surgical History: Cardiac Ablation, Heart Catheterization, Pacemaker, Pacemaker Additional Past Surgical History / Comment(s): SANDRA, cardiac ablations x2, pacemaker, L eye surgery for wandering eye, bilateral cataract removals, circumcism, colonoscopy Past Anesthesia/Blood Transfusion Reactions: No Reported Reaction Type of Cardiac Device: Permanent Pacemaker Device Placement Date:: 2012 Smoking Status: Former smoker - Past Family History Mother Family Medical History: Vascular Disorder Additional Family Medical History / Comment(s): Mother had caratid artery disease. She lived to be 100 yrs old. Father Family Medical History: Myocardial Infarction (CA) Additional Family Medical History / Comment(s): Father of a CA at the age of 60yrs. Medications and Allergies Home Medications Medication Instructions Recorded Confirmed Type Tamsulosin HCl 0.4 mg PO DAILY 01/27/14 09/22/20 History Isosorbide Mononitrate [Imdur] 60 mg PO DAILY 05/30/14 09/22/20 History Nitroglycerin Sl Tabs [Nitrostat] 0.4 mg SUBLINGUAL Q5M PRN 05/30/14 09/22/20 History allopurinoL [Zyloprim] 150 mg PO DAILY 08/04/15 09/22/20 History Aspirin EC [Ecotrin Low Dose] 81 mg PO DAILY 08/28/16 09/22/20 History calcitrioL [Rocaltrol] 0.25 mcg PO MOTUWETH 08/28/16 09/22/20 History DULoxetine HCL [Cymbalta] 60 mg PO BID 07/07/20 09/22/20 History Ergocalciferol (Vitamin D2) 50,000 unit PO Q30D 07/07/20 09/22/20 History [Drisdol (50,000 Iu)] Ezetimibe [Zetia] 10 mg PO DAILY 07/07/20 09/22/20 History Ferrous Sulfate [Feosol] 325 mg PO DAILY 07/07/20 09/22/20 History Insulin NPH Human Isophane 20 units SQ W/BRKFST 07/07/20 09/22/20 History [NovoLIN N] Metoprolol Succinate (ER) [Toprol 100 mg PO DAILY 07/07/20 09/22/20 History XL] Rosuvastatin Calcium [Crestor] 40 mg PO DAILY 07/07/20 09/22/20 History Cyclobenzaprine [Flexeril] 10 mg PO HS PRN #0 08/09/20 09/22/20 Rx Warfarin [Coumadin] 5 mg PO DAILY #7 tab 08/09/20 09/22/20 Rx Furosemide [Lasix] 40 mg PO DAILY 09/20/20 09/22/20 History Insulin NPH Human Isophane 30 units SQ W/SUPPER 09/20/20 09/22/20 History [NovoLIN N] Potassium Chloride ER [K-Dur 10] 10 meq PO DAILY 09/20/20 09/22/20 History Allergies Allergy/AdvReac Type Severity Reaction Status Date / Time No Known Allergies Allergy Verified 09/22/20 12:02 Surgical - Exam Vital Signs Temp Pulse Resp BP Pulse Ox 98.6 F 62 18 130/86 100 09/22/20 11:03 09/22/20 11:03 09/22/20 11:03 09/22/20 11:03 09/22/20 11:03 Results - Labs 09/22/20 12:55 09/22/20 12:25 Abnormal Lab Results - Last 24 Hours (Table) 09/22/20 09/22/20 09/22/20 Range/Units 12:25 12:25 12:55 WBC 2.9 L (3.8-10.6) k/uL RBC 3.78 L (4.30-5.90) m/uL Hgb 11.0 L (13.0-17.5) gm/dL Hct 33.8 L (39.0-53.0) % Plt Count 125 L (150-450) k/uL Lymphocytes # 0.8 L (1.0-4.8) k/uL PT 20.1 H (9.0-12.0) sec INR 2.0 H (<1.2) Creatinine 1.36 H (0.66-1.25) mg/dL Glucose 109 H (74-99) mg/dL POC Glucose (mg/dL) (75-99) mg/dL C-Reactive Protein 13.4 H (<10.0) mg/L 09/22/20 09/22/20 09/22/20 Range/Units 18:31 20:31 20:32 WBC (3.8-10.6) k/uL RBC (4.30-5.90) m/uL Hgb (13.0-17.5) gm/dL Hct (39.0-53.0) % Plt Count (150-450) k/uL Lymphocytes # (1.0-4.8) k/uL PT (9.0-12.0) sec INR (<1.2) Creatinine (0.66-1.25) mg/dL Glucose (74-99) mg/dL POC Glucose (mg/dL) 223 H 579 H 134 H (75-99) mg/dL C-Reactive Protein (<10.0) mg/L 09/23/20 09/23/20 Range/Units 05:53 07:06 WBC (3.8-10.6) k/uL RBC (4.30-5.90) m/uL Hgb (13.0-17.5) gm/dL Hct (39.0-53.0) % Plt Count (150-450) k/uL Lymphocytes # (1.0-4.8) k/uL PT 23.2 H (9.0-12.0) sec INR 2.28 H (<1.2) Creatinine (0.66-1.25) mg/dL Glucose (74-99) mg/dL POC Glucose (mg/dL) 126 H (75-99) mg/dL C-Reactive Protein (<10.0) mg/L Diabetes panel 09/22/20 Range/Units 12:25 Sodium 140 (137-145) mmol/L Potassium 4.1 (3.5-5.1) mmol/L Chloride 107 (98-107) mmol/L Carbon Dioxide 26 (22-30) mmol/L BUN 19 (9-20) mg/dL Creatinine 1.36 H (0.66-1.25) mg/dL Glucose 109 H (74-99) mg/dL Calcium 8.8 (8.4-10.2) mg/dL AST 52 (17-59) U/L ALT 36 (4-49) U/L Alkaline Phosphatase 60 (38-126) U/L Total Protein 6.6 (6.3-8.2) g/dL Albumin 3.5 (3.5-5.0) g/dL Calcium panel 09/22/20 Range/Units 12:25 Calcium 8.8 (8.4-10.2) mg/dL Albumin 3.5 (3.5-5.0) g/dL Pituitary panel 09/22/20 Range/Units 12:25 Sodium 140 (137-145) mmol/L Potassium 4.1 (3.5-5.1) mmol/L Chloride 107 (98-107) mmol/L Carbon Dioxide 26 (22-30) mmol/L BUN 19 (9-20) mg/dL Creatinine 1.36 H (0.66-1.25) mg/dL Glucose 109 H (74-99) mg/dL Calcium 8.8 (8.4-10.2) mg/dL Adrenal panel 09/22/20 Range/Units 12:25 Sodium 140 (137-145) mmol/L Potassium 4.1 (3.5-5.1) mmol/L Chloride 107 (98-107) mmol/L Carbon Dioxide 26 (22-30) mmol/L BUN 19 (9-20) mg/dL Creatinine 1.36 H (0.66-1.25) mg/dL Glucose 109 H (74-99) mg/dL Calcium 8.8 (8.4-10.2) mg/dL Total Bilirubin 1.0 (0.2-1.3) mg/dL AST 52 (17-59) U/L ALT 36 (4-49) U/L Alkaline Phosphatase 60 (38-126) U/L Total Protein 6.6 (6.3-8.2) g/dL Albumin 3.5 (3.5-5.0) g/dL
[2020-09-23 09:35] LABS: African American GFR (CKD) 64.1 (60.0-200.0); Non-African American GFR(CKD) 55.3 (60.0-200.0)
--- NOTE | 2020-09-23 09:46 | P.PN ---
Subjective This is a pleasant 70 years old male with past medical history of diabetes mellitus, hypertension, pneumonia, atrial fibrillation on warfarin status post permanent pacemaker, anxiety and depression. He is a patient of Dr. Guy Beltrán. He was sent by his mercury purifier Dr. Muller for diabetic foot ulcer Of the right toe. Patient states that was slowly progressive since 07/2020, his right toe looks swollen, right tender and warm with superficial ulcer on the top of the middle with surrounding cellulitis extending into the distal part of the f orefoot. Also he has bilateral leg swelling He denies chest pain or dyspnea, no abdominal pain, no change in urine or bowel habits Vitals are stable. Labs showing leukopenia of 2.9K, hemoglobin is 11. Platelets are 120 5K. INR is 2.0. Electrolytes sodium and potassium are normal. Creatinine is slightly elevated at 1.36 which is at baseline Lactic acid is normal at 1.5, C-reactive protein is slightly elevated at 13.4. Total x-ray showing soft tissue swelling with no diagnostic evidence of osteomyelitis In the emergency room patient was given 1 dose of Zosyn and started on IV vancomycin. 09/23/2020 Patient clinically stable. He was admitted for right toe swelling and inflammation, highly suspicious for infection. I discussed the case with Dr. Valentine today, no need for any surgical intervention currently. Continue with Unasyn and follow-up recommendation by ID team Objective - Vital Signs Vital signs: Vital Signs Temp 98.3 F 09/23/20 05:11 Pulse 62 09/23/20 05:11 Resp 18 09/23/20 05:11 BP 142/85 09/23/20 05:11 Pulse Ox 92 L 09/23/20 05:11 Intake & Output 09/22/20 09/23/20 09/23/20 18:59 06:59 18:59 Intake Total 375 Output Total 0 Balance 375 Weight 99.79 kg Intake: Oral 375 Output: Stool 0 Other: Voiding Method Toilet Urinal # Voids 2 # Bowel Movements 0 - Exam GENERAL: The patient is alert and oriented x3, not in any acute distress. Well developed, well nourished. HEENT: Pupils are round and equally reacting to light. EOMI. No scleral icterus. No conjunctival pallor. Normocephalic, atraumatic. No pharyngeal erythema. No thyromegaly. CARDIOVASCULAR: S1 and S2 present. No murmurs, rubs, or gallops. PULMONARY: Chest is clear to auscultation, no wheezing or crackles. ABDOMEN: Soft, nontender, nondistended, normoactive bowel sounds. No palpable organomegaly. MUSCULOSKELETAL: No joint swelling or deformity. -EXTREMITIES: No cyanosis, clubbing, or pedal edema. Second toe is swollen, tender, warm with surrounding cellulitis into the distal part of the foot with superficial ulcer on the top of the second phalanx NEUROLOGICAL: Gross neurological examination did not reveal any focal deficits. SKIN: No rashes. No petechiae - Labs CBC & Chem 7: 09/22/20 12:55 09/23/20 05:53 Labs: Abnormal Lab Results - Last 24 Hours (Table) 09/22/20 09/22/20 09/22/20 Range/Units 12:25 12:25 12:55 WBC 2.9 L (3.8-10.6) k/uL RBC 3.78 L (4.30-5.90) m/uL Hgb 11.0 L (13.0-17.5) gm/dL Hct 33.8 L (39.0-53.0) % Plt Count 125 L (150-450) k/uL Lymphocytes # 0.8 L (1.0-4.8) k/uL PT 20.1 H (9.0-12.0) sec INR 2.0 H (<1.2) Creatinine 1.36 H (0.66-1.25) mg/dL Est GFR (CKD-EPI)NonAf (60.0-200.0) Glucose 109 H (74-99) mg/dL POC Glucose (mg/dL) (75-99) mg/dL C-Reactive Protein 13.4 H (<10.0) mg/L 09/22/20 09/22/20 09/22/20 Range/Units 18:31 20:31 20:32 WBC (3.8-10.6) k/uL RBC (4.30-5.90) m/uL Hgb (13.0-17.5) gm/dL Hct (39.0-53.0) % Plt Count (150-450) k/uL Lymphocytes # (1.0-4.8) k/uL PT (9.0-12.0) sec INR (<1.2) Creatinine (0.66-1.25) mg/dL Est GFR (CKD-EPI)NonAf (60.0-200.0) Glucose (74-99) mg/dL POC Glucose (mg/dL) 223 H 579 H 134 H (75-99) mg/dL C-Reactive Protein (<10.0) mg/L 09/23/20 09/23/20 09/23/20 Range/Units 05:53 05:53 07:06 WBC (3.8-10.6) k/uL RBC (4.30-5.90) m/uL Hgb (13.0-17.5) gm/dL Hct (39.0-53.0) % Plt Count (150-450) k/uL Lymphocytes # (1.0-4.8) k/uL PT 23.2 H (9.0-12.0) sec INR 2.28 H (<1.2) Creatinine (0.66-1.25) mg/dL Est GFR (CKD-EPI)NonAf 55.3 L (60.0-200.0) Glucose (74-99) mg/dL POC Glucose (mg/dL) 126 H (75-99) mg/dL C-Reactive Protein (<10.0) mg/L Assessment and Plan Assessment: Diabetic foot ulcer with surrounding cellulitis of the right second toe Bilateral leg swelling Diabetes mellitus Chronic kidney disease, stage III, 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 Continue with antibiotic as per infectious disease team. We'll start the patient on Unasyn. Vascular surgery. Labs and medication were reviewed.. Continue same treatment. Continue with symptomatic treatment. Resume home medication. Monitor lytes and vitals. DVT and GI prophylaxis. Further recommendations depends on the clinical course of the patient DVT prophylaxis: On warfarin GI Prophylaxis: Pepcid PT/OT: Pending Prognosis is guarded
[2020-09-23 12:29] LABS: Glucose,Whole Blood 134 mg/dL (75-99)
[2020-09-23 13:48] VITALS: BMI 33.4
[2020-09-23 17:08] LABS: Glucose,Whole Blood 139 mg/dL (75-99)
[2020-09-23] MEDS: WARFARIN 5 MG TAB PO SCH (18:51)
--- NOTE | 2020-09-23 20:03 | PN ---
PROGRESS NOTE DATE OF SERVICE: 09/23/2020 REASON FOR FOLLOWUP: Right second toe and foot diabetic foot infection with cellulitis The patient is currently afebrile. Patient is breathing comfortably. Overall pain and discomfort to the right foot is decreased. Swelling, and redness decreased. Currently no open wound or any drainage. No chest pain or cough. No abdominal pain. No diarrhea with antibiotic therapy. PHYSICAL EXAMINATION: Blood pressure 129/77, pulse of 59. Temperature is 97.8. He is 97% on 2 L nasal cannula. General description is an elderly male lying in bed in no distress. Respiratory system: Unlabored breathing. Clear to auscultation anteriorly. Heart S1, S2. Regular rate and rhythm. Abdomen soft, no tenderness. Right foot swelling is slightly decreased. No open wound or any drainage. LABS: INR is 2.28, creatinine 1.3. DIAGNOSTIC IMPRESSION AND PLAN: Patient with right second toe diabetic foot wound with secondary cellulitis. Patient has shown clinical improvement. Patient to continue with Unasyn and monitor clinical course closely. MMODL / IJN: [id number] /
[2020-09-23 20:59] LABS: Glucose,Whole Blood 103 mg/dL (75-99)
[2020-09-24] MEDS: AMPICILLIN-SULBACTAM 3 GM in SODIUM CHLORIDE 0.9% 100 ML IVPB SCH ×5 (00:15→23:51)
[2020-09-24 07:15] LABS: Glucose,Whole Blood 70 mg/dL (75-99)
[2020-09-24 09:02] LABS: African American GFR (CKD) 58.6 (60.0-200.0); Non-African American GFR(CKD) 50.5 (60.0-200.0)
--- NOTE | 2020-09-24 09:30 | P.PN ---
Subjective This is a pleasant 70 years old male with past medical history of diabetes mellitus, hypertension, pneumonia, atrial fibrillation on warfarin status post permanent pacemaker, anxiety and depression. He is a patient of Dr. Guy Beltrán. He was sent by his quality control lab tech Dr. Muller for diabetic foot ulcer Of the right toe. Patient states that was slowly progressive since 07/2020, his right toe looks swollen, right tender and warm with superficial ulcer on the top of the middle with surrounding cellulitis extending into the distal part of the f orefoot. Also he has bilateral leg swelling He denies chest pain or dyspnea, no abdominal pain, no change in urine or bowel habits Vitals are stable. Labs showing leukopenia of 2.9K, hemoglobin is 11. Platelets are 120 5K. INR is 2.0. Electrolytes sodium and potassium are normal. Creatinine is slightly elevated at 1.36 which is at baseline Lactic acid is normal at 1.5, C-reactive protein is slightly elevated at 13.4. Total x-ray showing soft tissue swelling with no diagnostic evidence of osteomyelitis In the emergency room patient was given 1 dose of Zosyn and started on IV vancomycin. 09/23/2020 Patient clinically stable. He was admitted for right toe swelling and inflammation, highly suspicious for infection. I discussed the case with Dr. Valentine today, no need for any surgical intervention currently. Continue with Unasyn and follow-up recommendation by ID team 09/24/2020 His right second toe is significantly improving with less swelling, tenderness and erythema. He remains on Unasyn Infectious disease and vascular surgery on the case Objective - Vital Signs Vital signs: Vital Signs Temp 97.7 F 09/23/20 20:48 Pulse 64 09/23/20 20:48 Resp 17 09/23/20 20:48 BP 129/78 09/23/20 20:48 Pulse Ox 99 09/23/20 20:48 Intake & Output 09/23/20 09/24/20 09/24/20 18:59 06:59 18:59 Output Total 1050 900 Balance -1050 -900 Weight 99.79 kg Output: Urine 1050 900 Stool 0 0 Other: Voiding Method Toilet Toilet Urinal Urinal # Voids 1 - Exam GENERAL: The patient is alert and oriented x3, not in any acute distress. Well developed, well nourished. HEENT: Pupils are round and equally reacting to light. EOMI. No scleral icterus. No conjunctival pallor. Normocephalic, atraumatic. No pharyngeal erythema. No thyromegaly. CARDIOVASCULAR: S1 and S2 present. No murmurs, rubs, or gallops. PULMONARY: Chest is clear to auscultation, no wheezing or crackles. ABDOMEN: Soft, nontender, nondistended, normoactive bowel sounds. No palpable organomegaly. MUSCULOSKELETAL: No joint swelling or deformity. -EXTREMITIES: No cyanosis, clubbing, or pedal edema. Second toe is swollen, tender, warm with surrounding cellulitis into the distal part of the foot with superficial ulcer on the top of the second phalanx NEUROLOGICAL: Gross neurological examination did not reveal any focal deficits. SKIN: No rashes. No petechiae - Labs CBC & Chem 7: 09/22/20 12:55 09/24/20 06:19 Labs: Abnormal Lab Results - Last 24 Hours (Table) 09/23/20 09/23/20 09/23/20 Range/Units 05:53 12:16 17:01 Est GFR (CKD-EPI)AfAm (60.0-200.0) Est GFR (CKD-EPI)NonAf 55.3 L (60.0-200.0) POC Glucose (mg/dL) 134 H 139 H (75-99) mg/dL 09/23/20 09/24/20 09/24/20 Range/Units 20:44 06:19 07:11 Est GFR (CKD-EPI)AfAm 58.6 L (60.0-200.0) Est GFR (CKD-EPI)NonAf 50.5 L (60.0-200.0) POC Glucose (mg/dL) 103 H 70 L (75-99) mg/dL Microbiology - Last 24 Hours (Table) 09/22/20 12:25 Blood Culture - Preliminary Blood No Growth after 24 hours Assessment and Plan Assessment: Diabetic foot ulcer with surrounding cellulitis of the right second toe Bilateral leg swelling Diabetes mellitus Chronic kidney disease, stage III, 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 Continue with antibiotic as per infectious disease team. We'll start the patient on Unasyn. Vascular surgery. Labs and medication were reviewed.. Continue same treatment. Continue with symptomatic treatment. Resume home medication. Monitor lytes and vitals. DVT and GI prophylaxis. Further recommendations depends on the clinical course of the patient DVT prophylaxis: On warfarin GI Prophylaxis: Pepcid PT/OT: Pending Prognosis is guarded
[2020-09-24] MEDS: HYDROcodone/APAP 5-325MG 1 EACH TAB PO PRN (10:13)
[2020-09-24] MEDS: DULoxetine HCL 60 MG CAPSULE.DR PO SCH ×2 (10:14→20:05)
[2020-09-24] MEDS: TAMSULOSIN 0.4 MG CAP.ER.24H PO SCH (10:14)
[2020-09-24] MEDS: ATORVASTATIN 80 MG TAB PO SCH (10:14)
[2020-09-24] MEDS: FAMOTIDINE 20 MG/2 ML VIAL IV SCH ×2 (10:14→20:05)
[2020-09-24] MEDS: FUROSEMIDE 40 MG TAB PO SCH (10:14)
[2020-09-24] MEDS: FERROUS SULFATE 325 MG TAB PO SCH (10:14)
[2020-09-24] MEDS: allopurinoL 300 MG TAB PO SCH (10:14)
[2020-09-24] MEDS: ISOSORBIDE MONONITRATE ER 60 MG TAB.ER.24H PO SCH (10:15)
[2020-09-24] MEDS: METOPROLOL SUCCINATE (ER) 100 MG TAB.ER.24H PO SCH (10:15)
[2020-09-24] MEDS: POTASSIUM CHLORIDE ER 10 MEQ TAB.ER.PRT PO SCH (10:16)
[2020-09-24] MEDS: INSULIN NPH 300 UNIT/3 ML VIAL SQ SCH ×2 (10:18→17:48)
[2020-09-24 10:39] LABS: Prothrombin Time 53.9 sec (9.9-11.9)
[2020-09-24 11:27] LABS: Glucose,Whole Blood 112 mg/dL (75-99)
[2020-09-24] MEDS ORDERED: PHYTONADIONE ORAL 5 MG/5 ML ORAL.SYRG PO STA (11:28)
[2020-09-24 16:52] LABS: Glucose,Whole Blood 117 mg/dL (75-99)
[2020-09-24] MEDS ORDERED: WARFARIN 0.5 MG TAB PO ONE (18:00)
--- NOTE | 2020-09-24 18:36 | PN ---
PROGRESS NOTE DATE OF SERVICE: 09/24/2020 REASON FOR FOLLOWUP: Right second toe diabetic foot infection with cellulitis. INTERVAL HISTORY: The patient is currently afebrile. The patient has been breathing comfortably. Still complaining of pain to the right second toe extending to the dorsum of his foot. However, the redness has resolved. Wound is currently covered with dry scab. Denies any chest pain, shortness of breath or cough. No abdominal pain. No diarrhea. PHYSICAL EXAMINATION: Blood pressure 155/92 with a pulse of 64, temperature 98.2. She is 100% on room air. General description: The patient is an elderly male lying in bed in no distress. Respiratory system: Unlabored breathing. Clear to auscultation anteriorly. Heart S1, S2. Regular rate and rhythm. Abdomen soft, no tenderness. Right foot swelling and redness has improved. Wound is currently dry, covered with a scab. LABS: Creatinine 1.49, INR is 5.68. DIAGNOSTIC IMPRESSION AND PLAN: Patient with right second toe diabetic foot wound infection with secondary cellulitis. Clinically responded to Unasyn that will be transitioned to oral Augmentin for about a week. His INR needs to be monitored closely while on antibiotics. Continue supportive care. MMODL / IJN: [id number] /
[2020-09-24 20:36] LABS: Glucose,Whole Blood 191 mg/dL (75-99)
[2020-09-25] MEDS: AMPICILLIN-SULBACTAM 3 GM in SODIUM CHLORIDE 0.9% 100 ML IVPB SCH ×4 (05:38→23:42)
[2020-09-25 05:48] LABS: INR 4.6 (<1.2)
[2020-09-25 07:07] LABS: Glucose,Whole Blood 69 mg/dL (75-99)
[2020-09-25 07:28] LABS: Glucose,Whole Blood 68 mg/dL (75-99)
[2020-09-25 07:46] LABS: Glucose,Whole Blood 121 mg/dL (75-99)
[2020-09-25 07:46] LABS: INR 5.68 (0.90-1.11)
[2020-09-25] MEDS: FERROUS SULFATE 325 MG TAB PO SCH (08:32)
[2020-09-25] MEDS: METOPROLOL SUCCINATE (ER) 100 MG TAB.ER.24H PO SCH (08:32)
[2020-09-25] MEDS: allopurinoL 300 MG TAB PO SCH (08:32)
[2020-09-25] MEDS: TAMSULOSIN 0.4 MG CAP.ER.24H PO SCH (08:32)
[2020-09-25] MEDS: POTASSIUM CHLORIDE ER 10 MEQ TAB.ER.PRT PO SCH (08:33)
[2020-09-25] MEDS: FAMOTIDINE 20 MG/2 ML VIAL IV SCH (08:33)
[2020-09-25] MEDS: DULoxetine HCL 60 MG CAPSULE.DR PO SCH ×2 (08:33→21:02)
[2020-09-25] MEDS: ATORVASTATIN 80 MG TAB PO SCH (08:33)
[2020-09-25] MEDS: ISOSORBIDE MONONITRATE ER 60 MG TAB.ER.24H PO SCH (08:33)
[2020-09-25] MEDS: FUROSEMIDE 40 MG TAB PO SCH (08:33)
[2020-09-25 08:53] LABS: HCT 33.2 % (39.0-53.0); HGB 10.8 gm/dL (13.0-17.5); Hypochromasia Slight; MCH 29.4 pg (25.0-35.0); MCHC 32.5 g/dL (31.0-37.0); MCV 90.5 fL (80.0-100.0); Mean Platelet Volume 9.8; Platelet Count 125 k/uL (150-450); RBC 3.67 m/uL (4.30-5.90); RDW 15.5 % (11.5-15.5); WBC 3.5 k/uL (3.8-10.6)
[2020-09-25] MEDS: INSULIN NPH 300 UNIT/3 ML VIAL SQ SCH (09:00)
[2020-09-25 09:09] LABS: African American GFR (CKD) 60 (>60 ml/min/1.73 sqM); Anion Gap 4 mmol/L; Blood Urea Nitrogen 16 mg/dL (9-20); Calcium 8.4 mg/dL (8.4-10.2); Carbon Dioxide 27 mmol/L (22-30); Chloride 106 mmol/L (98-107); Glucose 84 mg/dL (74-99); Non-African American GFR(CKD) 52 (>60 ml/min/1.73 sqM); Potassium 3.9 mmol/L (3.5-5.1); Sodium 137 mmol/L (137-145)
[2020-09-25 09:26] LABS: African American GFR (CKD) 58.6 (60.0-200.0); Non-African American GFR(CKD) 50.5 (60.0-200.0)
--- NOTE | 2020-09-25 11:12 | P.PN ---
Subjective Progress Note Date: 09/25/20 This is a 70-year-old gentleman admitted with diabetic foot ulcer of right second toe with secondary cellulitis and multiple other medical issues. Evaluated by vascular surgery with no surgery recommended at this time maintained on IV antibiotics of Unasyn. INR elevated at 4.6, warfarin dosing managed as per pharmacy. Significant clinical improvement, redness resolved, dry scab present and no drainage. Denies pain or loss of sensation. Denies chest pain, palpitations or shortness of breath. Afebrile, WBC 3.5. Preliminary blood cultures are no growth at 48 hours. Creatinine 1.37. Mild hypoglycemia this morning, currently controlled. Objective - Vital Signs Vital signs: Vital Signs Temp 98.5 F 09/25/20 05:00 Pulse 66 09/25/20 08:00 Resp 20 09/25/20 08:00 BP 155/92 09/25/20 05:00 Pulse Ox 100 09/25/20 05:00 Intake & Output 09/24/20 09/25/20 09/25/20 18:59 06:59 18:59 Intake Total 200 850 Output Total 300 0 0 Balance -100 850 0 Intake: Intake, IV Titration 200 200 Amount Ampicillin-Sulbactam 3 gm 200 200 In Sodium Chloride 0.9% 100 ml @ 200 mls/hr IVPB Q6HR [facility] Rx#:[id number] Oral 650 Output: Urine 300 Stool 0 0 Other: Voiding Method Toilet Toilet Toilet Urinal Urinal Urinal # Voids 3 - Exam - Exam GENERAL: alert and oriented x3, sitting up in bed, NAD HEENT: Pupils are round and equally reacting to light. EOMI. No scleral icterus. No conjunctival pallor. Normocephalic, atraumatic. No pharyngeal erythema. No thyromegaly. Oral mucosa moist. CARDIOVASCULAR: S1 and S2 present. No murmurs, rubs, or gallops. PULMONARY: Chest is clear to auscultation, no wheezing or crackles. ABDOMEN: Soft, nontender, nondistended, normoactive bowel sounds. No palpable organomegaly. EXTREMITIES: No cyanosis, clubbing, or pedal edema. Second toe with superficial ulcer on the top of the second phalanx, scabbed, no drainage ,redness resolved, edema improved NEUROLOGICAL: Gross neurological examination did not reveal any focal deficits. SKIN: Warm and dry, No rash. - Labs CBC & Chem 7: 09/25/20 05:11 09/25/20 05:11 Labs: Abnormal Lab Results - Last 24 Hours (Table) 09/24/20 09/24/20 09/24/20 Range/Units 06:19 11:08 16:46 WBC (3.8-10.6) k/uL RBC (4.30-5.90) m/uL Hgb (13.0-17.5) gm/dL Hct (39.0-53.0) % Plt Count (150-450) k/uL PT (9.0-12.0) sec INR 5.68 H* (0.90-1.11) Creatinine (0.66-1.25) mg/dL Est GFR (CKD-EPI)AfAm (60.0-200.0) Est GFR (CKD-EPI)NonAf (60.0-200.0) POC Glucose (mg/dL) 112 H 117 H (75-99) mg/dL 09/24/20 09/25/20 09/25/20 Range/Units 20:29 05:11 05:11 WBC (3.8-10.6) k/uL RBC (4.30-5.90) m/uL Hgb (13.0-17.5) gm/dL Hct (39.0-53.0) % Plt Count (150-450) k/uL PT 44.0 H (9.0-12.0) sec INR 4.6 H (0.90-1.11) Creatinine (0.66-1.25) mg/dL Est GFR (CKD-EPI)AfAm 58.6 L (60.0-200.0) Est GFR (CKD-EPI)NonAf 50.5 L (60.0-200.0) POC Glucose (mg/dL) 191 H (75-99) mg/dL 09/25/20 09/25/20 09/25/20 Range/Units 05:11 05:11 07:06 WBC 3.5 L (3.8-10.6) k/uL RBC 3.67 L (4.30-5.90) m/uL Hgb 10.8 L (13.0-17.5) gm/dL Hct 33.2 L (39.0-53.0) % Plt Count 125 L (150-450) k/uL PT (9.0-12.0) sec INR (0.90-1.11) Creatinine 1.37 H (0.66-1.25) mg/dL Est GFR (CKD-EPI)AfAm (60.0-200.0) Est GFR (CKD-EPI)NonAf (60.0-200.0) POC Glucose (mg/dL) 69 L (75-99) mg/dL 09/25/20 09/25/20 Range/Units 07:27 07:45 WBC (3.8-10.6) k/uL RBC (4.30-5.90) m/uL Hgb (13.0-17.5) gm/dL Hct (39.0-53.0) % Plt Count (150-450) k/uL PT (9.0-12.0) sec INR (0.90-1.11) Creatinine (0.66-1.25) mg/dL Est GFR (CKD-EPI)AfAm (60.0-200.0) Est GFR (CKD-EPI)NonAf (60.0-200.0) POC Glucose (mg/dL) 68 L 121 H (75-99) mg/dL Microbiology - Last 24 Hours (Table) 09/22/20 12:25 Blood Culture - Preliminary Blood No Growth after 48 hours Assessment and Plan Assessment: Right second toe diabetic foot wound infection with secondary cellulitis Hypercoagulopathy, on Coumadin Diabetes mellitus Chronic kidney disease, stage III, mostly secondary to diabetic nephropathy Hypertension Hyperlipidemia Plan: Continue current medication regime ,monitoring and symptomatic treatment. Coumadin monitoring as per pharmacy dosing-elevated, close monitoringon antibiotics. Post monitoring of Accu-Cheks. Discharge planning in progress for tomorrow. The impression and plan of care has been dictated as directed. : I performed a history and examination of this patient, discussed the same with the dictator. I agree with the dictator's note ,documented as a scribe. Any additional findings or plans will be noted.
[2020-09-25 11:15] LABS: Glucose,Whole Blood 112 mg/dL (75-99)
--- NOTE | 2020-09-25 12:32 | P.PN ---
Subjective Progress Note Date: 09/25/20 HISTORY OF PRESENT ILLNESS This is a 70-year-old male patient followed and treated for right second toe di abetic foot infection with cellulitis. Patient has decreased redness to the area and a scab is formed. Patient denies having any chest pain, shortness of breath or cough. No abdominal pain or diarrhea. Patient has done well with Unasyn. INR is 4.6. He has been afebrile, heart rate 66, blood pressure 146/84, pulse ox 100% on room air. PHYSICAL EXAMINATION Gen: This is a 70-year-old male. He is resting bed and appears to be comfortable. HEENT: Head is atraumatic, normocephalic. Pupils equal, round. Sclerae is anicteric. NECK: Supple. No JVD. No lymphadenopathy. LUNGS: Clear to auscultation. No wheezes or rhonchi. No intercostal retractions. HEART: Regular rate and rhythm. ABDOMEN: Soft. Bowel sounds are present. No masses. No tenderness. EXTREMITIES: No pedal edema. No calf tenderness. Wound is dry and covered with scab. No erythema. Decrease swelling. NEUROLOGICAL: Patient is awake, alert and oriented x3. ASSESSMENT Right second toe diabetic foot ulcer and secondary cellulitis PLAN Patient has responded well to Unasyn Plan for Augmentin 875 mg twice daily for 1 week outpatient Monitor INR cosely while on antibiotics Continue supportive care. Patient is cleared from infectious disease for discharge. The above dictated assessment and findings were discussed with Dr. Bedoya. The impression and plan of care have been directed as dictated. Abbey Simpson nurse practitioner acting as scribe for Dr. Bedoya. Objective - Vital Signs Vital signs: Vital Signs Temp 97.9 F 09/25/20 11:23 Pulse 66 09/25/20 11:23 Resp 17 09/25/20 11:23 BP 146/84 09/25/20 11:23 Pulse Ox 100 09/25/20 11:23 Intake & Output 09/24/20 09/25/20 09/25/20 18:59 06:59 18:59 Intake Total 200 850 Output Total 300 0 0 Balance -100 850 0 Intake: Intake, IV Titration 200 200 Amount Ampicillin-Sulbactam 3 gm 200 200 In Sodium Chloride 0.9% 100 ml @ 200 mls/hr IVPB Q6HR [facility] Rx#:[id number] Oral 650 Output: Urine 300 Stool 0 0 Other: Voiding Method Toilet Toilet Toilet Urinal Urinal Urinal # Voids 3 - Labs CBC & Chem 7: 09/25/20 05:11 09/25/20 05:11 Labs: Abnormal Lab Results - Last 24 Hours (Table) 09/24/20 09/24/20 09/24/20 Range/Units 06:19 16:46 20:29 WBC (3.8-10.6) k/uL RBC (4.30-5.90) m/uL Hgb (13.0-17.5) gm/dL Hct (39.0-53.0) % Plt Count (150-450) k/uL PT (9.0-12.0) sec INR 5.68 H* (0.90-1.11) Creatinine (0.66-1.25) mg/dL Est GFR (CKD-EPI)AfAm (60.0-200.0) Est GFR (CKD-EPI)NonAf (60.0-200.0) POC Glucose (mg/dL) 117 H 191 H (75-99) mg/dL 09/25/20 09/25/20 09/25/20 Range/Units 05:11 05:11 05:11 WBC (3.8-10.6) k/uL RBC (4.30-5.90) m/uL Hgb (13.0-17.5) gm/dL Hct (39.0-53.0) % Plt Count (150-450) k/uL PT 44.0 H (9.0-12.0) sec INR 4.6 H (0.90-1.11) Creatinine 1.37 H (0.66-1.25) mg/dL Est GFR (CKD-EPI)AfAm 58.6 L (60.0-200.0) Est GFR (CKD-EPI)NonAf 50.5 L (60.0-200.0) POC Glucose (mg/dL) (75-99) mg/dL 09/25/20 09/25/20 09/25/20 Range/Units 05:11 07:06 07:27 WBC 3.5 L (3.8-10.6) k/uL RBC 3.67 L (4.30-5.90) m/uL Hgb 10.8 L (13.0-17.5) gm/dL Hct 33.2 L (39.0-53.0) % Plt Count 125 L (150-450) k/uL PT (9.0-12.0) sec INR (0.90-1.11) Creatinine (0.66-1.25) mg/dL Est GFR (CKD-EPI)AfAm (60.0-200.0) Est GFR (CKD-EPI)NonAf (60.0-200.0) POC Glucose (mg/dL) 69 L 68 L (75-99) mg/dL 09/25/20 09/25/20 Range/Units 07:45 11:14 WBC (3.8-10.6) k/uL RBC (4.30-5.90) m/uL Hgb (13.0-17.5) gm/dL Hct (39.0-53.0) % Plt Count (150-450) k/uL PT (9.0-12.0) sec INR (0.90-1.11) Creatinine (0.66-1.25) mg/dL Est GFR (CKD-EPI)AfAm (60.0-200.0) Est GFR (CKD-EPI)NonAf (60.0-200.0) POC Glucose (mg/dL) 121 H 112 H (75-99) mg/dL Microbiology - Last 24 Hours (Table) 09/22/20 12:25 Blood Culture - Preliminary Blood No Growth after 48 hours
[2020-09-25 17:18] LABS: Glucose,Whole Blood 161 mg/dL (75-99)
[2020-09-25] MEDS ORDERED: INSULIN NPH 300 UNIT/3 ML VIAL SQ SCH (17:30)
[2020-09-25] MEDS ORDERED: WARFARIN 0.5 MG TAB PO ONE (18:00)
[2020-09-25] MEDS: INSULIN ASPART (NovoLOG) 100 UNIT/ML VIAL SQ SCH ×2 (18:03→21:02)
[2020-09-25 20:28] LABS: Glucose,Whole Blood 191 mg/dL (75-99)
[2020-09-25 20:52] VITALS: RESP 18
[2020-09-26] MEDS: AMPICILLIN-SULBACTAM 3 GM in SODIUM CHLORIDE 0.9% 100 ML IVPB SCH ×2 (05:29→12:09)
[2020-09-26 05:35] VITALS: BP 144/93; PULSE 72; TEMP 97
[2020-09-26 07:02] LABS: Glucose,Whole Blood 85 mg/dL (75-99)
[2020-09-26] MEDS: INSULIN ASPART (NovoLOG) 100 UNIT/ML VIAL SQ SCH ×2 (07:05→12:14)
[2020-09-26] MEDS: TAMSULOSIN 0.4 MG CAP.ER.24H PO SCH (07:47)
[2020-09-26] MEDS: ATORVASTATIN 80 MG TAB PO SCH (07:47)
[2020-09-26] MEDS: ISOSORBIDE MONONITRATE ER 60 MG TAB.ER.24H PO SCH (07:47)
[2020-09-26] MEDS: POTASSIUM CHLORIDE ER 10 MEQ TAB.ER.PRT PO SCH (07:47)
[2020-09-26] MEDS: FUROSEMIDE 40 MG TAB PO SCH (07:47)
[2020-09-26] MEDS: FERROUS SULFATE 325 MG TAB PO SCH (07:47)
[2020-09-26] MEDS: METOPROLOL SUCCINATE (ER) 100 MG TAB.ER.24H PO SCH (07:47)
[2020-09-26] MEDS: allopurinoL 300 MG TAB PO SCH (07:48)
[2020-09-26] MEDS: DULoxetine HCL 60 MG CAPSULE.DR PO SCH (07:48)
[2020-09-26] MEDS: INSULIN NPH 300 UNIT/3 ML VIAL SQ SCH (07:51)
[2020-09-26] MEDS ORDERED: FAMOTIDINE 20 MG TAB PO SCH (09:00)
[2020-09-26 09:01] LABS: African American GFR (CKD) 56 (>60 ml/min/1.73 sqM); Anion Gap 6 mmol/L; Blood Urea Nitrogen 16 mg/dL (9-20); Calcium 8.6 mg/dL (8.4-10.2); Carbon Dioxide 24 mmol/L (22-30); Chloride 107 mmol/L (98-107); Glucose 91 mg/dL (74-99); Non-African American GFR(CKD) 48 (>60 ml/min/1.73 sqM); Sodium 137 mmol/L (137-145)
[2020-09-26 09:58] LABS: INR 3.11 (0.90-1.11); Prothrombin Time 30.9 sec (9.9-11.9)
[2020-09-26 12:14] LABS: Glucose,Whole Blood 88 mg/dL (75-99)
--- NOTE | 2020-09-26 13:18 | CDI ---
Documentation Clarification Form Date: 09/26/2020 01:01:58 PM From: Debra Cuba RN, CCDS Admit Date: 09/22/2020 01:46:00 PM Patient Name: Holden Ortiz Visit Number: [id number] Discharge Date: ATTENTION: The Clinical Documentation Specialists (CDI) and [facility] Coding Staff appreciate your assistance in clarifying documentation. Please respond to the clarification below the line at the bottom and electronically sign. The CDI & [facility] Coding staff will review the response and follow-up if needed. Please note: Queries are made part of the Legal Health Record. If you have any questions, please contact the author of this message via ITS. Dr. Hermann Reid Atrial Fibrillation is documented in the past medical history with ongoing treatment. Please render your opinion on the type of atrial fibrillation being treated if known. History/Risk Factors: Atrial Fibrillation, Diabetes Mellitus, Hypertension Clinical Indicators: 70-year-old male who present on 09/22 foe evaluation of a right foot second digit wound with surrounding erythema. H/P has atrial fibrillation on warfarin status post permanent pacemaker. Treatment: Coumadin 2.5mg po once (Pharmacy dosing currently) PT/INR daily x3 09/26-09/28) In your professional opinion, can you please clarify the type of Atrial Fibrillation, if known? Chronic/Permanent Paroxysmal Persistent Other, please specify Unable to determine (Last Revision: November 2017) MTDD
--- NOTE | 2020-09-26 13:44 | P.PN ---
Subjective Progress Note Date: 09/26/20 HISTORY OF PRESENT ILLNESS This is a 70-year-old male patient followed and treated for right second toe di abetic foot infection with cellulitis. He denies pain to the foot. Patient has decreased redness to the area and a scab is formed. Patient denies having any chest pain, shortness of breath or cough. No abdominal pain or diarrhea. Patient has done well with Unasyn. INR is 3.1. Creatinine 1.45. He has been afebrile, heart rate 72, blood pressure 144/93, pulse ox 93% on room air. PHYSICAL EXAMINATION Gen: This is a 70-year-old male. He is resting bed and appears to be comfortable. HEENT: Head is atraumatic, normocephalic. Pupils equal, round. Sclerae is anicteric. NECK: Supple. No JVD. No lymphadenopathy. LUNGS: Clear to auscultation. No wheezes or rhonchi. No intercostal retractions. HEART: Regular rate and rhythm. ABDOMEN: Soft. Bowel sounds are present. No masses. No tenderness. EXTREMITIES: No pedal edema. Wound is dry and covered with scab. No erythema. Decrease swelling. NEUROLOGICAL: Patient is awake, alert and oriented x3. ASSESSMENT Right second toe diabetic foot ulcer and secondary cellulitis PLAN Patient has responded well to Unasyn Plan for Augmentin 875 mg twice daily for 1 week outpatient, prescription sent to his pharmacy Monitor INR cosely while on antibiotics Continue supportive care. Patient is cleared from infectious disease for discharge. The above dictated assessment and findings were discussed with Dr. Bedoya. The impression and plan of care have been directed as dictated. Abbey Simpson nurse practitioner acting as scribe for Dr. Bedoya. Objective - Vital Signs Vital signs: Vital Signs Temp 97.0 F L 09/26/20 05:00 Pulse 72 09/26/20 05:00 Resp 18 09/26/20 05:00 BP 144/93 09/26/20 05:00 Pulse Ox 93 L 09/26/20 05:00 Intake & Output 09/25/20 09/26/20 09/26/20 18:59 06:59 18:59 Output Total 1200 100 Balance -1200 -100 Output: Gastric Drainage 100 Urine 1200 Stool 0 0 Other: Voiding Method Toilet Toilet Urinal Urinal # Voids 5 1 - Labs CBC & Chem 7: 09/25/20 05:11 09/26/20 05:44 Labs: Abnormal Lab Results - Last 24 Hours (Table) 09/25/20 09/25/20 09/26/20 Range/Units 17:17 20:22 05:44 PT 30.9 H (9.9-11.9) sec INR 3.11 H (0.90-1.11) Creatinine (0.66-1.25) mg/dL POC Glucose (mg/dL) 161 H 191 H (75-99) mg/dL 09/26/20 Range/Units 05:44 PT (9.9-11.9) sec INR (0.90-1.11) Creatinine 1.45 H (0.66-1.25) mg/dL POC Glucose (mg/dL) (75-99) mg/dL Microbiology - Last 24 Hours (Table) 09/22/20 12:25 Blood Culture - Preliminary Blood No Growth after 72 hours
--- NOTE | 2020-09-26 15:03 | P.DS ---
Providers Date of admission: 09/22/20 13:46 Expected date of discharge: 09/26/20 Attending physician: Hermann Reid MD Consults: 09/22/20 13:38 Consult Physician Routine Consulting Provider: Kit Valentine Consult Reason/Comments: Diabetic foot ulcer Do you want consulting provider notified?: Yes Consult Physician Urgent Consulting Provider: Fred Bedoya Consult Reason/Comments: Diabetic foot ulcer Do you want consulting provider notified?: Yes Primary care physician: Joycelyn Tovar Hospital Course: Final Diagnoses: Right second toe diabetic foot wound infection with secondary cellulitis Hypercoagulopathy, on Coumadin Chronic atrial fibrillation Diabetes mellitus Chronic kidney disease, stage III, 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 Evaluated by vascular surgery with no surgery recommended at this time maintained on IV antibiotics of Unasyn. INR elevated at 4.6, warfarin dosing managed as per pharmacy. Significant clinical improvement, redness resolved, dry scab present and no drainage. Denies pain or loss of sensation. Denies chest pain, palpitations or shortness of breath. Afebrile, WBC 3.5. Preliminary blood cultures are no growth at 48 hours. Creatinine 1.37. Mild hypoglycemia this morning, currently controlled. Significant clinical improvement. Cleared by infectious disease for discharge. Patient will be discharged home today in stable condition with guarded prognosis.Monitor INR cosely while on antibiotics. The impression and plan of care has been dictated as directed. : I performed a history and examination of this patient, discussed the same with the dictator. I agree with the dictator's note ,documented as a scribe. Any additional findings or plans will be noted. Patient Condition at Discharge: Stable Plan - Discharge Summary Discharge Rx Participant: No New Discharge Prescriptions: New Amoxicillin/Potassium Clav [Augmentin 875-125 Tablet] 1 tab PO BID 7 Days #14 tab Continue Tamsulosin HCl 0.4 mg PO DAILY Nitroglycerin Sl Tabs [Nitrostat] 0.4 mg SUBLINGUAL Q5M PRN PRN Reason: Chest Pain Isosorbide Mononitrate [Imdur] 60 mg PO DAILY allopurinoL [Zyloprim] 150 mg PO DAILY calcitrioL [Rocaltrol] 0.25 mcg PO MOTUWETH Aspirin EC [Ecotrin Low Dose] 81 mg PO DAILY DULoxetine HCL [Cymbalta] 60 mg PO BID Ezetimibe [Zetia] 10 mg PO DAILY Ferrous Sulfate [Feosol] 325 mg PO DAILY Rosuvastatin Calcium [Crestor] 40 mg PO DAILY Metoprolol Succinate (ER) [Toprol XL] 100 mg PO DAILY Ergocalciferol (Vitamin D2) [Drisdol (50,000 Iu)] 50,000 unit PO Q30D Insulin NPH Human Isophane [NovoLIN N] 20 units SQ W/BRKFST Cyclobenzaprine [Flexeril] 10 mg PO HS PRN #0 PRN Reason: Muscle Spasm Potassium Chloride ER [K-Dur 10] 10 meq PO DAILY Furosemide [Lasix] 40 mg PO DAILY Warfarin [Coumadin] 5 mg PO DAILY #1 tab Changed Insulin NPH Human Isophane [NovoLIN N] 10 units SQ W/SUPPER #0 Discharge Medication List Tamsulosin HCl 0.4 mg PO DAILY 01/27/14 [History] Isosorbide Mononitrate [Imdur] 60 mg PO DAILY 05/30/14 [History] Nitroglycerin Sl Tabs [Nitrostat] 0.4 mg SUBLINGUAL Q5M PRN 05/30/14 [History] allopurinoL [Zyloprim] 150 mg PO DAILY 08/04/15 [History] Aspirin EC [Ecotrin Low Dose] 81 mg PO DAILY 08/28/16 [History] calcitrioL [Rocaltrol] 0.25 mcg PO MOTUWETH 08/28/16 [History] DULoxetine HCL [Cymbalta] 60 mg PO BID 07/07/20 [History] Ergocalciferol (Vitamin D2) [Drisdol (50,000 Iu)] 50,000 unit PO Q30D 07/07/20 [History] Ezetimibe [Zetia] 10 mg PO DAILY 07/07/20 [History] Ferrous Sulfate [Feosol] 325 mg PO DAILY 07/07/20 [History] Insulin NPH Human Isophane [NovoLIN N] 20 units SQ W/BRKFST 07/07/20 [History] Metoprolol Succinate (ER) [Toprol XL] 100 mg PO DAILY 07/07/20 [History] Rosuvastatin Calcium [Crestor] 40 mg PO DAILY 07/07/20 [History] Cyclobenzaprine [Flexeril] 10 mg PO HS PRN #0 08/09/20 [Rx] Furosemide [Lasix] 40 mg PO DAILY 09/20/20 [History] Potassium Chloride ER [K-Dur 10] 10 meq PO DAILY 09/20/20 [History] Amoxicillin/Potassium Clav [Augmentin 875-125 Tablet] 1 tab PO BID 7 Days #14 tab 09/25/20 [Rx] Insulin NPH Human Isophane [NovoLIN N] 10 units SQ W/SUPPER #0 09/26/20 [Rx] Warfarin [Coumadin] 5 mg PO DAILY #1 tab 09/26/20 [Rx] Follow up Appointment(s)/Referral(s): Hermann Reid MD [STAFF PHYSICIAN] - 10/02/20 12:30 pm () [facility], [NON-STAFF] - 1 Week Ambulatory/Diagnostic Orders: Complete Blood Count w/diff [LAB.AMB] Time Frame: 09/29/20, Location: None Selected Patient Instructions/Handouts: Warfarin (By mouth), Amoxicillin/Clavulanate Potassium (By mouth), Foot Care for People with Diabetes (DC), Diabetic Foot Ulcers (DC) Activity/Diet/Wound Care/Special Instructions: -Weekly INRs in clinic, outpatient follow-up visit, attempting to arrange home INR monitor. -See prescription to have blood work checked on 09/29/20 Discharge Disposition: HOME WITH HOME HEALTH SERVICES
[2020-09-26] MEDS ORDERED: INSULIN NPH 300 UNIT/3 ML VIAL SQ SCH (17:30)
[2020-09-26] MEDS ORDERED: WARFARIN 2.5 MG TAB PO ONE (18:00)
== END 2020-09-26 14:57 | disposition home health service (06) | DRG 638 ==
LOC: EC 10:57 → 5NMEDONC 13:46
PROVIDERS: ADMIT Family Medicine; ATTEND Family Medicine
DX: E11.621 Type 2 diabetes mellitus with foot ulcer (principal); I13.0 Hypertensive heart and chronic kidney disease with heart failure and stage 1 through stage 4 chronic kidney disease, or unspecified chronic kidney disease; I48.20 Chronic atrial fibrillation, unspecified; L03.115 Cellulitis of right lower limb; E11.628 Type 2 diabetes mellitus with other skin complications; E11.649 Type 2 diabetes mellitus with hypoglycemia without coma; E11.22 Type 2 diabetes mellitus with diabetic chronic kidney disease; F32.9 Major depressive disorder, single episode, unspecified; F41.9 Anxiety disorder, unspecified; I50.9 Heart failure, unspecified; L03.031 Cellulitis of right toe; L97.519 Non-pressure chronic ulcer of other part of right foot with unspecified severity; N18.30 Chronic kidney disease, stage 3 unspecified; N40.0 Benign prostatic hyperplasia without lower urinary tract symptoms; R79.1 Abnormal coagulation profile; E78.5 Hyperlipidemia, unspecified; D72.819 Decreased white blood cell count, unspecified; Z79.01 Long term (current) use of anticoagulants; Z79.4 Long term (current) use of insulin; Z79.82 Long term (current) use of aspirin; Z79.899 Other long term (current) drug therapy; Z80.51 Family history of malignant neoplasm of kidney; Z82.49 Family history of ischemic heart disease and other diseases of the circulatory system; Z86.73 Personal history of transient ischemic attack (TIA), and cerebral infarction without residual deficits; Z87.01 Personal history of pneumonia (recurrent); Z87.891 Personal history of nicotine dependence; Z95.0 Presence of cardiac pacemaker; Z87.440 Personal history of urinary (tract) infections; Z98.42 Cataract extraction status, left eye; Z98.41 Cataract extraction status, right eye
CPT/HCPCS: 36415; 80048; 80053; 82565; 83036; 83605; 85025; 85027; 85610; 85730; 86140; 87040; 96365; 96366; 96367; 99284

== ENCOUNTER 2020-09-29 14:12 | Emergency (ER) | payer MEDICARE ==
[2020-09-29 14:20] VITALS: RESP 18
--- NOTE | 2020-09-29 14:23 | ED ---
Recheck HPI - General Chief Complaint: Recheck/Abnormal Lab/Rx Stated Complaint: R Foot Wound Time Seen by Provider: 09/29/20 14:23 Source: patient Mode of arrival: wheelchair Limitations: no limitations - History of Present Illness Initial Comments: 70-year-old male with history of diabetes presents to the emergency department with a chief complaint of an ulcerative foot. Patient states about one week ago he was admitted in the hospital for his diabetic ulcer and IV antibiotics. Patient states he was discharged with oral Augmentin and has 4 tablets left. Patient states over the last few days has developed more pain at the site of diabetic ulcer which is located on his second toe. Patient reports he woke up this morning with a sharp pain in the region but denies any significant erythema. States he is otherwise been taking his oral antibiotics as prescribed. Denies any night sweats fevers or chills. Denies any foul smell from the wound site. Denies any discharge. - Related Data Home Medications Medication Instructions Recorded Confirmed Tamsulosin HCl 0.4 mg PO DAILY 01/27/14 09/29/20 Isosorbide Mononitrate [Imdur] 60 mg PO DAILY 05/30/14 09/29/20 Nitroglycerin Sl Tabs [Nitrostat] 0.4 mg SL Q5M PRN 05/30/14 09/29/20 allopurinoL [Zyloprim] 150 mg PO DAILY 08/04/15 09/29/20 Aspirin EC [Ecotrin Low Dose] 81 mg PO DAILY 08/28/16 09/29/20 calcitrioL [Rocaltrol] 0.25 mcg PO MOTUWETH 08/28/16 09/29/20 DULoxetine HCL [Cymbalta] 60 mg PO BID 07/07/20 09/29/20 Ergocalciferol (Vitamin D2) 1,250 mcg PO Q30D 07/07/20 09/29/20 [Drisdol (50,000 Iu)] Ezetimibe [Zetia] 10 mg PO DAILY 07/07/20 09/29/20 Ferrous Sulfate [Feosol] 325 mg PO DAILY 07/07/20 09/29/20 Insulin NPH Human Isophane 20 units SQ AC-BRKFST 07/07/20 09/29/20 [NovoLIN N] Metoprolol Succinate (ER) [Toprol 100 mg PO DAILY 07/07/20 09/29/20 XL] Rosuvastatin Calcium [Crestor] 40 mg PO DAILY 07/07/20 09/29/20 Furosemide [Lasix] 20 mg PO DAILY 09/20/20 09/29/20 Potassium Chloride ER [K-Dur 10] 10 meq PO DAILY 09/20/20 09/29/20 Insulin NPH Human Isophane 10 units SQ AC-SUPPER 09/29/20 09/29/20 [NovoLIN N] Warfarin [Coumadin] 2.5 mg PO TUTH 09/29/20 09/29/20 Warfarin [Coumadin] 5 mg PO SUMOWEFRSA 09/29/20 09/29/20 Previous Rx's Medication Instructions Recorded Cyclobenzaprine [Flexeril] 10 mg PO HS PRN #0 08/09/20 Amoxicillin/Potassium Clav 1 tab PO BID 7 Days #14 tab 09/25/20 [Augmentin 875-125 Tablet] Allergies Allergy/AdvReac Type Severity Reaction Status Date / Time No Known Allergies Allergy Verified 09/29/20 16:10 Review of Systems ROS Statement: Those systems with pertinent positive or pertinent negative responses have been documented in the HPI. ROS Other: All systems not noted in ROS Statement are negative. Past Medical History Past Medical History: Atrial Fibrillation, Heart Failure, CVA/TIA, Diabetes Mellitus, Hyperlipidemia, Hypertension, Osteoarthritis (OA), Pneumonia, Pneumonia, Prostate Disorder, Renal Disease Additional Past Medical History / Comment(s): Pt recently admitted to [facility] on 08/24/20 with UTI and pneumonia. Pt states a couple days ago he was in ER for tongue bleed/difficult to control. Other hx: IDDM type II, neuropathy b ilateral legs/feet, chronic kidney disease stage III/has had temporary dialysis, anemia, pneumonia with sepsis, TIA, BPH. History of Any Multi-Drug Resistant Organisms: None Reported Past Surgical History: Cardiac Ablation, Heart Catheterization, Pacemaker, Pacemaker Additional Past Surgical History / Comment(s): SANDRA, cardiac ablations x2, pacemaker, L eye surgery for wandering eye, bilateral cataract removals, circumcism, colonoscopy Past Anesthesia/Blood Transfusion Reactions: No Reported Reaction Type of Cardiac Device: Permanent Pacemaker Device Placement Date:: 2012 Past Psychological History: Anxiety, Depression Smoking Status: Former smoker Past Alcohol Use History: None Reported Past Drug Use History: None Reported - Past Family History Mother Family Medical History: Vascular Disorder Additional Family Medical History / Comment(s): Mother had caratid artery disease. She lived to be 100 yrs old. Father Family Medical History: Myocardial Infarction ([place]) Additional Family Medical History / Comment(s): Father of a [place] at the age of 60yrs. General Exam Limitations: no limitations General appearance: alert, in no apparent distress Head exam: Present: atraumatic, normocephalic, normal inspection Eye exam: Present: normal appearance, PERRL, EOMI Pupils: Present: normal accommodation ENT exam: Present: normal exam, normal oropharynx, mucous membranes moist Neck exam: Present: normal inspection, full ROM. Absent: tenderness Respiratory exam: Present: normal lung sounds bilaterally. Absent: respiratory distress, wheezes, rales, rhonchi, stridor Cardiovascular Exam: Present: regular rate, normal rhythm, normal heart sounds Extremities exam: Present: full ROM, tenderness (Tenderness at the wound site), normal capillary refill, other (Palpable DP and PT bilaterally). Absent: normal inspection (. No fall smell), pedal edema, joint swelling, calf tenderness Back exam: Present: normal inspection, full ROM. Absent: tenderness, CVA tenderness (R), CVA tenderness (L) Neurological exam: Present: alert, oriented X3, normal gait Psychiatric exam: Present: normal affect, normal mood Skin exam: Present: warm, dry, intact, normal color Course Vital Signs 09/29/20 14:16 Temperature 98.1 F Pulse Rate 81 Respiratory 18 Rate Blood Pressure 163/88 O2 Sat by Pulse 100 Oximetry - Reevaluation(s) Reevaluation #1: 09/29/20 16:21 Medical records reviewed Medical Decision Making - Medical Decision Making 70-year-old male with history of diabetes presents to emergency Department with a chief complaint of diabetic ulcer. On physical examination, patient has a d iabetic ulcer on the dorsal aspect of the right second toe. On physical examination, there is no discharge or any significant erythema. There was an old pen marking to track the erythema which has significantly regressed. No warmth near the diabetic ulcer. CBC reveals mild leukopenia. Patient does have anemia although this is improved compared to most recent laboratory work. X-ray shows no signs of fractures or osteolytic myelitis. Advised him to continue taking the Augmentin. Patient vised to follow with primary care physician and program director cable television. Return parameters discussed the patient was attending agreeable. Case discussed with Dr. Mederos. - Lab Data Result diagrams: 09/29/20 14:53 09/29/20 14:53 Lab Results 09/29/20 09/29/20 09/29/20 Range/Units 14:53 14:53 14:53 WBC 3.4 L (3.8-10.6) k/uL RBC 4.17 L (4.30-5.90) m/uL Hgb 11.7 L (13.0-17.5) gm/dL Hct 39.4 (39.0-53.0) % MCV 94.5 (80.0-100.0) fL MCH 28.0 (25.0-35.0) pg MCHC 29.6 L (31.0-37.0) g/dL RDW 15.2 (11.5-15.5) % Plt Count 121 L (150-450) k/uL MPV 8.9 Neutrophils % (Manual) 57 % Band Neuts % (Manual) 1 % Lymphocytes % (Manual) 37 % Monocytes % (Manual) 2 % Eosinophils % (Manual) 3 % Neutrophils # (Manual) 1.90 (1.3-7.7) k/uL Lymphocytes # (Manual) 1.26 (1.0-4.8) k/uL Monocytes # (Manual) 0.07 (0-1.0) k/uL Eosinophils # (Manual) 0.10 (0-0.7) k/uL Nucleated RBCs 0 (0-0) /100 WBC Manual Slide Review Performed Large Platelets Present Hypochromasia Marked Sodium 141 (137-145) mmol/L Potassium 5.0 (3.5-5.1) mmol/L Chloride 108 H (98-107) mmol/L Carbon Dioxide 26 (22-30) mmol/L Anion Gap 7 mmol/L BUN 16 (9-20) mg/dL Creatinine 1.31 H (0.66-1.25) mg/dL Est GFR (CKD-EPI)AfAm 64 (>60 ml/min/1.73 sqM) Est GFR (CKD-EPI)NonAf 55 (>60 ml/min/1.73 sqM) Glucose 207 H (74-99) mg/dL Plasma Lactic Acid John 1.8 (0.7-2.0) mmol/L Calcium 8.7 (8.4-10.2) mg/dL Total Bilirubin 0.8 (0.2-1.3) mg/dL AST 57 (17-59) U/L ALT 41 (4-49) U/L Alkaline Phosphatase 80 (38-126) U/L Total Protein 7.0 (6.3-8.2) g/dL Albumin 3.7 (3.5-5.0) g/dL Disposition Clinical Impression: Healing wound, Diabetic ulcer of toe Disposition: HOME SELF-CARE Condition: Stable Instructions (If sedation given, give patient instructions): Diabetic Foot Ulcers (ED) Additional Instructions: Continue taking prescribe medication as directed. Follow-up with the program director cable television.Please return to the Emergency Department if symptoms worsen or any other concerns. Is patient prescribed a controlled substance at d/c from ED?: No Referrals: Joycelyn Tovar DO [Primary Care Provider] - 1-2 days Time of Disposition: 16:08
[2020-09-29 15:09] LABS: HCT 39.4 % (39.0-53.0); HGB 11.7 gm/dL (13.0-17.5); Hypochromasia Marked; MCHC 29.6 g/dL (31.0-37.0); MCV 94.5 fL (80.0-100.0); Mean Platelet Volume 8.9; Platelet Count 121 k/uL (150-450); RBC 4.17 m/uL (4.30-5.90); RDW 15.2 % (11.5-15.5); WBC 3.4 k/uL (3.8-10.6)
[2020-09-29 15:23] LABS: Calcium 8.7 mg/dL (8.4-10.2); Total Bilirubin 0.8 mg/dL (0.2-1.3)
[2020-09-29 15:25] LABS: Band Neutrophils % 1 %; Large Platelets Present; Lymphocytes # (M) 1.26 k/uL (1.0-4.8); Monocytes # (M) 0.07 k/uL (0-1.0); Neutrophils % (M) 57 %; Nucleated Red Blood Cells 0 /100 WBC (0-0); Total Cells Counted 100
[2020-09-29 15:34] LABS: Albumin 3.7 g/dL (3.5-5.0)
--- NOTE | 2020-09-29 15:57 | XR ---
EXAMINATION TYPE: XR toes RT DATE OF EXAM: 09/29/2020 COMPARISON: NONE HISTORY: Pain TECHNIQUE: 3 views of the right-sided toes are submitted. FINDINGS: There is no evidence for fracture or bony destructive process. IMPRESSION: No evidence for osteomyelitis or fracture.
[2020-09-29 16:35] VITALS: BP 135/82; PULSE 88; TEMP 98.8
== END 2020-09-29 16:42 | disposition home or self-care (01) ==
LOC: EC 14:12
DX: E11.621 Type 2 diabetes mellitus with foot ulcer (principal); I13.0 Hypertensive heart and chronic kidney disease with heart failure and stage 1 through stage 4 chronic kidney disease, or unspecified chronic kidney disease; E11.22 Type 2 diabetes mellitus with diabetic chronic kidney disease; N18.30 Chronic kidney disease, stage 3 unspecified; N40.0 Benign prostatic hyperplasia without lower urinary tract symptoms; I50.9 Heart failure, unspecified; D72.819 Decreased white blood cell count, unspecified; D63.1 Anemia in chronic kidney disease; M19.90 Unspecified osteoarthritis, unspecified site; E78.5 Hyperlipidemia, unspecified; I48.91 Unspecified atrial fibrillation; F41.9 Anxiety disorder, unspecified; F32.9 Major depressive disorder, single episode, unspecified; Z79.01 Long term (current) use of anticoagulants; Z79.899 Other long term (current) drug therapy; Z79.4 Long term (current) use of insulin; Z79.82 Long term (current) use of aspirin; Z86.73 Personal history of transient ischemic attack (TIA), and cerebral infarction without residual deficits; Z87.891 Personal history of nicotine dependence
CPT/HCPCS: 36415; 80053; 83605; 85025; 99283

== ENCOUNTER → 2020-10-06 | Outpatient (CLI) | payer MEDICARE ==
--- NOTE | 2020-10-06 11:18 | US ---
EXAMINATION TYPE: US venous doppler duplex LE RT DATE OF EXAM: 10/06/2020 10:56 AM COMPARISON: NONE CLINICAL HISTORY: I80.291 Phlebitis and thrombophlebitis of deep ves. Right lower leg pain and swelli ng x 1 week, patient on blood thinners SIDE PERFORMED: Right TECHNIQUE: The lower extremity deep venous system is examined utilizing real time linear array sonog jan with graded compression, doppler sonography and color-flow sonography. VESSELS IMAGED: Common Femoral Vein Deep Femoral Vein Greater Saphenous Vein * Femoral Vein Popliteal Vein Small Saphenous Vein * Proximal Calf Veins (* superficial vessels) Right Leg: Appears negative for DVT IMPRESSION: No evidence for DVT.
== END | disposition home or self-care (01) ==
LOC: RADUSWWP 10:39
PROVIDERS: ATTEND Podiatrist
DX: I80.291 Phlebitis and thrombophlebitis of other deep vessels of right lower extremity (principal); L97.512 Non-pressure chronic ulcer of other part of right foot with fat layer exposed; I73.9 Peripheral vascular disease, unspecified; E11.21 Type 2 diabetes mellitus with diabetic nephropathy; E11.42 Type 2 diabetes mellitus with diabetic polyneuropathy

== ENCOUNTER → 2020-11-10 | Outpatient (CLI) | payer MEDICARE ==
--- NOTE | 2020-11-10 14:03 | XR ---
EXAMINATION TYPE: XR foot complete RT DATE OF EXAM: 11/10/2020 COMPARISON: 09/29/2020 HISTORY: 70-year-old male second digit osteomyelitis, M86.671 TECHNIQUE: 3 views FINDINGS: Moderate degenerative change first MTP joint. There is medial deviation at the second MTP joint that could reflect previous capsular injury. No discrete lytic destruction is identified, with particular attention to the second toe. Small plantar heel spur. IMPRESSION: No discrete osteolysis at this time to clearly indicate osteomyelitis with particular attention to th e second toe. Consider radiographic follow-up if the patient remains at risk for developing osteomy elitis. Moderate first MTP joint OA.
== END | disposition home or self-care (01) ==
LOC: RADXRMAIN 10:40
PROVIDERS: ATTEND Family Medicine
DX: M19.071 Primary osteoarthritis, right ankle and foot (principal); E11.21 Type 2 diabetes mellitus with diabetic nephropathy; E11.42 Type 2 diabetes mellitus with diabetic polyneuropathy

== ENCOUNTER 2020-12-29 10:26 | Day surgery (SDC) | payer MEDICARE ==
[~2020-12-29 10:26] MED LIST changes: -DEXAMETHASONE SOD PHOSPHATE 10 MG/ML 1 ML VIAL IV ONE; -HYDROmorphone 1 MG/ML 1 ML SYRINGE IVP PRN; -LIDOCAINE 1% 20 ML VIAL (10MG/ML) FOR IV START INTRADERMA PRN; -MIDAZOLAM 2 MG/2 ML VIAL IV PRN; -ONDANSETRON 4 MG/2 ML VIAL IVP ONE; -SCOPOLAMINE 1.5MG/72HR PATCH TRANSDERM ONE
[2020-12-29 11:18] VITALS: TEMP 97.6
[2020-12-29] MEDS ORDERED: LIDOCAINE 1% (10MG/ML) FOR IV START INTRADERMA ONE (11:31)
[2020-12-29 11:37] LABS: Glucose,Whole Blood 125 mg/dL (75-99)
--- NOTE | 2020-12-29 11:58 | P.GSHP ---
History of Present Illness H&P Date: 12/29/20 Chief Complaint: Hammertoe right second with chronic ulceration Patient 70-year-old male who is scheduled to have a arthroplasty and excision of wound of the right second toe. Patient acquired this wound several months ago and has been in the wound care center for treatment of same. Patient wound has failed to heal despite advanced wound care techniques. The patient was given the opportunity to have an arthroplasty and excision of the wound as an alternative to help expediently wound care. Patient accepted the procedure and we'll perform same. Patient is aware of complications prognosis Jacinto expectations of surgery. - Constitutional Constitutional: Denies chills, Denies fever - EENT Eyes: left as per HPI, denies blurred vision, denies pain Ears, nose, mouth and throat: Denies headache, Denies sore throat - Cardiovascular Cardiovascular: Denies chest pain, Denies shortness of breath - Respiratory Respiratory: Denies cough, Denies 7 - Gastrointestinal Gastrointestinal: Denies abdominal pain, Denies diarrhea, Denies nausea, Denies vomiting - Genitourinary (Female) Genitourinary: Denies dysuria, Denies hematuria - Musculoskeletal Comment: Patient has a full-thickness ulceration right second toe with the head of the proximal felt exposed. Musculoskeletal: Denies myalgias Past Medical History Past Medical History: Atrial Fibrillation, Heart Failure, CVA/TIA, Diabetes Mellitus, Hyperlipidemia, Hypertension, Osteoarthritis (OA), Pneumonia, Pneumonia, Prostate Disorder, Renal Disease Additional Past Medical History / Comment(s): Pt recently admitted to [facility] on 08/24/20 with UTI and pneumonia. Pt states a couple days ago he was in ER for tongue bleed/difficult to control. Other hx: IDDM type II, neuropathy bilateral legs/feet, chronic kidney disease stage III/has had temporary dialysis, anemia, pneumonia with sepsis, TIA, BPH. History of Any Multi-Drug Resistant Organisms: None Reported Past Surgical History: Cardiac Ablation, Heart Catheterization, Pacemaker, Pacemaker Additional Past Surgical History / Comment(s): SANDRA, cardiac ablations x2, pacemaker, L eye surgery for wandering eye, bilateral cataract removals, circumcism, colonoscopy Past Anesthesia/Blood Transfusion Reactions: No Reported Reaction Type of Cardiac Device: Permanent Pacemaker Device Placement Date:: 2012 Past Psychological History: Anxiety, Depression Smoking Status: Former smoker Past Alcohol Use History: None Reported Past Drug Use History: None Reported - Past Family History Mother Family Medical History: Vascular Disorder Additional Family Medical History / Comment(s): Mother had caratid artery disease. She lived to be 100 yrs old. Father Family Medical History: Myocardial Infarction ([place]) Additional Family Medical History / Comment(s): Father of a [place] at the age of 60yrs. Medications and Allergies Home Medications Medication Instructions Recorded Confirmed Type Tamsulosin HCl 0.4 mg PO DAILY 01/27/14 09/29/20 History Isosorbide Mononitrate [Imdur] 60 mg PO DAILY 05/30/14 09/29/20 History Nitroglycerin Sl Tabs [Nitrostat] 0.4 mg SL Q5M PRN 05/30/14 09/29/20 History allopurinoL [Zyloprim] 150 mg PO DAILY 08/04/15 09/29/20 History Aspirin EC [Ecotrin Low Dose] 81 mg PO DAILY 08/28/16 09/29/20 History calcitrioL [Rocaltrol] 0.25 mcg PO MOTUWETH 08/28/16 09/29/20 History DULoxetine HCL [Cymbalta] 60 mg PO BID 07/07/20 09/29/20 History Ergocalciferol (Vitamin D2) 1,250 mcg PO Q30D 07/07/20 09/29/20 History [Drisdol (50,000 Iu)] Ezetimibe [Zetia] 10 mg PO DAILY 07/07/20 09/29/20 History Ferrous Sulfate [Feosol] 325 mg PO DAILY 07/07/20 09/29/20 History Insulin NPH Human Isophane 20 units SQ AC-BRKFST 07/07/20 09/29/20 History [NovoLIN N] Metoprolol Succinate (ER) [Toprol 100 mg PO DAILY 07/07/20 09/29/20 History XL] Rosuvastatin Calcium [Crestor] 40 mg PO DAILY 07/07/20 09/29/20 History Cyclobenzaprine [Flexeril] 10 mg PO HS PRN #0 08/09/20 09/29/20 Rx Furosemide [Lasix] 20 mg PO DAILY 09/20/20 09/29/20 History Potassium Chloride ER [K-Dur 10] 10 meq PO DAILY 09/20/20 09/29/20 History Amoxicillin/Potassium Clav 1 tab PO BID 7 Days #14 tab 09/25/20 09/29/20 Rx [Augmentin 875-125 Tablet] Insulin NPH Human Isophane 10 units SQ AC-SUPPER 09/29/20 09/29/20 History [NovoLIN N] Warfarin [Coumadin] 2.5 mg PO TUTH 09/29/20 09/29/20 History Warfarin [Coumadin] 5 mg PO SUMOWEFRSA 09/29/20 09/29/20 History Allergies Allergy/AdvReac Type Severity Reaction Status Date / Time No Known Allergies Allergy Verified 09/29/20 16:10 Surgical - Exam Patient has a nonhealing wound with exposed bone of the right second toe neurovascular status to the digit is decreased but intact. Review of all radiographs show suspicion of possible osteomyelitis Assessment and Plan Assessment: Hammertoe right second with nonhealing ulceration Plan: After review of history and physical and discussions with patient will proceed with scheduled surgery is no counter indications procedures follow
[2020-12-29] MEDS ORDERED: KETAMINE 10 MG/ML 20 ML VIAL ONE (12:24)
[2020-12-29] MEDS ORDERED: ceFAZolin 1,000 MG VIAL ONE (12:24)
[2020-12-29] MEDS ORDERED: fentaNYL (PF) 50 MCG/ML 2 ML AMP ONE (12:24)
[2020-12-29] MEDS ORDERED: PROPOFOL 10 MG/ML 20 ML VIAL IV ONE (12:24)
[2020-12-29] MEDS ORDERED: SODIUM CHLORIDE 0.9% 100 ML BAG ONE (12:24)
[2020-12-29] MEDS ORDERED: MIDAZOLAM 2 MG/2 ML VIAL ONE (12:24)
[2020-12-29] MEDS ORDERED: LIDOCAINE 2% INJ 20 MG/ML SQ ONE (12:43)
[2020-12-29] MEDS ORDERED: HYDROmorphone 0.5 MG/0.5 ML SYRINGE IVP ONE (14:10)
[2020-12-29 14:18] VITALS: RESP 16
[2020-12-29 14:31] LABS: Glucose,Whole Blood 84 mg/dL (75-99)
[2020-12-29] MEDS ORDERED: hydrALAZINE HCL 20 MG/ML 1 ML VIAL ONE (14:31)
[2020-12-29] MEDS ORDERED: hydrALAZINE HCL 20 MG/ML 1 ML VIAL IV ONE (14:34)
[2020-12-29 14:50] VITALS: PULSE 60
[2020-12-29 15:04] VITALS: BP 146/94
--- NOTE | 2021-01-05 09:49 | P.OP ---
Date of Procedure: 12/29/20 Preoperative Diagnosis: Hammertoe with chronic ulceration right second Postoperative Diagnosis: Same Procedure(s) Performed: Arthroplasty with excision of lesion right second Anesthesia: local Estimated Blood Loss (ml): 10 Pathology: none sent Condition: stable Disposition: same day Indications for Procedure: Chronic nonhealing wound with possible infection Operative Findings: Consistent with clinical findings Description of Procedure: Patient presented to the OR right foot surgery having been nothing by mouth since previous midnight. All labs x-rays H&P consent reviewed and no counter indication of falls surgery was found. Patient brought to the OR placed on the articular supine position. His muscle were placed about the right ankle right tourniquet applied. The right foot was prepped and draped in the. Usual aseptic manner. Attention was then directed to the base of the second toe right foot where 6 mL of 2% Xylocaine plain were used to anesthetize the right second toe. Right foot was then elevated and use an Feliberto wrap exsanguinated for 3 minutes after which time the tourniquet was inflated to 250 filled mercury attention was then directed to the dorsal aspect right second toe at the proximal interphalangeal joint. Here too; typical incisions were made measuring approximately 3 cm in length with the ulcer at the proximal interphalangeal joint being intermediate within these incisions. The nurses were deepened through the skin and the skin and ulcer were excised in total and retained for pathological evaluation. The skin edges were then undermined and the incision was brought down to bone. The extensor tendon was retracted secondary to the chronic ulceration. It was unrepairable. Capsular tissue was then entered dorsally at the proximal interphalangeal joint and capsular tissue was reflected off the head of proximal phalanx on his dorsal medial plantar and lateral surfaces. The proximal phalanx head was then stabilized with a towel clamp and using a sagittal saw the head of the proximal phalanx was osteotomized from medial lateral at the surgical neck. The osseous bone was then removed from the second digit and placed on the back table. The wound was copiously lavaged with sterile saline solution. The forefoot was loaded and adequate surgical reduction clinical deformity was noted. 3-0 Vicryl sutures were used the to reapproximate the subcutaneous tissue. WE made to repair the extensor tendon were unsuccessful due to the retraction and degeneration of the tendon. Skin edges were reapproximated with mayuri. The wound was then dressed mildly compressive manner using Adaptic 4 x 4's 3 inch Justina and Kerlix. The ankle tourniquet was deflated and adequate vascular return was noted to reestablish itself to all areas of the right foot. Patient tolerated procedure and anesthesia well. Patient was monitored and then brought to the recovery room until stable and discharged with postop shoe weightbearing as well as postop instructions. Patient is to follow-up in the clinic next week Friday. Pathology specimens were sent consisting of the soft tissue and ulcer as well as the proximal phalanx to pathology. A tissue culture bone was also sent to biology analysis.
== END 2020-12-29 15:26 | disposition home or self-care (01) ==
LOC: OR 10:26
PROVIDERS: ATTEND Podiatrist
DX: M20.41 Other hammer toe(s) (acquired), right foot (principal); L97.512 Non-pressure chronic ulcer of other part of right foot with fat layer exposed; L03.031 Cellulitis of right toe; I80.3 Phlebitis and thrombophlebitis of lower extremities, unspecified; M86.8X7 Other osteomyelitis, ankle and foot; I48.91 Unspecified atrial fibrillation; I11.0 Hypertensive heart disease with heart failure; I13.0 Hypertensive heart and chronic kidney disease with heart failure and stage 1 through stage 4 chronic kidney disease, or unspecified chronic kidney disease; E11.22 Type 2 diabetes mellitus with diabetic chronic kidney disease; N18.30 Chronic kidney disease, stage 3 unspecified; I50.9 Heart failure, unspecified; I25.10 Atherosclerotic heart disease of native coronary artery without angina pectoris; E11.9 Type 2 diabetes mellitus without complications; Z98.890 Other specified postprocedural states; M19.90 Unspecified osteoarthritis, unspecified site; Z87.01 Personal history of pneumonia (recurrent); N40.0 Benign prostatic hyperplasia without lower urinary tract symptoms; Z86.73 Personal history of transient ischemic attack (TIA), and cerebral infarction without residual deficits; Z95.0 Presence of cardiac pacemaker; Z98.42 Cataract extraction status, left eye; Z98.41 Cataract extraction status, right eye; F41.9 Anxiety disorder, unspecified; F32.9 Major depressive disorder, single episode, unspecified; Z87.891 Personal history of nicotine dependence; Z82.49 Family history of ischemic heart disease and other diseases of the circulatory system; Z87.440 Personal history of urinary (tract) infections; E11.42 Type 2 diabetes mellitus with diabetic polyneuropathy; D64.9 Anemia, unspecified; Z79.01 Long term (current) use of anticoagulants; Z79.82 Long term (current) use of aspirin; Z79.4 Long term (current) use of insulin; Z79.899 Other long term (current) drug therapy
CPT/HCPCS: 88304; 88305; 88311; 87070; 87205; 87075; 28153; J2001; J2250; J0360; J0690; J3010; J2704; J1170

== ENCOUNTER 2021-02-08 16:23 | Inpatient (IN) | payer MEDICARE ==
--- NOTE | 2021-02-08 17:15 | ED ---
General Adult HPI - General Source: patient, RN notes reviewed, old records reviewed Mode of arrival: ambulatory Limitations: no limitations <Marcelino Molina - Last Filed: 02/08/21 23:28> <Aaron Booker - Last Filed: 02/09/21 02:16> - General Chief complaint: Psychiatric Symptoms Stated complaint: Mental health Time Seen by Provider: 02/08/21 16:49 - History of Present Illness Initial comments: 70-year-old male presented with police, under petition for psychiatric evaluation attempted suicide which occurred approximately 2 days ago. Patient states he has some issues with his family as well as his living situation and attempted suicide 2 days ago by hanging. He states he had a court appointment yesterday and his situation is somewhat turnaround. He is no longer feeling suicidal, no plan. No physical complaints. (Marcelino Molina) - Related Data Home Medications Medication Instructions Recorded Confirmed Tamsulosin HCl 0.4 mg PO DAILY 01/27/14 02/08/21 Isosorbide Mononitrate [Imdur] 60 mg PO DAILY 05/30/14 02/08/21 Nitroglycerin Sl Tabs [Nitrostat] 0.4 mg SL Q5M PRN 05/30/14 02/08/21 allopurinoL [Zyloprim] 150 mg PO DAILY 08/04/15 02/08/21 Aspirin EC [Ecotrin Low Dose] 81 mg PO DAILY 08/28/16 02/08/21 calcitrioL [Rocaltrol] 0.25 mcg PO MOTUWETH 08/28/16 02/08/21 DULoxetine HCL [Cymbalta] 60 mg PO BID 07/07/20 02/08/21 Ergocalciferol (Vitamin D2) 1,250 mcg PO Q30D 07/07/20 02/08/21 [Drisdol (50,000 Iu)] Ezetimibe [Zetia] 10 mg PO DAILY 07/07/20 02/08/21 Ferrous Sulfate [Feosol] 325 mg PO DAILY 07/07/20 02/08/21 Metoprolol Succinate (ER) [Toprol 100 mg PO DAILY 07/07/20 02/08/21 XL] Rosuvastatin Calcium [Crestor] 40 mg PO DAILY 07/07/20 02/08/21 Furosemide [Lasix] 40 mg PO DAILY 09/20/20 02/08/21 Potassium Chloride ER [K-Dur 10] 10 meq PO DAILY 09/20/20 02/08/21 Insulin NPH Human Isophane 10 units SQ AC-BID 09/29/20 02/08/21 [NovoLIN N] Warfarin [Coumadin] 2.5 mg PO PC-SUPPER 02/08/21 02/08/21 Previous Rx's Medication Instructions Recorded Cyclobenzaprine [Flexeril] 10 mg PO HS PRN #0 08/09/20 Allergies Allergy/AdvReac Type Severity Reaction Status Date / Time No Known Allergies Allergy Verified 02/08/21 17:55 Review of Systems ROS Other: All systems not noted in ROS Statement are negative. <Marcelino Molina - Last Filed: 02/08/21 23:28> ROS Other: All systems not noted in ROS Statement are negative. <Aaron Booker - Last Filed: 02/09/21 02:16> ROS Statement: Those systems with pertinent positive or pertinent negative responses have been documented in the HPI. Past Medical History Past Medical History: Atrial Fibrillation, Heart Failure, CVA/TIA, Diabetes Mellitus, Hyperlipidemia, Hypertension, Osteoarthritis (OA), Pneumonia, Pneumonia, Prostate Disorder, Renal Disease Additional Past Medical History / Comment(s): Pt recently admitted to [facility] on 08/24/20 with UTI and pneumonia. Pt states a couple days ago he was in ER for tongue bleed/difficult to control. Other hx: IDDM type II, neuropathy bilateral legs/feet, chronic kidney disease stage III/has had temporary dialysis, anemia, pneumonia with sepsis, TIA, BPH. History of Any Multi-Drug Resistant Organisms: None Reported Past Surgical History: Cardiac Ablation, Heart Catheterization, Pacemaker, Pacemaker Additional Past Surgical History / Comment(s): SANDRA, cardiac ablations x2, pacemaker, L eye surgery for wandering eye, bilateral cataract removals, circumcism, colonoscopy Past Anesthesia/Blood Transfusion Reactions: No Reported Reaction Type of Cardiac Device: Permanent Pacemaker, Unknown Device Placement Date:: 2012 Past Psychological History: Anxiety, Depression Smoking Status: Current every day smoker Past Alcohol Use History: None Reported Past Drug Use History: None Reported - Past Family History Mother Family Medical History: Vascular Disorder Additional Family Medical History / Comment(s): Mother had caratid artery disease. She lived to be 100 yrs old. Father Family Medical History: Myocardial Infarction ([place]) Additional Family Medical History / Comment(s): Father of a [place] at the age of 60yrs. <Marcelino Molina - Last Filed: 02/08/21 23:28> General Exam Limitations: no limitations General appearance: alert, in no apparent distress Head exam: Present: atraumatic, normocephalic Eye exam: Present: normal appearance Neck exam: Absent: tenderness (Patient has an abrasion to the anterior neck consistent with attempted hanging, no range of motion at her mellitus, no bruit, hematoma.Nostridor.) Respiratory exam: Present: normal lung sounds bilaterally. Absent: respiratory distress Cardiovascular Exam: Present: regular rate, normal rhythm GI/Abdominal exam: Present: soft. Absent: distended, tenderness Extremities exam: Present: normal capillary refill. Absent: pedal edema Psychiatric exam: Present: depressed, suicidal ideation Skin exam: Present: warm, dry, intact <Marcelino Molina - Last Filed: 02/08/21 23:28> Course <Marcelino Molina - Last Filed: 02/08/21 23:28> Vital Signs 02/08/21 16:29 Temperature 98.2 F Pulse Rate 83 Respiratory 20 Rate Blood Pressure 155/105 O2 Sat by Pulse 97 Oximetry - Reevaluation(s) Reevaluation #1: 02/08/21 17:13 Patient cleared for EPS eval (Marcelino Molina) Reevaluation #2: 02/08/21 23:28 Patient care signed out at shift change to Dr. Booker, awaiting EPS evaluation such (Marcelino Molina) Medical Decision Making <Aaron Booker - Last Filed: 02/09/21 02:16> - Medical Decision Making 70-year-old male to be admitted for psychiatric evaluation and treatment (Aaron Booker) - Lab Data Lab Results 02/08/21 Range/Units 16:49 Urine Opiates Screen Not Detected (NotDetected) Ur Oxycodone Screen Not Detected (NotDetected) Urine Methadone Screen Not Detected (NotDetected) Ur Propoxyphene Screen Not Detected (NotDetected) Ur Barbiturates Screen Not Detected (NotDetected) U Tricyclic Antidepress Not Detected (NotDetected) Ur Phencyclidine Scrn Not Detected (NotDetected) Ur Amphetamines Screen Not Detected (NotDetected) U Methamphetamines Scrn Not Detected (NotDetected) U Benzodiazepines Scrn Not Detected (NotDetected) Urine Cocaine Screen Not Detected (NotDetected) U Marijuana (THC) Screen Not Detected (NotDetected) Disposition <Marcelino Molina - Last Filed: 02/08/21 23:28> Is patient prescribed a controlled substance at d/c from ED?: No <Aaron Booker - Last Filed: 02/09/21 02:16> Clinical Impression: Depression, Suicidal ideation, Attempted suicide Disposition: TRANSFER TO PSYCH HOSP/UNIT Condition: Fair
[2021-02-08 17:36] LABS: Amphetamine Screen,Urine Not Detected (NotDetected); Barbiturate Screen,Urine Not Detected (NotDetected); Benzodiazepines Screen,Urine Not Detected (NotDetected); Cocaine Screen,Urine Not Detected (NotDetected); Methadone Screen, Urine Not Detected (NotDetected); Opiate Screen,Urine Not Detected (NotDetected); Oxycodone Screen, Urine Not Detected (NotDetected); Phencyclidine Screen,Urine Not Detected (NotDetected); Tricyclic Antidepressant,Urine Not Detected (NotDetected); Urn Cannabinoid Scrn Not Detected (NotDetected)
[2021-02-09] MEDS ORDERED: MAGNESIUM HYDROXIDE 2,400 MG/10 ML CUP PO PRN (02:01)
[2021-02-09] MEDS ORDERED: ACETAMINOPHEN TAB 325 MG TAB PO PRN (02:01)
[2021-02-09] MEDS ORDERED: MAG HYDROX/AL HYDROX/SIMETH 30 ML CUP PO PRN (02:01)
[2021-02-09] MEDS ORDERED: HALOPERIDOL LACTATE 5 MG/ML 1 ML VIAL IM PRN (02:05)
[2021-02-09 07:23] LABS: INR 1.3 (<1.2); Prothrombin Time 13.4 sec (9.0-12.0)
[2021-02-09 08:15] LABS: Glucose,Whole Blood 166 mg/dL (75-99)
[2021-02-09] MEDS: ASPIRIN 81 MG PO SCH (08:27)
[2021-02-09] MEDS: METOPROLOL SUCCINATE (ER) 100 MG TAB.ER.24H PO SCH (08:28)
[2021-02-09] MEDS: FERROUS SULFATE 325 MG TAB PO SCH (08:28)
[2021-02-09] MEDS: ATORVASTATIN 80 MG TAB PO SCH (08:28)
[2021-02-09] MEDS: POTASSIUM CHLORIDE ER 10 MEQ TAB.ER.PRT PO SCH (08:28)
[2021-02-09] MEDS: EZETIMIBE 10 MG TAB PO SCH (08:28)
[2021-02-09] MEDS: TAMSULOSIN 0.4 MG CAP.ER.24H PO SCH (08:28)
[2021-02-09] MEDS: ISOSORBIDE MONONITRATE ER 60 MG TAB.ER.24H PO SCH (08:28)
[2021-02-09] MEDS: FUROSEMIDE 40 MG TAB PO SCH (08:28)
[2021-02-09] MEDS: haloperidoL 1 MG TAB PO SCH ×2 (08:29→09:27)
[2021-02-09] MEDS: allopurinoL 100 MG TAB PO SCH (08:29)
[2021-02-09] MEDS: INSULIN ASPART (NovoLOG) 100 UNIT/ML VIAL SQ SCH ×4 (08:30→21:25)
[2021-02-09] MEDS: NICOTINE 7MG/24HR PATCH TRANSDERM SCH (08:34)
[2021-02-09] MEDS ORDERED: haloperidoL 1 MG TAB PO PRN (09:25)
[2021-02-09 13:13] LABS: Glucose,Whole Blood 156 mg/dL (75-99)
[2021-02-09] MEDS ORDERED: ARIPiprazole 2 MG TAB PO ONE (15:30)
[2021-02-09 17:54] LABS: Glucose,Whole Blood 128 mg/dL (75-99)
[2021-02-09] MEDS ORDERED: WARFARIN 5 MG TAB PO ONE (18:00)
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
[2021-02-09 20:07] LABS: Glucose,Whole Blood 184 mg/dL (75-99)
[2021-02-09] MEDS: DULoxetine HCL 60 MG CAPSULE.DR PO SCH (21:25)
[2021-02-09] MEDS: ARIPiprazole 2 MG TAB PO SCH (21:25)
--- NOTE | 2021-02-10 00:40 | P.CONS ---
History of Present Illness - Reason for Consult Consult date: 02/09/21 medical eval - Chief Complaint suicidal - History of Present Illness Holden Ortiz is a 70 yo M with PMH of atrial fibrillation, CKD, T2DM, major depression who was brought to the ED by police after a suicide attempt by hanging. He states this was related to his family situation and he recently got guardianship of his daughter and is feeling in a much more stable place today. He denies any physical complaint including chest pain, shortness of breath, weakness, fever or chills. Review of Systems All systems: negative Constitutional: Denies chills, Denies fever Eyes: denies blurred vision, denies pain Ears, nose, mouth and throat: Denies headache, Denies sore throat Cardiovascular: Denies chest pain, Denies shortness of breath Respiratory: Denies cough Gastrointestinal: Denies abdominal pain, Denies diarrhea, Denies nausea, Denies vomiting Musculoskeletal: Denies myalgias Integumentary: Denies pruritus, Denies rash Neurological: Denies numbness, Denies weakness Psychiatric: Reports as per HPI, Reports depression, Denies anxiety Endocrine: Denies fatigue, Denies weight change Past Medical History Past Medical History: Atrial Fibrillation, Heart Failure, CVA/TIA, Diabetes Mellitus, Hyperlipidemia, Hypertension, Osteoarthritis (OA), Pneumonia, Pneumonia, Prostate Disorder, Renal Disease Additional Past Medical History / Comment(s): Pt recently admitted to [facility] on 08/24/20 with UTI and pneumonia. Pt states a couple days ago he was in ER for tongue bleed/difficult to control. Other hx: IDDM type II, neuropathy bilateral legs/feet, chronic kidney disease stage III/has had temporary dialysis, anemia, pneumonia with sepsis, TIA, BPH. History of Any Multi-Drug Resistant Organisms: None Reported Past Surgical History: Cardiac Ablation, Heart Catheterization, Pacemaker, Pacemaker Additional Past Surgical History / Comment(s): SANDRA, cardiac ablations x2, pacemaker, L eye surgery for wandering eye, bilateral cataract removals, circumcism, colonoscopy Past Anesthesia/Blood Transfusion Reactions: No Reported Reaction Type of Cardiac Device: Permanent Pacemaker, Unknown Device Placement Date:: 2012 Past Psychological History: Anxiety, Depression Additional Psychological History / Comment(s): Pt states his spouse 07/2020. He now lives with his mentally handicapped daughter for whom he is legal guardian. Pt has a son who is also very helpful. Pt drives. He uses no assistive device. Smoking Status: Never smoker Past Alcohol Use History: None Reported Additional Past Alcohol Use History / Comment(s): Pt started smoking in 1968 and quit in 2012. Past Drug Use History: None Reported - Past Family History Mother Family Medical History: Vascular Disorder Additional Family Medical History / Comment(s): Mother had caratid artery disease. She lived to be 100 yrs old. Father Family Medical History: Myocardial Infarction ([place]) Additional Family Medical History / Comment(s): Father of a [place] at the age of 60yrs. Medications and Allergies Home Medications Medication Instructions Recorded Confirmed Type Tamsulosin HCl 0.4 mg PO DAILY 01/27/14 02/08/21 History Isosorbide Mononitrate [Imdur] 60 mg PO DAILY 05/30/14 02/08/21 History Nitroglycerin Sl Tabs [Nitrostat] 0.4 mg SL Q5M PRN 05/30/14 02/08/21 History allopurinoL [Zyloprim] 150 mg PO DAILY 08/04/15 02/08/21 History Aspirin EC [Ecotrin Low Dose] 81 mg PO DAILY 08/28/16 02/08/21 History calcitrioL [Rocaltrol] 0.25 mcg PO MOTUWETH 08/28/16 02/08/21 History DULoxetine HCL [Cymbalta] 60 mg PO BID 07/07/20 02/08/21 History Ergocalciferol (Vitamin D2) 1,250 mcg PO Q30D 07/07/20 02/08/21 History [Drisdol (50,000 Iu)] Ezetimibe [Zetia] 10 mg PO DAILY 07/07/20 02/08/21 History Ferrous Sulfate [Feosol] 325 mg PO DAILY 07/07/20 02/08/21 History Metoprolol Succinate (ER) [Toprol 100 mg PO DAILY 07/07/20 02/08/21 History XL] Rosuvastatin Calcium [Crestor] 40 mg PO DAILY 07/07/20 02/08/21 History Cyclobenzaprine [Flexeril] 10 mg PO HS PRN #0 08/09/20 02/08/21 Rx Furosemide [Lasix] 40 mg PO DAILY 09/20/20 02/08/21 History Potassium Chloride ER [K-Dur 10] 10 meq PO DAILY 09/20/20 02/08/21 History Insulin NPH Human Isophane 10 units SQ AC-BID 09/29/20 02/08/21 History [NovoLIN N] Warfarin [Coumadin] 2.5 mg PO PC-SUPPER 02/08/21 02/08/21 History Allergies Allergy/AdvReac Type Severity Reaction Status Date / Time No Known Allergies Allergy Verified 02/08/21 17:55 Physical Exam Vitals: Vital Signs Temp Pulse Pulse Resp BP Pulse Ox 02/09/21 08:19 70 145/94 02/09/21 06:13 98.1 F 70 18 142/87 98 General: well nourished, well developed, NAD. Vitals reviewed Eyes: PERRL, EOMI, conjunctiva normal HENT: normocephalic, mucus membranes moist Neck: supple, no JVD Lungs: normal respiratory effort, no wheezes or rales CV: Regular rate and rhythm, no murmur. Peripheral pulses 2+ Abdomen: soft, nondistended, no organomegaly Lymph: no cervical or axillary LAD Skin: warm and dry. Neuro: A&Ox3, normal mood and affect Results Labs: Abnormal Lab Results - Last 24 Hours (Table) 02/09/21 02/09/21 02/09/21 Range/Units 06:40 08:13 13:12 PT 13.4 H (9.0-12.0) sec INR 1.3 H (<1.2) POC Glucose (mg/dL) 166 H 156 H (75-99) mg/dL 02/09/21 02/09/21 Range/Units 17:51 20:05 PT (9.0-12.0) sec INR (<1.2) POC Glucose (mg/dL) 128 H 184 H (75-99) mg/dL Assessment and Plan Plan: 1. Suicidal ideation. Management per psychiatry 2. T2DM. Hold NPH insulin. Sliding scale 3. Atrial fibrillation. continue metoprolol, coumadin. Pharmacy to dose 4. CKD stage 3. Continue lasix 5. CAD. Continue imdur, lipitor
[2021-02-10 08:03] LABS: Glucose,Whole Blood 121 mg/dL (75-99)
[2021-02-10] MEDS: INSULIN ASPART (NovoLOG) 100 UNIT/ML VIAL SQ SCH ×4 (08:24→20:10)
[2021-02-10] MEDS: ISOSORBIDE MONONITRATE ER 60 MG TAB.ER.24H PO SCH (09:02)
[2021-02-10] MEDS: ASPIRIN 81 MG PO SCH (09:02)
[2021-02-10] MEDS: FERROUS SULFATE 325 MG TAB PO SCH (09:02)
[2021-02-10] MEDS: ARIPiprazole 2 MG TAB PO SCH ×2 (09:02→20:07)
[2021-02-10] MEDS: allopurinoL 100 MG TAB PO SCH (09:02)
[2021-02-10] MEDS: METOPROLOL SUCCINATE (ER) 100 MG TAB.ER.24H PO SCH (09:02)
[2021-02-10] MEDS: POTASSIUM CHLORIDE ER 10 MEQ TAB.ER.PRT PO SCH (09:02)
[2021-02-10] MEDS: EZETIMIBE 10 MG TAB PO SCH (09:02)
[2021-02-10] MEDS: FUROSEMIDE 40 MG TAB PO SCH (09:02)
[2021-02-10] MEDS: TAMSULOSIN 0.4 MG CAP.ER.24H PO SCH (09:02)
[2021-02-10] MEDS: DULoxetine HCL 60 MG CAPSULE.DR PO SCH ×2 (09:03→20:07)
[2021-02-10] MEDS: ATORVASTATIN 80 MG TAB PO SCH (09:03)
[2021-02-10] MEDS: NICOTINE 7MG/24HR PATCH TRANSDERM SCH (09:03)
[2021-02-10 12:34] LABS: Basophils % (A) 0 %; Eosinophils # (A) 0.1 k/uL (0-0.7); Eosinophils % (A) 1 %; HGB 14.4 gm/dL (13.0-17.5); Lymphocytes # (A) 1.2 k/uL (1.0-4.8); Lymphocytes % (A) 20 %; MCH 28.7 pg (25.0-35.0); MCHC 32.8 g/dL (31.0-37.0); MCV 87.5 fL (80.0-100.0); Mean Platelet Volume 9.5; Monocytes # (A) 0.5 k/uL (0-1.0); Monocytes % (A) 8 %; Neutrophils # (A) 4.3 k/uL (1.3-7.7); Neutrophils % (A) 70 %; Platelet Count 107 k/uL (150-450); RBC 5.03 m/uL (4.30-5.90); RDW 15.3 % (11.5-15.5); WBC 6.1 k/uL (3.8-10.6)
[2021-02-10 12:37] LABS: INR 1.1 (<1.2)
[2021-02-10 12:38] LABS: Prothrombin Time 11.8 sec (9.0-12.0)
[2021-02-10 12:57] LABS: Glucose,Whole Blood 252 mg/dL (75-99)
[2021-02-10 13:22] LABS: Potassium 3.8 mmol/L (3.5-5.1)
[2021-02-10 13:23] LABS: Albumin 4.3 g/dL (3.5-5.0); Calcium 9.4 mg/dL (8.4-10.2); Total Bilirubin 0.6 mg/dL (0.2-1.3); Total Protein 7.1 g/dL (6.3-8.2)
[2021-02-10 17:52] LABS: Glucose,Whole Blood 157 mg/dL (75-99)
[2021-02-10] MEDS ORDERED: WARFARIN 5 MG TAB PO ONE (18:00)
[2021-02-10] MEDS ORDERED: WARFARIN 2.5 MG TAB PO SCH (18:30)
[2021-02-10 18:37] LABS: Hemoglobin A1C 7.4 % (4.0-6.0)
[2021-02-10 20:10] LABS: Glucose,Whole Blood 198 mg/dL (75-99)
--- NOTE | 2021-02-10 22:00 | P.PN ---
Progress Note - Text Progress Note Date: 02/10/21 Subjective: Patient was seen today as a cross coverage for Dr. Haynes. The patient was evaluated, chart reviewed, case discussed with the treatment team. Patient reports better sleep last night but gets up research statistician, and appetite was reported as "much better today". Patient has been going to groups and other unit activities. The patient is compliant with his medications and denies any adverse reactions. Pt reports feeling better today, and he more active, socializing and interactive with peers. He still having bouts of depression but didn't feel hopeless and denies SI today. Reports keeping his mind busy is helping and requested discharge soon to take care of his daughter "I have mentally disabled daughter". Pt denies any hallucinations, PI or delusions. No manic symptoms reported or noticed. It was noticed that he had rope link around his neck related to recent suicidal attempt. Objective: Vitals has been reviewed. Mental status examination; Appearance: The patient appears stated age, adequately groomed and dressed, no specific features besides rope anastasia around his neck. Gait/posture: Normal gait, Normal arm swinging: No abnormal movements. Attitude and behavior: engaged, cooperative, fair eye contact. Motor activity: Normal psychomotor activity Speech: Normal rate, tone. Mood: Anxious, depressed Affect: Constricted Thought form: goal-directed, linear, coherent. Thought content: Non-delusional, denies suicidal thoughts, denies homicidal thoughts, denies intentions or plans. Perception: Denies any auditory or visual hallucinations Attention: No impairment. Orientation: Patient patient was fully oriented to time place person and situation. Insight: Patient has limited insight about his psychiatric disorder. Judgment: Patient has limited judgment about his psychiatric treatment. Assessment: Major depressive disorder, severe without psychotic features. Plan: Continue inpatient level of care due to need for further monitoring and stabilization. Precautions: Continue 15 minutes check for safety. Consider medical consultation if any acute medical issues arise. Provide the patient individual, group therapy, substance use disorder counseling to give better insight and learn coping skills. Medications: Abilify for mood stabilization and depression. Cymbalta for depression and anxiety symptoms. Continue as needed medications for psychiatric emergencies including psychosis, agitation and anxiety. Continue non-psychiatric medications for medical conditions as recommended by the medical team. Discharge patient to OUTPATIENT services upon a stabilization.
[2021-02-11 07:49] LABS: Glucose,Whole Blood 136 mg/dL (75-99)
[2021-02-11 07:52] LABS: INR 1.2 (<1.2); Prothrombin Time 12.3 sec (9.0-12.0)
[2021-02-11] MEDS: INSULIN ASPART (NovoLOG) 100 UNIT/ML VIAL SQ SCH ×4 (07:55→20:05)
[2021-02-11] MEDS: ATORVASTATIN 80 MG TAB PO SCH (07:56)
[2021-02-11] MEDS: EZETIMIBE 10 MG TAB PO SCH (07:56)
[2021-02-11] MEDS: ISOSORBIDE MONONITRATE ER 60 MG TAB.ER.24H PO SCH (07:56)
[2021-02-11] MEDS: ASPIRIN 81 MG PO SCH (07:56)
[2021-02-11] MEDS: FUROSEMIDE 40 MG TAB PO SCH (07:56)
[2021-02-11] MEDS: FERROUS SULFATE 325 MG TAB PO SCH (07:56)
[2021-02-11] MEDS: METOPROLOL SUCCINATE (ER) 100 MG TAB.ER.24H PO SCH (07:56)
[2021-02-11] MEDS: POTASSIUM CHLORIDE ER 10 MEQ TAB.ER.PRT PO SCH (07:56)
[2021-02-11] MEDS: allopurinoL 100 MG TAB PO SCH (07:56)
[2021-02-11] MEDS: TAMSULOSIN 0.4 MG CAP.ER.24H PO SCH (07:56)
[2021-02-11] MEDS: NICOTINE 7MG/24HR PATCH TRANSDERM SCH (07:57)
[2021-02-11] MEDS: ARIPiprazole 2 MG TAB PO SCH ×2 (07:57→20:04)
[2021-02-11] MEDS: DULoxetine HCL 60 MG CAPSULE.DR PO SCH ×2 (07:57→20:04)
[2021-02-11 12:53] LABS: Glucose,Whole Blood 160 mg/dL (75-99)
[2021-02-11 17:42] LABS: Glucose,Whole Blood 209 mg/dL (75-99)
[2021-02-11] MEDS ORDERED: WARFARIN 3 MG TAB PO ONE (18:00)
[2021-02-11 19:56] LABS: Glucose,Whole Blood 232 mg/dL (75-99)
--- NOTE | 2021-02-12 00:42 | P.PN ---
Progress Note - Text Progress Note Date: 02/11/21 Subjective: Patient was seen today as a cross coverage for Dr. Roe. The patient was evaluated, chart reviewed, case discussed with the treatment team. Patient reports feeling much better today and he greatly minimizes depression symptoms. He denies any suicidal ideation. Denies any hallucinations. Reports fair sleep for about 8 hours and very good appetite today. He feels it doesn't need to stay in the hospital because he had a lot of medical appointments next week and requested discharge. Patient was educated to discuss her discharge plan with the primary team. Objective: Vitals has been reviewed. Mental status examination; Appearance: The patient appears stated age, adequately groomed and dressed, no specific features besides rope anastasia around his neck. Gait/posture: Normal gait, Normal arm swinging: No abnormal movements. Attitude and behavior: engaged, cooperative, fair eye contact. Motor activity: Normal psychomotor activity Speech: Normal rate, tone. Mood: Anxious Affect: Constricted Thought form: goal-directed, linear, coherent. Thought content: Non-delusional, denies suicidal thoughts, denies homicidal thoughts, denies intentions or plans. Perception: Denies any auditory or visual hallucinations Attention: No impairment. Orientation: Patient patient was fully oriented to time place person and situation. Insight: Patient has limited insight about his psychiatric disorder. Judgment: Patient has limited judgment about his psychiatric treatment. Assessment: Major depressive disorder, severe without psychotic features. Plan: Continue inpatient level of care due to need for further monitoring and stabilization. Precautions: Continue 15 minutes check for safety. Consider medical consultation if any acute medical issues arise. Provide the patient individual, group therapy, substance use disorder counseling to give better insight and learn coping skills. Medications: Abilify for mood stabilization and depression. Cymbalta for depression and anxiety symptoms. Continue as needed medications for psychiatric emergencies including psychosis, agitation and anxiety. Continue non-psychiatric medications for medical conditions as recommended by the medical team. Discharge patient to OUTPATIENT services upon a stabilization.
[2021-02-12 07:58] LABS: INR 1.4 (<1.2); Prothrombin Time 14.3 sec (9.0-12.0)
[2021-02-12 08:04] LABS: Glucose,Whole Blood 149 mg/dL (75-99)
[2021-02-12] MEDS: ARIPiprazole 2 MG TAB PO SCH (08:24)
[2021-02-12] MEDS: DULoxetine HCL 60 MG CAPSULE.DR PO SCH ×2 (08:24→20:05)
[2021-02-12] MEDS: INSULIN ASPART (NovoLOG) 100 UNIT/ML VIAL SQ SCH ×4 (08:24→20:03)
[2021-02-12] MEDS: FERROUS SULFATE 325 MG TAB PO SCH (08:24)
[2021-02-12] MEDS: allopurinoL 100 MG TAB PO SCH (08:25)
[2021-02-12] MEDS: ASPIRIN 81 MG PO SCH (08:25)
[2021-02-12] MEDS: FUROSEMIDE 40 MG TAB PO SCH (08:26)
[2021-02-12] MEDS: EZETIMIBE 10 MG TAB PO SCH (08:26)
[2021-02-12] MEDS: ATORVASTATIN 80 MG TAB PO SCH (08:26)
[2021-02-12] MEDS: ISOSORBIDE MONONITRATE ER 60 MG TAB.ER.24H PO SCH (08:27)
[2021-02-12] MEDS: METOPROLOL SUCCINATE (ER) 100 MG TAB.ER.24H PO SCH (08:27)
[2021-02-12] MEDS: NICOTINE 7MG/24HR PATCH TRANSDERM SCH (08:33)
[2021-02-12] MEDS: POTASSIUM CHLORIDE ER 10 MEQ TAB.ER.PRT PO SCH (08:55)
[2021-02-12] MEDS: TAMSULOSIN 0.4 MG CAP.ER.24H PO SCH (08:55)
[2021-02-12 12:55] LABS: Glucose,Whole Blood 166 mg/dL (75-99)
--- NOTE | 2021-02-12 13:18 | P.PN ---
Progress Note - Text Progress Note Date: 02/12/21 Interval History: Patient was seen in his room and was directable and agreeable to speak with commercial underwriter in his room. The patient reports that he is feeling well. He is currently not reporting any suicidal homicidal ideation, intention, and/or plan. He does acknowledge that he was brought to the hospital because he felt overwhelmed and put a rope around his neck because he is feeling better. He reports that he has been having a difficult time since his in 2019. Currently, the patient appears to be fixated on discharge stating that he has jail money needs to collect this Friday. He is currently not reporting any auditory or visual hallucinations. He is not reporting any paranoia or other delusions. He has been adherent with his medications and is not reporting any significant side effects at this time. He denies any issues with sleep or appetite. Mental Status Exam: General Appearance: Patient appears to be slightly younger than stated age, is alert, directable, and cooperative. Behavior: Patient is calmly seated without any agitated behavior. Eye contact is appropriate. Psychomotor activity is normal. Speech: Patient's speech is fluent and nonpressured. Spontaneous. Mood/Affect: Mood is "doing well." Affect appears to be constricted otherwise euthymic. Suicidality/Homicidality: Patient is currently denying any suicidal or homicidal ideation, intention, and/or plan. Perceptions: The patient is currently not endorsing any auditory or visual hallucinations. Though content/process: There is no evidence of any delusional thought content and thought process is linear and goal-directed. Memory and concentration: AOX3, grossly intact for the purposes of this session Judgment and insight: Limited insight and judgment. Vital Signs Temp 97.0 F L 02/12/21 07:10 Pulse 74 02/12/21 07:10 Resp 18 02/12/21 07:10 BP 158/87 02/12/21 07:10 Pulse Ox 98 02/09/21 06:13 Intake & Output 02/11/21 02/12/21 02/12/21 18:59 06:59 18:59 Weight 82.1 kg Laboratory Results - Last 24 Hours 02/11/21 02/11/21 02/12/21 17:38 19:56 06:20 PT 14.3 H INR 1.4 H POC Glucose (mg/dL) 209 H 232 H POC Glu Nut Feeder ID Peggy Loredo RyneyamininanetteHermann heart 02/12/21 02/12/21 08:03 12:49 PT INR POC Glucose (mg/dL) 149 H 166 H POC Glu Nut Feeder ID Bry Luna Mariam Thomas Assessment: Major depressive disorder, recurrent, severe, without psychotic features Plan: -Patient continues to meet criteria for inpatient psychiatric admission for symptom stabilization and safety. Patient has signed adult voluntary form. -Medications: Increase Abilify to 5 mg by mouth daily for mood augmentation Continue Cymbalta 60 mg by mouth twice a day for depression -When necessary Ativan and [place] for agitation/aggression. -SW on board for discharge planning. Encouraged the patient to participate in milieu.
[2021-02-12 13:33] VITALS: RESP 16
[2021-02-12 17:59] LABS: Glucose,Whole Blood 143 mg/dL (75-99)
[2021-02-12] MEDS ORDERED: WARFARIN 7.5 MG TAB PO ONE (18:00)
[2021-02-12 20:01] LABS: Glucose,Whole Blood 245 mg/dL (75-99)
[2021-02-13 07:30] LABS: Prothrombin Time 19.9 sec (9.0-12.0)
[2021-02-13 07:43] LABS: Glucose,Whole Blood 148 mg/dL (75-99)
[2021-02-13] MEDS: allopurinoL 100 MG TAB PO SCH (07:57)
[2021-02-13] MEDS: ASPIRIN 81 MG PO SCH (07:57)
[2021-02-13] MEDS: FUROSEMIDE 40 MG TAB PO SCH (07:57)
[2021-02-13] MEDS: ISOSORBIDE MONONITRATE ER 60 MG TAB.ER.24H PO SCH (07:57)
[2021-02-13] MEDS: ARIPiprazole 5 MG TAB PO SCH (07:57)
[2021-02-13] MEDS: EZETIMIBE 10 MG TAB PO SCH (07:58)
[2021-02-13] MEDS: POTASSIUM CHLORIDE ER 10 MEQ TAB.ER.PRT PO SCH (07:58)
[2021-02-13] MEDS: METOPROLOL SUCCINATE (ER) 100 MG TAB.ER.24H PO SCH (07:58)
[2021-02-13] MEDS: ATORVASTATIN 80 MG TAB PO SCH (07:58)
[2021-02-13] MEDS: TAMSULOSIN 0.4 MG CAP.ER.24H PO SCH (07:58)
[2021-02-13] MEDS: FERROUS SULFATE 325 MG TAB PO SCH (07:58)
[2021-02-13] MEDS: INSULIN ASPART (NovoLOG) 100 UNIT/ML VIAL SQ SCH ×4 (07:59→21:02)
[2021-02-13] MEDS: DULoxetine HCL 60 MG CAPSULE.DR PO SCH ×2 (08:08→21:01)
[2021-02-13 12:42] LABS: Glucose,Whole Blood 144 mg/dL (75-99)
[2021-02-13 17:41] LABS: Glucose,Whole Blood 241 mg/dL (75-99)
[2021-02-13] MEDS ORDERED: WARFARIN 5 MG TAB PO ONE (18:00)
[2021-02-13 20:13] LABS: Glucose,Whole Blood 133 mg/dL (75-99)
[2021-02-14 07:03] LABS: INR 2.4 (<1.2); Prothrombin Time 22.9 sec (9.0-12.0)
[2021-02-14 07:04] VITALS: TEMP 97.6
[2021-02-14 08:08] LABS: Glucose,Whole Blood 136 mg/dL (75-99)
[2021-02-14] MEDS: INSULIN ASPART (NovoLOG) 100 UNIT/ML VIAL SQ SCH ×2 (08:11→13:05)
[2021-02-14] MEDS: ASPIRIN 81 MG PO SCH (08:12)
[2021-02-14] MEDS: ARIPiprazole 5 MG TAB PO SCH (08:12)
[2021-02-14] MEDS: ISOSORBIDE MONONITRATE ER 60 MG TAB.ER.24H PO SCH (08:12)
[2021-02-14] MEDS: ATORVASTATIN 80 MG TAB PO SCH (08:12)
[2021-02-14] MEDS: allopurinoL 100 MG TAB PO SCH (08:12)
[2021-02-14] MEDS: EZETIMIBE 10 MG TAB PO SCH (08:12)
[2021-02-14] MEDS: FUROSEMIDE 40 MG TAB PO SCH (08:12)
[2021-02-14] MEDS: TAMSULOSIN 0.4 MG CAP.ER.24H PO SCH (08:12)
[2021-02-14] MEDS: DULoxetine HCL 60 MG CAPSULE.DR PO SCH (08:12)
[2021-02-14] MEDS: METOPROLOL SUCCINATE (ER) 100 MG TAB.ER.24H PO SCH (08:12)
[2021-02-14] MEDS: POTASSIUM CHLORIDE ER 10 MEQ TAB.ER.PRT PO SCH (08:12)
[2021-02-14] MEDS: FERROUS SULFATE 325 MG TAB PO SCH (08:12)
[2021-02-14 10:01] VITALS: BP 122/80; PULSE 82
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
[2021-02-14 12:54] LABS: Glucose,Whole Blood 140 mg/dL (75-99)
[2021-02-14] MEDS ORDERED: WARFARIN 2.5 MG TAB PO ONE (18:00)
== END 2021-02-14 13:10 | disposition home or self-care (01) | DRG 885 ==
LOC: EC 16:23 → EEVIPCON 16:23 → 3MHU 02-09 01:56
PROVIDERS: ADMIT Psychiatry & Neurology Psychiatry; ATTEND Psychiatry & Neurology Psychiatry
DX: F33.2 Major depressive disorder, recurrent severe without psychotic features (principal); T71.162A Asphyxiation due to hanging, intentional self-harm, initial encounter; I13.0 Hypertensive heart and chronic kidney disease with heart failure and stage 1 through stage 4 chronic kidney disease, or unspecified chronic kidney disease; E11.22 Type 2 diabetes mellitus with diabetic chronic kidney disease; E11.41 Type 2 diabetes mellitus with diabetic mononeuropathy; E78.5 Hyperlipidemia, unspecified; F17.200 Nicotine dependence, unspecified, uncomplicated; F41.9 Anxiety disorder, unspecified; F43.21 Adjustment disorder with depressed mood; I25.10 Atherosclerotic heart disease of native coronary artery without angina pectoris; I48.91 Unspecified atrial fibrillation; I50.9 Heart failure, unspecified; N18.30 Chronic kidney disease, stage 3 unspecified; N40.0 Benign prostatic hyperplasia without lower urinary tract symptoms; Z60.9 Problem related to social environment, unspecified; Z79.01 Long term (current) use of anticoagulants; Z79.4 Long term (current) use of insulin; Z79.82 Long term (current) use of aspirin; Z79.899 Other long term (current) drug therapy; Z82.49 Family history of ischemic heart disease and other diseases of the circulatory system; Z86.73 Personal history of transient ischemic attack (TIA), and cerebral infarction without residual deficits; Z20.822 Contact with and (suspected) exposure to COVID-19
CPT/HCPCS: 80053; 80306; 82075; 83036; 84443; 85025; 85610; 87635; 99285

== ENCOUNTER → 2021-02-19 | Outpatient (CLI) | payer MEDICARE ==
[2021-02-19 13:14] LABS: Appearance,Urine Cloudy (Clear); Bilirubin,Urine Negative (Negative); Blood,Urine Negative (Negative); Color,Urine Yellow; Glucose,Urine (UA) 4+ (Negative); Ketones,Urine Negative (Negative); Leukocyte Esterase,Urine Negative (Negative); Mucus,Urine Rare /hpf; Nitrite,Urine Negative (Negative); Protein,Urine 1+ (Negative); RBC,Urine <1 /hpf (0-5); Specific Gravity,Urine 1.021 (1.001-1.035); Squamous Epithelial Cell,Urine 1 /hpf (0-4); Urobilinogen,Urine <2.0 mg/dL (<2.0); WBC,Urine 1 /hpf (0-5)
[2021-02-19 14:00] LABS: Protein/Creatinine Ratio,Urine 0.32
[2021-02-19 20:42] LABS: Basophils # (A) 0.02 X 10*3/uL (0.00-0.10); Basophils % (A) 0.4 %; Eosinophils # (A) 0.11 X 10*3/uL (0.04-0.35); Eosinophils % (A) 2.4 %; HCT 42.5 % (39.6-50.0); HGB 13.6 g/dL (13.0-17.0); Lymphocytes # (A) 1.39 X 10*3/uL (0.90-5.00); Lymphocytes % (A) 30.7 %; MCH 29.2 pg (27.0-32.0); MCV 91.2 fL (80.0-97.0); Mean Platelet Volume 12.4 fL (9.5-12.2); Monocytes # (A) 0.47 X 10*3/uL (0.20-1.00); Monocytes % (A) 10.4 %; Neutrophils # (A) 2.51 X 10*3/uL (1.80-7.70); Neutrophils % (A) 55.4 %; Platelet Count 111 X 10*3/uL (140-440); RBC 4.66 X 10*6/uL (4.40-5.60); RDW 15.1 % (11.5-14.5); WBC 4.53 X 10*3/uL (4.50-10.00)
[2021-02-19 22:06] LABS: % Iron Saturation 14.75 (15.00-50.00); African American GFR (CKD) 49.8 (60.0-200.0); Albumin 3.9 g/dL (3.80-4.90); BUN/Creat Ratio 13.13 Ratio (12.00-20.00); Calcium 8.6 mg/dL (8.7-10.3); Phosphorus 3.4 mg/dL (2.4-5.1); Potassium 3.8 mmol/L (3.5-5.5); Uric Acid 3.6 mg/dL (3.7-8.7)
[2021-02-19 22:14] LABS: Ferritin 63.2 ng/mL (22.0-322.0)
[2021-02-20 07:10] LABS: Creatinine,Urine Random 109.3 mg/dL
== END | disposition home or self-care (01) ==
LOC: LABWHC1 11:21
PROVIDERS: ATTEND Nurse Practitioner Family
DX: N18.32 Chronic kidney disease, stage 3b (principal); E55.9 Vitamin D deficiency, unspecified; N25.81 Secondary hyperparathyroidism of renal origin; M10.9 Gout, unspecified; N39.0 Urinary tract infection, site not specified; D64.9 Anemia, unspecified; R80.9 Proteinuria, unspecified
CPT/HCPCS: 36415; 80048; 81001; 82040; 82570; 82728; 83540; 83550; 83735; 83970; 84100; 84156; 84550; 85025

== ENCOUNTER → 2021-03-06 | Outpatient (CLI) | payer MEDICARE ==
--- NOTE | 2021-03-07 10:00 | P.ARTDOP ---
Arterial Doppler LOWER EXTREMITY ARTERIAL DOPPLER: DATE OF SERVICE: 03/06/2021 Reason for study: Diabetic ulcer right second toe. Doppler waveforms: Multiphasic bilaterally throughout. Pulse volume recording: []. Pressure gradients: None. Ankle-brachial indices: Greater than 1 bilaterally. Toe brachial indices: 0.93 on the right, 0.97 on the left Impression: Normal study.
== END | disposition home or self-care (01) ==
LOC: RADUSWWP 14:20
PROVIDERS: ATTEND Podiatrist
DX: L97.519 Non-pressure chronic ulcer of other part of right foot with unspecified severity (principal)
CPT/HCPCS: 93922

== ENCOUNTER → 2021-04-20 | Outpatient (CLI) | payer MEDICARE ==
--- NOTE | 2021-04-23 15:58 | CT ---
EXAMINATION TYPE: CT angio head DATE OF EXAM: 04/23/2021 COMPARISON: 02/29/2020 HISTORY: 70-year-old male I67.1 Hx Aneurysm. TECHNIQUE: Contiguous axial scanning of the head performed with IV Contrast, patient injected with 80 mL of Isovue 370. Coronal/sagittal MIP reconstructions performed. 3-D reconstructions generated on a dedicated independent workstation. CT DLP: 1016.6 mGycm Automated exposure control for dose reduction was used. FINDINGS: Early take off of the left posterior inferior cerebellar artery from below the V4 segment. Vertebral and basilar arteries are patent as is the remainder of the posterior circulation. 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 The internal carotid arteries and remainder of the anterior circulation is otherwise patent. 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 No additional aneurysmal changes seen. IMPRESSION: KNOWN RIGHT SIDED ACOM SACCULAR ANEURYSM IS MINIMALLY LARGER AT 6 MM VERSUS 5 MM, PREVIOUSLY.
== END | disposition home or self-care (01) ==
LOC: RADCTMAIN 14:02
PROVIDERS: ATTEND Psychiatry & Neurology Pain Medicine
DX: I67.1 Cerebral aneurysm, nonruptured (principal)
CPT/HCPCS: 82565; 84520; 70496; 36415; Q9967

== ENCOUNTER → 2021-04-23 | Outpatient (CLI) | payer MEDICARE | END | disposition home or self-care (01) | LOC: RADXRMAIN 14:18 | PROVIDERS: ATTEND Psychiatry & Neurology Pain Medicine | DX: Z53.9 Procedure and treatment not carried out, unspecified reason (principal) | CPT/HCPCS: 82565; 84520 ==

== ENCOUNTER 2021-07-20 14:25 | Emergency (ER) | payer MEDICARE ==
[2021-07-20 14:41] VITALS: BP 147/100; PULSE 70; RESP 20; TEMP 97.7
[2021-07-20] MEDS ORDERED: ACETAMINOPHEN TAB 325 MG TAB PO STA (15:26)
--- NOTE | 2021-07-20 15:33 | ED ---
General Adult HPI - General Chief complaint: Extremity Problem,Nontraumatic Stated complaint: possible blood clot Time Seen by Provider: 07/20/21 15:20 Source: patient, RN notes reviewed, old records reviewed Mode of arrival: ambulatory Limitations: no limitations - History of Present Illness Initial comments: Well-appearing 71-year-old gentleman presents to the emergency room with complaints of right calf pain. Patient was at his customer service professional's office and was told to come to the emergency room for evaluation for a blood clot in bilateral lower extremities. Patient states that he feels a tugging sensation in his right calf when he walks. It resolves with rest. He states that sometimes it makes it difficult for him to walk and he has needed a cane for the past couple of months. He denies any swelling or pain with flexion or extension however he does state that it is painful to palpation. He states the left leg is starting to have the same discomfort but not as bad. He does have a history of DM and atrial fibrillation and takes Coumadin. -: month(s) (2) Location: left, right, lower extremity (calf pain) Radiation: non-radiation Severity scale (1-10): 9 Quality: aching Consistency: intermittent Improves with: immobilization Worsens with: movement (ambulating) Associated Symptoms: denies other symptoms - Related Data Home Medications Medication Instructions Recorded Confirmed Tamsulosin HCl 0.4 mg PO DAILY 01/27/14 07/20/21 Isosorbide Mononitrate [Imdur] 60 mg PO DAILY 05/30/14 07/20/21 Nitroglycerin Sl Tabs [Nitrostat] 0.4 mg SL Q5M PRN 05/30/14 07/20/21 allopurinoL [Zyloprim] 150 mg PO DAILY 08/04/15 07/20/21 Aspirin EC [Ecotrin Low Dose] 81 mg PO DAILY 08/28/16 07/20/21 calcitrioL [Rocaltrol] 0.25 mcg PO MOTUWETH 08/28/16 07/20/21 Ergocalciferol (Vitamin D2) 1,250 mcg PO Q30D 07/07/20 07/20/21 [Drisdol (50,000 Iu)] Ezetimibe [Zetia] 10 mg PO DAILY 07/07/20 07/20/21 Ferrous Sulfate [Feosol] 325 mg PO DAILY 07/07/20 07/20/21 Metoprolol Succinate (ER) [Toprol 100 mg PO DAILY 07/07/20 07/20/21 XL] Rosuvastatin Calcium [Crestor] 40 mg PO DAILY 07/07/20 07/20/21 Furosemide [Lasix] 40 mg PO DAILY 09/20/20 07/20/21 Potassium Chloride ER [K-Dur 10] 10 meq PO DAILY 09/20/20 07/20/21 Insulin NPH Human Isophane 10 units SQ AC-BID 09/29/20 07/20/21 [NovoLIN N] Warfarin [Coumadin] 2.5 mg PO PC-SUPPER 02/08/21 07/20/21 Cephalexin [Keflex] 500 mg PO QID 07/20/21 07/20/21 Previous Rx's Medication Instructions Recorded Cyclobenzaprine [Flexeril] 10 mg PO HS PRN #0 08/09/20 ARIPiprazole [Abilify] 5 mg PO DAILY 30 Days tab 02/14/21 DULoxetine HCL [Cymbalta] 60 mg PO BID 30 Days capsule. 02/14/21 Allergies Allergy/AdvReac Type Severity Reaction Status Date / Time No Known Allergies Allergy Verified 07/20/21 17:20 Review of Systems ROS Statement: Those systems with pertinent positive or pertinent negative responses have been documented in the HPI. ROS Other: All systems not noted in ROS Statement are negative. Past Medical History Past Medical History: Atrial Fibrillation, Diabetes Mellitus, Pneumonia Additional Past Medical History / Comment(s): Pt recently admitted to [facility] on 08/24/20 with UTI and pneumonia. Pt states a couple days ago he was in ER for tongue bleed/difficult to control. Other hx: IDDM type II, neuropathy bilateral legs/feet, chronic kidney disease stage III/has had temporary dialysis, anemia, pneumonia with sepsis, TIA, BPH. History of Any Multi-Drug Resistant Organisms: None Reported Past Surgical History: Heart Catheterization, Pacemaker Additional Past Surgical History / Comment(s): HYPERTENSION Past Anesthesia/Blood Transfusion Reactions: No Reported Reaction Type of Cardiac Device: Permanent Pacemaker, Unknown Device Placement Date:: 2012 Past Psychological History: No Psychological Hx Reported, Depression Smoking Status: Former smoker Past Alcohol Use History: None Reported Past Drug Use History: None Reported - Past Family History Mother Family Medical History: Vascular Disorder Additional Family Medical History / Comment(s): Mother had caratid artery disease. She lived to be 100 yrs old. Father Family Medical History: Myocardial Infarction ([place]) Additional Family Medical History / Comment(s): Father of a CA at the age of 60yrs. General Exam Limitations: no limitations General appearance: alert, in no apparent distress Head exam: Present: atraumatic, normocephalic, normal inspection Eye exam: Present: normal appearance, EOMI ENT exam: Present: normal exam, normal oropharynx, mucous membranes moist Neck exam: Present: normal inspection, full ROM. Absent: tenderness, meningismus, lymphadenopathy, thyromegaly Respiratory exam: Present: normal lung sounds bilaterally. Absent: respiratory distress, wheezes, rales, rhonchi, stridor, chest wall tenderness, accessory muscle use Cardiovascular Exam: Present: regular rate, normal rhythm, normal heart sounds. Absent: systolic murmur, diastolic murmur, rubs, gallop, clicks, JVD GI/Abdominal exam: Present: soft, normal bowel sounds. Absent: distended, tenderness, guarding, rebound, rigid Extremities exam: Present: normal inspection, full ROM, normal capillary refill, calf tenderness (Right calf). Absent: pedal edema, joint swelling Left Knee exam: Present: full ROM. Absent: tenderness, swelling, erythema Lower Leg exam: Present: full ROM. Absent: tenderness, swelling, erythema, Homans' sign Ankle exam: Present: normal inspection. Absent: tenderness, swelling, erythema Neurovascular tendon exam: Present: no vascular compromise. Absent: abnormal cap refill, extremity cold to touch, pallor, foot drop Right Knee exam: Present: normal inspection, full ROM. Absent: tenderness, swelling, erythema Lower Leg exam: Present: normal inspection, full ROM, tenderness (calf). Absent: swelling, erythema, palpable cord, Homans' sign Ankle exam: Present: normal inspection. Absent: tenderness, swelling, erythema Neurovascular tendon exam: Present: no vascular compromise. Absent: abnormal cap refill, extremity cold to touch, pallor, foot drop Back exam: Present: normal inspection, full ROM. Absent: tenderness, CVA tenderness (R), CVA tenderness (L), rash noted Expanded Back exam: Absent: saddle anesthesia Back exam: Negative Straight Leg Raising: Left, Right Neurological exam: Present: alert, oriented X3 Expanded Patient oriented to: Present: person, place, time Speech: Present: fluid speech Cranial nerves: Tongue Deviation: Normal Cerebellar function: Heel to [place]: Normal Motor strength exam: RUE: 5, LUE: 5, RLE: 5, LLE: 5 Eye Response: (4) open spontaneously Motor Response: (6) obeys commands Verbal Response: (5) oriented Jose Total: 15 Psychiatric exam: Present: normal affect, normal mood Skin exam: Present: warm, dry, intact, normal color. Absent: rash, cyanosis, diaphoretic Course Vital Signs 07/20/21 14:36 Temperature 97.7 F Pulse Rate 70 Respiratory 20 Rate Blood Pressure 147/100 O2 Sat by Pulse 99 Oximetry Medical Decision Making - Medical Decision Making 71-year-old male presents to the emergency room sent by his customer service professional for rule out DVT bilaterally. Patient states he has right calf pain but denies any swelling. He states it is worse with palpation. He describes it as a tightness. He states that the left leg also has intermittent tightness in the calf as well. Ultrasound bilateral lower extremities negative for DVT. There is no evidence of erythema. Patient denies any chest pain, difficulty breathing, fevers, nausea, vomiting or diarrhea. He does have history of atrial fibrillation and is taking Coumadin. Patient was directed to follow up with his primary care doctor next week. This is likely musculoskeletal pain and patient instructed to take Tylenol which relieved his pain in the emergency room in addition to warm compresses and/or topical medications like tiger balm or Biofreeze. Follow-up with primary care doctor next week. Return to the em ergency room with a normal worsening symptoms. Case discussed with Dr. Sultana Disposition Clinical Impression: Musculoskeletal pain of lower extremity Disposition: HOME SELF-CARE Condition: Good Instructions (If sedation given, give patient instructions): Leg Pain (ED) Additional Instructions: Take 650 mg of Tylenol every 6 hours as needed for pain. You can use warm compresses and/or [id number] creams for pain relief. Follow-up with your primary care doctor next week. Return to the emergency room with any new or concerning symptoms of shortness of breath, increased pain, numbness or tingling. Is patient prescribed a controlled substance at d/c from ED?: No Referrals: Hermann Reid MD [Primary Care Provider] - 1-2 days Time of Disposition: 17:10
--- NOTE | 2021-07-20 16:35 | US ---
EXAMINATION TYPE: US venous doppler duplex LE BI DATE OF EXAM: 07/20/2021 4:21 PM COMPARISON: NONE CLINICAL HISTORY: 71-year-old male pain. SIDE PERFORMED: Bilateral TECHNIQUE: The lower extremity deep venous system is examined utilizing real time linear array sonog jan with graded compression, doppler sonography and color-flow sonography. FINDINGS: VESSELS IMAGED: Common Femoral Vein Deep Femoral Vein Greater Saphenous Vein * Femoral Vein Popliteal Vein Small Saphenous Vein * Proximal Calf Veins (* superficial vessels) Right Leg: Negative for DVT Left Leg: Negative for DVT IMPRESSION: No evidence for DVT within the bilateral lower extremities imaged from the groin to the upper calves.
== END 2021-07-20 17:25 | disposition home or self-care (01) ==
LOC: EC 14:25
DX: M79.661 Pain in right lower leg (principal); I12.9 Hypertensive chronic kidney disease with stage 1 through stage 4 chronic kidney disease, or unspecified chronic kidney disease; E11.22 Type 2 diabetes mellitus with diabetic chronic kidney disease; N18.30 Chronic kidney disease, stage 3 unspecified; F32.9 Major depressive disorder, single episode, unspecified; I48.91 Unspecified atrial fibrillation; Z79.82 Long term (current) use of aspirin; Z79.01 Long term (current) use of anticoagulants; Z79.4 Long term (current) use of insulin; Z87.440 Personal history of urinary (tract) infections; Z95.0 Presence of cardiac pacemaker; Z87.891 Personal history of nicotine dependence
CPT/HCPCS: 93970; 99283

== ENCOUNTER → 2021-08-03 | Outpatient (CLI) | payer MEDICARE ==
[2021-08-04 00:22] LABS: HCT 44.6 % (39.6-50.0); HGB 14.3 g/dL (13.0-17.0); MCH 28.4 pg (27.0-32.0); MCHC 32.1 g/dL (32.0-37.0); MCV 88.5 fL (80.0-97.0); Mean Platelet Volume 12.2 fL (9.5-12.2); Platelet Count 104 X 10*3/uL (140-440); RBC 5.04 X 10*6/uL (4.40-5.60); RDW 13.1 % (11.5-14.5); WBC 6.15 X 10*3/uL (4.50-10.00)
== END | disposition home or self-care (01) ==
LOC: LABWHC1 15:57
PROVIDERS: ATTEND Podiatrist
DX: M86.171 Other acute osteomyelitis, right ankle and foot (principal)
CPT/HCPCS: 36415; 85027

== ENCOUNTER → 2021-08-27 | Outpatient (CLI) | payer MEDICARE | END | disposition home or self-care (01) | LOC: EEVIPCON 07:00 → RADNMMAIN 07:10 | PROVIDERS: ATTEND Podiatrist | DX: Z53.9 Procedure and treatment not carried out, unspecified reason (principal) ==

== ENCOUNTER → 2021-09-13 | Outpatient (CLI) | payer MEDICARE ==
[2021-09-13 19:30] LABS: African American GFR (CKD) 58.2 (60.0-200.0); Albumin 4.1 g/dL (3.8-4.9); Albumin/Globulin Ratio 1.68 (1.60-3.17); Anion Gap 11.1 mmol/L (10.00-18.00); Calcium 8.9 mg/dL (8.7-10.3); Carbon Dioxide 26.4 mmol/L (20.0-27.5); Globulin 2.5 g/dL (1.6-3.3); HDL Cholesterol 36.3 mg/dL (40.00-60.00); Non-African American GFR(CKD) 50.2 (60.0-200.0); Potassium 4.2 mmol/L (3.5-5.5); Total Bilirubin 0.5 mg/dL (0.30-1.20); Total Protein 6.6 g/dL (6.2-8.2); Triglycerides 44.7 mg/dL (0.00-149.00)
[2021-09-13 19:52] LABS: Chol/HDL Ratio 1.9 Ratio
[2021-09-13 23:21] LABS: HCT 42.6 % (39.6-50.0); HGB 13.4 g/dL (13.0-17.0); MCH 28.5 pg (27.0-32.0); MCHC 31.5 g/dL (32.0-37.0); MCV 90.6 fL (80.0-97.0); Mean Platelet Volume 12.6 fL (9.5-12.2); Platelet Count 123 X 10*3/uL (140-440); RDW 13.2 % (11.5-14.5); WBC 5.19 X 10*3/uL (4.50-10.00)
== END | disposition home or self-care (01) ==
LOC: LABWHC1 11:54
PROVIDERS: ATTEND Physician Assistant
DX: E11.9 Type 2 diabetes mellitus without complications (principal); E78.5 Hyperlipidemia, unspecified
CPT/HCPCS: 36415; 80053; 80061; 83036; 83721; 84443; 85027

== ENCOUNTER → 2021-09-26 | Outpatient (CLI) | payer MEDICARE | END | disposition home or self-care (01) | LOC: RADNMMAIN 06:51 | PROVIDERS: ATTEND Podiatrist | DX: Z53.9 Procedure and treatment not carried out, unspecified reason (principal) ==

== ENCOUNTER → 2021-10-03 | Outpatient (CLI) | payer MEDICARE ==
--- NOTE | 2021-10-04 08:00 | NM ---
EXAMINATION TYPE: NM WBC limited DATE OF EXAM: 10/03/2021 COMPARISON: Correlation left foot radiograph 12/08/2020 HISTORY: 71-year-old male osteomyelitis. Left foot infection for one year. Antibiotics for 8 months. TECHNIQUE: Following administration of 11.0 mCi Tc99m Ceretec. Images of the distal bilateral lower extremities obtained 4 hours post injection. FINDINGS: No focal abnormal, asymmetric tracer accumulation is identified in the left foot. IMPRESSION: No scintigraphic abnormality in the left foot. The appearance is similar to the right side.
== END | disposition home or self-care (01) ==
LOC: RADNMMAIN 09:39
PROVIDERS: ATTEND Podiatrist
DX: M86.9 Osteomyelitis, unspecified (principal); L08.9 Local infection of the skin and subcutaneous tissue, unspecified
CPT/HCPCS: 78300; A9569

== ENCOUNTER → 2021-11-27 | Outpatient (CLI) | payer MEDICARE ==
[2021-11-27 11:30] LABS: Creatinine,Urine Random 118.7 mg/dL; Protein/Creatinine Ratio,Urine 0.404
[2021-11-27 14:24] LABS: Basophils # (A) 0.01 X 10*3/uL (0.00-0.10); Basophils % (A) 0.3 %; Eosinophils # (A) 0.08 X 10*3/uL (0.04-0.35); Eosinophils % (A) 2.1 %; HGB 14.3 g/dL (13.0-17.0); Immature Grans, Automated 0.3 %; Lymphocytes # (A) 1.26 X 10*3/uL (0.90-5.00); Lymphocytes % (A) 32.4 %; MCH 28.4 pg (27.0-32.0); MCHC 32.5 g/dL (32.0-37.0); MCV 87.3 fL (80.0-97.0); Mean Platelet Volume 11.7 fL (9.5-12.2); Monocytes # (A) 0.38 X 10*3/uL (0.20-1.00); Monocytes % (A) 9.8 %; NRBC Per 100 WBC 0 /100 WBCS (0.0-0.0); Neutrophils # (A) 2.15 X 10*3/uL (1.80-7.70); Neutrophils % (A) 55.1 %; Platelet Count 117 X 10*3/uL (140-440); RBC 5.04 X 10*6/uL (4.40-5.60); RDW 13.1 % (11.5-14.5); WBC 3.89 X 10*3/uL (4.50-10.00)
[2021-11-27 15:31] LABS: Albumin 4.3 g/dL (3.8-4.9)
[2021-11-27 16:14] LABS: Appearance,Urine Clear (Clear); Bilirubin,Urine Negative (Negative); Blood,Urine Negative (Negative); Color,Urine Yellow (Yellow); Ketones,Urine Negative (Negative); Leukocyte Esterase,Urine Negative (Negative); Nitrite,Urine Negative (Negative); Protein,Urine 30 (Negative); Specific Gravity,Urine 1.027 (1.001-1.030); Urobilinogen,Urine 0.2 (0.2,1.0)
[2021-11-27 16:18] LABS: % Iron Saturation 23.97 (15.00-50.00); African American GFR (CKD) 53.5 (60.0-200.0); Anion Gap 12.7 mmol/L (10.00-18.00); BUN/Creat Ratio 14.33 Ratio (12.00-20.00); Blood Urea Nitrogen 21.5 mg/dL (9.0-27.0); Carbon Dioxide 23.3 mmol/L (20.0-27.5); Magnesium 2.1 mg/dL (1.5-2.4); Non-African American GFR(CKD) 46.2 (60.0-200.0); Phosphorus 3.5 mg/dL (2.4-5.1); Potassium 3.8 mmol/L (3.5-5.5)
[2021-11-27 20:02] LABS: DNA Double-Stranded NEGATIVE (NEGATIVE)
[2021-11-28 14:10] LABS: C-ANCA <1:20 Titer (<1:20)
[2021-11-29 08:48] LABS: Free Lambda Lt Chain Qnt, Seru 2.85 mg/dL (0.57-2.63)
== END | disposition home or self-care (01) ==
LOC: LABWHC1 09:54
PROVIDERS: ATTEND Nurse Practitioner Family
DX: N18.32 Chronic kidney disease, stage 3b (principal); M10.9 Gout, unspecified; N39.0 Urinary tract infection, site not specified; D64.9 Anemia, unspecified; R80.9 Proteinuria, unspecified
CPT/HCPCS: 36415; 80048; 81001; 82040; 82306; 82570; 82728; 83516; 83540; 83550; 83735; 83883; 83970; 84100; 84156; 84550; 85025; 86038; 86039; 86160; 86162; 86225; 86255; 86334

== ENCOUNTER → 2021-12-17 | Outpatient (CLI) | payer MEDICARE ==
--- NOTE | 2021-12-18 16:24 | US ---
EXAMINATION TYPE: US kidneys/renal and bladder DATE OF EXAM: 12/17/2021 COMPARISON: CT, US CLINICAL HISTORY: N18.32 STAGE 3 CHR KIDNEY DISEASE. CKD EXAM MEASUREMENTS: Right Kidney: 10.3 x 5.6 x 4.9 cm Left Kidney: 10.6 x 5.1 x 4.9 cm Right Kidney: Anechoic areas seen. Largest seen superior pole: 5.7 x 5.9 x 5.9 cm. Hyperechoic focu s seen anteriorly: 0.5 x 0.5 x 0.3 cm. Left Kidney: Anechoic area seen with hyperechoic focus within seen medially: 1.7 x 1.8 x 1.7 cm. Hy poechoic area seen anteriorly: 1.0 x 1.1 x 0.9 cm. Bladder: Appears anechoic. Bilateral Jets seen: Yes IMPRESSION: Renal cystic changes.
== END | disposition home or self-care (01) ==
LOC: RADUSWWP 15:36
PROVIDERS: ATTEND Internal Medicine Nephrology
DX: N28.1 Cyst of kidney, acquired (principal)
CPT/HCPCS: 76770

== ENCOUNTER 2022-02-14 10:54 | Day surgery (SDC) | payer MEDICARE ==
[~2022-02-14 10:54] MED LIST changes: -LACTATED RINGERS 1,000 ML IV SCH; +SODIUM CHLORIDE 0.9% 1,000 ML IV SCH; +ceFAZolin 1 GM in SODIUM CHLORIDE 0.9% IRRIG BTL 250 ML IRRIGATION PRN
[2022-02-14 11:31] VITALS: RESP 18
[2022-02-14 11:33] LABS: Glucose,Whole Blood 153 mg/dL (70-110)
[2022-02-14 11:47] LABS: Basophils % (A) 1 %; Eosinophils # (A) 0.1 k/uL (0-0.7); Eosinophils % (A) 2 %; HCT 44.4 % (39.0-53.0); HGB 14.3 gm/dL (13.0-17.5); Lymphocytes # (A) 1.7 k/uL (1.0-4.8); Lymphocytes % (A) 26 %; MCH 28.6 pg (25.0-35.0); MCHC 32.1 g/dL (31.0-37.0); MCV 89.2 fL (80.0-100.0); Mean Platelet Volume 8.7; Monocytes # (A) 0.4 k/uL (0-1.0); Monocytes % (A) 7 %; Neutrophils # (A) 4.2 k/uL (1.3-7.7); Neutrophils % (A) 63 %; Platelet Count 103 k/uL (150-450); RBC 4.98 m/uL (4.30-5.90); RDW 13.5 % (11.5-15.5); WBC 6.7 k/uL (3.8-10.6)
[2022-02-14 11:50] LABS: INR 2.1 (<1.2); Prothrombin Time 20.9 sec (9.0-12.0)
[2022-02-14 11:53] LABS: Calcium 8.7 mg/dL (8.4-10.2); Potassium 4.3 mmol/L (3.5-5.1)
[2022-02-14] MEDS ORDERED: fentaNYL (PF) 50 MCG/ML 2 ML AMP ONE (14:02)
[2022-02-14] MEDS ORDERED: fentaNYL (PF) 50 MCG/ML 2 ML AMP IV ONE (14:17)
[2022-02-14] MEDS ORDERED: LIDOCAINE 1% INJ 10MG/ML (30 ML VIAL-PF) SQ ONE ×2 (14:18→14:49)
[2022-02-14] MEDS ORDERED: MIDAZOLAM 2 MG/2 ML VIAL IV ONE (14:51)
[2022-02-14] MEDS ORDERED: ACETAMINOPHEN IV (For NPO) 1,000 MG in EMPTY BAG 1 BAG IVPB ONE (15:34)
[2022-02-14] MEDS ORDERED: ACETAMINOPHEN TAB 325 MG TAB PO PRN (15:34)
--- NOTE | 2022-02-14 15:42 | P.PCN ---
Preoperative Diagnosis: Transvenous temporary pacing procedure Indication for the procedure: Severe underlying bradycardia Patient was brought to the EP lab in a fasting state. Written informed consent was obtained prior to the procedure. The right groin was prepped and draped as a protocol. A 6-[place] sheath was placed in the right femoral vein. Via this, a temporary pacing catheter was placed in the right ventricle. Thresholds were interrogated. Temporary pacing was performed through the rest of the procedure. At the end of the entire procedure, the TVP was removed. The sheath was removed and hemostasis was assured. Patient tolerated the procedure well without any acute complications. Procedure performed Transvenous temporary pacing Conscious sedation procedure Patient underwent EP procedure under conscious sedation/moderate sedation, monitoring of the level of consciousness and physiologic parameters including but not limited to vital signs and oxygenation. Patient tolerated the procedure well without any acute complications. Start time: 1416 Stop time: 153
--- NOTE | 2022-02-14 15:46 | P.EPPROC ---
- EP Procedure Note Electrophysiology Procedure Note: Procedure Dual-chamber pacing the generator change Diagnosis Hypertrophic cardio myopathy Persistent atrial fibrillation, refractory to therapy Status post chamber pacemaker and AV node ablation Device is now at HENNA Details Patient was brought to the EP lab in a fasting state. Written informed consent was obtained prior to the procedure. After placement of the TVP the left pectoral area was prepped and draped as a protocol IV antibiotics were administered. Local anesthesia provided An incision was made directly over the previous surgical site and carried down to the level of the generator The generator was explanted The leads were freed from the surrounding [place] Capsulectomy Was Performed. Hemostasis Was Assured Length Pocket Was Irrigated with Antibiotics Solution New Generator Was Implanted Tyrx pouch placed The wound was closed in 3 layers and dressed per protocol Result Successful dual-chamber pacemaker generator change Device programmed VVIR 60 - 130
[2022-02-14 17:26] VITALS: TEMP 98
[2022-02-14] MEDS ORDERED: WARFARIN 2.5 MG TAB PO SCH (18:00)
[2022-02-14 18:18] VITALS: BP 124/76; PULSE 66
== END 2022-02-14 19:49 | disposition home or self-care (01) ==
LOC: CATHEP 10:54 → 6NMEDSUR 15:54 → CATHEP 19:49
PROVIDERS: ATTEND Internal Medicine Clinical Cardiac Electrophysiology
DX: Z45.010 Encounter for checking and testing of cardiac pacemaker pulse generator [battery] (principal); I42.2 Other hypertrophic cardiomyopathy; I48.20 Chronic atrial fibrillation, unspecified; E11.22 Type 2 diabetes mellitus with diabetic chronic kidney disease; I13.0 Hypertensive heart and chronic kidney disease with heart failure and stage 1 through stage 4 chronic kidney disease, or unspecified chronic kidney disease; N18.9 Chronic kidney disease, unspecified; I50.32 Chronic diastolic (congestive) heart failure; F17.210 Nicotine dependence, cigarettes, uncomplicated; Z20.822 Contact with and (suspected) exposure to COVID-19; Z79.899 Other long term (current) drug therapy; Z79.82 Long term (current) use of aspirin; Z79.4 Long term (current) use of insulin; Z79.01 Long term (current) use of anticoagulants; Z82.49 Family history of ischemic heart disease and other diseases of the circulatory system
CPT/HCPCS: 33228; 80048; 85025; 85610; 87635; C1894; C1769 ×2; C1760; C1730; C1785; J2250; J0690 ×2; J2001; J3010; J0131

== ENCOUNTER → 2022-03-25 | Outpatient (CLI) | payer MEDICARE ==
[2022-03-25 18:17] LABS: ALT 58 U/L (10-49); AST 50 U/L (14-35); African American GFR (CKD) 58.7 (60.0-200.0); Albumin 4.1 g/dL (3.8-4.9); Albumin/Globulin Ratio 1.57 (1.60-3.17); Alkaline Phosphatase 84 U/L (41-126); BUN/Creat Ratio 14.53 Ratio (12.00-20.00); Blood Urea Nitrogen 20.2 mg/dL (9.0-27.0); Calcium 8.8 mg/dL (8.7-10.3); Carbon Dioxide 23.9 mmol/L (20.0-27.5); Chloride 109 mmol/L (96-109); Chol/HDL Ratio 2.14 Ratio; Globulin 2.6 g/dL (1.6-3.3); Glucose 148 mg/dL (70-110); LDL Cholesterol,Calculated 20.5 mg/dL (0.0-131.0); Non-African American GFR(CKD) 50.6 (60.0-200.0); Potassium 3.7 mmol/L (3.5-5.5); Sodium 142 mmol/L (135-145); Total Protein 6.6 g/dL (6.2-8.2); VLDL Calculation 11.76 mg/dL (5.00-40.00)
[2022-03-25 23:13] LABS: Urine Creatinine 84.3 mg/dL (39.0-259.0)
== END | disposition home or self-care (01) ==
LOC: LABWHC1 11:06
PROVIDERS: ATTEND Internal Medicine
DX: E11.65 Type 2 diabetes mellitus with hyperglycemia (principal)
CPT/HCPCS: 36415; 80053; 80061; 82043; 82570; 83036

== ENCOUNTER 2022-09-01 20:22 | Emergency (ER) | payer MEDICARE ==
[2022-09-01 20:54] VITALS: RESP 18; TEMP 97.9
[2022-09-01 21:54] LABS: Appearance,Urine Clear (Clear); Bilirubin,Urine Negative (Negative); Blood,Urine Trace (Negative); Color,Urine Yellow; Glucose,Urine (UA) 4+ (Negative); Hyaline Casts,Urine 1 /lpf (0-2); Ketones,Urine Negative (Negative); Leukocyte Esterase,Urine Negative (Negative); Mucus,Urine Rare /hpf; Nitrite,Urine Negative (Negative); PH, Urine 5.5 (5.0-8.0); Protein,Urine 1+ (Negative); RBC,Urine 1 /hpf (0-5); Specific Gravity,Urine 1.026 (1.001-1.035); Squamous Epithelial Cell,Urine <1 /hpf (0-4); Urobilinogen,Urine <2.0 mg/dL (<2.0); WBC,Urine 2 /hpf (0-5)
--- NOTE | 2022-09-01 22:52 | ED ---
Male Urogenital HPI - General Source: patient, family Mode of arrival: ambulatory <Alena Berry - Last Filed: 09/01/22 23:01> <Aaron Booker - Last Filed: 09/02/22 00:37> - General Chief complaint: Urogenital Stated complaint: Difficulty urinating Time Seen by Provider: 09/01/22 21:00 - History of Present Illness Initial comments: Patient is a 72-year-old male who presents to the emergency department with a chief complaint of difficulty urinating. Symptoms started about a week ago. Patient states he frequently tries to urinate but is only able to get a little bit out. During this time he has pain in the penis. Describes it as an aching. Patient feels that he has urine in his bladder. He denies fever, chills, abdominal pain, back pain, burning with urination, blood in the urine, penile discharge, nausea, vomiting. Patient does not have concern for sexual transmitted infections. He does not recall a history of urinary retention however he has a questionable historian. He cannot recall any issues with his prostate. (Alena Berry) - Related Data Home Medications Medication Instructions Recorded Confirmed Tamsulosin HCl 0.4 mg PO DAILY 01/27/14 02/14/22 Isosorbide Mononitrate [Imdur] 60 mg PO DAILY 05/30/14 02/14/22 Nitroglycerin Sl Tabs [Nitrostat] 0.4 mg SL Q5M PRN 05/30/14 02/14/22 allopurinoL [Zyloprim] 100 mg PO DAILY 08/04/15 02/14/22 Aspirin EC [Ecotrin Low Dose] 81 mg PO DAILY 08/28/16 02/14/22 calcitrioL [Rocaltrol] 0.25 mcg PO MOTUWETH 08/28/16 02/14/22 Ergocalciferol (Vitamin D2) 1,250 mcg PO Q15D 07/07/20 02/14/22 [Drisdol (50,000 Iu)] Ezetimibe [Zetia] 10 mg PO DAILY 07/07/20 02/14/22 Ferrous Sulfate [Feosol] 65 mg PO DAILY 07/07/20 02/14/22 Metoprolol Succinate (ER) [Toprol 100 mg PO DAILY 07/07/20 02/14/22 XL] Rosuvastatin Calcium [Crestor] 40 mg PO DAILY 07/07/20 02/14/22 Furosemide [Lasix] 20 mg PO DAILY 09/20/20 02/14/22 Potassium Chloride ER [K-Dur 10] 10 meq PO DAILY 09/20/20 02/14/22 Insulin NPH Human Isophane 15 units SQ AC-BID 09/29/20 02/14/22 [NovoLIN N] Warfarin [Coumadin] 2.5 mg PO PC-SUPPER 02/08/21 02/14/22 ARIPiprazole [Abilify] 5 mg PO HS 02/13/22 02/14/22 Cyclobenzaprine [Flexeril] 10 mg PO HS 02/13/22 02/14/22 Ubidecarenone [Co Q-10] 50 mcg PO DAILY 02/13/22 02/14/22 lisinopriL [Zestril] 20 mg PO DAILY 02/13/22 02/14/22 Previous Rx's Medication Instructions Recorded DULoxetine HCL [Cymbalta] 60 mg PO BID 30 Days capsule. 02/14/21 Allergies Allergy/AdvReac Type Severity Reaction Status Date / Time No Known Allergies Allergy Verified 09/01/22 20:54 Review of Systems ROS Other: All systems not noted in ROS Statement are negative. <Alena Berry - Last Filed: 09/01/22 23:01> ROS Other: All systems not noted in ROS Statement are negative. <Aaron Booker - Last Filed: 09/02/22 00:37> ROS Statement: Those systems with pertinent positive or pertinent negative responses have been documented in the HPI. Past Medical History Past Medical History: Atrial Fibrillation, CVA/TIA, Diabetes Mellitus, Hearing Disorder / Deafness, Osteoarthritis (OA), Pneumonia, Prostate Disorder, Renal Disease Additional Past Medical History / Comment(s): IDDM type II, neuropathy bilateral legs/feet, chronic kidney disease stage III/has had temporary dialysis in past but not currently, anemia, pneumonia with sepsis 2020, TIA yrs. ago-no residual effects, BPH, see Dr Baeza H & P History of Any Multi-Drug Resistant Organisms: None Reported Past Surgical History: Heart Catheterization, Orthopedic Surgery, Pacemaker Additional Past Surgical History / Comment(s): HYPERTENSION Past Anesthesia/Blood Transfusion Reactions: No Reported Reaction Type of Cardiac Device: Permanent Pacemaker Device Placement Date:: 2012 Past Psychological History: No Psychological Hx Reported, Depression Smoking Status: Former smoker Past Alcohol Use History: None Reported Past Drug Use History: None Reported - Past Family History Mother Family Medical History: Vascular Disorder Additional Family Medical History / Comment(s): Mother had caratid artery disease. She lived to be 100 yrs old. Father Family Medical History: Myocardial Infarction ([place]) Additional Family Medical History / Comment(s): Father of a [place] at the age of 60yrs. <KristiAlena - Last Filed: 09/01/22 23:01> Course <Porfirio Bookerophe Sumit - Last Filed: 09/02/22 00:37> Vital Signs 09/01/22 20:48 Temperature 97.9 F Pulse Rate 78 Respiratory 18 Rate Blood Pressure 123/84 O2 Sat by Pulse 98 Oximetry - Reevaluation(s) Reevaluation #5: 09/02/22 00:36 Was pt. sent in by a medical professional or institution? @ -[by , PA, [employer], urgent care, hospital, or assisted] Did you speak to anyone other than the patient for history? @ -[EMS, parent, family, police, friend?] Did you review nursing and triage notes? @ -[agree or disagree, why?] Were old charts reviewed? @ -[outside hosp., previous admissions, EMS record, old EKG, old radiological studies, urgent care reports/EKGs, assisted records?] Differential Diagnosis? @ -[chest pain, altered mental status abdominal pain women, abdominal pain men, vaginal bleeding, weakness, fever, dyspnea, syncope, headache, dizziness, GI bleed, back pain, seizure] EKG interpreted by me (3pts min.)? @ -[none] X-rays interpreted by me (1pt min.)? @ -[none] CT interpreted by me (1pt min.)? @ -[none] U/S interpreted by me (1pt. min.)? @ -[none] What testing was considered but not performed? (CT, X-rays, U/S, labs)? Why? @ [CT, X-rays, U/S, labs? Why?] What meds were considered but not given? Why? @ -[none] Did you discuss the management of the patient with other professionals? @ -[professionals i.e. Dr, PA, [employer], Lab, RT, Psych Nurse, Chrome Plater Helper, Assistant Health Educator, Teacher, Corporate Logistics Manager, casework supervisor? Give summary] Did you reconcile home meds? @ -[none] Was smoking cessation discussed for >3mins.? @ -[none] Was critical care preformed (if so, how long)? @ -[none] Were there social determinants of health that impacted care today? How? (Homele ssness, low income, unemployed, alcoholism, drug addiction, transportation, low edu. Level, literacy, decrease access to med. care, mcc, rehab)? @ -[Homelessness, low income, unemployed, alcoholism, drug addiction, transportation, low edu. Level, literacy, decrease access to med. care, mcc, rehab?] Was there de-escalation of care discussed even if they declined? (Discuss DNR or withdrawal of care, Hospice)? @ -[Discuss DNR or withdrawal of care, Hospice?] What co-morbidities impacted this encounter? (DM, HTN, Smoking, COPD, CAD, Cancer, CVA, Hep., AIDS, mental health diagnosis, sleep apnea, morbid obesity)? @ -[DM, HTN, Smoking, COPD, CAD, Cancer, CVA, Hep., AIDS, mental health diagnosis, sleep apnea, morbid obesity?] Was patient admitted / discharged? @ -[hospital course] Undiagnosed new problem with uncertain prognosis? @ -[none] Drug Therapy requiring intensive monitoring for toxicity (Heparin, Nitro, Insulin, Cardizem)? @ -[none] Were any procedures done? @ -[none] Diagnosis/symptom? @ -[default] Acute, or Chronic, or Acute on Chronic? @ -[default] Uncomplicated (without systemic symptoms) or Complicated (systemic symptoms)? @ -[default] Side effects of treatment? @ -[none] Exacerbation, Progression, or Severe Exacerbation] @ -[no] Poses a threat to life or bodily function? @ -[no] (Aaron Booker) Medical Decision Making - Lab Data Result diagrams: 09/01/22 23:04 09/01/22 23:04 <Aaron Booker - Last Filed: 09/02/22 00:37> - Lab Data Lab Results 09/01/22 09/01/22 09/01/22 Range/Units 21:48 23:04 23:04 WBC 5.8 (3.8-10.6) k/uL RBC 5.11 (4.30-5.90) m/uL Hgb 15.3 (13.0-17.5) gm/dL Hct 45.1 (39.0-53.0) % MCV 88.2 (80.0-100.0) fL MCH 29.9 (25.0-35.0) pg MCHC 33.9 (31.0-37.0) g/dL RDW 14.0 (11.5-15.5) % Plt Count 127 L (150-450) k/uL MPV 9.3 Neutrophils % 60 % Lymphocytes % 26 % Monocytes % 10 % Eosinophils % 1 % Basophils % 0 % Neutrophils # 3.5 (1.3-7.7) k/uL Lymphocytes # 1.5 (1.0-4.8) k/uL Monocytes # 0.6 (0-1.0) k/uL Eosinophils # 0.1 (0-0.7) k/uL Basophils # 0.0 (0-0.2) k/uL Sodium 140 (137-145) mmol/L Potassium 4.1 (3.5-5.1) mmol/L Chloride 105 (98-107) mmol/L Carbon Dioxide 27 (22-30) mmol/L Anion Gap 8 mmol/L BUN 17 (9-20) mg/dL Creatinine 1.28 H (0.66-1.25) mg/dL Est GFR (CKD-EPI)AfAm 64 (>60 ml/min/1.73 sqM) Est GFR (CKD-EPI)NonAf 56 (>60 ml/min/1.73 sqM) Glucose 101 H (74-99) mg/dL Calcium 8.9 (8.4-10.2) mg/dL Total Bilirubin 0.7 (0.2-1.3) mg/dL AST 65 H (17-59) U/L ALT 63 H (4-49) U/L Alkaline Phosphatase 69 (38-126) U/L Total Protein 6.8 (6.3-8.2) g/dL Albumin 4.0 (3.5-5.0) g/dL Urine Color Yellow Urine Appearance Clear (Clear) Urine pH 5.5 (5.0-8.0) Ur Specific [place] 1.026 (1.001-1.035) Urine Protein 1+ H (Negative) Urine Glucose (UA) 4+ H (Negative) Urine Ketones Negative (Negative) Urine Blood Trace H (Negative) Urine Nitrite Negative (Negative) Urine Bilirubin Negative (Negative) Urine Urobilinogen <2.0 (<2.0) mg/dL Ur Leukocyte Esterase Negative (Negative) Urine RBC 1 (0-5) /hpf Urine WBC 2 (0-5) /hpf Ur Squamous Epith Cells <1 (0-4) /hpf Hyaline Casts 1 (0-2) /lpf Urine Mucus Rare H (None) /hpf Disposition <Alena Berry - Last Filed: 09/01/22 23:01> Is patient prescribed a controlled substance at d/c from ED?: No Time of Disposition: 00:40 <Aaron Booker - Last Filed: 09/02/22 00:37> Clinical Impression: Pelvic pain Disposition: HOME SELF-CARE Condition: Good Instructions (If sedation given, give patient instructions): Pelvic Pain in Men (ED) Referrals: Hermann Reid MD [Primary Care Provider] - 1-2 days
--- NOTE | 2022-09-01 22:58 | US ---
EXAMINATION TYPE: US kidneys/renal and bladder DATE OF EXAM: 09/01/2022 COMPARISON: 12/17/2021 CLINICAL HISTORY: difficulty urinating. EXAM MEASUREMENTS: Right Kidney: 10.1 x 5.0 x 4.7 cm Left Kidney: 9.0 x 5.1 x 3.9 cm Right Kidney: Multiple cysts, largest 5.6 x 6.2 x 5.4cm Left Kidney: Mulitple small cysts, largest 1.5 x 1.4 x 1.2cm Bladder: wnl Bilateral Jets seen: Yes There is no evidence for hydronephrosis at this point in time. No nephrolithiasis is seen. No solid masses are identified. The urinary bladder is anechoic. Bilateral ureteral jets are seen. IMPRESSION: There are multiple bilateral renal cysts and larger on the right side. No evidence of solid renal mas s or obstruction. No evidence of bladder mass.
[2022-09-02 00:02] LABS: Basophils % (A) 0 %; Eosinophils # (A) 0.1 k/uL (0-0.7); Eosinophils % (A) 1 %; HCT 45.1 % (39.0-53.0); HGB 15.3 gm/dL (13.0-17.5); Lymphocytes # (A) 1.5 k/uL (1.0-4.8); Lymphocytes % (A) 26 %; MCH 29.9 pg (25.0-35.0); MCHC 33.9 g/dL (31.0-37.0); MCV 88.2 fL (80.0-100.0); Mean Platelet Volume 9.3; Monocytes # (A) 0.6 k/uL (0-1.0); Monocytes % (A) 10 %; Neutrophils # (A) 3.5 k/uL (1.3-7.7); Neutrophils % (A) 60 %; Platelet Count 127 k/uL (150-450); RBC 5.11 m/uL (4.30-5.90); WBC 5.8 k/uL (3.8-10.6)
[2022-09-02 00:17] LABS: Calcium 8.9 mg/dL (8.4-10.2); Potassium 4.1 mmol/L (3.5-5.1); Total Bilirubin 0.7 mg/dL (0.2-1.3); Total Protein 6.8 g/dL (6.3-8.2)
[2022-09-02 00:50] VITALS: BP 158/98; PULSE 60
== END 2022-09-02 00:49 | disposition home or self-care (01) ==
LOC: EC 20:22
DX: R10.2 Pelvic and perineal pain (principal); I48.91 Unspecified atrial fibrillation; Z86.73 Personal history of transient ischemic attack (TIA), and cerebral infarction without residual deficits; M19.90 Unspecified osteoarthritis, unspecified site; E11.22 Type 2 diabetes mellitus with diabetic chronic kidney disease; N18.30 Chronic kidney disease, stage 3 unspecified; Z87.891 Personal history of nicotine dependence; Z79.82 Long term (current) use of aspirin; Z79.4 Long term (current) use of insulin; Z79.02 Long term (current) use of antithrombotics/antiplatelets; Z79.899 Other long term (current) drug therapy
CPT/HCPCS: 36415; 51798; 76770; 80053; 81001; 85025; 99284

== ENCOUNTER → 2022-09-10 | Outpatient (CLI) | payer MEDICARE ==
[2022-09-10 18:31] LABS: Basophils # (A) 0.03 X 10*3/uL (0.00-0.10); Basophils % (A) 0.5 %; Eosinophils % (A) 1.7 %; HCT 48.3 % (39.6-50.0); Immature Grans, Automated 0.2 %; Lymphocytes # (A) 1.55 X 10*3/uL (0.90-5.00); Lymphocytes % (A) 25.9 %; MCH 28.2 pg (27.0-32.0); MCHC 31.1 g/dL (32.0-37.0); MCV 90.8 fL (80.0-97.0); Mean Platelet Volume 12.3 fL (9.5-12.2); Monocytes # (A) 0.55 X 10*3/uL (0.20-1.00); Monocytes % (A) 9.2 %; NRBC Per 100 WBC 0 /100 WBCS (0.0-0.0); Neutrophils # (A) 3.75 X 10*3/uL (1.80-7.70); Neutrophils % (A) 62.5 %; Platelet Count 105 X 10*3/uL (140-440); RBC 5.32 X 10*6/uL (4.40-5.60); RDW 13.8 % (11.5-14.5); WBC 5.99 X 10*3/uL (4.50-10.00)
[2022-09-10 20:00] LABS: % Iron Saturation 29.01 (15.00-50.00); African American GFR (CKD) 68.2 (60.0-200.0); Anion Gap 13.7 mmol/L (10.00-18.00); BUN/Creat Ratio 13.61 Ratio (12.00-20.00); Blood Urea Nitrogen 16.6 mg/dL (9.0-27.0); Calcium 9.6 mg/dL (8.7-10.3); Carbon Dioxide 24.8 mmol/L (20.0-27.5); Magnesium 2.1 mg/dL (1.5-2.4); Non-African American GFR(CKD) 58.9 (60.0-200.0); Phosphorus 3.4 mg/dL (2.4-5.1); Potassium 4.5 mmol/L (3.5-5.5); Uric Acid 3.5 mg/dL (3.7-8.7)
[2022-09-10 20:01] LABS: Albumin 4.5 g/dL (3.8-4.9)
[2022-09-10 21:11] LABS: Appearance,Urine Clear (Clear); Bilirubin,Urine Negative (Negative); Blood,Urine Negative (Negative); Color,Urine Yellow (Yellow); Ketones,Urine Negative (Negative); Nitrite,Urine Negative (Negative); Specific Gravity,Urine 1.022 (1.001-1.030)
[2022-09-10 22:50] LABS: Urine Creatinine 50.8 mg/dL (39.0-259.0)
== END | disposition home or self-care (01) ==
LOC: LABWHC1 12:21
PROVIDERS: ATTEND Nurse Practitioner Family
DX: N18.32 Chronic kidney disease, stage 3b (principal); D63.1 Anemia in chronic kidney disease; E55.9 Vitamin D deficiency, unspecified; E21.3 Hyperparathyroidism, unspecified; M10.9 Gout, unspecified; N39.0 Urinary tract infection, site not specified; R80.9 Proteinuria, unspecified
CPT/HCPCS: 36415; 80048; 81001; 82040; 82043; 82306; 82570; 82728; 83540; 83550; 83735; 83970; 84100; 84550; 85025

== ENCOUNTER → 2023-10-03 | Outpatient (CLI) | payer MEDICARE ==
[2023-10-03 21:03] LABS: HCT 43.8 % (39.6-50.0); HGB 14.2 g/dL (13.0-17.0); MCHC 32.4 g/dL (32.0-37.0); MCV 89.4 FL (80.0-97.0); Mean Platelet Volume 12.4 FL (9.5-12.2); NRBC Per 100 WBC 0 X 10*3/uL (0.00-0.01); Platelet Count 90 X 10*3/uL (140-440); WBC 4.63 X 10*3/uL (4.50-10.00)
[2023-10-03 21:41] LABS: ALT 122 U/L (10-49); AST 85 U/L (14-35); Albumin 4.2 g/dL (3.8-4.9); Albumin/Globulin Ratio 1.91 Ratio (1.60-3.17); Alkaline Phosphatase 64 U/L (41-126); BUN/Creat Ratio 13.85 Ratio (12.00-20.00); Calcium 9.6 mg/dL (8.7-10.3); Carbon Dioxide 21.9 mmol/L (21.6-31.8); Chloride 107 mmol/L (96-109); Chol/HDL Ratio 1.76 Ratio; Globulin 2.2 g/dL (1.6-3.3); Glucose 108 mg/dL (70-110); LDL Cholesterol,Calculated 10.6 mg/dL (0.0-131.0); Potassium 4.4 mmol/L (3.5-5.5); Sodium 143 mmol/L (135-145); Total Bilirubin 0.6 mg/dL (0.3-1.2); Total Protein 6.4 g/dL (6.2-8.2); VLDL Calculation 15.26 mg/dL (5.00-40.00)
== END | disposition home or self-care (01) ==
LOC: LABWHC1 13:50
PROVIDERS: ATTEND Family Medicine
DX: I10 Essential (primary) hypertension (principal); E11.69 Type 2 diabetes mellitus with other specified complication; I25.10 Atherosclerotic heart disease of native coronary artery without angina pectoris; F33.1 Major depressive disorder, recurrent, moderate
CPT/HCPCS: 36415; 80053; 80061; 83036; 84443; 85027

== ENCOUNTER → 2023-11-25 | Outpatient (CLI) | payer MEDICARE ==
[2023-11-25 15:49] LABS: Basophils # (A) 0.02 X 10*3/uL (0.00-0.10); Basophils % (A) 0.5 %; Eosinophils # (A) 0.06 X 10*3/uL (0.04-0.35); Eosinophils % (A) 1.4 %; HGB 14.4 g/dL (13.0-17.0); Lymphocytes # (A) 1.33 X 10*3/uL (0.90-5.00); Lymphocytes % (A) 30.2 %; MCH 29.8 pg (27.0-32.0); MCHC 32.7 g/dL (32.0-37.0); MCV 91.1 FL (80.0-97.0); Monocytes # (A) 0.49 X 10*3/uL (0.20-1.00); Monocytes % (A) 11.1 %; NRBC Per 100 WBC 0 X 10*3/uL (0.00-0.01); Neutrophils # (A) 2.49 X 10*3/uL (1.80-7.70); Neutrophils % (A) 56.6 %; Platelet Count 92 X 10*3/uL (140-440); RBC 4.83 X 10*6/uL (4.40-5.60); RDW 13.6 % (11.5-14.5)
[2023-11-25 16:12] LABS: % Iron Saturation 27.05 (15.00-50.00); BUN/Creat Ratio 17.64 Ratio (12.00-20.00); Blood Urea Nitrogen 24.7 mg/dL (9.0-27.0); Chloride 106 mmol/L (96-109); Glucose 116 mg/dL (70-110); Iron 89 UG/DL (65-175); Magnesium 1.7 mg/dL (1.5-2.4); Phosphorus 2.7 mg/dL (2.4-5.1); Potassium 4.2 mmol/L (3.5-5.5); Sodium 143 mmol/L (135-145); Total Iron Binding Capacity 329 UG/DL (228-460); Uric Acid 5.2 mg/dL (3.7-8.7)
[2023-11-25 16:13] LABS: Albumin 4.4 g/dL (3.8-4.9); Calcium 9.6 mg/dL (8.7-10.3); Carbon Dioxide 23.4 mmol/L (21.6-31.8)
[2023-11-25 22:52] LABS: Appearance,Urine Clear (Clear); Bilirubin,Urine Negative (Negative); Blood,Urine Negative (Negative); Color,Urine Yellow (Yellow); Ketones,Urine Trace (Negative); Nitrite,Urine Negative (Negative); Specific Gravity,Urine 1.033 (1.001-1.030); Urobilinogen,Urine 0.2
== END | disposition home or self-care (01) ==
LOC: LABWHC1 10:33
DX: E55.9 Vitamin D deficiency, unspecified (principal); N25.81 Secondary hyperparathyroidism of renal origin; M10.9 Gout, unspecified; N39.0 Urinary tract infection, site not specified; N18.32 Chronic kidney disease, stage 3b; D63.1 Anemia in chronic kidney disease; R80.9 Proteinuria, unspecified
CPT/HCPCS: 36415; 80048; 81003; 82040; 82043; 82306; 82570; 82728; 83540; 83550; 83735; 83970; 84100; 84550; 85025

== ENCOUNTER → 2024-04-12 | Outpatient (CLI) | payer MEDICARE | END | disposition home or self-care (01) | LOC: LABWHC1 15:18 | PROVIDERS: ATTEND Registered Nurse Oncology | DX: Z71.3 Dietary counseling and surveillance (principal) | CPT/HCPCS: 36415; 82607; 82746; 86038; 86147; 86704; 86706; 86709; 86803 ==

== ENCOUNTER → 2024-06-15 | Outpatient (CLI) | payer MEDICARE ==
[2024-06-15 19:02] LABS: Urine Creatinine 38.8 mg/dL (39.0-259.0)
[2024-06-15 19:21] LABS: % Iron Saturation 24.11 (15.00-50.00); Albumin 4.7 g/dL (3.8-4.9); BUN/Creat Ratio 24.23 Ratio (12.00-20.00); Blood Urea Nitrogen 31.5 mg/dL (9.0-27.0); Calcium 9.5 mg/dL (8.7-10.3); Carbon Dioxide 24.6 mmol/L (21.6-31.8); Chloride 104 mmol/L (96-109); Glucose 130 mg/dL (70-110); Iron 88 UG/DL (65-175); Magnesium 2.1 mg/dL (1.5-2.4); Potassium 4.4 mmol/L (3.5-5.5); Sodium 141 mmol/L (135-145); Total Iron Binding Capacity 365 UG/DL (228-460); Uric Acid 4.9 mg/dL (3.7-8.7)
[2024-06-15 19:43] LABS: Appearance,Urine Clear (Clear); Bilirubin,Urine Negative (Negative); Blood,Urine Negative (Negative); Color,Urine Yellow (Yellow); Ketones,Urine Negative (Negative); Nitrite,Urine Negative (Negative); Specific Gravity,Urine 1.015 (1.001-1.030); Urobilinogen,Urine 0.2 E.U./DL
[2024-06-15 20:06] LABS: Basophils # (A) 0.03 X 10*3/uL (0.00-0.10); Basophils % (A) 0.5 %; Eosinophils # (A) 0.09 X 10*3/uL (0.04-0.35); Eosinophils % (A) 1.6 %; HCT 47.5 % (39.6-50.0); HGB 15.2 g/dL (13.0-17.0); Lymphocytes # (A) 1.83 X 10*3/uL (0.90-5.00); Lymphocytes % (A) 32.9 %; MCV 90.5 FL (80.0-97.0); Mean Platelet Volume 12.5 FL (9.5-12.2); Monocytes # (A) 0.48 X 10*3/uL (0.20-1.00); Monocytes % (A) 8.6 %; NRBC Per 100 WBC 0 X 10*3/uL (0.00-0.01); Neutrophils # (A) 3.13 X 10*3/uL (1.80-7.70); Neutrophils % (A) 56.2 %; Platelet Count 107 X 10*3/uL (140-440); RBC 5.25 X 10*6/uL (4.40-5.60); RDW 14.6 % (11.5-14.5); WBC 5.57 X 10*3/uL (4.50-10.00)
== END | disposition home or self-care (01) ==
LOC: LABWHC1 12:07
PROVIDERS: ATTEND Internal Medicine Nephrology
CPT/HCPCS: 36415; 80048; 81003; 82040; 82043; 82306; 82570; 82728; 83540; 83550; 83735; 83970; 84100; 84550; 85025

== ENCOUNTER → 2024-09-13 | Outpatient (CLI) | payer MEDICARE ==
[2024-09-13 16:47] LABS: HCT 45.5 % (39.6-50.0); HGB 14.7 g/dL (13.0-17.0); MCH 29.1 pg (27.0-32.0); MCHC 32.3 g/dL (32.0-37.0); MCV 90.1 FL (80.0-97.0); Mean Platelet Volume 11.1 FL (9.5-12.2); NRBC Per 100 WBC 0 X 10*3/uL (0.00-0.01); Platelet Count 97 X 10*3/uL (140-440); RBC 5.05 X 10*6/uL (4.40-5.60); RDW 13.1 % (11.5-14.5); WBC 5.22 X 10*3/uL (4.50-10.00)
[2024-09-13 18:17] LABS: Chol/HDL Ratio 1.82 Ratio
[2024-09-13 18:18] LABS: ALT 21 U/L (10-49); AST 27 U/L (14-35); Albumin 4.4 g/dL (3.8-4.9); Albumin/Globulin Ratio 1.69 Ratio (1.60-3.17); Alkaline Phosphatase 75 U/L (41-126); BUN/Creat Ratio 20.73 Ratio (12.00-20.00); Blood Urea Nitrogen 31.1 mg/dL (9.0-27.0); Calcium 9.4 mg/dL (8.7-10.3); Carbon Dioxide 23.7 mmol/L (21.6-31.8); Chloride 106 mmol/L (96-109); Globulin 2.6 g/dL (1.6-3.3); Glucose 119 mg/dL (70-110); Potassium 4.4 mmol/L (3.5-5.5); Sodium 141 mmol/L (135-145); Total Bilirubin 0.6 mg/dL (0.3-1.2)
== END | disposition home or self-care (01) ==
LOC: LABWHC1 12:30
PROVIDERS: ATTEND Physician Assistant
DX: Z00.00 Encounter for general adult medical examination without abnormal findings (principal); E66.3 Overweight; N40.0 Benign prostatic hyperplasia without lower urinary tract symptoms; M10.9 Gout, unspecified; D69.6 Thrombocytopenia, unspecified; G47.33 Obstructive sleep apnea (adult) (pediatric); E78.5 Hyperlipidemia, unspecified
CPT/HCPCS: 36415; 80053; 80061; 83036; 84153; 84443; 85027

== ENCOUNTER → 2024-12-03 | Outpatient (CLI) | payer MEDICARE ==
[2024-12-03 16:30] LABS: Appearance,Urine Clear (Clear); Bilirubin,Urine Negative (Negative); Blood,Urine Negative (Negative); Color,Urine Yellow (Yellow); Ketones,Urine Negative (Negative); Nitrite,Urine Negative (Negative); Specific Gravity,Urine 1.021 (1.001-1.030); Urobilinogen,Urine 0.2 E.U./DL
[2024-12-03 16:34] LABS: INR 1.98 sec (0.93-1.11); Prothrombin Time 21.5 sec (9.9-11.9)
[2024-12-03 16:36] LABS: Basophils # (A) 0.02 X 10*3/uL (0.00-0.10); Basophils % (A) 0.5 %; Eosinophils # (A) 0.08 X 10*3/uL (0.04-0.35); Eosinophils % (A) 1.8 %; HCT 43.4 % (39.6-50.0); HGB 14.3 g/dL (13.0-17.0); Lymphocytes % (A) 33.9 %; MCHC 32.9 g/dL (32.0-37.0); Mean Platelet Volume 10.9 FL (9.5-12.2); Monocytes # (A) 0.44 X 10*3/uL (0.20-1.00); NRBC Per 100 WBC 0 X 10*3/uL (0.00-0.01); Neutrophils # (A) 2.37 X 10*3/uL (1.80-7.70); Neutrophils % (A) 53.6 %; Platelet Count 116 X 10*3/uL (140-440); RBC 4.77 X 10*6/uL (4.40-5.60); RDW 13.6 % (11.5-14.5); WBC 4.42 X 10*3/uL (4.50-10.00)
[2024-12-03 17:19] LABS: % Iron Saturation 22.67 (15.00-50.00); ALT 59 U/L (10-49); AST 59 U/L (14-35); Albumin 4.1 g/dL (3.8-4.9); Albumin/Globulin Ratio 1.71 Ratio (1.60-3.17); Alkaline Phosphatase 74 U/L (41-126); BUN/Creat Ratio 23.77 Ratio (12.00-20.00); Blood Urea Nitrogen 30.9 mg/dL (9.0-27.0); Carbon Dioxide 24.5 mmol/L (21.6-31.8); Chloride 107 mmol/L (96-109); Chol/HDL Ratio 1.96 Ratio; Ferritin 58.2 ng/mL (22.0-322.0); Globulin 2.4 g/dL (1.6-3.3); Glucose 137 mg/dL (70-110); Iron 73 UG/DL (65-175); LDL Cholesterol,Calculated 23.8 mg/dL (0.0-131.0); Phosphorus 3.6 mg/dL (2.4-5.1); Potassium 4.2 mmol/L (3.5-5.5); Prostate Specific Antigen 0.32 ng/mL (0.000-6.500); Sodium 144 mmol/L (135-145); Total Bilirubin 0.5 mg/dL (0.3-1.2); Total Iron Binding Capacity 322 UG/DL (228-460); Total Protein 6.5 g/dL (6.2-8.2); Uric Acid 4.5 mg/dL (3.7-8.7); VLDL Calculation 13.38 mg/dL (5.00-40.00)
== END | disposition home or self-care (01) ==
LOC: LABWHC1 09:47
PROVIDERS: ATTEND Nurse Practitioner Family
DX: E11.42 Type 2 diabetes mellitus with diabetic polyneuropathy (principal); N18.32 Chronic kidney disease, stage 3b; E11.22 Type 2 diabetes mellitus with diabetic chronic kidney disease; I50.32 Chronic diastolic (congestive) heart failure; I42.9 Cardiomyopathy, unspecified; I25.10 Atherosclerotic heart disease of native coronary artery without angina pectoris
CPT/HCPCS: 36415; 80053; 80061; 81003; 82043; 82306; 82570; 82728; 83036; 83540; 83550; 83735; 83970; 84100; 84153; 84443; 84550; 85025; 85610